=== PATIENT | female | born 1960 | race Caucasian/White ===

== ENCOUNTER 2017-01-21 14:26 | Outpatient (CLI) | payer BC ==
--- NOTE | 2017-01-21 16:01 | XRAY Report ---
THREE VIEW BILATERAL KNEES: 01/21/2017 CLINICAL INDICATION: Bilateral knee pain. FINDINGS: AP, lateral, and sunrise views of the bilateral knees demonstrate mild left osteoarthritis . The right joint spaces are preserved. There is a moderate left effusion present. No right effusion is seen. There is no evidence of fracture or dislocation. No radiopaque foreign body is seen in the s oft tissues. IMPRESSION: MILD LEFT KNEE OSTEOARTHRITIS, WITH A MODERATE JOINT EFFUSION. NORMAL RIGHT KNEE. JOB #: [id number] EXT JOB #:[id number]
== END 2017-01-21 14:27 | disposition home or self-care (01) ==
LOC: DI 14:26
PROVIDERS: ATTEND Nurse Practitioner Family
DX: M17.12 Unilateral primary osteoarthritis, left knee (principal)

== ENCOUNTER 2017-11-05 16:13 | Emergency (ER) | payer BC ==
[2017-11-05] MEDS ORDERED: AMOX/CLAV 875 MG/125 MG TABLET PO STA (16:15)
--- NOTE | 2017-11-05 16:16 | ED Physician Documentation ---
PD HPI ANIMAL BITE - Stated complaint Stated Complaint: CAT BITE - History obtained from History obtained from: Patient - History of Present Illness Location of injury(ies): Other (Her dog was barking at something and she went outside and there was a cat that jumped out of her and bit her on the right ear/ R hand. 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 HEENT: None Psych: Panic attacks Musculoskeletal: None Derm: None - Past Surgical History Past Surgical History: Yes /ELIGIBILITY CONSULTANT: Other - Present Medications Home Medications: Ambulatory Orders Medication Instructions Recorded Confirmed traZODone [Desyrel] 75 mg PO QPM 06/26/14 05/04/17 Vitamin B Complex Vit C No.4 1 tab PO DAILY 07/10/14 05/04/17 [Super B Complex] [place]-3 Fatty Acids/Fish Oil 1 cap ORAL DAILY 08/28/14 05/04/17 [[place] 3 1,000 mg Softgel] Citalopram [CeleXA] 10 mg PO DAILY 05/13/16 05/04/17 Bupropion HCl [Bupropion Xl] 300 mg PO DAILY 05/15/16 05/04/17 SUMAtriptan succinate [Sumatriptan 100 mg PO DAILY PRN 05/15/16 05/04/17 Succinate] Acetaminophen [Tylenol] 650 mg PO Q4HR PRN #0 tablet 05/17/16 05/04/17 Vitamin [Trinatal Rx 1] 1 tab PO DAILYWM tablet 05/17/16 05/04/17 SUMAtriptan [Imitrex] 100 mg PO Q4HR PRN #0 tablet 05/17/16 05/04/17 buPROPion [Wellbutrin Xl] 300 mg PO DAILY tablet 05/17/16 05/04/17 Meloxicam 15 mg PO DAILY 08/04/16 05/04/17 Exemestane 25 mg PO DAILY 03/22/17 05/04/17 Amox/Clav 875/125 [Augmentin] 1 each PO Q12H #14 tablet 11/05/17 - Allergies Allergies/Adverse Reactions: Allergies Allergy/AdvReac Type Severity Reaction Status Date / Time diphenhydramine HCl * AdvReac Mild Hyperactive Verified 05/14/16 23:17 [From Benadryl] - Social History Does the pt smoke?: No Smoking Status: Never smoker Does the pt drink ETOH?: Yes Does the pt have substance abuse?: No - Immunizations Immunizations are current?: Yes - POLST Patient has POLST: No PD ED PE NORMAL - Vitals Vital signs reviewed: Yes - General General: Alert and oriented X 3, No acute distress - HEENT HEENT: PERRL, EOMI, Other (There is a puncture wound of the right ear, posteriorly without active signs of infection.) - Neck Neck: Supple, no meningeal sign, No bony TTP - Extremities Extremities: Other (She has some puncture wounds on the dorsum of the right hand , no limited range of motion or bony tenderness.) - Neuro Neuro: Alert and oriented X 3, Normal speech Results - Vitals Vitals: Vital Signs - 24 hr 11/05/17 16:20 Temperature 36.7 C Heart Rate 96 Respiratory 15 Rate Blood Pressure 135/83 H O2 Saturation 97 Oxygen O2 Source Room air Departure - Departure Disposition: 01 Home, Self Care Clinical Impression: Cat bite Qualifiers: Encounter type: initial encounter Qualified Code(s): W55.01XA - Bitten by cat, initial encounter Condition: Good Record reviewed to determine appropriate education?: Yes Instructions: ED Bite Animal General Prescriptions: Amox/Clav 875/125 [Augmentin] 1 each PO Q12H #14 tablet Comments: Come back for any signs of infection which would include: Redness, swelling, drainage, increased pain, or fevers. Discharge Date/Time: 11/05/17 16:24
[2017-11-05 16:22] VITALS: BP 135/83
== END 2017-11-05 16:24 | disposition home or self-care (01) ==
LOC: ED 16:13
DX: S00.471A Other superficial bite of right ear, initial encounter (principal); S60.571A Other superficial bite of hand of right hand, initial encounter; W55.01XA Bitten by cat, initial encounter; I10 Essential (primary) hypertension; I48.91 Unspecified atrial fibrillation
CPT/HCPCS: 99283; A9270

== ENCOUNTER 2017-12-30 12:46 | Outpatient (CLI) | payer BC ==
--- NOTE | 2017-12-30 17:41 | XRAY Report ---
PELVIS AND BILATERAL HIPS: 12/30/2017 HISTORY: Pain. TECHNIQUE: An AP view of the pelvis and lateral view of each hip is obtained. FINDINGS: The hip joints are well maintained. No fracture or malalignment. Sacroiliac joints unremarkable. Minimal degenerative change lower lumbar spine. Multiple surgical clips lower abdomen and pelvis. IMPRESSION: NEGATIVE PELVIS AND BILATERAL HIPS. AN OBVIOUS EXPLANATION FOR HIP PAIN IS NOT SEEN. TD: 12/30/2017 16:10
== END 2017-12-30 12:47 | disposition home or self-care (01) ==
LOC: DI 12:46
PROVIDERS: ATTEND Nurse Practitioner Family
DX: M25.551 Pain in right hip (principal); M25.552 Pain in left hip; M70.71 Other bursitis of hip, right hip; M70.72 Other bursitis of hip, left hip
CPT/HCPCS: 73521

== ENCOUNTER 2021-01-27 12:58 | Emergency (ER) | payer BC, OTHER ==
[2021-01-27] MEDS ORDERED: HYDROmorphone 1 MG/ML CARPUJECT IM STA (13:16)
[2021-01-27] MEDS ORDERED: KETOROLAC 15 MG/ML VIAL IM STA (13:16)
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
[2021-01-27 14:08] VITALS: BP 143/110
== END 2021-01-27 14:19 | disposition home or self-care (01) ==
LOC: ED 12:58
DX: S29.011A Strain of muscle and tendon of front wall of thorax, initial encounter (principal); X50.0XXA Overexertion from strenuous movement or load, initial encounter; Y93.89 Activity, other specified; I10 Essential (primary) hypertension
CPT/HCPCS: 96372; 99283; 99284; J1170

== ENCOUNTER 2021-04-22 12:56 | Outpatient (CLI) | payer OTHER ==
--- NOTE | 2021-04-22 16:33 | XRAY Report ---
PROCEDURE: Knee 3 View BILAT INDICATIONS: BILAT PRIM OSTEOARTHRITIS OF KNEE TECHNIQUE: 3 views of the right and left knee(s) were acquired. COMPARISON: None. FINDINGS: Bones: No fractures or dislocations. No suspicious bony lesions. Ieoa-jz-cetevtfn osteoarthritic de generative changes noted in all compartments of the right and left knees. Soft tissues: Trace left knee suprapatellar joint effusion. No suspicious soft tissue calcifications. IMPRESSION: 1. Iofr-rl-npxggsry bilateral knee tricompartmental osteoarthritis. 2. Trace nonspecific left knee joint effusion. Reviewed by: Elisa Crain MD, PhD on 04/22/2021 4:32 PM PDT Approved by: Elisa Crain MD, PhD on 04/22/2021 4:32 PM PDT Station ID: [id number]
== END 2021-04-22 12:57 | disposition home or self-care (01) ==
LOC: DI 12:56
PROVIDERS: ATTEND Registered Nurse
DX: M17.0 Bilateral primary osteoarthritis of knee (principal); M25.462 Effusion, left knee

== ENCOUNTER 2021-05-24 10:26 | Outpatient (CLI) | payer OTHER | END 2021-05-24 10:27 | disposition critical access hospital (66) | LOC: EMS 10:26 | DX: R56.9 Unspecified convulsions (principal); Z72.89 Other problems related to lifestyle; Z63.5 Disruption of family by separation and divorce | CPT/HCPCS: A0425; A0429 ==

== ENCOUNTER 2021-05-24 10:39 | Emergency (ER) | payer OTHER ==
--- NOTE | 2021-05-24 10:46 | ED Physician Documentation ---
History of Present Illness - Stated complaint Stated Complaint: ETOH WITHDRAWL - History obtained from History obtained from: Patient, Family - Additonal information Additional information: 60-year-old woman brought in by ambulance for apparent alcohol withdrawal seizure. Per the EMT-P family states she has been drinking heavily for the last few weeks related to a divorce. Patient does not know when her last drink was. Reportedly family had gone over to check on her today and heard her fall in the bathroom and found her to have a tonic-clonic seizure. Patient bit her tongue, and complains of some chest pain. No other complaints. She does not feel shaky or anxious right now. 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 : None HEENT: None Psych: Panic attacks Musculoskeletal: None Derm: None - Past Surgical History Past Surgical History: Yes /TISSUE TECHNICIAN: Other - Present Medications Home Medications: Ambulatory Orders Medication Instructions Recorded Confirmed traZODone [Desyrel] 75 mg PO QPM 06/26/14 07/05/18 Vitamin B Complex Vit C No.4 1 tab PO DAILY 07/10/14 07/05/18 [Super B Complex] [place]-3 Fatty Acids/Fish Oil 1 cap ORAL DAILY 08/28/14 07/05/18 [[place] 3 1,000 mg Softgel] Bupropion HCl [Bupropion Xl] 300 mg PO DAILY 05/15/16 07/05/18 SUMAtriptan succinate [Sumatriptan 100 mg PO DAILY PRN 05/15/16 07/05/18 Succinate] Acetaminophen [Tylenol] 650 mg PO Q4HR PRN #0 tablet 05/17/16 07/05/18 Vitamin [Trinatal Rx 1] 1 tab PO DAILYWM tablet 05/17/16 07/05/18 SUMAtriptan [Imitrex] 100 mg PO Q4HR PRN #0 tablet 05/17/16 07/05/18 buPROPion [Wellbutrin Xl] 300 mg PO DAILY tablet 05/17/16 07/05/18 Meloxicam 15 mg PO DAILY 08/04/16 07/05/18 Exemestane 25 mg PO DAILY 90 Days #90 tablet 04/22/18 Letrozole 2.5 mg PO DAILY #30 tablet 12/06/18 Oxycodone HCl/Acetaminophen 1 - 2 each PO Q6H PRN #14 tablet 01/27/21 [Percocet 5-325 mg Tablet] - Allergies Allergies/Adverse Reactions: Allergies Allergy/AdvReac Type Severity Reaction Status Date / Time diphenhydramine HCl * AdvReac Mild Hyperactive Verified 05/24/21 10:49 [From Benadryl] - Social History Does the pt smoke?: No Smoking Status: Never smoker Does the pt drink ETOH?: Yes Does the pt have substance abuse?: No - Immunizations Immunizations are current?: Yes - POLST Patient has POLST: No PD ED PE NORMAL - Vitals Vital signs reviewed: Yes - General General: No acute distress, Other (She is mildly confused, she is alert and oriented to person and place and year but not date or recent events. She does not appear shaky.) - HEENT HEENT: PERRL, EOMI, Other (Is a tongue bite on the left anterior tongue) - Neck Neck: Supple, no meningeal sign, No bony TTP - Cardiac Cardiac: RRR, No murmur - Respiratory Respiratory: No respiratory distress, Clear bilaterally - Abdomen Abdomen: Normal bowel sounds, Soft, Non tender - Back Back: No CVA TTP, No spinal TTP - Derm Derm: Normal color, Warm and dry - Neuro Neuro: desulphurizer operator 2-12 intact Eye Opening: Spontaneous Motor: Obeys Commands Verbal: Confused GCS Score: 14 Results - Vitals Vitals: Vital Signs - 24 hr 05/24/21 05/24/21 05/24/21 10:45 11:23 12:00 Temperature 36.4 C L Heart Rate 88 88 85 Respiratory 23 17 16 Rate Blood Pressure 128/88 H 119/78 138/95 H O2 Saturation 97 99 100 05/24/21 12:30 Temperature Heart Rate 82 Respiratory 22 Rate Blood Pressure 127/100 H O2 Saturation 99 Oxygen O2 Source Room air - EKG (time done) 1103 Rate: Rate (enter#) (83) Rhythm: NSR [place]: Normal Intervals: Normal [place]. No: 2nd degree AVB type 1, 2nd degree AVB type 2, 3rd degree AVB, Prolonged QT QRS: LVH Ischemia: Normal ST segments. No: ST elevation c/w ischemia, ST depression - Labs Labs: Laboratory Tests 05/24/21 05/24/2105/24/21 11:04 11:04 11:04 WBC 6.2 RBC 4.24 Hgb 13.0 Hct 39.1 MCV 92.2 MCH 30.7 MCHC 33.2 RDW 14.7 Plt Count 149 MPV 9.1 Neut # (Auto) 5.0 Lymph # (Auto) 0.6 L [place] # (Auto) 0.5 Eos # (Auto) 0.0 Baso # (Auto) 0.0 Absolute Nucleated RBC 0.00 Nucleated RBC % 0.0 Sodium 133 L Potassium 2.7 L Chloride 92 L Carbon Dioxide 27 Anion Gap 14.0 H BUN 12 Creatinine 0.9 Estimated GFR (MDRD) 64 L Glucose 124 H Calcium 8.6 Total Bilirubin 1.2 H AST 49 H ALT 22 Alkaline Phosphatase 100 Total Protein 7.6 Albumin 4.1 Globulin 3.5 Albumin/Globulin Ratio 1.2 Lipase 63 H TSH 2.68 Urine Color Urine Clarity Urine pH Ur Specific Winnie Urine Protein Urine Glucose (UA) Urine Ketones Urine Occult Blood Urine Nitrite Urine Bilirubin Urine Urobilinogen Ur Leukocyte Esterase Urine RBC Urine WBC Ur Squamous Epith Cells Urine Bacteria Ur Microscopic Review Urine Culture Comments Salicylates < 6.0 Urine Opiates Screen Ur Oxycodone Screen Urine Methadone Screen Ur Propoxyphene Screen Acetaminophen < 10 L Ur Barbiturates Screen Ur Tricyclics Screen Ur Phencyclidine Scrn Ur Amphetamine Screen U Methamphetamines Scrn U Benzodiazepines Scrn Urine Cocaine Screen U Cannabinoids Screen Ethyl Alcohol < 5.0 05/24/21 12:11 WBC RBC Hgb Hct MCV MCH MCHC RDW Plt Count MPV Neut # (Auto) Lymph # (Auto) Rab[place] # (Auto) Eos # (Auto) Baso # (Auto) Absolute Nucleated RBC Nucleated RBC % Sodium Potassium Chloride Carbon Dioxide Anion Gap BUN Creatinine Estimated GFR (MDRD) Glucose Calcium Total Bilirubin AST ALT Alkaline Phosphatase Total Protein Albumin Globulin Albumin/Globulin Ratio Lipase TSH Urine Color YELLOW Urine Clarity CLEAR Urine pH 6.5 Ur Specific Winnie <=1.005 Urine Protein NEGATIVE Urine Glucose (UA) NEGATIVE Urine Ketones NEGATIVE Urine Occult Blood SMALL H Urine Nitrite NEGATIVE Urine Bilirubin NEGATIVE Urine Urobilinogen 0.2 (NORMAL) Ur Leukocyte Esterase TRACE H Urine RBC 0-5 Urine WBC 0-3 Ur Squamous Epith Cells RARE Squamous Urine Bacteria None Seen Ur Microscopic Review INDICATED Urine Culture Comments INDICATED Salicylates Urine Opiates Screen NEGATIVE Ur Oxycodone Screen NEGATIVE Urine Methadone Screen NEGATIVE Ur Propoxyphene Screen NEGATIVE Acetaminophen Ur Barbiturates Screen NEGATIVE Ur Tricyclics Screen NEGATIVE Ur Phencyclidine Scrn NEGATIVE Ur Amphetamine Screen NEGATIVE U Methamphetamines Scrn NEGATIVE U Benzodiazepines Scrn NEGATIVE Urine Cocaine Screen NEGATIVE U Cannabinoids Screen NEGATIVE Ethyl Alcohol PD MEDICAL DECISION MAKING - ED course ED course: Supportive brother and sister at the bedside. She had been drinking all week, they do not know exactly when her last drink was but even yesterday some new bottles had formed, so presume she was drinking until then. 60-year-old woman presents after an alcohol withdrawal seizure, supportive family at the bedside. Potassium was repleted both orally and IV. Seen by social work. Patient declined repeated offers of inpatient detox. He wanted to go home. Her sister was concerned that she would overuse Ativan and as such was given IM phenobarbital here instead. Departure - Departure Disposition: 01 Home, Self Care Clinical Impression: Alcohol withdrawal Qualifiers: Complication of substance-induced condition: uncomplicated Qualified Code(s): F10.230 - Alcohol dependence with withdrawal, uncomplicated Condition: Good Record reviewed to determine appropriate education?: Yes Instructions: ED Withdrawal Alcohol Comments: No driving for 6 months due to seizure, No driving while drunk ever! Return anytime if you decide you want inpatient detox. Call your doctor to arrange a follow-up appointment, make the next available appointment. In the interim, return anytime if worse or if new symptoms develop.
[2021-05-24] MEDS: SODIUM CHLORIDE 0.9% 1,000 ML IV STA ×2 (11:10→13:03)
[2021-05-24 11:12] LABS: BASOPHILS % (AUTO) 0.5 %; HCT - HEMATOCRIT 39.1 % (37.0-47.0); LYMPHOCYTES # (AUTO) 0.6 10^3/uL (1.5-3.5); LYMPHOCYTES % (AUTO) 9.4 %; MEAN CORPUSCULAR HEMOGLOBIN 30.7 pg (27.0-31.0); MEAN CORPUSCULAR HGB CONC 33.2 g/dL (32.0-36.0); MEAN CORPUSCULAR VOLUME 92.2 fL (81.0-99.0); MEAN PLATELET VOLUME 9.1 fL (7.9-10.8); MONOCYTES # (AUTO) 0.5 10^3/uL (0.0-1.0); MONOCYTES % (AUTO) 8.2 %; NEUTROPHILS % (AUTO) 81.1 %; PLT - PLATELET COUNT 149 10^3/uL (130-450); RED BLOOD COUNT 4.24 10^6/uL (4.20-5.40); RED CELL DISTRIBUTION WIDTH 14.7 % (12.0-15.0); WHITE BLOOD COUNT 6.2 x10^3/uL (4.8-10.8)
[2021-05-24] MEDS: THIAMINE INJ 100 MG in SODIUM CHLORIDE 0.9% 50 ML IV STA (11:13)
[2021-05-24] MEDS: LORazepam 2 MG/ML VIAL IVP STA (11:18)
[2021-05-24 11:28] LABS: ACETAMINOPHEN < 10 ug/mL (10-30); ALBUMIN 4.1 g/dL (3.2-5.5); ALBUMIN/GLOBULIN RATIO 1.2 (1.0-2.2); ALKALINE PHOSPHATASE 100 IU/L (42-121); ALT ALANINE AMINOTRANSFERASE 22 IU/L (10-60); AST ASPARTATE AMINOTRANSFERASE 49 IU/L (10-42); BILIRUBIN,TOTAL 1.2 mg/dL (0.2-1.0); BUN - BLOOD UREA NITROGEN 12 mg/dL (6-20); CALCIUM 8.6 mg/dL (8.5-10.3); CARBON DIOXIDE - CO2 27 mmol/L (21-32); CHLORIDE 92 mmol/L (101-111); CREATININE 0.9 mg/dL (0.4-1.0); ETOH - ETHANOL < 5.0 mg/dL; GFR - MDRD 64 (>89); GLUCOSE 124 mg/dL (70-100); LIPASE 63 U/L (22-51); POTASSIUM 2.7 mmol/L (3.5-5.0); SALICYLATE < 6.0 mg/dL; SODIUM 133 mmol/L (135-145); TOTAL PROTEIN 7.6 g/dL (6.7-8.2)
[2021-05-24] MEDS: POTASSIUM CHLORIDE 20 MEQ TABLET PO STA (12:16)
[2021-05-24] MEDS: POTASSIUM CHLOR 10 MEQ/100 ML 10 MEQ/100 ML BAG IV STA (12:16)
[2021-05-24 12:18] LABS: MUDS CUTOFF CONCENTRATIONS CUTOFF CONC BELOW:
[2021-05-24 12:20] LABS: BILIRUBIN,URINE NEGATIVE (NEGATIVE); GLUCOSE, URINE (UA) NEGATIVE (NEGATIVE); KETONES,URINE (UA) NEGATIVE (NEGATIVE); LEUKOCYTE ESTERASE, URINE TRACE (NEGATIVE); NITRITE,URINE NEGATIVE (NEGATIVE); OCCULT BLOOD,URINE SMALL (NEGATIVE); PH,URINE 6.5 PH (5.0-7.5); PROTEIN,URINE NEGATIVE (NEGATIVE); UROBILINOGEN,URINE 0.2 (NORMAL) E.U./dL (NORMAL)
[2021-05-24 12:22] LABS: CLARITY,URINE CLEAR (CLEAR)
[2021-05-24 12:30] LABS: AMPHETAMINE SCREEN,URINE NEGATIVE (NEGATIVE); BARBITURATE SCREEN,UR NEGATIVE (NEGATIVE); BENZODIAZEPINES SCREEN, URINE NEGATIVE (NEGATIVE); COCAINE SCREEN URINE NEGATIVE (NEGATIVE); METHADONE SCREEN, URINE NEGATIVE (NEGATIVE); METHAMPHETAMINES SCREEN, URINE NEGATIVE (NEGATIVE); OPIATE SCREEN, URINE NEGATIVE (NEGATIVE); OXYCODONE SCREEN, URINE NEGATIVE (NEGATIVE); PROPOXYPHENE SCREEN, URINE NEGATIVE (NEGATIVE); THC CANNABINOID SCREEN, URINE NEGATIVE (NEGATIVE); TRICYCLIC ANTIDEPRESSANT,URINE NEGATIVE (NEGATIVE)
[2021-05-24 12:34] LABS: BACTERIA,URINE None Seen /HPF (None Seen); RBC,URINE 0-5 /HPF (0-5); SQUAMOUS EPITHELIAL CELL,UR RARE Squamous (<= Few); WBC,URINE 0-3 /HPF (0-5)
[2021-05-24] MEDS: PHENobarbital 65 MG/ML VIAL IM STA (13:24)
[2021-05-24 14:03] VITALS: BP 130/80
== END 2021-05-24 14:03 | disposition home or self-care (01) ==
LOC: EDUNIT# → ED 10:39
DX: F10.230 Alcohol dependence with withdrawal, uncomplicated (principal)
CPT/HCPCS: 36415; 80053; 80306; 80307; 80320; 80329; 81001; 83690; 84443; 85025; 93005; 96365; 96367; 96372; 96375; 99283; 99284; A9270; J2060; J3411; J7040; 81003; 87086

== ENCOUNTER 2021-06-23 13:11 | Emergency (ER) | payer OTHER ==
[2021-06-23 13:26] VITALS: BP 138/98
--- NOTE | 2021-06-23 13:52 | XRAY Report ---
PROCEDURE: Wrist 4 View RT INDICATIONS: Trauma TECHNIQUE: 4 views of the wrist were acquired. COMPARISON: None. FINDINGS: BONES: Moderate arthrosis about the first carpometacarpal articulation. Minimal displaced fracture of the distal radius, which does not appear to extend to the radiocarpal a rticulation. Fracture deformity of the ulnar styloid, age indeterminate. SOFT TISSUES: Edema about the fracture site. IMPRESSION: 1.Minimal displaced fracture of the distal radius as detailed above. 2.Age-indeterminate fracture of the ulnar styloid. Reviewed by: Paco Raphael MD on 06/23/2021 1:50 PM [facility] Approved by: Paco Raphael MD on 06/23/2021 1:50 PM [facility] Station ID: [id number]
--- NOTE | 2021-06-23 15:33 | ED Physician Documentation ---
PD HPI UPPER EXT INJURY - Stated complaint Stated Complaint: RT WRIST INJ - Chief complaint Chief Complaint: Trauma Ext - History obtained from History obtained from: Patient - Additonal information Additional information: 60-year-old woman had a trip and fall walking up 2 stairs 4 days ago and had a fall on outstretched wrist. Still severe pain of the right wrist which is her dominant side that is keeping her from sleeping. Also swelling. Icing does help. No other injuries. 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 [employer]INE EQUIPMENT: Other - Present Medications Home Medications: Ambulatory Orders Medication Instructions Recorded Confirmed traZODone [Desyrel] 75 mg PO QPM 06/26/14 07/05/18 Vitamin B Complex Vit C No.4 1 tab PO DAILY 07/10/14 07/05/18 [Super B Complex] [place]-3 Fatty Acids/Fish Oil 1 cap ORAL DAILY 08/28/14 07/05/18 [[place] 3 1,000 mg Softgel] Bupropion HCl [Bupropion Xl] 300 mg PO DAILY 05/15/16 07/05/18 SUMAtriptan succinate [Sumatriptan 100 mg PO DAILY PRN 05/15/16 07/05/18 Succinate] Acetaminophen [Tylenol] 650 mg PO Q4HR PRN #0 tablet 05/17/16 07/05/18 Vitamin [Trinatal Rx 1] 1 tab PO DAILYWM tablet 05/17/16 07/05/18 SUMAtriptan [Imitrex] 100 mg PO Q4HR PRN #0 tablet 05/17/16 07/05/18 buPROPion [Wellbutrin Xl] 300 mg PO DAILY tablet 05/17/16 07/05/18 Meloxicam 15 mg PO DAILY 08/04/16 07/05/18 Exemestane 25 mg PO DAILY 90 Days #90 tablet 04/22/18 Letrozole 2.5 mg PO DAILY #30 tablet 12/06/18 Oxycodone HCl/Acetaminophen 1 - 2 each PO Q6H PRN #14 tablet 01/27/21 [Percocet 5-325 mg Tablet] HYDROcod/ACETAM 5/325 [[place] 5/325] 1 - 2 tab PO Q6H PRN #15 tablet 06/23/21 - Allergies Allergies/Adverse Reactions: Allergies Allergy/AdvReac Type Severity Reaction Status Date / Time diphenhydramine HCl * AdvReac Mild Hyperactive Verified 06/23/21 13:19 [From Benadryl] - Social History Does the pt smoke?: No Smoking Status: Never smoker Does the pt drink ETOH?: Yes Does the pt have substance abuse?: No - Immunizations Immunizations are current?: Yes - POLST Patient has POLST: No PD ED PE NORMAL - Vitals Vital signs reviewed: Yes - General General: Alert and oriented X 3, No acute distress - Derm Derm: Normal color, Warm and dry - Extremities Extremities: Other (The right wrist is tender swollen and ecchymotic, but without obvious deformity and she has actually decent range of motion.) - Neuro Neuro: Alert and oriented X 3, Normal speech Results - Vitals Vitals: Vital Signs - 24 hr 06/23/21 13:19 Temperature 36.5 C Heart Rate 100 Respiratory 16 Rate Blood Pressure 138/98 H O2 Saturation 96 Oxygen O2 Source Room air - Rads (name of study) 4 view x-ray of the right wrist demonstrates minimally displaced Colles' fracture Radiology: EMP read contemporaneously Procedures - Splint (location) R wrist Splint applied by: Physician Type of splint: Fiberglass, Short arm, Volar cock up Other: Patient tolerated well, No complications, Neurovascular intact Departure - Departure Disposition: 01 Home, Self Care Clinical Impression: Wrist fracture, right Condition: Good Record reviewed to determine appropriate education?: Yes Instructions: ED Fx Colles Wrist No Redu Requ Follow-Up: Roosevelt Carlson MD [Provider Admit Priv/Credential] - Prescriptions: HYDROcod/ACETAM 5/325 [[place] 5/325] 1 - 2 tab PO Q6H PRN #15 tablet PRN Reason: Pain Comments: Prescription was sent electronically to [facility] in [place]. Call the orthopedist office, make an appointment for within the week or week and a half. Keep the splint on and dry until then, do not remove it. Return for new or worsening symptoms. I am prescribing a short course of narcotic pain medication for you. These are potentially dangerous and addictive medications that should be used carefully. These medications may constipate you. Take an vqac-vhf-zpxuzae stool softener (docusate) twice daily with plenty of water while taking these medications. If you go 24 hours without a bowel movement, take oriy-ttn-osizzjc miralax, per package instructions. Do not drink or drive while taking these medications. If you received narcotic or sedating medications while in the emergency department, do not drive for 24 hours. Store this medication in a safe, secure place and out of reach of children. It is a violation of federal law to give or sell this medication to another person or to use in a manner other than prescribed. The ED will not refill narcotic prescriptions, including prescriptions lost or stolen. To dispose of unwanted medications: 1. [facility] [address] in [place] has a medication drop box. They accept prescription medications (in pill form) Wednesday through Wednesday 9:00 a.m. to 5:00 p.m. 2. The [facility] [employer] accepts prescription medications (in pill form only) for disposal year round. Call for more information. 3. Contact the [facility] for the next [facility] sponsored prescription drug collection event. , [phone], or [phone]; Note that many narcotic pain relievers also contain Tylenol/acetaminophen. Please ensure that your total dose of acetaminophen from all sources does not exceed 3 g (3000 mg) per day.
== END 2021-06-23 15:33 | disposition home or self-care (01) ==
LOC: ED 13:11
DX: S52.531A Colles' fracture of right radius, initial encounter for closed fracture (principal); W10.9XXA Fall (on) (from) unspecified stairs and steps, initial encounter; Y93.01 Activity, walking, marching and hiking; I10 Essential (primary) hypertension
CPT/HCPCS: 29125; 99283

== ENCOUNTER 2021-07-02 15:25 | Outpatient (CLI) | payer OTHER ==
--- NOTE | 2021-07-02 15:59 | XRAY Report ---
PROCEDURE: Wrist 3 View RT INDICATIONS: PAIN IN DEMPSEY WRIST TECHNIQUE: 3 views of the wrist were acquired. COMPARISON: 06/23/2021 FINDINGS: Bones: Again noted is impacted and minimally displaced distal radial fracture and ulnar styloid fract ure unchanged from prior study. No new fracture or dislocation. 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 No suspicious bony lesions. Scaphoid view: Scaphoid is grossly intact. Soft tissues: No suspicious soft tissue calcifications. IMPRESSION: Impacted distal radial fracture and ulnar styloid fracture with stable wrist alignment. No new fractu re or dislocation. Reviewed by: Jose Jaimes MD on 07/02/2021 3:57 PM PST Approved by: Jose Jaimes MD on 07/02/2021 3:57 PM PST Station ID: [id number]
== END 2021-07-02 15:26 | disposition home or self-care (01) ==
LOC: DI 15:25
PROVIDERS: ATTEND Orthopaedic Surgery
DX: S52.611A Displaced fracture of right ulna styloid process, initial encounter for closed fracture (principal)

== ENCOUNTER 2021-09-08 11:19 | Outpatient (CLI) | payer OTHER ==
--- NOTE | 2021-09-08 16:34 | XRAY Report ---
PROCEDURE: Wrist 3 View RT INDICATIONS: WRIST PAIN TECHNIQUE: 3 views of the wrist were acquired. COMPARISON: 07/02/2021, 06/23/2021 FINDINGS: Bones: There is interval further healing at distal radial shaft impacted fracture site with increased sclerosis. Slightly displaced ulnar styloid fracture is again seen and unchanged. Osteoarthritic nikki nges are noted throughout wrist joints. No new fracture or dislocation. Wrist alignment is near-anato hola. No suspicious bony lesions. Scaphoid view: Scaphoid is grossly intact. Soft tissues: No suspicious soft tissue calcifications. IMPRESSION: Interval further healing at distal radial shaft fracture site. Displaced ulnar styloid fracture uncha nged from prior study. Right wrist joint osteoarthritis. No new fracture or dislocation. Stable and n ear-anatomic wrist alignment. Reviewed by: Jose Jaimes MD on 09/08/2021 4:33 PM PST Approved by: Jose Jaimes MD on 09/08/2021 4:33 PM PST Station ID: [id number]
== END 2021-09-08 11:20 | disposition home or self-care (01) ==
LOC: DI.WOS 11:19
PROVIDERS: ATTEND Physician Assistant
DX: S52.501D Unspecified fracture of the lower end of right radius, subsequent encounter for closed fracture with routine healing (principal); S52.611D Displaced fracture of right ulna styloid process, subsequent encounter for closed fracture with routine healing; M19.031 Primary osteoarthritis, right wrist

== ENCOUNTER 2021-09-12 10:59 | Outpatient (CLI) | payer OTHER ==
--- NOTE | 2021-09-12 12:04 | DEXA Report ---
PROCEDURE: Dexa Spine and/or Hip INDICATIONS: CLOSED COLLES' FRACTURE, RIGHT TECHNIQUE: Dual energy x-ray absorptiometry (DXA) was performed on a [employer] System. Regions measur ed are the AP Spine, femoral neck, and if needed forearm. COMPARISON: DEXA 01/02/2015. FINDINGS: Lumbar Spine: Bone Mineral Density 1.044 g/cm/cm,T score -1.1, osteopenia Left Hip: Bone Mineral Density 0.774 g/cm/cm,T score -1.9, osteopenia Left Femoral Neck: Bone Mineral Density 0.714 g/cm/cm, T score -2.3, osteopenia (T score greater or equal to -1.0: NORMAL) (T score from -1.1 to -2.4: OSTEOPENIA) (T score less than or equal to -2.5 to: OSTEOPOROSIS) Impression: Decreased bone mineral density within the osteopenic range. Findings have mildly progress ed at the left hip when compared to the prior exam. Patients with diagnosis of osteoporosis or osteopenia should have regular bone mineral density assess ment. For those eligible for Medicare, routine testing is allowed once every 2 years. Testing frequ ency can be increased for patients who have rapidly progressing disease or for those who are receivin g medical therapy to restore bone mass. Reviewed by: Parker Hastings MD on 09/12/2021 12:03 PM PST Approved by: Parker Hastings MD on 09/12/2021 12:03 PM PST Station ID: [id number]
== END 2021-09-12 11:00 | disposition home or self-care (01) ==
LOC: DI 10:59
PROVIDERS: ATTEND Nurse Practitioner Family
DX: M85.89 Other specified disorders of bone density and structure, multiple sites (principal)

== ENCOUNTER 2021-11-29 11:12 | Emergency (ER) | payer OTHER ==
[2021-11-29 11:48] LABS: BASOPHILS # (AUTO) 0.1 10^3/uL (0.0-0.1); HCT - HEMATOCRIT 39.4 % (37.0-47.0); HGB - HEMOGLOBIN 13.1 g/dL (12.0-16.0); LYMPHOCYTES % (AUTO) 11.9 %; MEAN CORPUSCULAR HEMOGLOBIN 32.5 pg (27.0-31.0); MEAN CORPUSCULAR HGB CONC 33.2 g/dL (32.0-36.0); MEAN CORPUSCULAR VOLUME 97.8 fL (81.0-99.0); MONOCYTES % (AUTO) 12.1 %; NEUTROPHILS # (AUTO) 6.2 10^3/uL (1.5-6.6); NEUTROPHILS % (AUTO) 74.4 %; PLT - PLATELET COUNT 420 10^3/uL (130-450); RED BLOOD COUNT 4.03 10^6/uL (4.20-5.40); RED CELL DISTRIBUTION WIDTH 14.2 % (12.0-15.0); WHITE BLOOD COUNT 8.4 x10^3/uL (4.8-10.8)
[2021-11-29] MEDS ORDERED: HYDROmorphone 1 MG/ML CARPUJECT IVP STA (12:03)
--- NOTE | 2021-11-29 12:04 | ED Physician Documentation ---
PD HPI CHEST PAIN - Stated complaint Stated Complaint: SOA/CHEST PAIN - Chief complaint Chief Complaint: Cardiac - History obtained from History obtained from: Patient - Additional information Additional information: 60-year-old woman with history of breast cancer in remission and also alcohol abuse in remission was up on a chair in her kitchen 2 days ago and fell. She hit the ground. She did not hit her head. She was not really in much pain that day but starting yesterday has severe abdominal and chest pain making it difficult to breathe. Its worse with position changes and deep breathing. 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: Breast cancer : None HEENT: None Psych: Panic attacks Musculoskeletal: None Derm: None - Past Surgical History Past Surgical History: Yes /COORDINATOR CARDIOPULMONARY SERVICES: Other - Present Medications Home Medications: Ambulatory Orders Medication Instructions Recorded Confirmed traZODone [Desyrel] 75 mg PO QPM 06/26/14 07/05/18 Vitamin B Complex Vit C No.4 1 tab PO DAILY 07/10/14 07/05/18 [Super B Complex] [place]-3 Fatty Acids/Fish Oil 1 cap ORAL DAILY 08/28/14 07/05/18 [[place] 3 1,000 mg Softgel] Bupropion HCl [Bupropion Xl] 300 mg PO DAILY 05/15/16 07/05/18 SUMAtriptan succinate [Sumatriptan 100 mg PO DAILY PRN 05/15/16 07/05/18 Succinate] Acetaminophen [Tylenol] 650 mg PO Q4HR PRN #0 tablet 05/17/16 07/05/18 Vitamin [Trinatal Rx 1] 1 tab PO DAILYWM tablet 05/17/16 07/05/18 SUMAtriptan [Imitrex] 100 mg PO Q4HR PRN #0 tablet 05/17/16 07/05/18 buPROPion [Wellbutrin Xl] 300 mg PO DAILY tablet 05/17/16 07/05/18 Meloxicam 15 mg PO DAILY 08/04/16 07/05/18 Exemestane 25 mg PO DAILY 90 Days #90 tablet 04/22/18 Letrozole 2.5 mg PO DAILY #30 tablet 12/06/18 Oxycodone HCl/Acetaminophen 1 - 2 each PO Q6H PRN #14 tablet 01/27/21 [Percocet 5-325 mg Tablet] HYDROcod/ACETAM 5/325 [[place] 5/325] 1 - 2 tab PO Q6H PRN #15 tablet 06/23/21 HYDROcod/ACETAM 5/325 [[place] 5/325] 1 - 2 tab PO Q6H PRN #10 tablet 11/29/21 LORazepam [Ativan] 1 mg PO TID PRN #6 tablet 11/29/21 Omeprazole 40 mg PO DAILY #30 cap 11/29/21 - Allergies Allergies/Adverse Reactions: Allergies Allergy/AdvReac Type Severity Reaction Status Date / Time diphenhydramine HCl * AdvReac Mild Hyperactive Verified 11/29/21 11:20 [From Benadryl] - Social History Does the pt smoke?: No Smoking Status: Never smoker Does the pt drink ETOH?: Yes Does the pt have substance abuse?: No - Immunizations Immunizations are current?: Yes - POLST Patient has POLST: No PD ED PE NORMAL - Vitals Vital signs reviewed: Yes - General General: Alert and oriented X 3, No acute distress - HEENT HEENT: PERRL, EOMI - Neck Neck: Supple, no meningeal sign, No bony TTP - Cardiac Cardiac: RRR, No murmur - Respiratory Respiratory: No respiratory distress, Clear bilaterally, Other (I am unable to elicit any rib tenderness. No bruising or deformity about the chest or abdominal wall) - Abdomen Abdomen: Other (Mild left-sided abdominal tenderness) - Back Back: No CVA TTP, No spinal TTP - Derm Derm: Normal color, Warm and dry - Extremities Extremities: No edema, No calf tenderness / cord - Neuro Neuro: Alert and oriented X 3, lock setter 2-12 intact (No nystagmus), No motor deficit, No sensory deficit, Normal speech Results - Vitals Vitals: Vital Signs - 24 hr 11/29/21 11/29/21 11/29/21 11:22 11:43 13:46 Temperature 36.8 C Heart Rate 107 H 98 101 H Respiratory 20 17 19 Rate Blood Pressure 121/82 H 104/72 O2 Saturation 96 94 92 Oxygen O2 Source Room air - EKG (time done) 1137 Rate: Rate (enter#) (96) Rhythm: NSR [place]: Normal Intervals: Normal GA, Prolonged QT (borderline) Ischemia: Non specific changes. No: ST elevation c/w ischemia Computer interpretation: Agree with computer - Labs Labs: Laboratory Tests 11/29/21 11/29/21 11/29/21 11:40 11:40 11:40 WBC 8.4 RBC 4.03 L Hgb 13.1 Hct 39.4 MCV 97.8 MCH 32.5 H MCHC 33.2 RDW 14.2 Plt Count 420 MPV 10.0 Neut # (Auto) 6.2 Lymph # (Auto) 1.0 L [place] # (Auto) 1.0 Eos # (Auto) 0.0 Baso # (Auto) 0.1 Absolute Nucleated RBC 0.00 Nucleated RBC % 0.0 Sodium 138 Potassium 3.7 Chloride 102 Carbon Dioxide 26 Anion Gap 10.0 BUN 10 Creatinine 0.6 Estimated GFR (MDRD) 103 Glucose 110 H Calcium 8.4 L Total Bilirubin 0.7 AST 22 ALT 14 Alkaline Phosphatase 52 Troponin I High Sens 3.4 Total Protein 7.2 Albumin 2.7 L Globulin 4.5 H Albumin/Globulin Ratio 0.6 L Lipase 21 L - Rads (name of study) Single view chest x-ray demonstrates small bilateral pleural effusions with bibasilar consolidations or atelectasis. Radiology: EMP read contemporaneously Ct Chest Radiology: EMP read contemporaneously (1. Small pleural effusions bilaterally. Bibasilar consolidation or atelectasis. 2. Multiple subpleural densities seen bilaterally, likely scars and atelectasis. 3. Small-moderate hiatal hernia. 4. Postsurgical changes in the left breast and axilla. Mildly prominent left axillary lymph nodes, nonspec) PD MEDICAL DECISION MAKING - ED course ED course: 60-year-old woman presents with chest and abdominal pain and difficulty with deep breathing after a fall 2 days ago. While there was thankfully no sign of significant trauma on CT of the abdomen and pelvis and her labs were reassuring, there were several incidental findings that were discussed with the patient and the need for follow-up was impressed upon her. She was given a copy of the CT reads. Specifically notable were needing follow-up imaging on the liver and pancreas as well as follow-up on a left axillary lymph node. She is feeling better after some pain medication here but feeling very anxious. I sent the Following protected email to Gage Lr who is associated with her primary nurse practitioner: Gage, I am seeing one of Flor Varma patients, Renée Hendricks (64). She is a 60-year-old woman who presented today for chest and abdominal pain especially with deep breathing after a fall from a chair 2 days ago. She has a history of it breast cancer in remission and alcoholism in remission. We did CT of the chest abdomen and pelvis and there was no sign of traumatic finding well, that said there were several incidental findings needing follow-up including abnormal pancreas with concern for pancreatic malignancy, abnormal liver, with concern for hepatocellular carcinoma, and an abnormal left axillary lymph node. Recommend consideration for MRI of the liver and MRCP and potentially surgical follow-up for the left axillary lymph node. Thanks! Departure - Departure Disposition: 01 Home, Self Care Clinical Impression: Fall from chair, Chest wall pain, Abdominal contusion Condition: Good Record reviewed to determine appropriate education?: Yes Instructions: ED Contusion Chest Wall Prescriptions: LORazepam [Ativan] 1 mg PO TID PRN #6 tablet PRN Reason: Anxiety HYDROcod/ACETAM 5/325 [[place] 5/325] 1 - 2 tab PO Q6H PRN #10 tablet PRN Reason: Pain Omeprazole 40 mg PO DAILY #30 cap Comments: I sent your prescriptions for pain medicine, something for anxiety, and stomach acid [facility] in [place]. As discussed, no clear sign of trauma on the pictures, but there were several incidental findings that need follow-up. Specifically, talk with Kasie Varma about an MRI of your pancreas and liver to evaluate for potential malignancy. Also mildly prominent left armpit lymph node needs follow-up and evaluation as well. Call your doctor to arrange a follow-up appointment, make the next available appointment. In the interim, return anytime if worse or if new symptoms develop. I am prescribing a short course of narcotic pain medication for you. These are potentially dangerous and addictive medications that should be used carefully. These medications may constipate you. Take an ryfq-mmp-quzdqjx stool softener (docusate) twice daily with plenty of water while taking these medications. If you go 24 hours without a bowel movement, take mlmw-bet-adxldfg miralax, per package instructions. Do not drink or drive while taking these medications. If you received narcotic or sedating medications while in the emergency department, do not drive for 24 hours. Store this medication in a safe, secure place and out of reach of children. It is a violation of federal law to give or sell this medication to another person or to use in a manner other than prescribed. The ED will not refill narcotic prescriptions, including prescriptions lost or stolen. To dispose of unwanted medications: 1. [facility] [address] in [place] has a medication drop box. They accept prescription medications (in pill form) Wednesday through Wednesday 9:00 a.m. to 5:00 p.m. 2. The [facility] Department accepts prescription medications (in pill form only) for disposal year round. Call for more information. 3. Contact the [facility] for the next [facility] sponsored prescription drug collection event. , [phone], or [phone]; Note that many narcotic pain relievers also contain Tylenol/acetaminophen. Please ensure that your total dose of acetaminophen from all sources does not exceed 3 g (3000 mg) per day. Ct Abdomen: 1. Diffusely abnormal pancreas c/w chronic pancreatitis. 2. Irregular pancreatic duct dilation is most likely secondary to pancreatitis. A differential diagnosis is a intraductal papillary mucinous neoplasm. 3. There is inhomogeneous hepatic fatty infiltration. Foci of hypodensities in the left hepatic lobe adjacent to the falciform ligament are most likely caused by focal fat. If there is chronic liver disease and clinical suspicion for hepatocellular carcinoma, nonemergent adrenal protocol CT is suggested for follow-up. 4. Diverticulosis without diverticulitis. 5. Possible tiny gallstones or gallbladder sludge. 6. No acute visceral injuries in abdomen or pelvis. CT Chest: IMPRESSION: 1. Small pleural effusions are present bilaterally. There are bibasilar cons olidation or atelectasis. 2. Multiple subpleural densities are seen bilaterally, most likely scars and atelectasis. 3. Yxbvx-eb-lqddjtav size hiatal hernia. 4. There are postsurgical changes in the left breast and axilla. Mildly prominent left axillary lymph nodes are noted, nonspecific. Recommend clinical follow-up.
[2021-11-29 12:06] LABS: ALBUMIN 2.7 g/dL (3.2-5.5); ALBUMIN/GLOBULIN RATIO 0.6 (1.0-2.2); BILIRUBIN,TOTAL 0.7 mg/dL (0.2-1.0); CALCIUM 8.4 mg/dL (8.5-10.3); CREATININE 0.6 mg/dL (0.4-1.0); POTASSIUM 3.7 mmol/L (3.5-5.0); TOTAL PROTEIN 7.2 g/dL (6.7-8.2)
[2021-11-29] MEDS ORDERED: IOPAMIDOL-300 100 ML VIAL ONE (12:17)
--- NOTE | 2021-11-29 12:29 | XRAY Report ---
PROCEDURE: Chest 1 View X-Ray INDICATIONS: Chest pain TECHNIQUE: One view of the chest was acquired. COMPARISON: Chest x-ray 2 view, 05/21/2014 FINDINGS: Surgical changes and devices: Atypical clips in the left breast and axilla.. Lungs and pleura: There are small pleural effusions bilaterally. Bibasilar opacities may be atelecta sis or dislocations. No pneumothorax. Mediastinum: Mediastinal contours appear normal. Heart size is normal. Bones and chest wall: Probable bone island or an artifact in the right humeral head.. Overlying soft tissues appear unremarkable. IMPRESSION: 1. Bilateral small pleural effusions. There are bibasilar consolidations or atelectasis. Reviewed by: Marleni Matthew MD on 11/29/2021 11:28 AM SYL Approved by: Marleni Matthew MD on 11/29/2021 11:28 AM SYL Station ID: [id number]
[2021-11-29] MEDS ORDERED: IOPAMIDOL-300 100 ML VIAL IVP ONE (12:42)
--- NOTE | 2021-11-29 13:18 | CT Report ---
PROCEDURE: CHEST W INDICATIONS: IV only, abdominal and chest trauma CONTRAST: IV CONTRAST: Isovue 300 ml: 100 PO CONTRAST: *NO PO CONTRAST TECHNIQUE: After the administration of intravenous contrast, 1 mm axial images were acquired from the pulmonary apices through the posterior costophrenic angles. Axial 5 mm soft tissue kernel reconstructions were performed as well as 8 mm axial MIP and coronal and sagittal 5 mm reformations. For radiation dose reduction, the following was used: automated exposure control, adjustment of mA and/or kV according to patient size. COMPARISON: Test x-ray, 11/29/2021. FINDINGS: Image quality: Excellent. Lungs and pleura: Bilateral small pleural effusions. Bibasilar consolidations or atelectasis. Multip le subpleural densities bilaterally are seen, most likely scars and atelectasis. No pneumothorax. Ce ntral and peripheral airways are patent and normal in caliber. Mediastinum: Heart size is normal. No pericardial effusion. No mediastinal or hilar adenopathy by size criteria. Thoracic aorta and central pulmonary arteries are normal in size. Esophagus is ray l in caliber. Small-moderate sized hiatal hernia. Bones and chest wall: No surgical changes in left breast and left axilla. Mildly prominent left axil dave lymph nodes are noted measuring less than 1 cm. No suspicious bony lesions. No vertebral body c ompression fractures. No axillary or supraclavicular adenopathy by size criteria. The thyroid is no rmal in size and there are no incidental findings.. Abdomen: Please see separate CT abdomen pelvis. IMPRESSION: 1. Small pleural effusions are present bilaterally. There are bibasilar consolidation or atelectasis. 2. Multiple subpleural densities are seen bilaterally, most likely scars and atelectasis. 3. Jgfvu-jk-akmhmqlv size hiatal hernia. 4. There are postsurgical changes in the left breast and axilla. Mildly prominent left axillary lymph nodes are noted, nonspecific. Recommend clinical follow-up. CLINICAL RECOMMENDATION STATEMENTS: In patients <35 years with an ITN detected on CT, MRI, or extrathyroidal ultrasound, the Committee re commends further evaluation with dedicated thyroid ultrasound if the nodule is "e1 cm and has no susp icious imaging features, and if the patient has normal life expectancy. In patients "e35 years with an ITN detected on CT, MRI, or extrathyroidal ultrasound, the Committee r ecommends further evaluation with dedicated thyroid ultrasound if the nodule is "e1.5 cm and has no s uspicious imaging features, and if the patient has normal life expectancy. (ACR, 2014) Reviewed by: Marleni Matthew MD on 11/29/2021 12:17 PM AKDT Approved by: Marleni Matthew MD on 11/29/2021 12:17 PM AKDT Station ID: [id number]
--- NOTE | 2021-11-29 13:43 | CT Report ---
PROCEDURE: Abdomen/Pelvis W INDICATIONS: IV only, abdominal and chest trauma CONTRAST: IV CONTRAST: Isovue 300 ml: 100 PO CONTRAST: *NO PO CONTRAST TECHNIQUE: After the administration of intravenous contrast, 5 mm thick sections acquired from the diaphragms to the symphysis. 5 mm thick coronal and sagittal reformats were acquired. For radiation dose reducti on, the following was used: automated exposure control, adjustment of mA and/or kV according to suhail ent size. COMPARISON: CT chest with contrast, 11/29/2021. FINDINGS: Image quality: Excellent. ABDOMEN: Lung bases: Small pleural effusions are present bilaterally. There are bibasilar consolidations or at electasis. [id number] size hiatal hernia. Please see separate chest CT for detail. Solid organs: Liver is mildly enlarged. There is severe heterogeneous hypodensities in liver, most p ronounced in the right hepatic lobe, compatible with inhomogeneous hepatic fatty infiltration. Foci o f geographic hypodensities in the anterior left hepatic lobe adjacent to the falciform ligament are n oted, most likely secondary to focal fat. Subtle hypodensity in the left portal vein is seen, most li varsha caused by flow associated artifact. Spleen is normal in size and enhancement. Gallbladder a contain small gallstones or sludge. Biliary system is non dilated. Pancreas is diffusely abnormal with multiple foci of calcifications consistent with chronic pancreati tis. Pancreatic duct is irregularly dilated there is No adrenal nodules. Kidneys demonstrate normal size and enhancement, without hydronephrosis. Peritoneum and bowel: Bowel loops demonstrate normal wall thickness and caliber. There are colonic diverticula. No diverticulitis. A large amount of stool in colon. No free fluid or air. Nodes and vessels: No retroperitoneal or mesenteric adenopathy by size criteria. Aorta and inferior vena cava are normal in size. Miscellaneous: No ventral hernias. PELVIS: Genitourinary: Bladder wall thickness is normal. Miscellaneous: No inguinal hernias or adenopathy. Bones: No suspicious bony lesions. No vertebral body compression fractures. Degenerative changes no mignon in lumbar spine. IMPRESSION: 1. Diffusely abnormal pancreas with multiple foci of pancreatic calcification, compatible with chroni c pancreatitis. 2. Irregular pancreatic duct dilation is most likely secondary to pancreatitis. A differential diagno sis is a intraductal papillary mucinous neoplasm. 3. There is inhomogeneous hepatic fatty infiltration. Foci of hypodensities in the left hepatic lobe adjacent to the falciform ligament are most likely caused by focal fat. If there is chronic liver dis ease and clinical suspicion for hepatocellular carcinoma, nonemergent adrenal protocol CT is suggeste d for follow-up. 4. Diverticulosis without diverticulitis. 5. Possible tiny gallstones or gallbladder sludge. 6. No acute visceral injuries in abdomen or pelvis. Reviewed by: Marleni Matthew MD on 11/29/2021 12:41 PM [facility] Approved by: Marleni Matthew MD on 11/29/2021 12:41 PM [facility] Station ID: [id number]
[2021-11-29 15:29] VITALS: BP 106/74
== END 2021-11-29 15:31 | disposition home or self-care (01) ==
LOC: ED 11:12
DX: S30.1XXA Contusion of abdominal wall, initial encounter (principal); W07.XXXA Fall from chair, initial encounter; Y92.000 Kitchen of unspecified non-institutional (private) residence as the place of occurrence of the external cause; R07.1 Chest pain on breathing; I10 Essential (primary) hypertension; I48.91 Unspecified atrial fibrillation
CPT/HCPCS: 36415; 71045; 71260; 74177; 80053; 83690; 84484; 85025; 93005; 99284; 99285; J1170; Q9967

== ENCOUNTER 2021-11-29 23:25 | Outpatient (CLI) | payer OTHER | END 2021-11-29 23:26 | disposition critical access hospital (66) | LOC: EMS 23:25 | DX: J18.9 Pneumonia, unspecified organism (principal); R53.1 Weakness; R18.8 Other ascites; R10.819 Abdominal tenderness, unspecified site | CPT/HCPCS: A0425; A0427 ==

== ENCOUNTER 2021-11-29 23:38 | Inpatient (IN) | payer OTHER ==
[2021-11-30 00:59] LABS: BASOPHILS # (AUTO) 0.1 10^3/uL (0.0-0.1); BASOPHILS % (AUTO) 0.9 %; HCT - HEMATOCRIT 35.5 % (37.0-47.0); HGB - HEMOGLOBIN 11.9 g/dL (12.0-16.0); LYMPHOCYTES # (AUTO) 0.9 10^3/uL (1.5-3.5); LYMPHOCYTES % (AUTO) 8.9 %; MEAN CORPUSCULAR HGB CONC 33.5 g/dL (32.0-36.0); MEAN CORPUSCULAR VOLUME 98.3 fL (81.0-99.0); MEAN PLATELET VOLUME 9.9 fL (7.9-10.8); MONOCYTES # (AUTO) 1.1 10^3/uL (0.0-1.0); MONOCYTES % (AUTO) 10.7 %; NEUTROPHILS # (AUTO) 8.2 10^3/uL (1.5-6.6); NEUTROPHILS % (AUTO) 78.7 %; PLT - PLATELET COUNT 406 10^3/uL (130-450); RED BLOOD COUNT 3.61 10^6/uL (4.20-5.40); RED CELL DISTRIBUTION WIDTH 14.4 % (12.0-15.0); WHITE BLOOD COUNT 10.5 x10^3/uL (4.8-10.8)
[2021-11-30 01:12] LABS: ALBUMIN 2.6 g/dL (3.2-5.5); ALBUMIN/GLOBULIN RATIO 0.6 (1.0-2.2); BILIRUBIN,TOTAL 0.6 mg/dL (0.2-1.0); CALCIUM 8.3 mg/dL (8.5-10.3); CREATININE 0.7 mg/dL (0.4-1.0); POTASSIUM 4.1 mmol/L (3.5-5.0); TOTAL PROTEIN 6.7 g/dL (6.7-8.2)
--- NOTE | 2021-11-30 01:45 | ED Physician Documentation ---
PD HPI DYSPNEA - Stated complaint Stated Complaint: SOA - Chief complaint Chief Complaint: Resp - History obtained from History obtained from: Patient, EMS - History of Present Illness Timing - onset: Yesterday Timing - onset during: Rest Timing - details: Gradual onset, Waxing and waning Pain level max: 8 (with deep inspiration) Pain level now: 5 Improved by: Rest Worsened by: Exertion, Other (deep inspiration) Associated symptoms: Chest pain / discomfort, Anxiety. No: Fever, Cough, Hemoptysis, Wheezing, Palpitations, Bilateral edema, Unilateral edema Recently seen: Emergency Dept - Additional information Additional information: BIBA for upper abdominal/low chest pain . She was T+R from this ED earlier today, discharged approximately 8 hours prior to this visit. On the ED visit earlier today she had extensive workup that included blood tests, EKG, cxr, CT chest, and CT A/P. The abnormalities on the imaging tests were felt to be incidental to symptoms. She had relief of symptoms with single dose of IV dilaudid 1mg. Prescriptions were transmitted to her pharmacy for lorazepam, vicodin, and PPI; she has not picked up these prescriptions yet. She returns at this time by ambulance for recurrence of the abdominal/low chest pain. The pain is distinctly pleuritic with some component of worsening with movement. At the time of this HPI, she says she has very little pain if she lies still and doesn't take deep breaths. She has no h/o pulmonary pathology such as asthma or COPD. She does not use oxygen at home. Review of Systems Constitutional: reports: Reviewed and negative Nose: reports: Reviewed and negative Throat: reports: Reviewed and negative Cardiac: reports: Chest pain / pressure. denies: Palpitations, Pedal edema Respiratory: denies: Dyspnea (pain is worse with deep inspiration, but she de nies feeling short of breath), Cough, Hemoptysis, Wheezing GI: reports: Abdominal Pain. 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 : None HEENT: None Psych: Panic attacks Musculoskeletal: None Derm: None - Past Surgical History Past Surgical History: Yes /LIBRARY HELPER: Other - Present Medications Home Medications: Ambulatory Orders Medication Instructions Recorded Confirmed traZODone [Desyrel] 75 mg PO QPM 06/26/14 11/30/21 Vitamin B Complex Vit C No.4 1 tab PO DAILY 07/10/14 11/30/21 [Super B Complex] [place]-3 Fatty Acids/Fish Oil 1 cap ORAL DAILY 08/28/14 11/30/21 [[place] 3 1,000 mg Softgel] Bupropion HCl [Bupropion Xl] 300 mg PO DAILY 05/15/16 11/30/21 SUMAtriptan succinate [Sumatriptan 100 mg PO DAILY PRN 05/15/16 11/30/21 Succinate] Acetaminophen [Tylenol] 650 mg PO Q4HR PRN #0 tablet 05/17/16 11/30/21 Vitamin [Trinatal Rx 1] 1 tab PO DAILYWM tablet 05/17/16 11/30/21 SUMAtriptan [Imitrex] 100 mg PO Q4HR PRN #0 tablet 05/17/16 11/30/21 buPROPion [Wellbutrin Xl] 300 mg PO DAILY tablet 05/17/16 11/30/21 Meloxicam 15 mg PO DAILY 08/04/16 11/30/21 Exemestane 25 mg PO DAILY 90 Days #90 tablet 04/22/18 11/30/21 Letrozole 2.5 mg PO DAILY #30 tablet 12/06/18 11/30/21 Oxycodone HCl/Acetaminophen 1 - 2 each PO Q6H PRN #14 tablet 01/27/21 11/30/21 [Percocet 5-325 mg Tablet] HYDROcod/ACETAM 5/325 [[place] 5/325] 1 - 2 tab PO Q6H PRN #15 tablet 06/23/21 11/30/21 HYDROcod/ACETAM 5/325 [[place] 5/325] 1 - 2 tab PO Q6H PRN #10 tablet 11/29/21 11/30/21 LORazepam [Ativan] 1 mg PO TID PRN #6 tablet 11/29/21 11/30/21 Omeprazole 40 mg PO DAILY #30 cap 11/29/21 11/30/21 - Allergies Allergies/Adverse Reactions: Allergies Allergy/AdvReac Type Severity Reaction Status Date / Time diphenhydramine HCl * AdvReac Mild Hyperactive Verified 11/29/21 23:48 [From Benadryl] - Living Situation Living Arrangement: reports: At home - Social History Does the pt smoke?: No Smoking Status: Never smoker Does the pt drink ETOH?: Yes Does the pt have substance abuse?: No - Immunizations Immunizations are current?: Yes - POLST Patient has POLST: No PD ED PE NORMAL - Vitals Vital signs reviewed: Yes - General General: Alert and oriented X 3, No acute distress (NAD at rest), Well developed/nourished - HEENT HEENT: Moist mucous membranes - Cardiac Cardiac: RRR, No murmur, No gallop, No rub - Respiratory Respiratory: No respiratory distress, Other (bibasilar rales but no wheezing and good air movement bilaterally; she does seem to have painful discomfort when trying to take deep breath in) - Abdomen Abdomen: Normal bowel sounds, Soft, Non tender, Non distended - Derm Derm: Normal color, Warm and dry - Extremities Extremities: No edema - Neuro Neuro: Alert and oriented X 3 Results - Vitals Vitals: Vital Signs - 24 hr 11/29/21 11/30/21 11/30/21 23:39 00:39 01:27 Temperature 37.2 C 36.8 C Heart Rate 104 H 92 90 Respiratory 18 15 17 Rate Blood Pressure 112/85 H 96/67 108/83 H O2 Saturation 97 97 97 11/30/21 11/30/21 11/30/21 02:00 02:23 02:30 Temperature Heart Rate 93 86 83 Respiratory 16 20 18 Rate Blood Pressure 123/85 H 123/85 H O2 Saturation 95 91 L 11/30/21 11/30/21 11/30/21 03:00 04:44 05:32 Temperature 36.6 C Heart Rate 91 Respiratory 12 Rate Blood Pressure 104/70 O2 Saturation 94 90 L 87 L 11/30/21 11/30/21 05:35 06:28 Temperature 36.6 C Heart Rate 95 97 Respiratory 12 12 Rate Blood Pressure 96/59 L 91/71 O2 Saturation 96 96 Oxygen O2 Source Nasal cannula Oxygen Flow Rate 4 - EKG (time done) No standard instances Rate: Rate (enter#) (88) Rhythm: NSR [place]: Normal Intervals: Normal HI QRS: Normal Ischemia: Normal ST segments - Labs Labs: Laboratory Tests 11/30/21 11/30/21 11/30/21 00:53 00:53 00:53 WBC 10.5 RBC 3.61 L Hgb 11.9 L Hct 35.5 L MCV 98.3 MCH 33.0 H MCHC 33.5 RDW 14.4 Plt Count 406 MPV 9.9 Neut # (Auto) 8.2 H Lymph # (Auto) 0.9 L [place] # (Auto) 1.1 H Eos # (Auto) 0.0 Baso # (Auto) 0.1 Absolute Nucleated RBC 0.00 Nucleated RBC % 0.0 Sodium 133 L Potassium 4.1 Chloride 95 L Carbon Dioxide 29 Anion Gap 9.0 BUN 14 Creatinine 0.7 Estimated GFR (MDRD) 86 L Glucose 140 H Calcium 8.3 L Total Bilirubin 0.6 AST 25 ALT 14 Alkaline Phosphatase 52 B-Natriuretic Peptide 87 Total Protein 6.7 Albumin 2.6 L Globulin 4.1 Albumin/Globulin Ratio 0.6 L Lipase 21 L Nasal Adenovirus (PCR) Nasal B. parapertussis DNA (PCR) Nasal Coronavir 229E PCR Nasal Coronavir HKU1 PCR Nasal Coronavir NL63 PCR Nasal Coronavir OC43 PCR Nasal Enterovir/Rhinovir PCR Nasal Influenza B PCR Nasal Influenza A PCR Nasal Parainfluen 1 PCR Nasal Parainfluen 2 PCR Nasal Parainfluen 3 PCR Nasal Parainfluen 4 PCR Nasal RSV (PCR) Nasal B.pertussis DNA PCR Nasal C.pneumoniae (PCR) [place] Human Metapneumo PCR Nasal M.pneumoniae (PCR) Nasal SARS-CoV-2 (PCR) Ethyl Alcohol 11/30/21 11/30/21 00:53 04:30 WBC RBC Hgb Hct MCV MCH MCHC RDW Plt Count MPV Neut # (Auto) Lymph # (Auto) [place] # (Auto) Eos # (Auto) Baso # (Auto) Absolute Nucleated RBC Nucleated RBC % Sodium Potassium Chloride Carbon Dioxide Anion Gap BUN Creatinine Estimated GFR (MDRD) Glucose Calcium Total Bilirubin AST ALT Alkaline Phosphatase B-Natriuretic Peptide Total Protein Albumin Globulin Albumin/Globulin Ratio Lipase Nasal Adenovirus (PCR) NOT DETECTED Nasal B. parapertussis DNA (PCR) NOT DETECTED Nasal Coronavir 229E PCR NOT DETECTED Nasal Coronavir HKU1 PCR NOT DETECTED Nasal Coronavir NL63 PCR NOT DETECTED Nasal Coronavir OC43 PCR NOT DETECTED Nasal Enterovir/Rhinovir PCR NOT DETECTED Nasal Influenza B PCR NOT DETECTED Nasal Influenza A PCR NOT DETECTED Nasal Parainfluen 1 PCR NOT DETECTED Nasal Parainfluen 2 PCR NOT DETECTED Nasal Parainfluen 3 PCR NOT DETECTED Nasal Parainfluen 4 PCR NOT DETECTED Nasal RSV (PCR) NOT DETECTED Nasal B.pertussis DNA PCR NOT DETECTED Nasal C.pneumoniae (PCR) NOT DETECTED [place] Human Metapneumo PCR NOT DETECTED Nasal M.pneumoniae (PCR) NOT DETECTED Nasal SARS-CoV-2 (PCR) NOT DETECTED Ethyl Alcohol < 5.0 PD MEDICAL DECISION MAKING - ED course Complexity details: reviewed old records, reviewed results, re-evaluated patient, considered differential, d/w patient ED course: BIBA for c/o pain, she points to LUQ when asked where the pain is. She says it has been radiating to lower chest. She describes a distinct worsening with deep inspiration as well as some degree of exacerbation when trying to ambulate. Testing performed earlier this afternoon did not yield diagnostic findings regarding these symptoms. On this ED visit she has unremarkable EKG and blood tests. Repeat imaging not performed at this time. She was interested in being discharged home towards the beginning of this ED stay but throughout ED stay she had consistently borderline/low pulse ox on room air. EMS had reported pulse ox on their arrival to be 88% room air. In ED, she had pulse ox readings 88-92% while on supplemental oxygen (2-4 L/min). On my initial evaluation of patient, I turned off the supplemental oxygen the start of my H+P, and within 2-3 minutes her pulse ox dropped to 87-88% on room air with good pleth that correlated with the rhythm on the monitor. The pulse ox would improve to 90-92% with supplemental oxygen. I reevaluated patient several times during her long ED stay and pulse ox would consistently drop to 87-88 % when supplemental oxygen was stopped, improving marginally to 90-93% with 2 liters/minute oxygen. Although she did not have decreased breath sounds nor wheezing, she is given an albuterol neb to see if this would help improve her oxygen saturations; there was no improvement noted. She is also given a single dose of 1mg IV dilaudid to see if alleviating her painful respirations would lead to improvement in her pulse ox, but this also did not change the decreasing pulse ox to upper 80s when I would turn off the supplemental oxygen. Briefly she dropped as low as upper 70s (with supplemental oxygen) but this was shortly after receiving the dilaudid and reverted to 90-92% with 2liters/min when I woke her and had her take some deep breaths as tolerated. She was ambulated in hallway to see the effect on pulse ox. The pulse ox during ambulation did not have a reliable pleth. She became visibly dyspneic and reported worsening dyspnea with ambulation. [facility], a good pleth was obtained (both on the monitor in her room as well as using the ambulatory pulse oximeter on a different finger); both of these readings yielded a good pleth and demonstrated pulse ox of 85-86%. She is again placed on 2 liters [place] oxygen with improvement in pulse ox to 93% and alleviation of her dyspnea. She had no abdominal nor chest wall tenderness on exam. Will admit for hypoxia of unclear etiology. Differential includes atelectasis from her ongoing pleuritic chest pain which might be related to recent fall at home. Departure - Departure Disposition: ED Place in Observation Clinical Impression: Chest wall pain, Hypoxia Condition: Good
[2021-11-30] MEDS ORDERED: ALBUTEROL NEB 2.5 MG/3 ML INH STA (02:12)
[2021-11-30] MEDS ORDERED: HYDROmorphone 1 MG/ML CARPUJECT IM STA (02:26)
[2021-11-30] MEDS ORDERED: HYDROmorphone 1 MG/ML CARPUJECT IVP STA (02:44)
[2021-11-30 05:28] LABS: B. PARAPERTUSSIS- RESP PCR PAN NOT DETECTED; B. PERTUSSIS- RESP PCR PANEL NOT DETECTED; C. PNEUMONIAE- RESP PCR PANEL NOT DETECTED; CORONAVIRUS 229E-RESP PCR NOT DETECTED; CORONAVIRUS HKU1-RESP PCR NOT DETECTED; CORONAVIRUS NL63-RESP PCR NOT DETECTED; CORONAVIRUS OC43-RESP PCR NOT DETECTED; HUMAN METAPNEUMOVIRUS NOT DETECTED; INFLUENZA A- RESP PCR PANEL NOT DETECTED; INFLUENZA B - RESP PCR PANEL NOT DETECTED; M. PNEUMONIAE- RESP PCR PANEL NOT DETECTED; PARAINFLUENZA VIRUS 1 NOT DETECTED; PARAINFLUENZA VIRUS 2 NOT DETECTED; PARAINFLUENZA VIRUS 3 NOT DETECTED; PARAINFLUENZA VIRUS 4 NOT DETECTED; RHINOVIRUS/ENTEROVIRUS NOT DETECTED; RSV- RESP PCR PANEL NOT DETECTED; SARS-CoV-2 -RESP PCR PANEL NOT DETECTED
--- NOTE | 2021-11-30 07:27 | HISTORY & PHYSICAL EXAMINATION ---
Chief Complaint - Chief Complaint Chief Complaint: fall, abd pain, hypoxia History of Present Illness - Admitted From Admitted From:: [facility] ED - History Obtained From Records Reviewed: yes History obtained from: patient - History of Present Illness HPI Comment/Other: Patient is a 60-year-old female who presented to the ED today after a fall 3 days ago. She stood on a chair in her kitchen to get something from a higher cabinet when she slipped and fell. She reports landing on her abdomen. As a result she has significant abdominal pain which limits her ability to sit up from a recumbent position with help of her abdominal muscles. Also as a result of the pain she is apprehensive/unable to take deep breaths. She was initially evaluated in the ED earlier in the day 11/29/21. Work-up was negative for any acute injuries on images. She had some significant findings on her abdominal CT which raise concern for possible liver malignancy and for which further work-up was recommended. These findings were relayed to her primary care physician Dr. Gage Lr/ BUSINESS SUPPORT PROFESSIONAL Kasie Varma with request for further referral/ work up by them. She was prescribed oral narcotics and discharged. She returned later in the day by ambulance for persistent/worsening pain. She had not yet picked up her prescription of lorazepam Vicodin on a PPI that had been sent to pharmacy.. While being evaluated in the emergency room is reported that her oxygenation was 87% on room air. As a result it was felt that she should be observed over period of time and hypoxia managed. On 2 L of oxygen the patient's oxygen saturation was 96%. At bedside she denies chest pain. She denies dyspnea but states she is unable to take deep breaths because it exacerbates her abdominal pain. She reports anxiety. She denied nausea, vomiting, fever or chills. The rest of her history was unremarkable. 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 Her sister has ovarian cancer. Her father from old age Social History Notes: She lives at home with her 17-year-old son. She does not smoke tobacco products and denies use of recreational substances. Is reported that she has a history of alcohol abuse. She reports not drinking alcohol in 2 months. - POLST Patient has POLST: No POLST Status: Full Code Meds/Allgy - Home Medications Home Medications: Ambulatory Orders Medication Instructions Recorded Confirmed traZODone [Desyrel] 75 mg PO QPM 06/26/14 11/30/21 Vitamin B Complex Vit C No.4 1 tab PO DAILY 07/10/14 11/30/21 [Super B Complex] [place]-3 Fatty Acids/Fish Oil 1 cap ORAL DAILY 08/28/14 11/30/21 [[place] 3 1,000 mg Softgel] Bupropion HCl [Bupropion Xl] 300 mg PO DAILY 05/15/16 11/30/21 SUMAtriptan succinate [Sumatriptan 100 mg PO DAILY PRN 05/15/16 11/30/21 Succinate] Acetaminophen [Tylenol] 650 mg PO Q4HR PRN #0 tablet 05/17/16 11/30/21 Vitamin [Trinatal Rx 1] 1 tab PO DAILYWM tablet 05/17/16 11/30/21 SUMAtriptan [Imitrex] 100 mg PO Q4HR PRN #0 tablet 05/17/16 11/30/21 buPROPion [Wellbutrin Xl] 300 mg PO DAILY tablet 05/17/16 11/30/21 Meloxicam 15 mg PO DAILY 08/04/16 11/30/21 Exemestane 25 mg PO DAILY 90 Days #90 tablet 04/22/18 11/30/21 Letrozole 2.5 mg PO DAILY #30 tablet 12/06/18 11/30/21 Oxycodone HCl/Acetaminophen 1 - 2 each PO Q6H PRN #14 tablet 01/27/21 11/30/21 [Percocet 5-325 mg Tablet] HYDROcod/ACETAM 5/325 [[place] 5/325] 1 - 2 tab PO Q6H PRN #15 tablet 06/23/21 11/30/21 HYDROcod/ACETAM 5/325 [[place] 5/325] 1 - 2 tab PO Q6H PRN #10 tablet 11/29/21 11/30/21 LORazepam [Ativan] 1 mg PO TID PRN #6 tablet 11/29/21 11/30/21 Omeprazole 40 mg PO DAILY #30 cap 11/29/21 11/30/21 - Allergies Allergies/Adverse Reactions: Allergies Allergy/AdvReac Type Severity Reaction Status Date / Time diphenhydramine HCl * AdvReac Mild Hyperactive Verified 11/29/21 23:48 [From [place]] Review of Systems - Constitutional Constitutional: denies: Fatigue, Fever, Chills - Eyes Eyes: denies: Pain, Vision loss - Ears, Nose & Throat Ears, Nose & Throat: denies: Sore throat - Cardiovascular Cariovascular: denies: Irregular heart rate, Chest pain, Edema - Respiratory Respiratory: denies: Cough, Sputum production, Wheezing, SOB at rest, SOB with exertion - Gastrointestinal Gastrointestinal: reports: Abdominal pain, Nausea. denies: Abdominal distention, Constipation, Diarrhea, Vomiting - Genitourinary Genitourinary: denies: Dysuria, Frequency, Urgency, Hematuria - Musculoskeletal Musculoskeletal: reports: Muscle pain (abdominal wall muscles) - Integumentary Integumentary: denies: Rash, Pruritis, Lesions - Neurological Neurological: denies: General weakness, Headache, Dizziness - Psychiatric Psychiatric: reports: Anxiety - Endocrine Endocrine: denies: Polyuria, Polydypsia - Hematologic/Lymphatic Hematologic/Lymphatic: denies: Anemia, Bruising, Petechiae Prior Level of Functionality: She is independent of activities of daily living Exam - Vital Signs Vital Signs: Vital Signs x48h Temp Pulse Resp BP Pulse Ox 11/30/21 06:28 36.6 C 97 12 91/71 96 11/30/21 05:35 95 12 96/59 L 96 11/30/21 05:32 87 L 11/30/21 04:44 90 L 11/30/21 03:00 36.6 C 91 12 104/70 94 11/30/21 02:30 83 18 11/30/21 02:23 86 20 123/85 H 91 L 11/30/21 02:00 93 16 123/85 H 95 11/30/21 01:27 36.8 C 90 17 108/83 H 97 11/30/21 00:39 92 15 96/67 97 11/29/21 23:39 37.2 C 104 H 18 112/85 H 97 - Physical Exam General Appearance: positive: Alert, Moderate distress, Anxious Eyes Bilateral: positive: PERRL, EOMI ENT: positive: Pharynx nml, No signs of dehydration Neck: positive: No JVD, Trachea midline Cardiovascular: positive: Regular rate & rhythm, No murmur Abdomen: positive: Tenderness (abdominal wall muscles) Back: positive: Nml inspection Skin: positive: Color nml, No rash, Warm, Dry Extremities: positive: Non-tender, Full ROM, Nml appearance, No pedal edema Neurologic/Psychiatric: positive: Oriented x3, Motor nml, Mood/affect nml Conclusion/Plan - Problem List (1) Hypoxia Conclusion/Plan: Small pleural effusions noted bilaterally on CT scanning of abdomen. Atelectasis also noticed. However due to worsening abdominal pain with deep inspirations patient does not take deep breaths. Her abdominal pain is due to abdominal contusion from falling off of a chair 3 days ago. Supplemental oxygen as needed. Incentive spirometer provided. Patient encouraged to take deep breaths as often as possible. Pain management with oxycodone, Tylenol and Toradol as needed. (2) Abdominal contusion Conclusion/Plan: Her abdominal pain is due to abdominal contusion from falling off of a chair 3 days ago. Supplemental oxygen as needed. Incentive spirometer provided. Patient encouraged to take deep breaths as often as possible. Pain management with oxycodone, Tylenol and Toradol as needed. (3) Anxiety Conclusion/Plan: Librium 5 mg p.o. 3 times daily ordered schedule. - Lab Results Fish Bones: 11/30/21 00:53 11/30/21 00:53 Core Measures - Anticipated LOS I expect patient to be DC'd or transferred within 96 hours.: Yes - DVT/VTE - Prophylaxis VTE/DVT Device ordered at admit?: Yes
[2021-11-30] MEDS: ENOXAPARIN 40 MG/0.4 ML SYRINGE SUBQ SCH (08:09)
[2021-11-30] MEDS: SODIUM CHLORIDE FLUSH 0.9% 10 ML SYRINGE IVP SCH ×2 (08:10→15:40)
[2021-11-30] MEDS: chlordiazePOXIDE 5 MG CAPSULE PO SCH ×3 (09:41→22:16)
[2021-11-30] MEDS: ACETAMINOPHEN 325 MG TABLET PO PRN (09:42)
[2021-11-30] MEDS: IPRATROPIUM/ALBUTEROL 3 ML NEB INH PRN ×2 (10:14→20:36)
[2021-11-30] MEDS: oxyCODONE 5 MG TABLET PO PRN ×3 (10:31→22:33)
[2021-11-30] MEDS: ONDANSETRON 4 MG/2 ML VIAL IVP PRN ×2 (11:45→17:46)
[2021-11-30] MEDS: SODIUM CHLORIDE FLUSH 0.9% 10 ML SYRINGE IVP PRN ×2 (11:45→14:46)
[2021-11-30] MEDS ORDERED: KETOROLAC 15 MG/ML VIAL IVP STA (13:35)
[2021-11-30] MEDS: KETOROLAC 15 MG/ML VIAL IVP PRN (17:53)
[2021-11-30 20:26] LABS: MUDS CUTOFF CONCENTRATIONS CUTOFF CONC BELOW:
[2021-11-30 20:38] LABS: THC CANNABINOID SCREEN, URINE NEGATIVE (NEGATIVE)
[2021-11-30 20:39] LABS: AMPHETAMINE SCREEN,URINE NEGATIVE (NEGATIVE); BARBITURATE SCREEN,UR NEGATIVE (NEGATIVE); BENZODIAZEPINES SCREEN, URINE POSITIVE (NEGATIVE); COCAINE SCREEN URINE NEGATIVE (NEGATIVE); METHADONE SCREEN, URINE NEGATIVE (NEGATIVE); METHAMPHETAMINES SCREEN, URINE NEGATIVE (NEGATIVE); OPIATE SCREEN, URINE POSITIVE (NEGATIVE); OXYCODONE SCREEN, URINE POSITIVE (NEGATIVE); PROPOXYPHENE SCREEN, URINE NEGATIVE (NEGATIVE); TRICYCLIC ANTIDEPRESSANT,URINE NEGATIVE (NEGATIVE)
[2021-12-01] MEDS: SODIUM CHLORIDE FLUSH 0.9% 10 ML SYRINGE IVP SCH ×3 (00:01→16:41)
[2021-12-01] MEDS: KETOROLAC 15 MG/ML VIAL IVP PRN ×2 (00:18→07:41)
[2021-12-01 05:18] LABS: BASOPHILS # (AUTO) 0.1 10^3/uL (0.0-0.1); BASOPHILS % (AUTO) 0.8 %; HCT - HEMATOCRIT 34.4 % (37.0-47.0); HGB - HEMOGLOBIN 11.4 g/dL (12.0-16.0); LYMPHOCYTES % (AUTO) 11.9 %; MEAN CORPUSCULAR HEMOGLOBIN 32.2 pg (27.0-31.0); MEAN CORPUSCULAR HGB CONC 33.1 g/dL (32.0-36.0); MEAN CORPUSCULAR VOLUME 97.2 fL (81.0-99.0); MEAN PLATELET VOLUME 10.1 fL (7.9-10.8); MONOCYTES # (AUTO) 1.1 10^3/uL (0.0-1.0); MONOCYTES % (AUTO) 12.6 %; NEUTROPHILS # (AUTO) 6.4 10^3/uL (1.5-6.6); PLT - PLATELET COUNT 442 10^3/uL (130-450); RED BLOOD COUNT 3.54 10^6/uL (4.20-5.40); RED CELL DISTRIBUTION WIDTH 14.1 % (12.0-15.0); WHITE BLOOD COUNT 8.6 x10^3/uL (4.8-10.8)
[2021-12-01 05:34] LABS: CALCIUM 8.1 mg/dL (8.5-10.3); CREATININE 0.7 mg/dL (0.4-1.0); POTASSIUM 4.2 mmol/L (3.5-5.0)
[2021-12-01] MEDS: chlordiazePOXIDE 5 MG CAPSULE PO SCH ×3 (05:50→20:54)
[2021-12-01] MEDS: oxyCODONE 5 MG TABLET PO PRN ×2 (07:39→15:55)
[2021-12-01] MEDS: IPRATROPIUM/ALBUTEROL 3 ML NEB INH PRN (08:07)
--- NOTE | 2021-12-01 08:27 | XRAY Report ---
PROCEDURE: Chest 1 View X-Ray INDICATIONS: dyspnea, hypoxia TECHNIQUE: One view of the chest was acquired. COMPARISON: November 29, 2021 FINDINGS: SUPPORT DEVICES: None. LUNGS/PLEURA: Blunting of the costophrenic sulci with the basilar streaky densities. MEDIASTINUM: The cardiac silhouette is within normal limits. Retrocardiac lucency, compatible small h iatal hernia. BONES/SOFT TISSUES: No acute abnormality. IMPRESSION: 1.Small bilateral pleural effusions with bibasilar atelectasis, concerning for pulmonary edema. Reviewed by: Paco Raphael MD on 12/01/2021 8:26 AM PDT Approved by: Paco Raphael MD on 12/01/2021 8:26 AM PDT Station ID: [id number]
[2021-12-01] MEDS ORDERED: FUROSEMIDE 20 MG/2 ML VIAL IVP STA (08:51)
[2021-12-01] MEDS: ENOXAPARIN 40 MG/0.4 ML SYRINGE SUBQ SCH (09:04)
[2021-12-01] MEDS: SODIUM CHLORIDE FLUSH 0.9% 10 ML SYRINGE IVP PRN (09:05)
--- NOTE | 2021-12-01 11:28 | DISCHARGE SUMMARY ---
Discharge Summary Admit Date: 11/30/21 Discharge Date: 12/01/21 Discharging Provider: Francisco Cruz Primary Care Provider: Dr Gage Lr/ TERRY Varma Code Status: Attempt Resuscitation Condition at Discharge: Stable Discharge Disposition: 01 Home, Self Care - DIAGNOSES Admission Diagnoses: Hypoxia Abdominal contusion Anxiety Discharge Diagnoses with Status of Each Condition: Hypoxia: Acute. Secondary to abdominal contusion. Resolved. Abdominal contusion: Acute. Improving. Continue pain management at home Anxiety: Acute. Improved/resolved. Ativan prescribed. - HPI History of Present Illness: Patient is a 60-year-old female who presented to the ED today after a fall 3 days ago. She stood on a chair in her kitchen to get something from a higher cabinet when she slipped and fell. She reports landing on her abdomen. As a result she has significant abdominal pain which limits her ability to sit up from a recumbent position with help of her abdominal muscles. Also as a result of the pain she is apprehensive/unable to take deep breaths. She was initially evaluated in the ED earlier in the day 11/29/21. Work-up was negative for any acute injuries on images. She had some significant findings on her abdominal CT which raise concern for possible liver malignancy and for which further work-up was recommended. These findings were relayed to her primary care physician Dr. Gage Lr/ TERRY Varma with request for further referral/ work up by them. She was prescribed oral narcotics and discharged. She returned later in the day by ambulance for persistent/worsening pain. She had not yet picked up her prescription of lorazepam Vicodin on a PPI that had been sent to pharmacy.. While being evaluated in the emergency room is reported that her oxygenation was 87% on room air. As a result it was felt that she should be observed over period of time and hypoxia managed. On 2 L of oxygen the patient's oxygen saturation was 96%. At bedside she denies chest pain. She denies dyspnea but states she is unable to take deep breaths because it exacerbates her abdominal pain. She reports anxiety. She denied nausea, vomiting, fever or chills. The rest of her history was unremarkable. - HOSPITAL COURSE Hospital Course: Hospital stay was fairly unremarkable. Patient was admitted to [facility] and observed overnight. By the time of discharge her oxygen saturation maintained at 94% on room air. She was comfortable. She was given 1 dose of Lasix IV with resulting diuresis. Pain was managed with oxycodone, Tylenol and Toradol. She received Librium for muscle relaxation and to minimize anxiety. She was discharged home in stable condition. She was encouraged to continue using the incentive spirometer she was prescribed in the hospital. - ALLERGIES Allergies/Adverse Reactions: Allergies Allergy/AdvReac Type Severity Reaction Status Date / Time diphenhydramine HCl * AdvReac Mild Hyperactive Verified 11/29/21 23:48 [From Benadryl] - MEDICATIONS Home Medications: Ambulatory Orders Medication Instructions Recorded Confirmed traZODone [Desyrel] 75 mg PO QPM 06/26/14 11/30/21 Vitamin B Complex Vit C No.4 1 tab PO DAILY 07/10/14 11/30/21 [Super B Complex] Lagrange-3 Fatty Acids/Fish Oil 1 cap ORAL DAILY 08/28/14 11/30/21 [[place]range 3 1,000 mg Softgel] SUMAtriptan succinate [Sumatriptan 100 mg PO DAILY PRN 05/15/16 11/30/21 Succinate] Acetaminophen [Tylenol] 650 mg PO Q4HR PRN #0 tablet 05/17/16 11/30/21 Vitamin [Trinatal Rx 1] 1 tab PO DAILYWM tablet 05/17/16 11/30/21 buPROPion [Wellbutrin Xl] 300 mg PO DAILY tablet 05/17/16 11/30/21 Meloxicam 15 mg PO DAILY 08/04/16 11/30/21 Exemestane 25 mg PO DAILY 90 Days #90 tablet 04/22/18 11/30/21 Letrozole 2.5 mg PO DAILY #30 tablet 12/06/18 11/30/21 LORazepam [Ativan] 1 mg PO TID PRN #6 tablet 11/29/21 11/30/21 Omeprazole 40 mg PO DAILY #30 cap 11/29/21 11/30/21 - PHYSICAL EXAM AT DISCHARGE General Appearance: positive: Alert, Mild distress, Moderate distress Eyes Bilateral: positive: PERRL, EOMI ENT: positive: No signs of dehydration Neck: positive: No JVD, Trachea midline Respiratory: positive: Chest non-tender, No respiratory distress, Breath sounds nml. negative: Wheezes, Rales, Rhonchi Cardiovascular: positive: Regular rate & rhythm, No murmur Abdomen: positive: Nml bowel sounds, No distention, Tenderness Back: positive: Nml inspection Skin: positive: Color nml, No rash, Warm, Dry Extremities: positive: Non-tender, Full ROM, Nml appearance Neurologic/Psychiatric: positive: Oriented x3, Mood/affect nml - LABS Result Diagrams: 12/01/21 05:04 12/01/21 05:04 - TIME SPENT Time Spent in Discharge (Minutes): 15
--- NOTE | 2021-12-01 11:34 | Discharge Plan ---
Discharge Plan Problem Reviewed?: Yes Disposition: Home, Self Care Condition: Stable Diet: Regular Activity Restrictions: Activity as Tolerated Weight Bearing: Full Weight Health Concerns: You presented to the hospital on 11/30/2021 with complaint of abdominal pain. You had presented earlier with the same complaint. You had fallen at home 3 days ago and hit your abdomen. He sustained an abdominal contusion as a result. Work-up in the ED included a CT of the abdomen, pelvis and chest x-ray which was negative for any fractures or bleed. You were discharged home with a prescription of pain medication [place] and something for anxiety/muscle relaxant Ativan. When you presented to the ED the second time it was noted that your image oxygen level was in the high 80s on room air as a result you presented for admission for closer observation. You will decrease oxygen level was due to your apprehension/inability to take deep breaths because of worsening abdominal pain from the abdominal contusion. You have been encouraged to try to take deep breaths. You have been advised to use the pain medication as needed to help minimize your pain. You were also provided an incentive spirometer during your hospital stay. You are encouraged to use it as often as possible. You were given 1 dose of Lasix IV for small pleural effusion/atelectasis noted. By the time of discharge her breathing comfortably on room air. You are being discharged in stable condition. You are strongly encouraged to grain picker the pain medication and muscle relaxants/antianxiety medication prescribed by the ED physician. You are also expected to follow-up with your primary care physician for referral for further work-up on the findings of the CT abdomen/pelvis. The above plan was discussed with you, you expressed understanding and are in agreement. No Smoking: If you smoke, Please STOP! Call for help.
[2021-12-01] MEDS: ACETAMINOPHEN 325 MG TABLET PO PRN (12:51)
--- NOTE | 2021-12-01 14:23 | PHARMACY PROGRESS NOTE ---
- Best Possible Medication History Admit Date and Time: 11/30/21 0720 Processed by: Nursing Medication History completed: Yes As the person ultimately responsible for medication therapy, providers are able to order a medication from an existing home medication list in [facility] via the "Reconcile Routine" prior to Confirmation of that medication by it technical support specialist. Such practice is discouraged except when the physician, in their clinical judgment, deems that a medical need exists for a medication without regard to previous use.
--- NOTE | 2021-12-01 17:25 | PROVIDER PROGRESS NOTE ---
Assessment/Plan - Problem List (1) Hypoxia Assessment/Plan: Inspirations are very shallow due to apprehension. Patient is apprehensive because deep inspirations because worsening of abdominal pain which she sustained after the abdominal contusion from her fall. Patient otherwise oxygenates adequately on room air. Patient is ready for discharge. She has been advised to go home and lemon picker the medications she was prescribed by the ED provider. This consists of [place] and Ativan. However she has refused to go home. Her initial reason was that she did not have a ride home. She had been given contacts for a [employer] service but she declined calling them. A call was placed to her sister who stated that she cannot lemon picker the patient until Wednesday. The patient has been informed it would cost her about $3000 [id number] to continue staying in the hospital. She was agreeable to pay this amount daily. (2) Abdominal contusion Assessment/Plan: Her abdominal pain is due to abdominal contusion from falling off of a chair 3 days ago. Supplemental oxygen as needed. Incentive spirometer provided. Patient encouraged to take deep breaths as often as possible. Pain management with oxycodone, Tylenol and ibuprofen as needed. (3) Anxiety Assessment/Plan: Librium 5 mg p.o. 3 times daily ordered schedule. - Current Meds Current Meds: Current Medications Generic Name Dose Route Start Last Admin Trade Name Freq PRN Reason Stop Dose Admin Acetaminophen 650 mg 11/30/21 07:20 12/01/21 12:51 Acetaminophen 325 Mg Tablet PO 650 mg Q4HR PRN Administration Pain 1 to 4, or Fever Albuterol/Ipratropium 3 ml 11/30/21 07:28 12/01/21 08:07 Ipratropium/Albuterol 3 Ml Neb INH 3 ml Q4HR PRN Administration Wheezing Chlordiazepoxide HCl 5 mg 11/30/21 09:14 12/01/21 13:34 Chlordiazepoxide 5 Mg Capsule PO 5 mg Q8HR JULISSA Administration Enoxaparin Sodium 40 mg 11/30/21 09:00 12/01/21 09:04 Enoxaparin 40 Mg/0.4 Ml Syringe SUBQ 40 mg DAILY JULISSA Administration Ketorolac Tromethamine 15 mg 11/30/21 17:38 12/01/21 07:41 Ketorolac 15 Mg/Ml Vial IVP 12/05/21 17:37 15 mg Q6HR PRN Administration PAIN Ondansetron HCl 4 mg 11/30/21 07:20 11/30/21 17:46 Ondansetron 4 Mg/2 Ml Vial IVP 4 mg Q6HR PRN Administration Nausea / Vomiting Oxycodone HCl 10 mg 11/30/21 19:08 12/01/21 15:55 Oxycodone 5 Mg Tablet PO 10 mg Q6HR PRN Administration PAIN Sodium Chloride 10 ml 11/30/21 07:20 12/01/21 09:05 Sodium Chloride Flush 0.9% 10 Ml Syringe IVP 10 ml PRN PRN Administration NEEDED PER PROVIDER ORDERS Sodium Chloride 10 ml 11/30/21 09:00 12/01/21 16:41 Sodium Chloride Flush 0.9% 10 Ml Syringe IVP Not Given 0100,0900,1700 JULISSA - Lab Result [place] Diagrams: 12/01/21 05:04 12/01/21 05:04 - Additional Planning My Orders: My Active Orders 11/30/21 17:38 Ketorolac Inj (15Mg) [Toradol Inj (15Mg)] 15 mg IVP Q6HR PRN 11/30/21 19:08 oxyCODONE [Roxicodone] 10 mg PO Q6HR PRN 12/01/21 11:34 Discharge [RC] .ONCE Initiate Discharge Checklist [RC] .ONCE 12/02/21 05:00 BMP - BASIC METABOLIC PANEL [CHEM] DAILYLAB CBC - COMP BLD CT W/AUTO DIFF [HEME] DAILYLAB 12/02/21 09:00 polyethylene glycoL 3350 [Miralax] 17 gm PO DAILY 12/03/21 05:00 BMP - BASIC METABOLIC PANEL [CHEM] DAILYLAB CBC - COMP BLD CT W/AUTO DIFF [HEME] DAILYLAB Subjective - Subjective Patient Reports: Other (Patient was resting comfortably in bed at time of exam. Abdominal pain from abdominal constipation persist. She continues to be hesitant in taking deep breaths. No wheezing or rhonchi heard on auscultation of lungs.) Objective Vital Signs: Vital Signs - 24 hr 11/30/21 11/30/21 12/01/21 20:29 20:35 00:25 Temperature 37.4 C 36.9 C Heart Rate 100 Heart Rate [ 98 Brachial] Heart Rate [ 103 H Monitoring electrodes] Respiratory 20 20 22 Rate Blood Pressure 99/69 114/73 [Right Brachial artery] Blood Pressure [Right Radial artery] O2 Saturation 92 93 12/01/21 12/01/21 12/01/21 03:35 07:27 08:08 Temperature 37.3 C 37.5 C Heart Rate 92 Heart Rate [ 86 98 Brachial] Heart Rate [ Monitoring electrodes] Respiratory 15 24 20 Rate Blood Pressure [Right Brachial artery] Blood Pressure 95/70 127/85 H [Right Radial artery] O2 Saturation 93 94 12/01/21 12/01/21 12/01/21 09:00 12:53 15:40 Temperature 37.2 C 37.4 C Heart Rate Heart Rate [ 93 Brachial] Heart Rate [ 98 Monitoring electrodes] Respiratory 21 18 20 Rate Blood Pressure [Right Brachial artery] Blood Pressure 120/85 H 105/69 [Right Radial artery] O2 Saturation 94 93 88 L 12/01/21 15:51 Temperature Heart Rate Heart Rate [ Brachial] Heart Rate [ Monitoring electrodes] Respiratory 20 Rate Blood Pressure [Right Brachial artery] Blood Pressure [Right Radial artery] O2 Saturation 93 Oxygen O2 Source Nasal cannula Oxygen Flow Rate 4 I&O (Last 24 Hrs): Intake and Output Totals x24h 11/29/21 11/30/21 12/01/21 23:59 23:59 23:59 Intake Total 800 420 Output Total 175 800 Balance 625 -380 General: Alert, Oriented x3, Mild distress, Moderate distress HEENT: PERRLA, EOMI Neck: Supple, No JVD Neuro: Alert, Oriented Times 3 Cardiovascular: Regular rate, Normal S1, Normal S2 Respiratory: Chest non-tender, No respiratory distress, Breath sounds nml Abdomen: Normal bowel sounds, Soft, Other (Tenderness to palpation) Extremities: No clubbing, No cyanosis, No edema, No tenderness/swelling Skin: No rashes, No breakdown, No significant lesion - Results Results: Laboratory Results WBC 8.6 x10^3/uL (4.8-10.8) 12/01/21 05:04 RBC 3.54 10^6/uL (4.20-5.40) L 12/01/21 05:04 Hgb 11.4 g/dL (12.0-16.0) L 12/01/21 05:04 Hct 34.4 % (37.0-47.0) L 12/01/21 05:04 MCV 97.2 fL (81.0-99.0) 12/01/21 05:04 MCH 32.2 pg (27.0-31.0) H 12/01/21 05:04 MCHC 33.1 g/dL (32.0-36.0) 12/01/21 05:04 RDW 14.1 % (12.0-15.0) 12/01/21 05:04 Plt Count 442 10^3/uL (130-450) 12/01/21 05:04 MPV 10.1 fL (7.9-10.8) 12/01/21 05:04 Neut # (Auto) 6.4 10^3/uL (1.5-6.6) 12/01/21 05:04 Lymph # (Auto) 1.0 10^3/uL (1.5-3.5) L 12/01/21 05:04 [place] # (Auto) 1.1 10^3/uL (0.0-1.0) H 12/01/21 05:04 Eos # (Auto) 0.0 10^3/uL (0.0-0.7) 12/01/21 05:04 Baso # (Auto) 0.1 10^3/uL (0.0-0.1) 12/01/21 05:04 Absolute Nucleated RBC 0.00 x10^3/uL 12/01/21 05:04 Nucleated RBC % 0.0 /100WBC 12/01/21 05:04 Sodium 133 mmol/L (135-145) L 12/01/21 05:04 Potassium 4.2 mmol/L (3.5-5.0) 12/01/21 05:04 Chloride 97 mmol/L (101-111) L 12/01/21 05:04 Carbon Dioxide 27 mmol/L (21-32) 12/01/21 05:04 Anion Gap 9.0 (6-13) 12/01/21 05:04 BUN 16 mg/dL (6-20) 12/01/21 05:04 Creatinine 0.7 mg/dL (0.4-1.0) 12/01/21 05:04 Estimated GFR (MDRD) 86 (>89) L 12/01/21 05:04 Glucose 87 mg/dL (70-100) 12/01/21 05:04 Calcium 8.1 mg/dL (8.5-10.3) L 12/01/21 05:04 Total Bilirubin 0.6 mg/dL (0.2-1.0) 11/30/21 00:53 AST 25 IU/L (10-42) 11/30/21 00:53 ALT 14 IU/L (10-60) 11/30/21 00:53 Alkaline Phosphatase 52 IU/L (42-121) 11/30/21 00:53 Ammonia 17.4 umol/L (7-35) 11/30/21 19:18 B-Natriuretic Peptide 87 pg/mL (5-100) 11/30/21 00:53 Total Protein 6.7 g/dL (6.7-8.2) 11/30/21 00:53 Albumin 2.6 g/dL (3.2-5.5) L 11/30/21 00:53 Globulin 4.1 g/dL (2.1-4.2) 11/30/21 00:53 Albumin/Globulin Ratio 0.6 (1.0-2.2) L 11/30/21 00:53 Lipase 21 U/L (22-51) L 11/30/21 00:53 Nasal Adenovirus (PCR) NOT DETECTED 11/30/21 04:30 Nasal B. parapertussis DNA (PCR) NOT DETECTED 11/30/21 04:30 Nasal Coronavir 229E PCR NOT DETECTED 11/30/21 04:30 Nasal Coronavir HKU1 PCR NOT DETECTED 11/30/21 04:30 Nasal Coronavir NL63 PCR NOT DETECTED 11/30/21 04:30 Nasal Coronavir OC43 PCR NOT DETECTED 11/30/21 04:30 Nasal Enterovir/Rhinovir PCR NOT DETECTED 11/30/21 04:30 Nasal Influenza B PCR NOT DETECTED 11/30/21 04:30 Nasal Influenza A PCR NOT DETECTED 11/30/21 04:30 Nasal Parainfluen 1 PCR NOT DETECTED 11/30/21 04:30 Nasal Parainfluen 2 PCR NOT DETECTED 11/30/21 04:30 Nasal Parainfluen 3 PCR NOT DETECTED 11/30/21 04:30 Nasal Parainfluen 4 PCR NOT DETECTED 11/30/21 04:30 Nasal RSV (PCR) NOT DETECTED 11/30/21 04:30 Nasal B.pertussis DNA PCR NOT DETECTED 11/30/21 04:30 Nasal C.pneumoniae (PCR) NOT DETECTED 11/30/21 04:30 [place] Human Metapneumo PCR NOT DETECTED 11/30/21 04:30 Nasal M.pneumoniae (PCR) NOT DETECTED 11/30/21 04:30 Nasal SARS-CoV-2 (PCR) NOT DETECTED 11/30/21 04:30 Urine Opiates Screen POSITIVE (NEGATIVE) H 11/30/21 18:48 Ur Oxycodone Screen POSITIVE (NEGATIVE) H 11/30/21 18:48 Urine Methadone Screen NEGATIVE (NEGATIVE) 11/30/21 18:48 Ur Propoxyphene Screen NEGATIVE (NEGATIVE) 11/30/21 18:48 Ur Barbiturates Screen NEGATIVE (NEGATIVE) 11/30/21 18:48 Ur Tricyclics Screen NEGATIVE (NEGATIVE) 11/30/21 18:48 Ur Phencyclidine Scrn NEGATIVE (NEGATIVE) 11/30/21 18:48 Ur Amphetamine Screen NEGATIVE (NEGATIVE) 11/30/21 18:48 U Methamphetamines Scrn NEGATIVE (NEGATIVE) 11/30/21 18:48 U Benzodiazepines Scrn POSITIVE (NEGATIVE) H 11/30/21 18:48 Urine Cocaine Screen NEGATIVE (NEGATIVE) 11/30/21 18:48 U Cannabinoids Screen NEGATIVE (NEGATIVE) 11/30/21 18:48 Ethyl Alcohol < 5.0 mg/dL 11/30/21 00:53 - Procedures Procedures: Procedures EXCISE AXILLARY NODE (05/22/14) INSERTION OF TOTALLY IMPLANTABLE VASC ACCESS DEVIC (05/22/14) SUBTOTAL MASTECTOMY (05/22/14) ABX Reporting Has patient been on IV antibiotics over the past 48 hours?: No
[2021-12-02] MEDS: oxyCODONE 5 MG TABLET PO PRN (00:16)
[2021-12-02] MEDS: IPRATROPIUM/ALBUTEROL 3 ML NEB INH PRN ×3 (00:20→19:47)
[2021-12-02] MEDS: SODIUM CHLORIDE FLUSH 0.9% 10 ML SYRINGE IVP SCH ×3 (04:54→20:46)
[2021-12-02 05:20] LABS: BASOPHILS # (AUTO) 0.1 10^3/uL (0.0-0.1); HCT - HEMATOCRIT 32.2 % (37.0-47.0); HGB - HEMOGLOBIN 10.8 g/dL (12.0-16.0); LYMPHOCYTES # (AUTO) 0.8 10^3/uL (1.5-3.5); LYMPHOCYTES % (AUTO) 11.2 %; MEAN CORPUSCULAR HEMOGLOBIN 32.3 pg (27.0-31.0); MEAN CORPUSCULAR HGB CONC 33.5 g/dL (32.0-36.0); MEAN CORPUSCULAR VOLUME 96.4 fL (81.0-99.0); MONOCYTES # (AUTO) 1.1 10^3/uL (0.0-1.0); MONOCYTES % (AUTO) 14.9 %; NEUTROPHILS # (AUTO) 5.2 10^3/uL (1.5-6.6); NEUTROPHILS % (AUTO) 72.3 %; PLT - PLATELET COUNT 420 10^3/uL (130-450); RED BLOOD COUNT 3.34 10^6/uL (4.20-5.40); RED CELL DISTRIBUTION WIDTH 14.3 % (12.0-15.0); WHITE BLOOD COUNT 7.1 x10^3/uL (4.8-10.8)
[2021-12-02 05:25] LABS: CALCIUM 7.8 mg/dL (8.5-10.3); CREATININE 0.6 mg/dL (0.4-1.0); POTASSIUM 3.8 mmol/L (3.5-5.0)
[2021-12-02] MEDS: chlordiazePOXIDE 5 MG CAPSULE PO SCH (05:52)
[2021-12-02] MEDS: polyethylene glycoL 3350 17 GM PACKET PO SCH (08:14)
[2021-12-02] MEDS: ENOXAPARIN 40 MG/0.4 ML SYRINGE SUBQ SCH (08:14)
--- NOTE | 2021-12-02 12:05 | CT Report ---
PROCEDURE: HEAD WO INDICATIONS: Unsteady gait, slurred speech TECHNIQUE: Noncontrast 4.5 mm thick angled axial sections acquired from the foramen magnum to the vertex. For r adiation dose reduction, the following was used: automated exposure control, adjustment of mA and/or kV according to patient size. COMPARISON: None. FINDINGS: Image quality: Excellent. CSF spaces: Basal cisterns are patent. No extra-axial fluid collections. Ventricles are normal in size and shape. Brain: Moderate global cerebral volume loss and chronic vascular ischemic changes. No midline shift. No intracranial masses or hemorrhage. Acevedo-white matter interface is normal. Skull and face: Calvarium and visualized facial bones are intact, without suspicious lesions. Sinuses: Visualized sinuses and mastoids are clear. IMPRESSION: No acute intracranial abnormality. Moderate global cerebral volume loss and chronic micr ovascular ischemic change. Reviewed by: Carlos Linares MD on 12/02/2021 12:03 PM PDT Approved by: Carlos Linares MD on 12/02/2021 12:03 PM PDT Station ID: [id number]
--- NOTE | 2021-12-02 12:14 | PROVIDER PROGRESS NOTE ---
Assessment/Plan - Problem List (1) Unsteady gait Assessment/Plan: 12/02 nurse report Patient has unsteady gait, bazard behaviour. Order PT/OT evaluation and treatment for pt. PT report pt show unsteady and slurred speech as well. Order CT of head which show no acute process hold pt's Librium and Oxycodon, order neuo check for pt, continue PT/OT (2) Hypoxia resolved. pt has 100% sat on room air, continue Incentive spirometer provided. (3) Abdominal contusion Assessment/Plan: Her abdominal pain is due to abdominal contusion from falling off of a chair 3 days ago. her abdominal pain is at under of control, continue Tylenol and ibuprofen as needed. - Current Meds Current Meds: Current Medications Generic Name Dose Route Start Last Admin Trade Name Freq PRN Reason Stop Dose Admin Acetaminophen 650 mg 11/30/21 07:20 12/01/21 12:51 Acetaminophen 325 Mg Tablet PO 650 mg Q4HR PRN Administration Pain 1 to 4, or Fever Albuterol/Ipratropium 3 ml 11/30/21 07:28 12/02/21 11:17 Ipratropium/Albuterol 3 Ml Neb INH 3 ml Q4HR PRN Administration Wheezing Enoxaparin Sodium 40 mg 11/30/21 09:00 12/02/21 08:14 Enoxaparin 40 Mg/0.4 Ml Syringe SUBQ 40 mg DAILY JULISSA Administration Ondansetron HCl 4 mg 11/30/21 07:20 11/30/21 17:46 Ondansetron 4 Mg/2 Ml Vial IVP 4 mg Q6HR PRN Administration Nausea / Vomiting Polyethylene Glycol 17 gm 12/02/21 09:00 12/02/21 08:14 Polyethylene Glycol 3350 17 Gm Packet PO 17 gm DAILY JULISSA Administration Sodium Chloride 10 ml 11/30/21 07:20 12/01/21 09:05 Sodium Chloride Flush 0.9% 10 Ml Syringe IVP 10 ml PRN PRN Administration NEEDED PER PROVIDER ORDERS Sodium Chloride 10 ml 11/30/21 09:00 12/02/21 08:14 Sodium Chloride Flush 0.9% 10 Ml Syringe IVP Not Given 0100,0900,1700 JULISSA - Lab Result Fish Bone Diagrams: 12/02/21 05:04 12/02/21 05:04 - Additional Planning My Orders: My Active Orders 12/02/21 Evaluate and Treat OT [OT] Routine Evaluate and Treat PT [PT] Routine Subjective - Subjective Patient Reports: Resting Comfortably Objective Vital Signs: Vital Signs - 24 hr 12/01/21 12/01/21 12/01/21 12:53 15:40 15:51 Temperature 37.2 C 37.4 C Heart Rate Heart Rate [ 93 Brachial] Heart Rate [ 98 Monitoring electrodes] Heart Rate [ Sitting] Heart Rate [ Supine] Respiratory 18 20 20 Rate Blood Pressure [Right Brachial artery] Blood Pressure 120/85 H 105/69 [Right Radial artery] Blood Pressure [Sitting] Blood Pressure [Supine] O2 Saturation 93 88 L 93 O2 Saturation [ Without Activity] 12/01/21 12/02/21 12/02/21 20:47 00:13 00:21 Temperature 37.5 C 37.6 C Heart Rate 101 H Heart Rate [ 92 96 Brachial] Heart Rate [ Monitoring electrodes] Heart Rate [ Sitting] Heart Rate [ Supine] Respiratory 20 18 30 H Rate Blood Pressure 106/68 [Right Brachial artery] Blood Pressure 98/67 [Right Radial artery] Blood Pressure [Sitting] Blood Pressure [Supine] O2 Saturation 93 89 L O2 Saturation [ Without Activity] 12/02/21 12/02/21 12/02/21 01:15 06:13 06:36 Temperature 37.3 C Heart Rate Heart Rate [ Brachial] Heart Rate [ 80 Monitoring electrodes] Heart Rate [ Sitting] Heart Rate [ Supine] Respiratory 15 20 20 Rate Blood Pressure 120/79 [Right Brachial artery] Blood Pressure [Right Radial artery] Blood Pressure [Sitting] Blood Pressure [Supine] O2 Saturation 95 90 L 100 O2 Saturation [ Without Activity] 12/02/21 12/02/21 12/02/21 08:11 10:00 11:16 Temperature 37.5 C 37.6 C Heart Rate Heart Rate [ 101 H Brachial] Heart Rate [ 111 H Monitoring electrodes] Heart Rate [ 116 H Sitting] Heart Rate [ 113 H Supine] Respiratory 19 22 Rate Blood Pressure 104/64 124/81 H [Right Brachial artery] Blood Pressure [Right Radial artery] Blood Pressure 117/80 [Sitting] Blood Pressure 115/69 [Supine] O2 Saturation 92 100 O2 Saturation [ 90 L Without Activity] 12/02/21 11:22 Temperature Heart Rate 112 H Heart Rate [ Brachial] Heart Rate [ Monitoring electrodes] Heart Rate [ Sitting] Heart Rate [ Supine] Respiratory 24 Rate Blood Pressure [Right Brachial artery] Blood Pressure [Right Radial artery] Blood Pressure [Sitting] Blood Pressure [Supine] O2 Saturation O2 Saturation [ Without Activity] Oxygen O2 Source [Without Activity] Room air O2 Source Room air Oxygen Flow Rate 4 I&O (Last 24 Hrs): Intake and Output Totals x24h 11/30/21 12/01/21 12/02/21 23:59 23:59 23:59 Intake Total 800 770 340 Output Total 175 1050 Balance 625 -280 340 General: Alert, No acute distress HEENT: Atraumatic Neck: Supple Lymphatic: no adenopathy Neuro: Alert, Non Focal Cardiovascular: Regular rate, Normal S1, Normal S2 Respiratory: Chest non-tender, No respiratory distress Abdomen: Normal bowel sounds, Soft Extremities: Normal pulses - Results Results: Laboratory Results WBC 7.1 x10^3/uL (4.8-10.8) 12/02/21 05:04 RBC 3.34 10^6/uL (4.20-5.40) L 12/02/21 05:04 Hgb 10.8 g/dL (12.0-16.0) L 12/02/21 05:04 Hct 32.2 % (37.0-47.0) L 12/02/21 05:04 MCV 96.4 fL (81.0-99.0) 12/02/21 05:04 MCH 32.3 pg (27.0-31.0) H 12/02/21 05:04 MCHC 33.5 g/dL (32.0-36.0) 12/02/21 05:04 RDW 14.3 % (12.0-15.0) 12/02/21 05:04 Plt Count 420 10^3/uL (130-450) 12/02/21 05:04 MPV 10.0 fL (7.9-10.8) 12/02/21 05:04 Neut # (Auto) 5.2 10^3/uL (1.5-6.6) 12/02/21 05:04 Lymph # (Auto) 0.8 10^3/uL (1.5-3.5) L 12/02/21 05:04 Benson # (Auto) 1.1 10^3/uL (0.0-1.0) H 12/02/21 05:04 Eos # (Auto) 0.0 10^3/uL (0.0-0.7) 12/02/21 05:04 Baso # (Auto) 0.1 10^3/uL (0.0-0.1) 12/02/21 05:04 Absolute Nucleated RBC 0.00 x10^3/uL 12/02/21 05:04 Nucleated RBC % 0.0 /100WBC 12/02/21 05:04 Sodium 132 mmol/L (135-145) L 12/02/21 05:04 Potassium 3.8 mmol/L (3.5-5.0) 12/02/21 05:04 Chloride 96 mmol/L (101-111) L 12/02/21 05:04 Carbon Dioxide 27 mmol/L (21-32) 12/02/21 05:04 Anion Gap 9.0 (6-13) 12/02/21 05:04 BUN 14 mg/dL (6-20) 12/02/21 05:04 Creatinine 0.6 mg/dL (0.4-1.0) 12/02/21 05:04 Estimated GFR (MDRD) 103 (>89) 12/02/21 05:04 Glucose 91 mg/dL (70-100) 12/02/21 05:04 Calcium 7.8 mg/dL (8.5-10.3) L 12/02/21 05:04 Total Bilirubin 0.6 mg/dL (0.2-1.0) 11/30/21 00:53 AST 25 IU/L (10-42) 11/30/21 00:53 ALT 14 IU/L (10-60) 11/30/21 00:53 Alkaline Phosphatase 52 IU/L (42-121) 11/30/21 00:53 Ammonia 17.4 umol/L (7-35) 11/30/21 19:18 B-Natriuretic Peptide 87 pg/mL (5-100) 11/30/21 00:53 Total Protein 6.7 g/dL (6.7-8.2) 11/30/21 00:53 Albumin 2.6 g/dL (3.2-5.5) L 11/30/21 00:53 Globulin 4.1 g/dL (2.1-4.2) 11/30/21 00:53 Albumin/Globulin Ratio 0.6 (1.0-2.2) L 11/30/21 00:53 Lipase 21 U/L (22-51) L 11/30/21 00:53 Nasal Adenovirus (PCR) NOT DETECTED 11/30/21 04:30 Nasal B. parapertussis DNA (PCR) NOT DETECTED 11/30/21 04:30 Nasal Coronavir 229E PCR NOT DETECTED 11/30/21 04:30 Nasal Coronavir HKU1 PCR NOT DETECTED 11/30/21 04:30 Nasal Coronavir NL63 PCR NOT DETECTED 11/30/21 04:30 Nasal Coronavir OC43 PCR NOT DETECTED 11/30/21 04:30 Nasal Enterovir/Rhinovir PCR NOT DETECTED 11/30/21 04:30 Nasal Influenza B PCR NOT DETECTED 11/30/21 04:30 Nasal Influenza A PCR NOT DETECTED 11/30/21 04:30 Nasal Parainfluen 1 PCR NOT DETECTED 11/30/21 04:30 Nasal Parainfluen 2 PCR NOT DETECTED 11/30/21 04:30 Nasal Parainfluen 3 PCR NOT DETECTED 11/30/21 04:30 Nasal Parainfluen 4 PCR NOT DETECTED 11/30/21 04:30 Nasal RSV (PCR) NOT DETECTED 11/30/21 04:30 Nasal B.pertussis DNA PCR NOT DETECTED 11/30/21 04:30 Nasal C.pneumoniae (PCR) NOT DETECTED 11/30/21 04:30 Jacinto Human Metapneumo PCR NOT DETECTED 11/30/21 04:30 Nasal M.pneumoniae (PCR) NOT DETECTED 11/30/21 04:30 Nasal SARS-CoV-2 (PCR) NOT DETECTED 11/30/21 04:30 Urine Opiates Screen POSITIVE (NEGATIVE) H 11/30/21 18:48 Ur Oxycodone Screen POSITIVE (NEGATIVE) H 11/30/21 18:48 Urine Methadone Screen NEGATIVE (NEGATIVE) 11/30/21 18:48 Ur Propoxyphene Screen NEGATIVE (NEGATIVE) 11/30/21 18:48 Ur Barbiturates Screen NEGATIVE (NEGATIVE) 11/30/21 18:48 Ur Tricyclics Screen NEGATIVE (NEGATIVE) 11/30/21 18:48 Ur Phencyclidine Scrn NEGATIVE (NEGATIVE) 11/30/21 18:48 Ur Amphetamine Screen NEGATIVE (NEGATIVE) 11/30/21 18:48 U Methamphetamines Scrn NEGATIVE (NEGATIVE) 11/30/21 18:48 U Benzodiazepines Scrn POSITIVE (NEGATIVE) H 11/30/21 18:48 Urine Cocaine Screen NEGATIVE (NEGATIVE) 11/30/21 18:48 U Cannabinoids Screen NEGATIVE (NEGATIVE) 11/30/21 18:48 Ethyl Alcohol < 5.0 mg/dL 11/30/21 00:53 - Procedures Procedures: Procedures EXCISE AXILLARY NODE (05/22/14) INSERTION OF TOTALLY IMPLANTABLE VASC ACCESS DEVIC (05/22/14) SUBTOTAL MASTECTOMY (05/22/14) ABX Reporting Has patient been on IV antibiotics over the past 48 hours?: No Current Medications - Current Medications Current Medications: Active Medications Acetaminophen (Acetaminophen 325 Mg Tablet) 650 mg PO Q4HR PRN PRN Reason: Pain 1 to 4, or Fever Last Admin: 12/01/21 12:51 Dose: 650 mg Albuterol/Ipratropium (Ipratropium/Albuterol 3 Ml Neb) 3 ml INH Q4HR PRN PRN Reason: Wheezing Last Admin: 12/02/21 11:17 Dose: 3 ml Enoxaparin Sodium (Enoxaparin 40 Mg/0.4 Ml Syringe) 40 mg SUBQ DAILY [facility] Last Admin: 12/02/21 08:14 Dose: 40 mg Ibuprofen (Ibuprofen 400 Mg Tablet) 400 mg PO Q6HR PRN PRN Reason: PAIN Ondansetron HCl (Ondansetron 4 Mg/2 Ml Vial) 4 mg IVP Q6HR PRN PRN Reason: Nausea / Vomiting Last Admin: 11/30/21 17:46 Dose: 4 mg Polyethylene Glycol (Polyethylene Glycol 3350 17 Gm Packet) 17 gm PO DAILY [facility] Last Admin: 12/02/21 08:14 Dose: 17 gm Sodium Chloride (Sodium Chloride Flush 0.9% 10 Ml Syringe) 10 ml IVP PRN PRN PRN Reason: NEEDED PER PROVIDER ORDERS Last Admin: 12/01/21 09:05 Dose: 10 ml Sodium Chloride (Sodium Chloride Flush 0.9% 10 Ml Syringe) 10 ml IVP 0100,0900,1700 [facility] Last Admin: 12/02/21 08:14 Dose: Not Given traZODone [Desyrel] 75 mg PO QPM 06/26/14 Vitamin B Complex Vit C No.4 [Super B Complex] 1 tab PO DAILY 07/10/14 Edna-3 Fatty Acids/Fish Oil [Edna 3 1,000 mg Softgel] 1 cap ORAL DAILY 08/28/14 SUMAtriptan succinate [Sumatriptan Succinate] 100 mg PO DAILY PRN 05/15/16 Meloxicam 15 mg PO DAILY 08/04/16
[2021-12-02] MEDS: ACETAMINOPHEN 325 MG TABLET PO PRN (15:20)
[2021-12-02] MEDS ORDERED: chlordiazePOXIDE 5 MG CAPSULE PO SCH (16:00)
[2021-12-02] MEDS ORDERED: AZITHROMYCIN INJ 500 MG in SODIUM CHLORIDE 0.9% 250 ML IV SCH (17:27)
[2021-12-02] MEDS ORDERED: cefTRIAXone 2 GM in SODIUM CHLORIDE 0.9% MINIBAG 100 ML IV SCH (17:27)
--- NOTE | 2021-12-02 17:44 | XRAY Report ---
PROCEDURE: Chest 1 View X-Ray INDICATIONS: SOB TECHNIQUE: One view of the chest was acquired. COMPARISON: December 01, 2021 FINDINGS: SUPPORT DEVICES: None. LUNGS/PLEURA: Blunting of the costophrenic sulcus with bibasilar airspace opacities. MEDIASTINUM: The cardiac silhouette is upper limits of normal. BONES/SOFT TISSUES: No acute abnormality. IMPRESSION: 1.Pulmonary edema pattern, unchanged. Reviewed by: Paco Raphael MD on 12/02/2021 5:43 PM PDT Approved by: Paco Raphael MD on 12/02/2021 5:43 PM PDT Station ID: [id number]
[2021-12-02 18:00] LABS: HGB - HEMOGLOBIN 12.2 g/dL (12.0-16.0); LYMPHOCYTES % (AUTO) 18.3 %; MEAN CORPUSCULAR HEMOGLOBIN 32.1 pg (27.0-31.0)
[2021-12-02 18:21] LABS: BASOPHILS # (AUTO) 0.1 10^3/uL (0.0-0.1); BASOPHILS % (AUTO) 0.8 %; HCT - HEMATOCRIT 36.7 % (37.0-47.0); LYMPHOCYTES # (AUTO) 1.2 10^3/uL (1.5-3.5); MEAN CORPUSCULAR HGB CONC 33.2 g/dL (32.0-36.0); MEAN CORPUSCULAR VOLUME 96.6 fL (81.0-99.0); MEAN PLATELET VOLUME 9.8 fL (7.9-10.8); MONOCYTES # (AUTO) 1.1 10^3/uL (0.0-1.0); NEUTROPHILS # (AUTO) 4.1 10^3/uL (1.5-6.6); NEUTROPHILS % (AUTO) 62.4 %; PLT - PLATELET COUNT 463 10^3/uL (130-450); RED CELL DISTRIBUTION WIDTH 14.5 % (12.0-15.0); WHITE BLOOD COUNT 6.6 x10^3/uL (4.8-10.8)
[2021-12-02] MEDS ORDERED: PIPERACILLIN/TAZOBACTAM 3.375 GM in SODIUM CHLORIDE 0.9% MINIBAG 100 ML IV ONE (18:30)
[2021-12-02 18:40] LABS: BILIRUBIN,URINE NEGATIVE (NEGATIVE); CLARITY,URINE CLEAR (CLEAR); GLUCOSE, URINE (UA) NEGATIVE (NEGATIVE); KETONES,URINE (UA) 15 mg/dL (NEGATIVE); LEUKOCYTE ESTERASE, URINE SMALL (NEGATIVE); NITRITE,URINE NEGATIVE (NEGATIVE); OCCULT BLOOD,URINE NEGATIVE (NEGATIVE); PH,URINE 6.5 PH (5.0-7.5); PROTEIN,URINE NEGATIVE (NEGATIVE); UROBILINOGEN,URINE 1 (NORMAL) E.U./dL (NORMAL)
[2021-12-02 18:48] LABS: EPITHELIAL CELLS,UR FEW Transitional /HPF (<= Few); RBC,URINE 0-5 /HPF (0-5); SQUAMOUS EPITHELIAL CELL,UR MANY Squamous (<= Few)
[2021-12-02 18:49] LABS: BACTERIA,URINE Moderate /HPF (None Seen); MUCUS,URINE Moderate Strands
[2021-12-02] MEDS: PANTOPRAZOLE 40 MG TABLET PO SCH (19:16)
[2021-12-02 20:52] LABS: BILIRUBIN,URINE NEGATIVE (NEGATIVE); GLUCOSE, URINE (UA) NEGATIVE (NEGATIVE); KETONES,URINE (UA) TRACE mg/dL (NEGATIVE); LEUKOCYTE ESTERASE, URINE NEGATIVE (NEGATIVE); NITRITE,URINE NEGATIVE (NEGATIVE); OCCULT BLOOD,URINE NEGATIVE (NEGATIVE); PH,URINE 6.5 PH (5.0-7.5); PROTEIN,URINE NEGATIVE (NEGATIVE); UROBILINOGEN,URINE 0.2 (NORMAL) E.U./dL (NORMAL)
[2021-12-02 20:54] LABS: CLARITY,URINE CLEAR (CLEAR)
[2021-12-02 20:59] LABS: BACTERIA,URINE Rare /HPF (None Seen); EPITHELIAL CELLS,UR RARE Transitional /HPF (<= Few); RBC,URINE 0-5 /HPF (0-5); SQUAMOUS EPITHELIAL CELL,UR RARE Squamous (<= Few); WBC,URINE 0-3 /HPF (0-5)
--- NOTE | 2021-12-02 22:26 | Ultrasound Report ---
PROCEDURE: Abdomen Limited INDICATIONS: RIGHT upper quadrant pain TECHNIQUE: Real-time focused scanning was performed of the abdomen, with image documentation. COMPARISON: Abdominal CT 11/29/2021. FINDINGS: Increased hepatic parenchymal echogenicity indicative of diffuse hepatic steatosis. Coarse keegan hepatic echotexture suggestive of diffuse hepatocellular disorder. No focal hepatic mass. No intr ahepatic or extrahepatic biliary ductal dilatation. Partially calcified gallbladder wall. No cholelit hiasis. Small gallbladder polyp measuring 5 mm. No pericholecystic fluid or gallbladder wall thickeni ng. Small gallbladder polyp or stone measuring 5 mm. Right pleural effusion. Pancreas appeared of bow el gas. Right kidney unremarkable. IMPRESSION: Approximately 5 mm adherent gallstone or gallbladder polyp. No findings of cholecystitis. Hepatic steatosis with coarsening of the hepatic echotexture which may indicate steatohepatitis. Reviewed by: Carlos Linares MD on 12/02/2021 10:25 PM PDT Approved by: Carlos Linares MD on 12/02/2021 10:25 PM PDT Station ID: [id number]
[2021-12-02] MEDS: PIPERACILLIN/TAZOBACTAM 3.375 GM in SODIUM CHLORIDE 0.9% MINIBAG 100 ML IV SCH (22:52)
[2021-12-02] MEDS: SODIUM CHLORIDE FLUSH 0.9% 10 ML SYRINGE IVP PRN (22:52)
[2021-12-03] MEDS: SODIUM CHLORIDE FLUSH 0.9% 10 ML SYRINGE IVP SCH ×4 (01:16→23:54)
[2021-12-03] MEDS: ACETAMINOPHEN 325 MG TABLET PO PRN ×4 (02:37→23:54)
[2021-12-03 05:22] LABS: BASOPHILS # (AUTO) 0.1 10^3/uL (0.0-0.1); BASOPHILS % (AUTO) 1.1 %; HCT - HEMATOCRIT 32.4 % (37.0-47.0); HGB - HEMOGLOBIN 10.8 g/dL (12.0-16.0); LYMPHOCYTES # (AUTO) 0.9 10^3/uL (1.5-3.5); LYMPHOCYTES % (AUTO) 11.2 %; MEAN CORPUSCULAR HEMOGLOBIN 31.7 pg (27.0-31.0); MEAN CORPUSCULAR HGB CONC 33.3 g/dL (32.0-36.0); MEAN PLATELET VOLUME 9.8 fL (7.9-10.8); MONOCYTES % (AUTO) 13.6 %; NEUTROPHILS # (AUTO) 5.6 10^3/uL (1.5-6.6); NEUTROPHILS % (AUTO) 73.2 %; PLT - PLATELET COUNT 404 10^3/uL (130-450); RED BLOOD COUNT 3.41 10^6/uL (4.20-5.40); RED CELL DISTRIBUTION WIDTH 14.3 % (12.0-15.0); WHITE BLOOD COUNT 7.6 x10^3/uL (4.8-10.8)
[2021-12-03 05:30] LABS: CALCIUM 7.7 mg/dL (8.5-10.3); CREATININE 0.7 mg/dL (0.4-1.0); POTASSIUM 3.4 mmol/L (3.5-5.0)
[2021-12-03] MEDS: PIPERACILLIN/TAZOBACTAM 3.375 GM in SODIUM CHLORIDE 0.9% MINIBAG 100 ML IV SCH ×3 (06:24→22:05)
[2021-12-03] MEDS: PANTOPRAZOLE 40 MG TABLET PO SCH (06:24)
[2021-12-03] MEDS ORDERED: POTASSIUM CHLORIDE 20 MEQ TABLET PO ONE (07:21)
[2021-12-03] MEDS: DOCUSATE SODIUM 250 MG CAPSULE PO SCH (08:04)
[2021-12-03] MEDS: ENOXAPARIN 40 MG/0.4 ML SYRINGE SUBQ SCH (08:04)
[2021-12-03] MEDS: SENNA 8.6 MG TABLET PO SCH (08:04)
[2021-12-03] MEDS: PRENATAL VITAMIN TABLET PO SCH (08:04)
[2021-12-03] MEDS: buPROPion XL 150 MG TABLET PO SCH (08:04)
[2021-12-03] MEDS: polyethylene glycoL 3350 17 GM PACKET PO SCH (08:05)
[2021-12-03] MEDS: EXEMESTANE 25 MG PO SCH (08:12)
[2021-12-03] MEDS: LETROZOLE 2.5 MG PO SCH (08:12)
[2021-12-03] MEDS: TAMSULOSIN 0.4 MG CAPSULE PO SCH (09:33)
[2021-12-03] MEDS ORDERED: FUROSEMIDE 20 MG TABLET PO ONE (10:00)
--- NOTE | 2021-12-03 10:29 | PROVIDER PROGRESS NOTE ---
Assessment/Plan - Problem List (1) Sepsis Assessment/Plan: 12/03 pt presented fever, tachycardia, Tachypnea, and pt need supplement of O2 to support her O2 sats. CXR reveal Pulmonary Edema we will start with antibiotics Zosyn, blood culture, UA culture, check Lactic acid level. because pt has pulmonary edema, hold IVF now, closely monitor pt's vital signs. order UA of abdominal because pt complained of abdominal pain special when she deeply inspiration but pt also had recent fall and contusion to her abdomen, order protonix as well. (2) Unsteady gait Assessment/Plan: 12/03 significantly improved, pt walked bathroom with walker. pt's slurred speech is resolved as well. CT of head is unremarkable for acute process. continue hold Narcotic and Librium. (3) Hypoxia significantly improved. pt had 93% on room air. (4) Abdominal contusion Assessment/Plan: Her abdominal pain is due to abdominal contusion from falling off of a chair 3 days ago. her abdominal pain is at under of control, continue Tylenol and ibuprofen as needed. (5)urinary retention nurse report pt has annuria, and bladder scan show over 600ml urine. order straight cath, and Flomax, continue bladder scan as needed and to see pt can urinate by herself otherwise we will put Carrero catheter for pt, and followup with urologist as out-pt - Current Meds Current Meds: Current Medications Generic Name Dose Route Start Last Admin Trade Name Freq PRN Reason Stop Dose Admin Acetaminophen 650 mg 11/30/21 07:20 12/03/21 06:24 Acetaminophen 325 Mg Tablet PO 650 mg Q4HR PRN Administration Pain 1 to 4, or Fever Albuterol/Ipratropium 3 ml 11/30/21 07:28 12/02/21 19:47 Ipratropium/Albuterol 3 Ml Neb INH 3 ml Q4HR PRN Administration Wheezing Bupropion HCl 300 mg 12/03/21 09:00 12/03/21 08:04 Bupropion Xl 150 Mg Tablet PO 300 mg DAILY JULISSA Administration Docusate Sodium 250 - 500 mg 12/03/21 09:00 12/03/21 08:04 Docusate Sodium 250 Mg Capsule PO 250 mg DAILY JULISSA Administration Enoxaparin Sodium 40 mg 11/30/21 09:00 12/03/21 08:04 Enoxaparin 40 Mg/0.4 Ml Syringe SUBQ 40 mg DAILY JULISSA Administration Piperacillin Sod/Tazobactam 100 mls @ 25 mls/hr 12/02/21 23:00 12/03/21 06:24 Sod 3.375 gm/ Sodium Chloride IV 25 mls/hr Q8H JULISSA Administration Ondansetron HCl 4 mg 11/30/21 07:20 11/30/21 17:46 Ondansetron 4 Mg/2 Ml Vial IVP 4 mg Q6HR PRN Administration Nausea / Vomiting Pantoprazole Sodium 40 mg 12/02/21 18:00 12/03/21 06:24 Pantoprazole 40 Mg Tablet PO 40 mg QDAC JULISSA Administration Exemestane [ 1 each 12/03/21 09:00 12/03/21 08:12 Exemestane] 25 Mg PO Not Given Tablet DAILY JULISSA Letrozole 2.5 Mg 1 each 12/03/21 09:00 12/03/21 08:12 Tabs PO Not Given DAILY JULISSA Polyethylene Glycol 17 gm 12/02/21 09:00 12/03/21 08:05 Polyethylene Glycol 3350 17 Gm Packet PO 17 gm DAILY JULISSA Administration Multivit/Folic Acid/Iron 1 tab 12/03/21 08:00 12/03/21 08:04 Vitamin Tablet PO 1 tab DAILYWM JULISSA Administration Senna 8.6 - 17.2 mg 12/03/21 09:00 12/03/21 08:04 Senna 8.6 Mg Tablet PO 8.6 mg DAILY JULISSA Administration Sodium Chloride 10 ml 11/30/21 07:20 12/02/21 22:52 Sodium Chloride Flush 0.9% 10 Ml Syringe IVP 10 ml PRN PRN Administration NEEDED PER PROVIDER ORDERS Sodium Chloride 10 ml 11/30/21 09:00 12/03/21 08:05 Sodium Chloride Flush 0.9% 10 Ml Syringe IVP Not Given 0100,0900,1700 JULISSA Tamsulosin HCl 0.4 mg 12/03/21 10:00 12/03/21 09:33 Tamsulosin 0.4 Mg Capsule PO 0.4 mg DAILY JULISSA Administration - Lab Result Fish Bone Diagrams: 12/03/21 04:52 12/03/21 04:52 - Additional Planning My Orders: My Active Orders 12/02/21 12:14 Neuro Check [RC] Q4H 12/02/21 17:43 AFP SERUM TUMOR MARKER [REFLAB] Urgent Blood Culture [CULTURE, BLOOD #1] [RM] Stat CA 19-9 [REFLAB] Urgent 12/02/21 17:50 Blood Culture [CULTURE, BLOOD #2] [RM] Stat 12/02/21 18:00 Pantoprazole [Protonix] 40 mg PO QDAC 12/02/21 23:00 Piperacillin/Tazobactam [Zosyn] 3.375 gm Sodium Chloride 0.9% Minibag [Normal Saline 0.9% Minibag] 100 ml IV Q8H 12/03/21 08:00 Vitamin [Trinatal Rx 1] 1 tab PO DAILYWM 12/03/21 09:00 Patient Own Med [Patient Own Medication] 1 each PO DAILY Patient Own Med [Patient Own Medication] 1 each PO DAILY buPROPion [Wellbutrin Xl] 300 mg PO DAILY 12/03/21 09:07 Bladder Scan [RC] ONCE Straight Catheter Insertion [RC] ONCE 12/03/21 10:00 Tamsulosin [Flomax] 0.4 mg PO DAILY 12/03/21 17:00 Saccharomyces Boulardii [Florastor] 250 mg PO BIDWM 12/03/21 21:00 traZODone [Desyrel] 75 mg PO QPM 12/04/21 05:00 BMP - BASIC METABOLIC PANEL [CHEM] DAILYLAB CBC - COMP BLD CT W/AUTO DIFF [HEME] DAILYLAB 12/05/21 05:00 BMP - BASIC METABOLIC PANEL [CHEM] DAILYLAB CBC - COMP BLD CT W/AUTO DIFF [HEME] DAILYLAB 12/06/21 05:00 BMP - BASIC METABOLIC PANEL [CHEM] DAILYLAB CBC - COMP BLD CT W/AUTO DIFF [HEME] DAILYLAB 12/07/21 05:00 BMP - BASIC METABOLIC PANEL [CHEM] DAILYLAB CBC - COMP BLD CT W/AUTO DIFF [HEME] DAILYLAB 12/08/21 05:00 BMP - BASIC METABOLIC PANEL [CHEM] DAILYLAB CBC - COMP BLD CT W/AUTO DIFF [HEME] DAILYLAB Subjective - Subjective Patient Reports: Feeling Better, Resting Comfortably Objective Vital Signs: Vital Signs - 24 hr 05/10/22 05/10/22 05/10/22 11:16 11:22 13:17 Temperature 37.6 C Heart Rate 112 H Heart Rate [ Brachial] Heart Rate [ 111 H Monitoring electrodes] Heart Rate [ 116 H Sitting] Heart Rate [ 113 H Supine] Respiratory 22 24 Rate Blood Pressure [Left Brachial artery] Blood Pressure 124/81 H [Right Brachial artery] Blood Pressure 117/80 [Sitting] Blood Pressure 115/69 [Supine] O2 Saturation 100 12/02/21 12/02/21 12/02/21 15:18 15:45 19:47 Temperature 38.7 C H 37.7 C Heart Rate 99 Heart Rate [ Brachial] Heart Rate [ 105 H 118 H Monitoring electrodes] Heart Rate [ Sitting] Heart Rate [ Supine] Respiratory 17 20 24 Rate Blood Pressure [Left Brachial artery] Blood Pressure 110/70 132/81 H [Right Brachial artery] Blood Pressure [Sitting] Blood Pressure [Supine] O2 Saturation 96 93 12/02/21 12/03/21 12/03/21 20:12 00:38 05:00 Temperature 37.2 C 36.6 C 36.4 C L Heart Rate Heart Rate [ 101 H 107 H 90 Brachial] Heart Rate [ Monitoring electrodes] Heart Rate [ Sitting] Heart Rate [ Supine] Respiratory 24 25 H 19 Rate Blood Pressure [Left Brachial artery] Blood Pressure 114/83 H 138/96 H 100/63 [Right Brachial artery] Blood Pressure [Sitting] Blood Pressure [Supine] O2 Saturation 93 93 93 12/03/21 12/03/21 12/03/21 07:33 07:50 08:57 Temperature 36.6 C 36.6 C Heart Rate Heart Rate [ 87 Brachial] Heart Rate [ 86 99 Monitoring electrodes] Heart Rate [ Sitting] Heart Rate [ Supine] Respiratory 16 20 Rate Blood Pressure 91/67 125/86 H [Left Brachial artery] Blood Pressure 99/62 [Right Brachial artery] Blood Pressure [Sitting] Blood Pressure [Supine] O2 Saturation 95 93 Oxygen O2 Source [Without Activity] Room air O2 Source Room air Oxygen Flow Rate 4 I&O (Last 24 Hrs): Intake and Output Totals x24h 12/01/21 12/02/21 12/03/21 23:59 23:59 23:59 Intake Total 770 440 930 Output Total 1050 750 700 Balance -280 -310 230 General: Alert, Cooperative, No acute distress HEENT: Atraumatic Neck: Supple Lymphatic: no adenopathy Neuro: Alert, Non Focal Cardiovascular: Regular rate, Normal S1, Normal S2 Respiratory: Chest non-tender, No respiratory distress Abdomen: Normal bowel sounds, Soft Extremities: Normal pulses - Results Results: Laboratory Results WBC 7.6 x10^3/uL (4.8-10.8) 12/03/21 04:52 RBC 3.41 10^6/uL (4.20-5.40) L 12/03/21 04:52 Hgb 10.8 g/dL (12.0-16.0) L 12/03/21 04:52 Hct 32.4 % (37.0-47.0) L 12/03/21 04:52 MCV 95.0 fL (81.0-99.0) 12/03/21 04:52 MCH 31.7 pg (27.0-31.0) H 12/03/21 04:52 MCHC 33.3 g/dL (32.0-36.0) 12/03/21 04:52 RDW 14.3 % (12.0-15.0) 12/03/21 04:52 Plt Count 404 10^3/uL (130-450) 12/03/21 04:52 MPV 9.8 fL (7.9-10.8) 12/03/21 04:52 Neut # (Auto) 5.6 10^3/uL (1.5-6.6) 12/03/21 04:52 Lymph # (Auto) 0.9 10^3/uL (1.5-3.5) L 12/03/21 04:52 [place] # (Auto) 1.0 10^3/uL (0.0-1.0) 12/03/21 04:52 Eos # (Auto) 0.0 10^3/uL (0.0-0.7) 12/03/21 04:52 Baso # (Auto) 0.1 10^3/uL (0.0-0.1) 12/03/21 04:52 Absolute Nucleated RBC 0.00 x10^3/uL 12/03/21 04:52 Nucleated RBC % 0.0 /100WBC 12/03/21 04:52 Sodium 133 mmol/L (135-145) L 12/03/21 04:52 Potassium 3.4 mmol/L (3.5-5.0) L 12/03/21 04:52 Chloride 97 mmol/L (101-111) L 12/03/21 04:52 Carbon Dioxide 24 mmol/L (21-32) 12/03/21 04:52 Anion Gap 12.0 (6-13) 12/03/21 04:52 BUN 10 mg/dL (6-20) 12/03/21 04:52 Creatinine 0.7 mg/dL (0.4-1.0) 12/03/21 04:52 Estimated GFR (MDRD) 86 (>89) L 12/03/21 04:52 Glucose 85 mg/dL (70-100) 12/03/21 04:52 Lactic Acid 1.1 mmol/L (0.5-2.2) 12/02/21 17:50 Calcium 7.7 mg/dL (8.5-10.3) L 12/03/21 04:52 Total Bilirubin 0.6 mg/dL (0.2-1.0) 11/30/21 00:53 AST 25 IU/L (10-42) 11/30/21 00:53 ALT 14 IU/L (10-60) 11/30/21 00:53 Alkaline Phosphatase 52 IU/L (42-121) 11/30/21 00:53 Ammonia 17.4 umol/L (7-35) 11/30/21 19:18 B-Natriuretic Peptide 87 pg/mL (5-100) 11/30/21 00:53 Total Protein 6.7 g/dL (6.7-8.2) 11/30/21 00:53 Albumin 2.6 g/dL (3.2-5.5) L 11/30/21 00:53 Globulin 4.1 g/dL (2.1-4.2) 11/30/21 00:53 Albumin/Globulin Ratio 0.6 (1.0-2.2) L 11/30/21 00:53 Lipase 21 U/L (22-51) L 11/30/21 00:53 Urine Color YELLOW 12/02/21 20:45 Urine Clarity CLEAR (CLEAR) 12/02/21 20:45 Urine pH 6.5 PH (5.0-7.5) 12/02/21 20:45 Ur Specific [place] 1.010 (1.002-1.030) 12/02/21 20:45 Urine Protein NEGATIVE mg/dL (NEGATIVE) 12/02/21 20:45 Urine Glucose (UA) NEGATIVE mg/dL (NEGATIVE) 12/02/21 20:45 Urine Ketones TRACE mg/dL (NEGATIVE) 12/02/21 20:45 Urine Occult Blood NEGATIVE (NEGATIVE) 12/02/21 20:45 Urine Nitrite NEGATIVE (NEGATIVE) 12/02/21 20:45 Urine Bilirubin NEGATIVE (NEGATIVE) 12/02/21 20:45 Urine Urobilinogen 0.2 (NORMAL) E.U./dL (NORMAL) 12/02/21 20:45 Ur Leukocyte Esterase NEGATIVE (NEGATIVE) 12/02/21 20:45 Urine RBC 0-5 /HPF (0-5) 12/02/21 20:45 Urine WBC 0-3 /HPF (0-5) 12/02/21 20:45 Ur Epithelial Cells RARE Transitional /HPF (<= Few) 12/02/21 20:45 Ur Squamous Epith Cells RARE Squamous (<= Few) 12/02/21 20:45 Urine Bacteria Rare /HPF (None Seen) 12/02/21 20:45 Urine Mucus Moderate Strands 12/02/21 18:30 Urine Culture Comments NOT INDICATED 12/02/21 20:45 Nasal Adenovirus (PCR) NOT DETECTED 11/30/21 04:30 Nasal B. parapertussis DNA (PCR) NOT DETECTED 11/30/21 04:30 Nasal Coronavir 229E PCR NOT DETECTED 11/30/21 04:30 Nasal Coronavir HKU1 PCR NOT DETECTED 11/30/21 04:30 Nasal Coronavir NL63 PCR NOT DETECTED 11/30/21 04:30 Nasal Coronavir OC43 PCR NOT DETECTED 11/30/21 04:30 Nasal Enterovir/Rhinovir PCR NOT DETECTED 11/30/21 04:30 Nasal Influenza B PCR NOT DETECTED 11/30/21 04:30 Nasal Influenza A PCR NOT DETECTED 11/30/21 04:30 Nasal Parainfluen 1 PCR NOT DETECTED 11/30/21 04:30 Nasal Parainfluen 2 PCR NOT DETECTED 11/30/21 04:30 Nasal Parainfluen 3 PCR NOT DETECTED 11/30/21 04:30 Nasal Parainfluen 4 PCR NOT DETECTED 11/30/21 04:30 Nasal RSV (PCR) NOT DETECTED 11/30/21 04:30 Nasal B.pertussis DNA PCR NOT DETECTED 11/30/21 04:30 Nasal C.pneumoniae (PCR) NOT DETECTED 11/30/21 04:30 Jacinto Human Metapneumo PCR NOT DETECTED 11/30/21 04:30 Nasal M.pneumoniae (PCR) NOT DETECTED 11/30/21 04:30 Nasal SARS-CoV-2 (PCR) NOT DETECTED 11/30/21 04:30 Urine Opiates Screen POSITIVE (NEGATIVE) H 11/30/21 18:48 Ur Oxycodone Screen POSITIVE (NEGATIVE) H 11/30/21 18:48 Urine Methadone Screen NEGATIVE (NEGATIVE) 11/30/21 18:48 Ur Propoxyphene Screen NEGATIVE (NEGATIVE) 11/30/21 18:48 Ur Barbiturates Screen NEGATIVE (NEGATIVE) 11/30/21 18:48 Ur Tricyclics Screen NEGATIVE (NEGATIVE) 11/30/21 18:48 Ur Phencyclidine Scrn NEGATIVE (NEGATIVE) 11/30/21 18:48 Ur Amphetamine Screen NEGATIVE (NEGATIVE) 11/30/21 18:48 U Methamphetamines Scrn NEGATIVE (NEGATIVE) 11/30/21 18:48 U Benzodiazepines Scrn POSITIVE (NEGATIVE) H 11/30/21 18:48 Urine Cocaine Screen NEGATIVE (NEGATIVE) 11/30/21 18:48 U Cannabinoids Screen NEGATIVE (NEGATIVE) 11/30/21 18:48 Ethyl Alcohol < 5.0 mg/dL 11/30/21 00:53 - Procedures Procedures: Procedures EXCISE AXILLARY NODE (05/22/14) INSERTION OF TOTALLY IMPLANTABLE VASC ACCESS DEVIC (05/22/14) SUBTOTAL MASTECTOMY (05/22/14) Sepsis Event Note (H) - Evaluation Current Stage of Sepsis: Sepsis Possible source of Sepsis: positive: Pulmonary - Sepsis Criteria Sepsis Criteria: Recorded Temperature greater than 38.3C or Less than 36C, Recorded Heart Rate greater than 90 bpm, Recorded Respiratory Rate greater than 20 ABX Reporting Has patient been on IV antibiotics over the past 48 hours?: Yes Current Medications - Current Medications Current Medications: Active Medications Acetaminophen (Acetaminophen 325 Mg Tablet) 650 mg PO Q4HR PRN PRN Reason: Pain 1 to 4, or Fever Last Admin: 12/03/21 06:24 Dose: 650 mg Albuterol/Ipratropium (Ipratropium/Albuterol 3 Ml Neb) 3 ml INH Q4HR PRN PRN Reason: Wheezing Last Admin: 12/02/21 19:47 Dose: 3 ml Bupropion HCl (Bupropion Xl 150 Mg Tablet) 300 mg PO DAILY [facility] Last Admin: 12/03/21 08:04 Dose: 300 mg Docusate Sodium (Docusate Sodium 250 Mg Capsule) 250 - 500 mg PO DAILY [facility] Last Admin: 12/03/21 08:04 Dose: 250 mg Enoxaparin Sodium (Enoxaparin 40 Mg/0.4 Ml Syringe) 40 mg SUBQ DAILY [facility] Last Admin: 12/03/21 08:04 Dose: 40 mg Piperacillin Sod/Tazobactam (Sod 3.375 gm/ Sodium Chloride) 100 mls @ 25 mls/hr IV Q8H [facility] Last Admin: 12/03/21 06:24 Dose: 25 mls/hr Ibuprofen (Ibuprofen 400 Mg Tablet) 400 mg PO Q6HR PRN PRN Reason: PAIN Ondansetron HCl (Ondansetron 4 Mg/2 Ml Vial) 4 mg IVP Q6HR PRN PRN Reason: Nausea / Vomiting Last Admin: 11/30/21 17:46 Dose: 4 mg Pantoprazole Sodium (Pantoprazole 40 Mg Tablet) 40 mg PO QDAC [facility] Last Admin: 12/03/21 06:24 Dose: 40 mg Exemestane [ Exemestane] 25 Mg Tablet 1 each PO DAILY [facility] Last Admin: 12/03/21 08:12 Dose: Not Given Letrozole 2.5 Mg (Tabs) 1 each PO DAILY [facility] Last Admin: 12/03/21 08:12 Dose: Not Given Polyethylene Glycol (Polyethylene Glycol 3350 17 Gm Packet) 17 gm PO DAILY [facility] Last Admin: 12/03/21 08:05 Dose: 17 gm Multivit/Folic Acid/Iron ( Vitamin Tablet) 1 tab PO DAILYWM [facility] Last Admin: 12/03/21 08:04 Dose: 1 tab Saccharomyces Boulardii (Saccharomyces Boulardii 250 Mg Capsule) 250 mg PO BIDWM [facility] Senna (Senna 8.6 Mg Tablet) 8.6 - 17.2 mg PO DAILY [facility] Last Admin: 12/03/21 08:04 Dose: 8.6 mg Sodium Chloride (Sodium Chloride Flush 0.9% 10 Ml Syringe) 10 ml IVP PRN PRN PRN Reason: NEEDED PER PROVIDER ORDERS Last Admin: 12/02/21 22:52 Dose: 10 ml Sodium Chloride (Sodium Chloride Flush 0.9% 10 Ml Syringe) 10 ml IVP 0100,0900,1700 [facility] Last Admin: 12/03/21 08:05 Dose: Not Given Tamsulosin HCl (Tamsulosin 0.4 Mg Capsule) 0.4 mg PO DAILY [facility] Last Admin: 12/03/21 09:33 Dose: 0.4 mg Trazodone HCl (Trazodone 50 Mg Tablet) 75 mg PO QPM [facility] traZODone [Desyrel] 75 mg PO QPM 06/26/14 Vitamin B Complex Vit C No.4 [Super B Complex] 1 tab PO DAILY 07/10/14 [place]-3 Fatty Acids/Fish Oil [[place] 3 1,000 mg Softgel] 1 cap ORAL DAILY 08/28/14 SUMAtriptan succinate [Sumatriptan Succinate] 100 mg PO DAILY PRN 05/15/16 Meloxicam 15 mg PO DAILY 08/04/16
[2021-12-03] MEDS: IPRATROPIUM/ALBUTEROL 3 ML NEB INH PRN (12:46)
[2021-12-03] MEDS: GI COCKTAIL 120 ML BOTTLE PO PRN (15:21)
[2021-12-03] MEDS: SODIUM CHLORIDE FLUSH 0.9% 10 ML SYRINGE IVP PRN (15:31)
[2021-12-03] MEDS: SACCHAROMYCES BOULARDII 250 MG CAPSULE PO SCH (16:03)
[2021-12-03] MEDS ORDERED: LORazepam 1 MG TABLET PO PRN (17:53)
[2021-12-03] MEDS ORDERED: diphenhydrAMINE 25 MG CAPSULE PO PRN (17:55)
[2021-12-03] MEDS ORDERED: LORazepam 0.5 MG TABLET PO PRN (17:58)
[2021-12-03] MEDS ORDERED: traZODone 50 MG TABLET PO SCH ×2 (21:00)
[2021-12-03] MEDS: traZODone 50 MG TABLET PO SCH (22:02)
[2021-12-04 05:53] LABS: BASOPHILS # (AUTO) 0.1 10^3/uL (0.0-0.1); BASOPHILS % (AUTO) 0.9 %; HCT - HEMATOCRIT 34.7 % (37.0-47.0); HGB - HEMOGLOBIN 11.7 g/dL (12.0-16.0); LYMPHOCYTES # (AUTO) 0.9 10^3/uL (1.5-3.5); LYMPHOCYTES % (AUTO) 12.9 %; MEAN CORPUSCULAR HEMOGLOBIN 31.7 pg (27.0-31.0); MEAN CORPUSCULAR HGB CONC 33.7 g/dL (32.0-36.0); MEAN PLATELET VOLUME 10.1 fL (7.9-10.8); MONOCYTES # (AUTO) 0.8 10^3/uL (0.0-1.0); MONOCYTES % (AUTO) 12.4 %; NEUTROPHILS # (AUTO) 4.9 10^3/uL (1.5-6.6); NEUTROPHILS % (AUTO) 72.6 %; PLT - PLATELET COUNT 440 10^3/uL (130-450); RED BLOOD COUNT 3.69 10^6/uL (4.20-5.40); RED CELL DISTRIBUTION WIDTH 14.1 % (12.0-15.0); WHITE BLOOD COUNT 6.8 x10^3/uL (4.8-10.8)
[2021-12-04 05:59] LABS: CALCIUM 7.9 mg/dL (8.5-10.3); CREATININE 0.6 mg/dL (0.4-1.0); POTASSIUM 3.3 mmol/L (3.5-5.0)
[2021-12-04] MEDS: PIPERACILLIN/TAZOBACTAM 3.375 GM in SODIUM CHLORIDE 0.9% MINIBAG 100 ML IV SCH ×3 (06:23→22:10)
[2021-12-04] MEDS: ACETAMINOPHEN 325 MG TABLET PO PRN (06:24)
[2021-12-04] MEDS: PANTOPRAZOLE 40 MG TABLET PO SCH (06:24)
[2021-12-04] MEDS ORDERED: POTASSIUM CHLORIDE 20 MEQ TABLET PO ONE (07:57)
[2021-12-04] MEDS: SACCHAROMYCES BOULARDII 250 MG CAPSULE PO SCH ×2 (08:13→17:09)
[2021-12-04] MEDS: buPROPion XL 150 MG TABLET PO SCH (08:13)
[2021-12-04] MEDS: TAMSULOSIN 0.4 MG CAPSULE PO SCH (08:13)
[2021-12-04] MEDS: PRENATAL VITAMIN TABLET PO SCH (08:14)
[2021-12-04] MEDS: SODIUM CHLORIDE FLUSH 0.9% 10 ML SYRINGE IVP SCH ×3 (08:14→23:28)
[2021-12-04] MEDS: SENNA 8.6 MG TABLET PO SCH (08:14)
[2021-12-04] MEDS: polyethylene glycoL 3350 17 GM PACKET PO SCH (08:14)
[2021-12-04] MEDS: LETROZOLE 2.5 MG PO SCH (08:14)
[2021-12-04] MEDS: ENOXAPARIN 40 MG/0.4 ML SYRINGE SUBQ SCH (08:14)
[2021-12-04] MEDS: DOCUSATE SODIUM 250 MG CAPSULE PO SCH (08:14)
[2021-12-04] MEDS: EXEMESTANE 25 MG PO SCH (08:14)
[2021-12-04] MEDS: IPRATROPIUM/ALBUTEROL 3 ML NEB INH PRN (08:25)
[2021-12-04] MEDS: GI COCKTAIL 120 ML BOTTLE PO PRN ×2 (09:59→15:09)
[2021-12-04] MEDS: THIAMINE 100 MG TABLET PO SCH (12:49)
[2021-12-04] MEDS: VANCOMYCIN 125 MG CAPSULE PO SCH ×3 (12:51→22:11)
--- NOTE | 2021-12-04 13:06 | PROVIDER PROGRESS NOTE ---
Assessment/Plan - Problem List (1) C. difficile diarrhea Assessment/Plan: 12/04 Patient has diarrhea, C. difficile test is positive. Patient was treated for sepsis with antibiotics and patient also had probiotics. we start with PO Vancomycin, also started with gently intravenous IV fluids for diarrhea, Isolation for C. difficile infection, continue laboratory electrolyte monitor, continue vital signs monitor (2) Sepsis Assessment/Plan: 12/04 resolved. Patient has no more fever, WBC is at the normal range, blood cultures is negative for bacteremia, patient had 94-92% Oxygen saturation on room air, continue antibiotics and probiotics. 12/03 pt presented fever, tachycardia, Tachypnea, and pt need supplement of O2 to support her O2 sats. CXR reveal Pulmonary Edema we will start with antibiotics Zosyn, blood culture, UA culture, check Lactic acid level. because pt has pulmonary edema, hold IVF now, closely monitor pt's vital signs. order UA of abdominal because pt complained of abdominal pain special when she deeply inspiration but pt also had recent fall and contusion to her abdomen, order protonix as well. (3) Unsteady gait Assessment/Plan: 12/04 improved, continue PT/OT and to see if pt need for SNF 12/03 significantly improved, pt walked bathroom with walker. pt's slurred speech is resolved as well. CT of head is unremarkable for acute process. continue hold Narcotic and Librium. (4) Hypoxia significantly improved. pt had 93% on room air. (5) Abdominal contusion Assessment/Plan: Her abdominal pain is due to abdominal contusion from falling off of a chair 3 days ago. her abdominal pain is at under of control, continue Tylenol and ibu profen as needed. (6)urinary retention 12/04 resolved. pt urinate by her self nurse report pt has annuria, and bladder scan show over 600ml urine. order straight cath, and Flomax, continue bladder scan as needed and to see pt can urinate by herself otherwise we will put Carrero catheter for pt, and followup with urologist as out-pt (7)alcohol abuse 12/04 pt has hx of alcohol abuse, alcohol withdrawal, hx of alcohol seizure. pt was recently d/c from [facility] for Alcohol withdrawal. pt did not show obvious alcohol withdrawal or alcoholic seizure at this time hospital stay. we will resume home , add Vitamin B1, continue Ativan PRN, closely monitor if pt has alcohol withdrawal. (8)s/p left mastectomy pt has hx of BRCA positive breast cancer, and s/p of left mastectomy, pt is under chemotherapy and followup with her oncologist as out-pt - Current Meds Current Meds: Current Medications Generic Name Dose Route Start Last Admin Trade Name Freq PRN Reason Stop Dose Admin Acetaminophen 650 mg 11/30/21 07:20 12/04/21 06:24 Acetaminophen 325 Mg Tablet PO 650 mg Q4HR PRN Administration Pain 1 to 4, or Fever Albuterol/Ipratropium 3 ml 11/30/21 07:28 12/04/21 08:25 Ipratropium/Albuterol 3 Ml Neb INH 3 ml Q4HR PRN Administration Wheezing Bupropion HCl 300 mg 12/03/21 09:00 12/04/21 08:13 Bupropion Xl 150 Mg Tablet PO 300 mg DAILY JULISSA Administration Docusate Sodium 250 - 500 mg 12/03/21 09:00 12/04/21 08:14 Docusate Sodium 250 Mg Capsule PO Not Given DAILY JULISSA Enoxaparin Sodium 40 mg 11/30/21 09:00 12/04/21 08:14 Enoxaparin 40 Mg/0.4 Ml Syringe SUBQ 40 mg DAILY JULISSA Administration Piperacillin Sod/Tazobactam 100 mls @ 25 mls/hr 12/02/21 23:00 12/04/21 10:55 Sod 3.375 gm/ Sodium Chloride IV Infused Q8H JULISSA Infusion Lorazepam 0.25 mg 12/03/21 17:58 12/03/21 18:52 Lorazepam 0.5 Mg Tablet PO 0.25 mg Q12H PRN Administration Anxiety Multi-Ingredient Mouthwash/Gargle 30 ml 12/03/21 14:04 12/04/21 09:59 Gi Cocktail 120 Ml Bottle PO 30 ml Q4H PRN Administration Abdominal Pain Ondansetron HCl 4 mg 11/30/21 07:20 11/30/21 17:46 Ondansetron 4 Mg/2 Ml Vial IVP 4 mg Q6HR PRN Administration Nausea / Vomiting Pantoprazole Sodium 40 mg 12/02/21 18:00 12/04/21 06:24 Pantoprazole 40 Mg Tablet PO 40 mg QDAC JULISSA Administration Exemestane [ 1 each 12/03/21 09:00 12/04/21 08:14 Exemestane] 25 Mg PO Not Given Tablet DAILY JULISSA Letrozole 2.5 Mg 1 each 12/03/21 09:00 12/04/21 08:14 Tabs PO Not Given DAILY JULISSA Polyethylene Glycol 17 gm 12/02/21 09:00 12/04/21 08:14 Polyethylene Glycol 3350 17 Gm Packet PO Not Given DAILY JULISSA Multivit/Folic Acid/Iron 1 tab 12/03/21 08:00 12/04/21 08:14 Vitamin Tablet PO 1 tab DAILYWM JULISSA Administration Senna 8.6 - 17.2 mg 12/03/21 09:00 12/04/21 08:14 Senna 8.6 Mg Tablet PO Not Given DAILY JULISSA Sodium Chloride 10 ml 11/30/21 07:20 12/03/21 15:31 Sodium Chloride Flush 0.9% 10 Ml Syringe IVP 10 ml PRN PRN Administration NEEDED PER PROVIDER ORDERS Sodium Chloride 10 ml 11/30/21 09:00 12/04/21 08:14 Sodium Chloride Flush 0.9% 10 Ml Syringe IVP Not Given 0100,0900,1700 JULISSA Tamsulosin HCl 0.4 mg 12/03/21 10:00 12/04/21 08:13 Tamsulosin 0.4 Mg Capsule PO 0.4 mg DAILY JULISSA Administration Thiamine HCl 100 mg 12/04/21 12:00 12/04/21 12:49 Thiamine 100 Mg Tablet PO 100 mg DAILY JULISSA Administration Trazodone HCl 75 mg 12/03/21 21:00 12/03/21 22:02 Trazodone 50 Mg Tablet PO 75 mg QPM JULISSA Administration Vancomycin HCl 125 mg 12/04/21 13:00 12/04/21 12:51 Vancomycin 125 Mg Capsule PO 125 mg QID JULISSA Administration - Lab Result Fish Bone Diagrams: 12/04/21 04:40 12/04/21 04:40 - Additional Planning My Orders: My Active Orders 12/03/21 14:04 Gi Cocktail 30 ml PO Q4H PRN 12/03/21 17:58 LORazepam [Ativan] 0.25 mg PO Q12H PRN 12/03/21 21:00 traZODone [Desyrel] 75 mg PO QPM 12/04/21 12:00 Thiamine [Vitamin B-1] 100 mg PO DAILY 12/04/21 13:00 Vancomycin [Vancocin] 125 mg PO QID 12/04/21 17:00 Saccharomyces Boulardii [Florastor] 500 mg PO BIDWM 12/05/21 05:00 BMP - BASIC METABOLIC PANEL [CHEM] DAILYLAB CBC - COMP BLD CT W/AUTO DIFF [HEME] DAILYLAB 12/06/21 05:00 BMP - BASIC METABOLIC PANEL [CHEM] DAILYLAB CBC - COMP BLD CT W/AUTO DIFF [HEME] DAILYLAB 12/07/21 05:00 BMP - BASIC METABOLIC PANEL [CHEM] DAILYLAB CBC - COMP BLD CT W/AUTO DIFF [HEME] DAILYLAB 12/08/21 05:00 BMP - BASIC METABOLIC PANEL [CHEM] DAILYLAB CBC - COMP BLD CT W/AUTO DIFF [HEME] DAILYLAB Subjective - Subjective Patient Reports: Resting Comfortably Objective Vital Signs: Vital Signs - 24 hr 12/03/21 12/03/21 12/03/21 13:54 15:22 20:59 Temperature 36.6 C 36.8 C 36.8 C Heart Rate Heart Rate [ 103 H 97 Brachial] Heart Rate [ 119 H Monitoring electrodes] Heart Rate [ Supine] Respiratory 20 22 21 Rate Blood Pressure 108/83 H [Left Brachial artery] Blood Pressure 120/77 115/99 H [Right Brachial artery] Blood Pressure [Supine] O2 Saturation 92 97 91 L 12/03/21 12/04/21 12/04/21 23:25 00:01 04:10 Temperature 37 C 36.7 C Heart Rate 97 Heart Rate [ 100 99 Brachial] Heart Rate [ Monitoring electrodes] Heart Rate [ Supine] Respiratory 20 21 20 Rate Blood Pressure [Left Brachial artery] Blood Pressure 134/88 H 133/85 H [Right Brachial artery] Blood Pressure [Supine] O2 Saturation 92 93 12/04/21 12/04/21 12/04/21 07:55 08:36 11:02 Temperature 37.2 C 37.1 C Heart Rate 95 Heart Rate [ Brachial] Heart Rate [ 94 97 Monitoring electrodes] Heart Rate [ Supine] Respiratory 18 20 20 Rate Blood Pressure 119/78 [Left Brachial artery] Blood Pressure 124/78 [Right Brachial artery] Blood Pressure [Supine] O2 Saturation 94 92 12/04/21 11:15 Temperature Heart Rate Heart Rate [ Brachial] Heart Rate [ Monitoring electrodes] Heart Rate [ 113 H Supine] Respiratory Rate Blood Pressure [Left Brachial artery] Blood Pressure [Right Brachial artery] Blood Pressure 115/69 [Supine] O2 Saturation Oxygen O2 Source [Without Activity] Room air O2 Source Room air Oxygen Flow Rate 4 I&O (Last 24 Hrs): Intake and Output Totals x24h 12/02/21 12/03/21 12/04/21 23:59 23:59 23:59 Intake Total 440 1650 870 Output Total 750 900 100 Balance -310 750 770 General: Alert, No acute distress HEENT: Atraumatic Neck: Supple Lymphatic: no adenopathy Neuro: Alert, Non Focal Cardiovascular: Regular rate, Normal S1, Normal S2 Respiratory: Chest non-tender, No respiratory distress Abdomen: Normal bowel sounds, Soft Extremities: Normal pulses - Results Results: Laboratory Results WBC 6.8 x10^3/uL (4.8-10.8) 12/04/21 04:40 RBC 3.69 10^6/uL (4.20-5.40) L 12/04/21 04:40 Hgb 11.7 g/dL (12.0-16.0) L 12/04/21 04:40 Hct 34.7 % (37.0-47.0) L 12/04/21 04:40 MCV 94.0 fL (81.0-99.0) 12/04/21 04:40 MCH 31.7 pg (27.0-31.0) H 12/04/21 04:40 MCHC 33.7 g/dL (32.0-36.0) 12/04/21 04:40 RDW 14.1 % (12.0-15.0) 12/04/21 04:40 Plt Count 440 10^3/uL (130-450) 12/04/21 04:40 MPV 10.1 fL (7.9-10.8) 12/04/21 04:40 Neut # (Auto) 4.9 10^3/uL (1.5-6.6) 12/04/21 04:40 Lymph # (Auto) 0.9 10^3/uL (1.5-3.5) L 12/04/21 04:40 Bull[place] # (Auto) 0.8 10^3/uL (0.0-1.0) 12/04/21 04:40 Eos # (Auto) 0.0 10^3/uL (0.0-0.7) 12/04/21 04:40 Baso # (Auto) 0.1 10^3/uL (0.0-0.1) 12/04/21 04:40 Absolute Nucleated RBC 0.00 x10^3/uL 12/04/21 04:40 Nucleated RBC % 0.0 /100WBC 12/04/21 04:40 Sodium 133 mmol/L (135-145) L 12/04/21 04:40 Potassium 3.3 mmol/L (3.5-5.0) L 12/04/21 04:40 Chloride 98 mmol/L (101-111) L 12/04/21 04:40 Carbon Dioxide 27 mmol/L (21-32) 12/04/21 04:40 Anion Gap 8.0 (6-13) 12/04/21 04:40 BUN 10 mg/dL (6-20) 12/04/21 04:40 Creatinine 0.6 mg/dL (0.4-1.0) 12/04/21 04:40 Estimated GFR (MDRD) 103 (>89) 12/04/21 04:40 Glucose 95 mg/dL (70-100) 12/04/21 04:40 Lactic Acid 1.1 mmol/L (0.5-2.2) 12/02/21 17:50 Calcium 7.9 mg/dL (8.5-10.3) L 12/04/21 04:40 Total Bilirubin 0.6 mg/dL (0.2-1.0) 11/30/21 00:53 AST 25 IU/L (10-42) 11/30/21 00:53 ALT 14 IU/L (10-60) 11/30/21 00:53 Alkaline Phosphatase 52 IU/L (42-121) 11/30/21 00:53 Ammonia 17.4 umol/L (7-35) 11/30/21 19:18 Troponin I High Sens 5.1 ng/L (2.3-14.8) 12/03/21 14:10 B-Natriuretic Peptide 87 pg/mL (5-100) 11/30/21 00:53 Total Protein 6.7 g/dL (6.7-8.2) 11/30/21 00:53 Albumin 2.6 g/dL (3.2-5.5) L 11/30/21 00:53 Globulin 4.1 g/dL (2.1-4.2) 11/30/21 00:53 Albumin/Globulin Ratio 0.6 (1.0-2.2) L 05 00:53 Lipase 21 U/L (22-51) L 11/30/21 00:53 Tumor Marker AFP <0.9 ng/mL (0.0-9.2) 12/02/21 17:43 CA 19-9 Antigen 8 U/mL (0-35) 12/02/21 17:43 Urine Color YELLOW 12/02/21 20:45 Urine Clarity CLEAR (CLEAR) 12/02/21 20:45 Urine pH 6.5 PH (5.0-7.5) 12/02/21 20:45 Ur Specific [place] 1.010 (1.002-1.030) 12/02/21 20:45 Urine Protein NEGATIVE mg/dL (NEGATIVE) 12/02/21 20:45 Urine Glucose (UA) NEGATIVE mg/dL (NEGATIVE) 12/02/21 20:45 Urine Ketones TRACE mg/dL (NEGATIVE) 12/02/21 20:45 Urine Occult Blood NEGATIVE (NEGATIVE) 12/02/21 20:45 Urine Nitrite NEGATIVE (NEGATIVE) 12/02/21 20:45 Urine Bilirubin NEGATIVE (NEGATIVE) 12/02/21 20:45 Urine Urobilinogen 0.2 (NORMAL) E.U./dL (NORMAL) 12/02/21 20:45 Ur Leukocyte Esterase NEGATIVE (NEGATIVE) 12/02/21 20:45 Urine RBC 0-5 /HPF (0-5) 12/02/21 20:45 Urine WBC 0-3 /HPF (0-5) 12/02/21 20:45 Ur Epithelial Cells RARE Transitional /HPF (<= Few) 12/02/21 20:45 Ur Squamous Epith Cells RARE Squamous (<= Few) 12/02/21 20:45 Urine Bacteria Rare /HPF (None Seen) 12/02/21 20:45 Urine Mucus Moderate Strands 12/02/21 18:30 Urine Culture Comments NOT INDICATED 12/02/21 20:45 Nasal Adenovirus (PCR) NOT DETECTED 11/30/21 04:30 Nasal B. parapertussis DNA (PCR) NOT DETECTED 11/30/21 04:30 Nasal Coronavir 229E PCR NOT DETECTED 11/30/21 04:30 Nasal Coronavir HKU1 PCR NOT DETECTED 11/30/21 04:30 Nasal Coronavir NL63 PCR NOT DETECTED 11/30/21 04:30 Nasal Coronavir OC43 PCR NOT DETECTED 11/30/21 04:30 Nasal Enterovir/Rhinovir PCR NOT DETECTED 11/30/21 04:30 Nasal Influenza B PCR NOT DETECTED 11/30/21 04:30 Nasal Influenza A PCR NOT DETECTED 11/30/21 04:30 Nasal Parainfluen 1 PCR NOT DETECTED 11/30/21 04:30 Nasal Parainfluen 2 PCR NOT DETECTED 11/30/21 04:30 Nasal Parainfluen 3 PCR NOT DETECTED 11/30/21 04:30 Nasal Parainfluen 4 PCR NOT DETECTED 11/30/21 04:30 Nasal RSV (PCR) NOT DETECTED 11/30/21 04:30 Nasal B.pertussis DNA PCR NOT DETECTED 11/30/21 04:30 Nasal C.pneumoniae (PCR) NOT DETECTED 11/30/21 04:30 Jacinto Human Metapneumo PCR NOT DETECTED 11/30/21 04:30 Nasal M.pneumoniae (PCR) NOT DETECTED 11/30/21 04:30 Nasal SARS-CoV-2 (PCR) NOT DETECTED 11/30/21 04:30 Stl C. diff Tox B Gene POSITIVE (NEGATIVE) A* 12/04/21 09:38 Urine Opiates Screen POSITIVE (NEGATIVE) H 11/30/21 18:48 Ur Oxycodone Screen POSITIVE (NEGATIVE) H 11/30/21 18:48 Urine Methadone Screen NEGATIVE (NEGATIVE) 11/30/21 18:48 Ur Propoxyphene Screen NEGATIVE (NEGATIVE) 11/30/21 18:48 Ur Barbiturates Screen NEGATIVE (NEGATIVE) 11/30/21 18:48 Ur Tricyclics Screen NEGATIVE (NEGATIVE) 11/30/21 18:48 Ur Phencyclidine Scrn NEGATIVE (NEGATIVE) 11/30/21 18:48 Ur Amphetamine Screen NEGATIVE (NEGATIVE) 11/30/21 18:48 U Methamphetamines Scrn NEGATIVE (NEGATIVE) 11/30/21 18:48 U Benzodiazepines Scrn POSITIVE (NEGATIVE) H 11/30/21 18:48 Urine Cocaine Screen NEGATIVE (NEGATIVE) 11/30/21 18:48 U Cannabinoids Screen NEGATIVE (NEGATIVE) 11/30/21 18:48 Ethyl Alcohol < 5.0 mg/dL 11/30/21 00:53 - Procedures Procedures: Procedures EXCISE AXILLARY NODE (05/22/14) INSERTION OF TOTALLY IMPLANTABLE VASC ACCESS DEVIC (05/22/14) SUBTOTAL MASTECTOMY (05/22/14) Sepsis Event Note (H) - Evaluation Current Stage of Sepsis: Sepsis Possible source of Sepsis: positive: Pulmonary - Sepsis Criteria Sepsis Criteria: Recorded Temperature greater than 38.3C or Less than 36C, Recorded Heart Rate greater than 90 bpm, Recorded Respiratory Rate greater than 20 ABX Reporting Has patient been on IV antibiotics over the past 48 hours?: Yes Current Medications - Current Medications Current Medications: Active Medications Acetaminophen (Acetaminophen 325 Mg Tablet) 650 mg PO Q4HR PRN PRN Reason: Pain 1 to 4, or Fever Last Admin: 12/04/21 06:24 Dose: 650 mg Albuterol/Ipratropium (Ipratropium/Albuterol 3 Ml Neb) 3 ml INH Q4HR PRN PRN Reason: Wheezing Last Admin: 12/04/21 08:25 Dose: 3 ml Bupropion HCl (Bupropion Xl 150 Mg Tablet) 300 mg PO DAILY [facility] Last Admin: 12/04/21 08:13 Dose: 300 mg Docusate Sodium (Docusate Sodium 250 Mg Capsule) 250 - 500 mg PO DAILY [facility] Last Admin: 12/04/21 08:14 Dose: Not Given Enoxaparin Sodium (Enoxaparin 40 Mg/0.4 Ml Syringe) 40 mg SUBQ DAILY [facility] Last Admin: 12/04/21 08:14 Dose: 40 mg Piperacillin Sod/Tazobactam (Sod 3.375 gm/ Sodium Chloride) 100 mls @ 25 mls/hr IV Q8H [facility] Last Infusion: 12/04/21 10:55 Dose: Infused Lactated Ringer's (Lr) 1,000 mls @ 83.333 mls/hr IV .Q12H [facility] Stop: 12/05/21 13:59 Ibuprofen (Ibuprofen 400 Mg Tablet) 400 mg PO Q6HR PRN PRN Reason: PAIN Lorazepam (Lorazepam 0.5 Mg Tablet) 0.25 mg PO Q6H PRN PRN Reason: Anxiety Multi-Ingredient Mouthwash/Gargle (Gi Cocktail 120 Ml Bottle) 30 ml PO Q4H PRN PRN Reason: Abdominal Pain Last Admin: 12/04/21 09:59 Dose: 30 ml Ondansetron HCl (Ondansetron 4 Mg/2 Ml Vial) 4 mg IVP Q6HR PRN PRN Reason: Nausea / Vomiting Last Admin: 11/30/21 17:46 Dose: 4 mg Pantoprazole Sodium (Pantoprazole 40 Mg Tablet) 40 mg PO QDAC [facility] Last Admin: 12/04/21 06:24 Dose: 40 mg Exemestane [ Exemestane] 25 Mg Tablet 1 each PO DAILY [facility] Last Admin: 12/04/21 08:14 Dose: Not Given Letrozole 2.5 Mg (Tabs) 1 each PO DAILY [facility] Last Admin: 12/04/21 08:14 Dose: Not Given Polyethylene Glycol (Polyethylene Glycol 3350 17 Gm Packet) 17 gm PO DAILY [facility] Last Admin: 12/04/21 08:14 Dose: Not Given Multivit/Folic Acid/Iron ( Vitamin Tablet) 1 tab PO DAILYWM [facility] Last Admin: 12/04/21 08:14 Dose: 1 tab Saccharomyces Boulardii (Saccharomyces Boulardii 250 Mg Capsule) 500 mg PO BIDWM [facility] Senna (Senna 8.6 Mg Tablet) 8.6 - 17.2 mg PO DAILY [facility] Last Admin: 12/04/21 08:14 Dose: Not Given Sodium Chloride (Sodium Chloride Flush 0.9% 10 Ml Syringe) 10 ml IVP PRN PRN PRN Reason: NEEDED PER PROVIDER ORDERS Last Admin: 12/03/21 15:31 Dose: 10 ml Sodium Chloride (Sodium Chloride Flush 0.9% 10 Ml Syringe) 10 ml IVP 0100,090 0,1700 [facility] Last Admin: 12/04/21 08:14 Dose: Not Given Tamsulosin HCl (Tamsulosin 0.4 Mg Capsule) 0.4 mg PO DAILY [facility] Last Admin: 12/04/21 08:13 Dose: 0.4 mg Thiamine HCl (Thiamine 100 Mg Tablet) 100 mg PO DAILY [facility] Last Admin: 12/04/21 12:49 Dose: 100 mg Trazodone HCl (Trazodone 50 Mg Tablet) 75 mg PO QPM [facility] Last Admin: 12/03/21 22:02 Dose: 75 mg Vancomycin HCl (Vancomycin 125 Mg Capsule) 125 mg PO QID JULISSA Last Admin: 12/04/21 12:51 Dose: 125 mg traZODone [Desyrel] 75 mg PO QPM 06/26/14 Vitamin B Complex Vit C No.4 [Super B Complex] 1 tab PO DAILY 07/10/14 Oak-3 Fatty Acids/Fish Oil [Oak 3 1,000 mg Softgel] 1 cap ORAL DAILY 08/28/14 SUMAtriptan succinate [Sumatriptan Succinate] 100 mg PO DAILY PRN 05/15/16 Meloxicam 15 mg PO DAILY 08/04/16
[2021-12-04] MEDS ORDERED: LORazepam 0.5 MG TABLET PO PRN (13:14)
[2021-12-04] MEDS ORDERED: LACTATED RINGERS 1,000 ML IV SCH (14:00)
[2021-12-04] MEDS: SODIUM CHLORIDE FLUSH 0.9% 10 ML SYRINGE IVP PRN (14:05)
[2021-12-04] MEDS: SODIUM CHLORIDE 0.9% 1,000 ML IV SCH (14:59)
[2021-12-04] MEDS: ONDANSETRON 4 MG/2 ML VIAL IVP PRN (22:11)
[2021-12-04] MEDS: traZODone 50 MG TABLET PO SCH (22:11)
[2021-12-05] MEDS: SODIUM CHLORIDE 0.9% 1,000 ML IV SCH ×2 (03:29→14:46)
[2021-12-05] MEDS: ACETAMINOPHEN 325 MG TABLET PO PRN ×2 (03:30→10:40)
[2021-12-05 05:51] LABS: BASOPHILS # (AUTO) 0.1 10^3/uL (0.0-0.1); BASOPHILS % (AUTO) 0.7 %; HGB - HEMOGLOBIN 11.1 g/dL (12.0-16.0); LYMPHOCYTES % (AUTO) 9.9 %; MEAN CORPUSCULAR HEMOGLOBIN 31.4 pg (27.0-31.0); MEAN CORPUSCULAR HGB CONC 33.6 g/dL (32.0-36.0); MEAN CORPUSCULAR VOLUME 93.2 fL (81.0-99.0); MEAN PLATELET VOLUME 9.7 fL (7.9-10.8); MONOCYTES % (AUTO) 10.3 %; NEUTROPHILS # (AUTO) 7.6 10^3/uL (1.5-6.6); NEUTROPHILS % (AUTO) 76.9 %; PLT - PLATELET COUNT 396 10^3/uL (130-450); RED BLOOD COUNT 3.54 10^6/uL (4.20-5.40); RED CELL DISTRIBUTION WIDTH 14.6 % (12.0-15.0); WHITE BLOOD COUNT 9.8 x10^3/uL (4.8-10.8)
[2021-12-05 05:56] LABS: CALCIUM 7.3 mg/dL (8.5-10.3); CREATININE 0.5 mg/dL (0.4-1.0); POTASSIUM 3.3 mmol/L (3.5-5.0)
[2021-12-05] MEDS: PANTOPRAZOLE 40 MG TABLET PO SCH (06:43)
[2021-12-05] MEDS: PIPERACILLIN/TAZOBACTAM 3.375 GM in SODIUM CHLORIDE 0.9% MINIBAG 100 ML IV SCH (06:45)
[2021-12-05] MEDS ORDERED: POTASSIUM CHLORIDE 20 MEQ TABLET PO ONE (07:16)
[2021-12-05] MEDS: IPRATROPIUM/ALBUTEROL 3 ML NEB INH PRN ×2 (07:51→17:18)
[2021-12-05] MEDS: SACCHAROMYCES BOULARDII 250 MG CAPSULE PO SCH ×2 (08:19→17:08)
[2021-12-05] MEDS: PRENATAL VITAMIN TABLET PO SCH (08:19)
[2021-12-05] MEDS: SODIUM CHLORIDE FLUSH 0.9% 10 ML SYRINGE IVP SCH ×2 (08:21→17:09)
--- NOTE | 2021-12-05 09:01 | PROVIDER PROGRESS NOTE ---
Assessment/Plan - Problem List (1) C. difficile diarrhea Assessment/Plan: 12/05 pt still had four times of diarrhea at today painter hand. continue oral vancomycin, gently IVF. we will hold antibiotics, pt had no fever for three more days, WBC is at normal arrange, blood culture is negative for bacteremia. 12/04 Patient has diarrhea, C. difficile test is positive. Patient was treated for sepsis with antibiotics and patient also had probiotics. we start with PO Vancomycin, also started with gently intravenous IV fluids for diarrhea, Isolation for C. difficile infection, continue laboratory electrolyte monitor, continue vital signs monitor (2) Sepsis Assessment/Plan: 12/05 resolved, we hold antibiotics now. pt has C.diff diarrhea. 12/04 resolved. Patient has no more fever, WBC is at the normal range, blood cultures is negative for bacteremia, patient had 94-92% Oxygen saturation on room air, continue antibiotics and probiotics. 12/03 pt presented fever, tachycardia, Tachypnea, and pt need supplement of O2 to support her O2 sats. CXR reveal Pulmonary Edema we will start with antibiotics Zosyn, blood culture, UA culture, check Lactic acid level. because pt has pulmonary edema, hold IVF now, closely monitor pt's vital signs. order UA of abdominal because pt complained of abdominal pain special when she deeply inspiration but pt also had recent fall and contusion to her abdomen, order protonix as well. (3) Unsteady gait Assessment/Plan: 12/05, PT/OT recommend to SNF, consult with social security benefits interviewer for d/c planning 12/04 improved, continue PT/OT and to see if pt need for SNF 12/03 significantly improved, pt walked bathroom with walker. pt's slurred speech is resolved as well. CT of head is unremarkable for acute process. continue hold Narcotic and Librium. (4) Hypoxia significantly improved. pt had 93% on room air. (5) Abdominal contusion Assessment/Plan: Her abdominal pain is due to abdominal contusion from falling off of a chair 3 days ago. her abdominal pain is at under of control, continue Tylenol and ibuprofen as needed. (6)urinary retention 12/05 nurse report pt has urinary retention again, continue bladder scan and straight catheter as needed, continue Flomax 12/04 resolved. pt urinate by her self nurse report pt has annuria, and bladder scan show over 600ml urine. order straight cath, and Flomax, continue bladder scan as needed and to see pt can urinate by herself otherwise we will put Carrero catheter for pt, and followup with urologist as out-pt (7)alcohol abuse 12/05 pt does not present alcohol withdrawal symptoms as far at this time hospitalization, continue and vitamin B1 12/04 pt has hx of alcohol abuse, alcohol withdrawal, hx of alcohol seizure. pt was recently d/c from [place] for Alcohol withdrawal. pt did not show obvious alcohol withdrawal or alcoholic seizure at this time hospital stay. we will resume home , add Vitamin B1, continue Ativan PRN, closely monitor if pt has alcohol withdrawal. (8)s/p left mastectomy pt has hx of BRCA positive breast cancer, and s/p of left mastectomy, pt is under chemotherapy and followup with her oncologist as out-pt - Current Meds Current Meds: Current Medications Generic Name Dose Route Start Last Admin Trade Name Freq PRN Reason Stop Dose Admin Acetaminophen 650 mg 11/30/21 07:20 12/05/21 03:30 Acetaminophen 325 Mg Tablet PO 650 mg Q4HR PRN Administration Pain 1 to 4, or Fever Albuterol/Ipratropium 3 ml 11/30/21 07:28 12/05/21 07:51 Ipratropium/Albuterol 3 Ml Neb INH 3 ml Q4HR PRN Administration Wheezing Bupropion HCl 300 mg 12/03/21 09:00 12/04/21 08:13 Bupropion Xl 150 Mg Tablet PO 300 mg DAILY JULISSA Administration Enoxaparin Sodium 40 mg 11/30/21 09:00 12/04/21 08:14 Enoxaparin 40 Mg/0.4 Ml Syringe SUBQ 40 mg DAILY JULISSA Administration Sodium Chloride 1,000 mls @ 75 mls/hr 12/04/21 15:00 12/05/21 03:29 Normal Saline 0.9% IV 12/05/21 17:39 75 mls/hr .[id number] JULISSA Administration Multi-Ingredient Mouthwash/Gargle 30 ml 12/03/21 14:04 12/04/21 15:09 Gi Cocktail 120 Ml Bottle PO 30 ml Q4H PRN Administration Abdominal Pain Ondansetron HCl 4 mg 11/30/21 07:20 12/04/21 22:11 Ondansetron 4 Mg/2 Ml Vial IVP 4 mg Q6HR PRN Administration Nausea / Vomiting Pantoprazole Sodium 40 mg 12/02/21 18:00 12/05/21 06:43 Pantoprazole 40 Mg Tablet PO 40 mg QDAC JULISSA Administration Exemestane [ 1 each 12/03/21 09:00 12/04/21 08:14 Exemestane] 25 Mg PO Not Given Tablet DAILY JULISSA Letrozole 2.5 Mg 1 each 12/03/21 09:00 12/04/21 08:14 Tabs PO Not Given DAILY [facility] Multivit/Folic Acid/Iron 1 tab 12/03/21 08:00 12/05/21 08:19 Vitamin Tablet PO 1 tab DAILYWM JULISSA Administration Saccharomyces Boulardii 500 mg 12/04/21 17:00 12/05/21 08:19 Saccharomyces Boulardii 250 Mg Capsule PO 500 mg BIDWM JULISSA Administration Sodium Chloride 10 ml 11/30/21 07:20 12/04/21 14:05 Sodium Chloride Flush 0.9% 10 Ml Syringe IVP 10 ml PRN PRN Administration NEEDED PER PROVIDER ORDERS Sodium Chloride 10 ml 11/30/21 09:00 12/05/21 08:21 Sodium Chloride Flush 0.9% 10 Ml Syringe IVP Not Given 0100,0900,1700 JULISSA Tamsulosin HCl 0.4 mg 12/03/21 10:00 12/04/21 08:13 Tamsulosin 0.4 Mg Capsule PO 0.4 mg DAILY JULISSA Administration Thiamine HCl 100 mg 12/04/21 12:00 12/04/21 12:49 Thiamine 100 Mg Tablet PO 100 mg DAILY JULISSA Administration Trazodone HCl 75 mg 12/03/21 21:00 12/04/21 22:11 Trazodone 50 Mg Tablet PO 75 mg QPM JULISSA Administration Vancomycin HCl 125 mg 12/04/21 13:00 12/04/21 22:11 Vancomycin 125 Mg Capsule PO 125 mg QID JULISSA Administration - Lab Result Fish Bone Diagrams: 12/05/21 05:35 12/05/21 05:35 - Additional Planning My Orders: My Active Orders 12/04/21 12:00 Thiamine [Vitamin B-1] 100 mg PO DAILY 12/04/21 13:00 Vancomycin [Vancocin] 125 mg PO QID 12/04/21 13:14 LORazepam [Ativan] 0.25 mg PO Q6H PRN 12/04/21 15:00 Sodium Chloride 0.9% [Normal Saline 0.9%] 1,000 ml IV 75 mls/hr 12/04/21 17:00 Saccharomyces Boulardii [Florastor] 500 mg PO BIDWM 12/06/21 05:00 BMP - BASIC METABOLIC PANEL [CHEM] DAILYLAB CBC - COMP BLD CT W/AUTO DIFF [HEME] DAILYLAB 12/07/21 05:00 BMP - BASIC METABOLIC PANEL [CHEM] DAILYLAB CBC - COMP BLD CT W/AUTO DIFF [HEME] DAILYLAB 12/08/21 05:00 BMP - BASIC METABOLIC PANEL [CHEM] DAILYLAB CBC - COMP BLD CT W/AUTO DIFF [HEME] DAILYLAB Subjective - Subjective Patient Reports: Resting Comfortably Objective Vital Signs: Vital Signs - 24 hr 12/04/21 12/04/21 12/04/21 11:02 11:15 15:11 Temperature 37.1 C 36.4 C L Heart Rate [ Brachial] Heart Rate [ 97 74 Monitoring electrodes] Heart Rate [ 113 H Supine] Respiratory 20 22 Rate Blood Pressure 128/85 H [Left Brachial artery] Blood Pressure 124/78 [Right Brachial artery] Blood Pressure 115/69 [Supine] O2 Saturation 92 93 12/04/21 12/05/21 12/05/21 20:24 00:29 03:05 Temperature 36.8 C 37.5 C 36.8 C Heart Rate [ 109 H Brachial] Heart Rate [ 99 112 H Monitoring electrodes] Heart Rate [ Supine] Respiratory 24 18 20 Rate Blood Pressure 118/78 114/77 [Left Brachial artery] Blood Pressure 131/89 H [Right Brachial artery] Blood Pressure [Supine] O2 Saturation 94 93 94 12/05/21 12/05/21 07:52 07:55 Temperature 36.8 C 36.8 C Heart Rate [ 91 91 Brachial] Heart Rate [ Monitoring electrodes] Heart Rate [ Supine] Respiratory 20 20 Rate Blood Pressure 116/78 116/78 [Left Brachial artery] Blood Pressure [Right Brachial artery] Blood Pressure [Supine] O2 Saturation 93 93 Oxygen O2 Source [Without Activity] Room air O2 Source Room air Oxygen Flow Rate 4 I&O (Last 24 Hrs): Intake and Output Totals x24h 12/03/21 12/04/21 12/05/21 23:59 23:59 23:59 Intake Total 1650 2228 1204.16 Output Total 900 100 Balance 750 2128 1204.16 General: Alert, No acute distress HEENT: Atraumatic Neck: Supple Lymphatic: no adenopathy Neuro: Alert, Non Focal Cardiovascular: Regular rate, Normal S1, Normal S2 Respiratory: Chest non-tender, No respiratory distress Abdomen: Soft, Other (hyper bowel sound) Extremities: Normal pulses - Results Results: Laboratory Results WBC 9.8 x10^3/uL (4.8-10.8) 12/05/21 05:35 RBC 3.54 10^6/uL (4.20-5.40) L 12/05/21 05:35 Hgb 11.1 g/dL (12.0-16.0) L 12/05/21 05:35 Hct 33.0 % (37.0-47.0) L 12/05/21 05:35 MCV 93.2 fL (81.0-99.0) 12/05/21 05:35 MCH 31.4 pg (27.0-31.0) H 12/05/21 05:35 MCHC 33.6 g/dL (32.0-36.0) 12/05/21 05:35 RDW 14.6 % (12.0-15.0) 12/05/21 05:35 Plt Count 396 10^3/uL (130-450) 12/05/21 05:35 MPV 9.7 fL (7.9-10.8) 12/05/21 05:35 Neut # (Auto) 7.6 10^3/uL (1.5-6.6) H 12/05/21 05:35 Lymph # (Auto) 1.0 10^3/uL (1.5-3.5) L 12/05/21 05:35 [place] # (Auto) 1.0 10^3/uL (0.0-1.0) 12/05/21 05:35 Eos # (Auto) 0.0 10^3/uL (0.0-0.7) 12/05/21 05:35 Baso # (Auto) 0.1 10^3/uL (0.0-0.1) 12/05/21 05:35 Absolute Nucleated RBC 0.00 x10^3/uL 12/05/21 05:35 Nucleated RBC % 0.0 /100WBC 12/05/21 05:35 Sodium 133 mmol/L (135-145) L 12/05/21 05:35 Potassium 3.3 mmol/L (3.5-5.0) L 12/05/21 05:35 Chloride 101 mmol/L (101-111) 12/05/21 05:35 Carbon Dioxide 22 mmol/L (21-32) 12/05/21 05:35 Anion Gap 10.0 (6-13) 12/05/21 05:35 BUN 11 mg/dL (6-20) 12/05/21 05:35 Creatinine 0.5 mg/dL (0.4-1.0) 12/05/21 05:35 Estimated GFR (MDRD) 127 (>89) 12/05/21 05:35 Glucose 91 mg/dL (70-100) 12/05/21 05:35 Lactic Acid 1.1 mmol/L (0.5-2.2) 12/02/21 17:50 Calcium 7.3 mg/dL (8.5-10.3) L 12/05/21 05:35 Total Bilirubin 0.6 mg/dL (0.2-1.0) 11/30/21 00:53 AST 25 IU/L (10-42) 11/30/21 00:53 ALT 14 IU/L (10-60) 11/30/21 00:53 Alkaline Phosphatase 52 IU/L (42-121) 11/30/21 00:53 Ammonia 17.4 umol/L (7-35) 11/30/21 19:18 Troponin I High Sens 5.1 ng/L (2.3-14.8) 12/03/21 14:10 B-Natriuretic Peptide 87 pg/mL (5-100) 11/30/21 00:53 Total Protein 6.7 g/dL (6.7-8.2) 11/30/21 00:53 Albumin 2.6 g/dL (3.2-5.5) L 11/30/21 00:53 Globulin 4.1 g/dL (2.1-4.2) 11/30/21 00:53 Albumin/Globulin Ratio 0.6 (1.0-2.2) L 11/30/21 00:53 Lipase 21 U/L (22-51) L 11/30/21 00:53 Tumor Marker AFP <0.9 ng/mL (0.0-9.2) 12/02/21 17:43 CA 19-9 Antigen 8 U/mL (0-35) 12/02/21 17:43 Urine Color YELLOW 12/02/21 20:45 Urine Clarity CLEAR (CLEAR) 12/02/21 20:45 Urine pH 6.5 PH (5.0-7.5) 12/02/21 20:45 Ur Specific [place] 1.010 (1.002-1.030) 12/02/21 20:45 Urine Protein NEGATIVE mg/dL (NEGATIVE) 12/02/21 20:45 Urine Glucose (UA) NEGATIVE mg/dL (NEGATIVE) 12/02/21 20:45 Urine Ketones TRACE mg/dL (NEGATIVE) 12/02/21 20:45 Urine Occult Blood NEGATIVE (NEGATIVE) 12/02/21 20:45 Urine Nitrite NEGATIVE (NEGATIVE) 12/02/21 20:45 Urine Bilirubin NEGATIVE (NEGATIVE) 12/02/21 20:45 Urine Urobilinogen 0.2 (NORMAL) E.U./dL (NORMAL) 12/02/21 20:45 Ur Leukocyte Esterase NEGATIVE (NEGATIVE) 12/02/21 20:45 Urine RBC 0-5 /HPF (0-5) 12/02/21 20:45 Urine WBC 0-3 /HPF (0-5) 12/02/21 20:45 Ur Epithelial Cells RARE Transitional /HPF (<= Few) 12/02/21 20:45 Ur Squamous Epith Cells RARE Squamous (<= Few) 12/02/21 20:45 Urine Bacteria Rare /HPF (None Seen) 12/02/21 20:45 Urine Mucus Moderate Strands 12/02/21 18:30 Urine Culture Comments NOT INDICATED 12/02/21 20:45 Nasal Adenovirus (PCR) NOT DETECTED 11/30/21 04:30 Nasal B. parapertussis DNA (PCR) NOT DETECTED 11/30/21 04:30 Nasal Coronavir 229E PCR NOT DETECTED 11/30/21 04:30 Nasal Coronavir HKU1 PCR NOT DETECTED 11/30/21 04:30 Nasal Coronavir NL63 PCR NOT DETECTED 11/30/21 04:30 Nasal Coronavir OC43 PCR NOT DETECTED 11/30/21 04:30 Nasal Enterovir/Rhinovir PCR NOT DETECTED 11/30/21 04:30 Nasal Influenza B PCR NOT DETECTED 11/30/21 04:30 Nasal Influenza A PCR NOT DETECTED 11/30/21 04:30 Nasal Parainfluen 1 PCR NOT DETECTED 11/30/21 04:30 Nasal Parainfluen 2 PCR NOT DETECTED 11/30/21 04:30 Nasal Parainfluen 3 PCR NOT DETECTED 11/30/21 04:30 Nasal Parainfluen 4 PCR NOT DETECTED 11/30/21 04:30 Nasal RSV (PCR) NOT DETECTED 11/30/21 04:30 Nasal B.pertussis DNA PCR NOT DETECTED 11/30/21 04:30 Nasal C.pneumoniae (PCR) NOT DETECTED 11/30/21 04:30 [place]into Human Metapneumo PCR NOT DETECTED 11/30/21 04:30 Nasal M.pneumoniae (PCR) NOT DETECTED 11/30/21 04:30 Nasal SARS-CoV-2 (PCR) NOT DETECTED 11/30/21 04:30 Stl C. diff Tox B Gene POSITIVE (NEGATIVE) A* 12/04/21 09:38 Urine Opiates Screen POSITIVE (NEGATIVE) H 11/30/21 18:48 Ur Oxycodone Screen POSITIVE (NEGATIVE) H 11/30/21 18:48 Urine Methadone Screen NEGATIVE (NEGATIVE) 11/30/21 18:48 Ur Propoxyphene Screen NEGATIVE (NEGATIVE) 11/30/21 18:48 Ur Barbiturates Screen NEGATIVE (NEGATIVE) 11/30/21 18:48 Ur Tricyclics Screen NEGATIVE (NEGATIVE) 11/30/21 18:48 Ur Phencyclidine Scrn NEGATIVE (NEGATIVE) 11/30/21 18:48 Ur Amphetamine Screen NEGATIVE (NEGATIVE) 11/30/21 18:48 U Methamphetamines Scrn NEGATIVE (NEGATIVE) 11/30/21 18:48 U Benzodiazepines Scrn POSITIVE (NEGATIVE) H 11/30/21 18:48 Urine Cocaine Screen NEGATIVE (NEGATIVE) 11/30/21 18:48 U Cannabinoids Screen NEGATIVE (NEGATIVE) 11/30/21 18:48 Ethyl Alcohol < 5.0 mg/dL 11/30/21 00:53 - Procedures Procedures: Procedures EXCISE AXILLARY NODE (05/22/14) INSERTION OF TOTALLY IMPLANTABLE VASC ACCESS DEVIC (05/22/14) SUBTOTAL MASTECTOMY (05/22/14) Sepsis Event Note (H) - Evaluation Current Stage of Sepsis: Ruled out ABX Reporting Has patient been on IV antibiotics over the past 48 hours?: No Current Medications - Current Medications Current Medications: Active Medications Acetaminophen (Acetaminophen 325 Mg Tablet) 650 mg PO Q4HR PRN PRN Reason: Pain 1 to 4, or Fever Last Admin: 12/05/21 03:30 Dose: 650 mg Albuterol/Ipratropium (Ipratropium/Albuterol 3 Ml Neb) 3 ml INH Q4HR PRN PRN Reason: Wheezing Last Admin: 12/05/21 07:51 Dose: 3 ml Bupropion HCl (Bupropion Xl 150 Mg Tablet) 300 mg PO DAILY [facility] Last Admin: 12/04/21 08:13 Dose: 300 mg Enoxaparin Sodium (Enoxaparin 40 Mg/0.4 Ml Syringe) 40 mg SUBQ DAILY [facility] Last Admin: 12/04/21 08:14 Dose: 40 mg Sodium Chloride (Normal Saline 0.9%) 1,000 mls @ 75 mls/hr IV .[id number] [facility] Stop: 12/05/21 17:39 Last Admin: 12/05/21 03:29 Dose: 75 mls/hr Ibuprofen (Ibuprofen 400 Mg Tablet) 400 mg PO Q6HR PRN PRN Reason: PAIN Lorazepam (Lorazepam 0.5 Mg Tablet) 0.25 mg PO Q6H PRN PRN Reason: Anxiety Multi-Ingredient Mouthwash/Gargle (Gi Cocktail 120 Ml Bottle) 30 ml PO Q4H PRN PRN Reason: Abdominal Pain Last Admin: 12/04/21 15:09 Dose: 30 ml Ondansetron HCl (Ondansetron 4 Mg/2 Ml Vial) 4 mg IVP Q6HR PRN PRN Reason: Nausea / Vomiting Last Admin: 12/04/21 22:11 Dose: 4 mg Pantoprazole Sodium (Pantoprazole 40 Mg Tablet) 40 mg PO QDAC [facility] Last Admin: 12/05/21 06:43 Dose: 40 mg Exemestane [ Exemestane] 25 Mg Tablet 1 each PO DAILY [facility] Last Admin: 12/04/21 08:14 Dose: Not Given Letrozole 2.5 Mg (Tabs) 1 each PO DAILY [facility] Last Admin: 12/04/21 08:14 Dose: Not Given Multivit/Folic Acid/Iron ( Vitamin Tablet) 1 tab PO DAILYWM [facility] Last Admin: 12/05/21 08:19 Dose: 1 tab Saccharomyces Boulardii (Saccharomyces Boulardii 250 Mg Capsule) 500 mg PO BIDWM [facility] Last Admin: 12/05/21 08:19 Dose: 500 mg Sodium Chloride (Sodium Chloride Flush 0.9% 10 Ml Syringe) 10 ml IVP PRN PRN PRN Reason: NEEDED PER PROVIDER ORDERS Last Admin: 12/04/21 14:05 Dose: 10 ml Sodium Chloride (Sodium Chloride Flush 0.9% 10 Ml Syringe) 10 ml IVP 0100,0900,1700 [facility] Last Admin: 12/05/21 08:21 Dose: Not Given Tamsulosin HCl (Tamsulosin 0.4 Mg Capsule) 0.4 mg PO DAILY [facility] Last Admin: 12/04/21 08:13 Dose: 0.4 mg Thiamine HCl (Thiamine 100 Mg Tablet) 100 mg PO DAILY [facility] Last Admin: 12/04/21 12:49 Dose: 100 mg Trazodone HCl (Trazodone 50 Mg Tablet) 75 mg PO QPM [facility] Last Admin: 12/04/21 22:11 Dose: 75 mg Vancomycin HCl (Vancomycin 125 Mg Capsule) 125 mg PO QID [facility] Last Admin: 12/04/21 22:11 Dose: 125 mg traZODone [Desyrel] 75 mg PO QPM 06/26/14 Vitamin B Complex Vit C No.4 [Super B Complex] 1 tab PO DAILY 07/10/14 Brunson-3 Fatty Acids/Fish Oil [[place] 3 1,000 mg Softgel] 1 cap ORAL DAILY 08/28/14 SUMAtriptan succinate [Sumatriptan Succinate] 100 mg PO DAILY PRN 05/15/16 Meloxicam 15 mg PO DAILY 08/04/16
[2021-12-05] MEDS: VANCOMYCIN 125 MG CAPSULE PO SCH ×4 (09:24→20:47)
[2021-12-05] MEDS: THIAMINE 100 MG TABLET PO SCH (09:24)
[2021-12-05] MEDS: TAMSULOSIN 0.4 MG CAPSULE PO SCH (09:24)
[2021-12-05] MEDS: ENOXAPARIN 40 MG/0.4 ML SYRINGE SUBQ SCH (09:25)
[2021-12-05] MEDS: buPROPion XL 150 MG TABLET PO SCH (09:25)
[2021-12-05] MEDS: LETROZOLE 2.5 MG PO SCH (09:29)
[2021-12-05] MEDS: EXEMESTANE 25 MG PO SCH (09:29)
[2021-12-05] MEDS: POTASSIUM CHLOR 10 MEQ/100 ML 10 MEQ/100 ML BAG IV SCH ×2 (10:53→12:07)
[2021-12-05] MEDS: GI COCKTAIL 120 ML BOTTLE PO PRN ×2 (11:11→11:31)
[2021-12-05] MEDS: traZODone 50 MG TABLET PO SCH (20:48)
[2021-12-06] MEDS: ACETAMINOPHEN 325 MG TABLET PO PRN ×5 (01:00→21:44)
[2021-12-06] MEDS: SODIUM CHLORIDE FLUSH 0.9% 10 ML SYRINGE IVP SCH ×3 (01:01→17:04)
[2021-12-06] MEDS: IPRATROPIUM/ALBUTEROL 3 ML NEB INH PRN (01:09)
[2021-12-06] MEDS: SODIUM CHLORIDE 0.9% 1,000 ML IV SCH ×2 (02:16→14:05)
[2021-12-06 05:28] LABS: BASOPHILS # (AUTO) 0.1 10^3/uL (0.0-0.1); BASOPHILS % (AUTO) 0.8 %; HCT - HEMATOCRIT 31.8 % (37.0-47.0); HGB - HEMOGLOBIN 10.5 g/dL (12.0-16.0); LYMPHOCYTES # (AUTO) 1.3 10^3/uL (1.5-3.5); LYMPHOCYTES % (AUTO) 16.1 %; MEAN CORPUSCULAR HEMOGLOBIN 31.7 pg (27.0-31.0); MEAN CORPUSCULAR VOLUME 96.1 fL (81.0-99.0); MEAN PLATELET VOLUME 10.1 fL (7.9-10.8); MONOCYTES # (AUTO) 0.8 10^3/uL (0.0-1.0); MONOCYTES % (AUTO) 9.2 %; NEUTROPHILS # (AUTO) 5.8 10^3/uL (1.5-6.6); PLT - PLATELET COUNT 366 10^3/uL (130-450); RED BLOOD COUNT 3.31 10^6/uL (4.20-5.40); RED CELL DISTRIBUTION WIDTH 14.9 % (12.0-15.0); WHITE BLOOD COUNT 8.3 x10^3/uL (4.8-10.8)
[2021-12-06 05:36] LABS: CALCIUM 7.4 mg/dL (8.5-10.3); CREATININE 0.5 mg/dL (0.4-1.0); POTASSIUM 3.3 mmol/L (3.5-5.0)
[2021-12-06] MEDS: PANTOPRAZOLE 40 MG TABLET PO SCH (06:10)
[2021-12-06] MEDS: POTASSIUM CHLOR 10 MEQ/100 ML 10 MEQ/100 ML BAG IV SCH ×4 (08:23→12:33)
[2021-12-06] MEDS: PRENATAL VITAMIN TABLET PO SCH (09:29)
[2021-12-06] MEDS: TAMSULOSIN 0.4 MG CAPSULE PO SCH (09:29)
[2021-12-06] MEDS: buPROPion XL 150 MG TABLET PO SCH (09:29)
[2021-12-06] MEDS: THIAMINE 100 MG TABLET PO SCH (09:29)
[2021-12-06] MEDS: VANCOMYCIN 125 MG CAPSULE PO SCH ×4 (09:29→21:45)
[2021-12-06] MEDS: SACCHAROMYCES BOULARDII 250 MG CAPSULE PO SCH ×2 (09:30→17:04)
[2021-12-06] MEDS: ENOXAPARIN 40 MG/0.4 ML SYRINGE SUBQ SCH (09:30)
[2021-12-06] MEDS: EXEMESTANE 25 MG PO SCH (10:52)
[2021-12-06] MEDS: LETROZOLE 2.5 MG PO SCH (10:52)
[2021-12-06] MEDS: IBUPROFEN 400 MG TABLET PO PRN (11:16)
--- NOTE | 2021-12-06 12:44 | PROVIDER PROGRESS NOTE ---
Assessment/Plan - Problem List (1) C. difficile diarrhea Assessment/Plan: The patient is already had 3 bowel movements today from 0600 to noon. Her diarrhea started 2 days ago and her stool tested C diff pos. She is in Isolation The patient is on oral vancomycin for C. difficile diarrhea (which was likely caused by having antibiotics dosed for her recent sepsis). She is getting IV fluids to prevent dehydration. Will continue gentle iv hydration, given continued frequent BMs. Will de-escalate her diet from regular to pureed and no milk products, for bowel rest. She is not yet ready for discharge since she has symptomatic C. difficile diarrhea and needs IV hydration (2) Unsteady gait Assessment/Plan: She was hospitalized a day after a fall at home causing rib pain and abdominal contusion. The fall was when she stood on her chair at home to reach for somet bucky in a cupboard. Unknown if she had alcohol in her system at that time. Patient had somewhat slurred speech and unsteady gait noticed on 12/03/2021. She had a CT of the head that showed no acute process but she has moderate cerebral atrophy. Her narcotics and Librium were put on hold. She started to have PT and OT and they are documenting that she has intermittent confusion, needs help with ADLs, needs assistance to even get up from the toilet. PT and OT have recommend SNF. [facility] SNF has been refused/not covered by her [employer] health insurance, apparently because she does not need assistance, which is incorrect. Will continue with PT and OT while she is here, as she needs continued hos pitalization for her C. difficile diarrhea causing volume loss. (3) Alcohol abuse Assessment/Plan: On 12/04/2021 it was learned (from her sister in phone call with our Soc. Worker) that the patient has a history of alcohol abuse, prior alcohol withdrawal includ ing alcohol withdrawal seizures. She was recently discharged from [facility] for alcohol abuse and withdrawal. She has not shown obvious withdrawal signs while here or any seizures. Records from that recent hospitalization at [facility] were requested, have not yet arrived. The patient initially reported that her sister would come to stay with her after [facility]. The sister has stated that that is not true because the sister herself just left for the [place] for 3 weeks. Will request records/[facility] summary again, to determine if she was given high doses of thiamine and what her Dx and level of functioning was.. She is being continued on her home vitamin and daily thiamine. She is ordered to get Ativan as needed for withdrawal or for anxiety. 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 Will request a cognitive eval by OT (to be done Wed, today is Wednesday and they are not here on the weekend). I am concerned that she could be unsafe to discharge to live at home alone unless she has 24-hour caregivers. (4) Abdominal contusion Assessment/Plan: Her abdominal pain and rib pain causing splinting is due to abdominal contusion from falling off of a chair at [facility] days ago. her abdominal pain is under control, continue Tylenol and ibuprofen as needed. (5) Acute urinary retention Assessment/Plan: On 12/03/2021 the nurse reported she had annuria, and bladder scan show over 600ml urine. She had a straight cath, and Flomax started. We are continuing bladder scan as needed and to see if pt can urinate by herself otherwise we will put Carrero catheter for pt, and followup with urologist as out- pt (6) Hypoxia Assessment/Plan: Resolved. This was felt to be due to splinting because of probable bruised ribs caused by the fall at home. It has significantly improved. pt had 93% on room air. (7)s/p left mastectomy Assessment/Plan: She has a hx of BRCA positive breast cancer, and s/p of left mastectomy, pt is under chemotherapy and followed by her oncologist as out-pt (8) Sepsis Assessment/Plan: Resolved. Pt presented with fever, tachycardia, tachypnea, and pt need supplement of O2 to support her O2 sats. CXR reveal Pulmonary Edema She received empiric Zosyn, had blood culture, UA culture, followed Lactic acid level. She has no more fever, WBC is at the normal range, blood cultures is negative for bacteremia, patient had 94-92% Oxygen saturation on room air, after getting antibiotics and probiotics. - Current Meds Current Meds: Current Medications Generic Name Dose Route Start Last Admin Trade Name Freq PRN Reason Stop Dose Admin Acetaminophen 650 mg 11/30/21 07:20 12/06/21 09:48 Acetaminophen 325 Mg Tablet PO 650 mg Q4HR PRN Administration Pain 1 to 4, or Fever Albuterol/Ipratropium 3 ml 11/30/21 07:28 12/06/21 01:09 Ipratropium/Albuterol 3 Ml Neb INH 3 ml Q4HR PRN Administration Wheezing Bupropion HCl 300 mg 12/03/21 09:00 12/06/21 09:29 Bupropion Xl 150 Mg Tablet PO 300 mg DAILY JULISSA Administration Enoxaparin Sodium 40 mg 11/30/21 09:00 12/06/21 09:30 Enoxaparin 40 Mg/0.4 Ml Syringe SUBQ 40 mg DAILY JULISSA Administration Sodium Chloride 1,000 mls @ 83.3 mls/hr 12/05/21 12:55 12/06/21 02:16 Normal Saline 0.9% IV 12/06/21 12:55 83.3 mls/hr .Q12H1M JULISSA Administration Ibuprofen 400 mg 12/01/21 17:25 12/06/21 11:16 Ibuprofen 400 Mg Tablet PO 400 mg Q6HR PRN Administration PAIN Lorazepam 0.25 mg 12/04/21 13:14 12/06/21 10:50 Lorazepam 0.5 Mg Tablet PO 0.25 mg Q6H PRN Administration Anxiety Multi-Ingredient Mouthwash/Gargle 30 ml 12/03/21 14:04 12/05/21 11:31 Gi Cocktail 120 Ml Bottle PO 30 ml Q4H PRN Administration Abdominal Pain Ondansetron HCl 4 mg 11/30/21 07:20 12/04/21 22:11 Ondansetron 4 Mg/2 Ml Vial IVP 4 mg Q6HR PRN Administration Nausea / Vomiting Pantoprazole Sodium 40 mg 12/02/21 18:00 12/06/21 06:10 Pantoprazole 40 Mg Tablet PO 40 mg QDAC JULISSA Administration Exemestane [ 1 each 12/03/21 09:00 12/06/21 10:52 Exemestane] 25 Mg PO Not Given Tablet DAILY JULISSA Letrozole 2.5 Mg 1 each 12/03/21 09:00 12/06/21 10:52 Tabs PO Not Given DAILY JULISSA Multivit/Folic Acid/Iron 1 tab 12/03/21 08:00 12/06/21 09:29 Vitamin Tablet PO 1 tab DAILYWM JULISSA Administration Saccharomyces Boulardii 500 mg 12/04/21 17:00 12/06/21 09:30 Saccharomyces Boulardii 250 Mg Capsule PO 500 mg BIDWM JULISSA Administration Sodium Chloride 10 ml 11/30/21 07:20 12/04/21 14:05 Sodium Chloride Flush 0.9% 10 Ml Syringe IVP 10 ml PRN PRN Administration NEEDED PER PROVIDER ORDERS Sodium Chloride 10 ml 11/30/21 09:00 12/06/21 09:30 Sodium Chloride Flush 0.9% 10 Ml Syringe IVP Not Given 0100,0900,1700 JULISSA Tamsulosin HCl 0.4 mg 12/03/21 10:00 12/06/21 09:29 Tamsulosin 0.4 Mg Capsule PO 0.4 mg DAILY JULISSA Administration Thiamine HCl 100 mg 12/04/21 12:00 12/06/21 09:29 Thiamine 100 Mg Tablet PO 100 mg DAILY JULISSA Administration Trazodone HCl 75 mg 12/03/21 21:00 12/05/21 20:48 Trazodone 50 Mg Tablet PO 75 mg QPM JULISSA Administration Vancomycin HCl 125 mg 12/04/21 13:00 12/06/21 09:29 Vancomycin 125 Mg Capsule PO 125 mg QID JULISSA Administration - Lab Result Fish Bone Diagrams: 12/06/21 05:02 12/06/21 05:02 Subjective - Subjective Patient Reports: Other (Patient is asleep when I examine her. She was just given Ativan) Nursing Reports: Other (Patient reports to her nurse that she saw her sister in the corner of the room. Nurse passed this on to me. Patient is also anxious and occasionally has abdominal pain.) Objective Vital Signs: Vital Signs - 24 hr 12/05/21 12/05/21 12/05/21 12:38 16:05 17:23 Temperature 37.1 C 37.2 C Heart Rate 92 Heart Rate [ 92 68 Brachial] Heart Rate [ Monitoring electrodes] Respiratory 20 20 20 Rate Blood Pressure 97/62 [Left Brachial artery] Blood Pressure 118/98 H [Right Brachial artery] O2 Saturation 93 93 12/05/21 12/06/21 12/06/21 21:03 00:45 01:10 Temperature 37.5 C 36.9 C Heart Rate 98 Heart Rate [ 105 H Brachial] Heart Rate [ 101 H Monitoring electrodes] Respiratory 23 20 18 Rate Blood Pressure [Left Brachial artery] Blood Pressure 131/81 H 126/93 H [Right Brachial artery] O2 Saturation 93 93 12/06/21 12/06/21 12/06/21 05:00 08:22 11:39 Temperature 36.9 C 36.6 C 36.6 C Heart Rate Heart Rate [ 86 87 83 Brachial] Heart Rate [ Monitoring electrodes] Respiratory 18 22 21 Rate Blood Pressure 126/68 116/83 H [Left Brachial artery] Blood Pressure 103/73 [Right Brachial artery] O2 Saturation 93 93 96 Oxygen O2 Source [Without Activity] Room air O2 Source Room air Oxygen Flow Rate 4 I&O (Last 24 Hrs): Intake and Output Totals x24h 12/04/21 12/05/21 12/06/21 23:59 23:59 23:59 Intake Total 2228 3721.207 988.443 Output Total 100 50 Balance 2128 3671.207 988.443 General: Other (Lethargic (after Ativan)) HEENT: Atraumatic, Mucous membr. moist/pink Neck: Supple, No JVD Neuro: Non Focal, Other (Intermittently confused, according to the nurse and PT and OT documented this) Cardiovascular: Regular rate Respiratory: No respiratory distress Abdomen: Soft Extremities: No edema - Results Results: Laboratory Results WBC 8.3 x10^3/uL (4.8-10.8) 12/06/21 05:02 RBC 3.31 10^6/uL (4.20-5.40) L 12/06/21 05:02 Hgb 10.5 g/dL (12.0-16.0) L 12/06/21 05:02 Hct 31.8 % (37.0-47.0) L 12/06/21 05:02 MCV 96.1 fL (81.0-99.0) 12/06/21 05:02 MCH 31.7 pg (27.0-31.0) H 12/06/21 05:02 MCHC 33.0 g/dL (32.0-36.0) 12/06/21 05:02 RDW 14.9 % (12.0-15.0) 12/06/21 05:02 Plt Count 366 10^3/uL (130-450) 12/06/21 05:02 MPV 10.1 fL (7.9-10.8) 12/06/21 05:02 Neut # (Auto) 5.8 10^3/uL (1.5-6.6) 12/06/21 05:02 Lymph # (Auto) 1.3 10^3/uL (1.5-3.5) L 12/06/21 05:02 Menard # (Auto) 0.8 10^3/uL (0.0-1.0) 12/06/21 05:02 Eos # (Auto) 0.0 10^3/uL (0.0-0.7) 12/06/21 05:02 Baso # (Auto) 0.1 10^3/uL (0.0-0.1) 12/06/21 05:02 Absolute Nucleated RBC 0.00 x10^3/uL 12/06/21 05:02 Nucleated RBC % 0.0 /100WBC 12/06/21 05:02 Sodium 134 mmol/L (135-145) L 12/06/21 05:02 Potassium 3.3 mmol/L (3.5-5.0) L 12/06/21 05:02 Chloride 106 mmol/L (101-111) 12/06/21 05:02 Carbon Dioxide 23 mmol/L (21-32) 12/06/21 05:02 Anion Gap 5.0 (6-13) L 12/06/21 05:02 BUN 8 mg/dL (6-20) 12/06/21 05:02 Creatinine 0.5 mg/dL (0.4-1.0) 12/06/21 05:02 Estimated GFR (MDRD) 127 (>89) 12/06/21 05:02 Glucose 81 mg/dL (70-100) 12/06/21 05:02 Lactic Acid 1.1 mmol/L (0.5-2.2) 12/02/21 17:50 Calcium 7.4 mg/dL (8.5-10.3) L 12/06/21 05:02 Total Bilirubin 0.6 mg/dL (0.2-1.0) 11/30/21 00:53 AST 25 IU/L (10-42) 11/30/21 00:53 ALT 14 IU/L (10-60) 11/30/21 00:53 Alkaline Phosphatase 52 IU/L (42-121) 11/30/21 00:53 Ammonia 17.4 umol/L (7-35) 11/30/21 19:18 Troponin I High Sens 5.1 ng/L (2.3-14.8) 12/03/21 14:10 B-Natriuretic Peptide 87 pg/mL (5-100) 11/30/21 00:53 Total Protein 6.7 g/dL (6.7-8.2) 11/30/21 00:53 Albumin 2.6 g/dL (3.2-5.5) L 11/30/21 00:53 Globulin 4.1 g/dL (2.1-4.2) 11/30/21 00:53 Albumin/Globulin Ratio 0.6 (1.0-2.2) L 11/30/21 00:53 Lipase 21 U/L (22-51) L 11/30/21 00:53 Tumor Marker AFP <0.9 ng/mL (0.0-9.2) 12/02/21 17:43 CA 19-9 Antigen 8 U/mL (0-35) 12/02/21 17:43 Urine Color YELLOW 12/02/21 20:45 Urine Clarity CLEAR (CLEAR) 12/02/21 20:45 Urine pH 6.5 PH (5.0-7.5) 12/02/21 20:45 Ur Specific Valier 1.010 (1.002-1.030) 12/02/21 20:45 Urine Protein NEGATIVE mg/dL (NEGATIVE) 12/02/21 20:45 Urine Glucose (UA) NEGATIVE mg/dL (NEGATIVE) 12/02/21 20:45 Urine Ketones TRACE mg/dL (NEGATIVE) 12/02/21 20:45 Urine Occult Blood NEGATIVE (NEGATIVE) 12/02/21 20:45 Urine Nitrite NEGATIVE (NEGATIVE) 12/02/21 20:45 Urine Bilirubin NEGATIVE (NEGATIVE) 12/02/21 20:45 Urine Urobilinogen 0.2 (NORMAL) E.U./dL (NORMAL) 12/02/21 20:45 Ur Leukocyte Esterase NEGATIVE (NEGATIVE) 12/02/21 20:45 Urine RBC 0-5 /HPF (0-5) 12/02/21 20:45 Urine WBC 0-3 /HPF (0-5) 12/02/21 20:45 Ur Epithelial Cells RARE Transitional /HPF (<= Few) 12/02/21 20:45 Ur Squamous Epith Cells RARE Squamous (<= Few) 12/02/21 20:45 Urine Bacteria Rare /HPF (None Seen) 12/02/21 20:45 Urine Mucus Moderate Strands 12/02/21 18:30 Urine Culture Comments NOT INDICATED 12/02/21 20:45 Nasal Adenovirus (PCR) NOT DETECTED 11/30/21 04:30 Nasal B. parapertussis DNA (PCR) NOT DETECTED 11/30/21 04:30 Nasal Coronavir 229E PCR NOT DETECTED 11/30/21 04:30 Nasal Coronavir HKU1 PCR NOT DETECTED 11/30/21 04:30 Nasal Coronavir NL63 PCR NOT DETECTED 11/30/21 04:30 Nasal Coronavir OC43 PCR NOT DETECTED 11/30/21 04:30 Nasal Enterovir/Rhinovir PCR NOT DETECTED 11/30/21 04:30 Nasal Influenza B PCR NOT DETECTED 11/30/21 04:30 Nasal Influenza A PCR NOT DETECTED 11/30/21 04:30 Nasal Parainfluen 1 PCR NOT DETECTED 11/30/21 04:30 Nasal Parainfluen 2 PCR NOT DETECTED 11/30/21 04:30 Nasal Parainfluen 3 PCR NOT DETECTED 11/30/21 04:30 Nasal Parainfluen 4 PCR NOT DETECTED 11/30/21 04:30 Nasal RSV (PCR) NOT DETECTED 11/30/21 04:30 Nasal B.pertussis DNA PCR NOT DETECTED 11/30/21 04:30 Nasal C.pneumoniae (PCR) NOT DETECTED 11/30/21 04:30 Jacinto Human Metapneumo PCR NOT DETECTED 11/30/21 04:30 Nasal M.pneumoniae (PCR) NOT DETECTED 11/30/21 04:30 Nasal SARS-CoV-2 (PCR) NOT DETECTED 11/30/21 04:30 Stl C. diff Tox B Gene POSITIVE (NEGATIVE) A* 12/04/21 09:38 Urine Opiates Screen POSITIVE (NEGATIVE) H 11/30/21 18:48 Ur Oxycodone Screen POSITIVE (NEGATIVE) H 11/30/21 18:48 Urine Methadone Screen NEGATIVE (NEGATIVE) 11/30/21 18:48 Ur Propoxyphene Screen NEGATIVE (NEGATIVE) 11/30/21 18:48 Ur Barbiturates Screen NEGATIVE (NEGATIVE) 11/30/21 18:48 Ur Tricyclics Screen NEGATIVE (NEGATIVE) 11/30/21 18:48 Ur Phencyclidine Scrn NEGATIVE (NEGATIVE) 11/30/21 18:48 Ur Amphetamine Screen NEGATIVE (NEGATIVE) 11/30/21 18:48 U Methamphetamines Scrn NEGATIVE (NEGATIVE) 11/30/21 18:48 U Benzodiazepines Scrn POSITIVE (NEGATIVE) H 11/30/21 18:48 Urine Cocaine Screen NEGATIVE (NEGATIVE) 11/30/21 18:48 U Cannabinoids Screen NEGATIVE (NEGATIVE) 11/30/21 18:48 Ethyl Alcohol < 5.0 mg/dL 11/30/21 00:53 - Procedures Procedures: Procedures EXCISE AXILLARY NODE (05/22/14) INSERTION OF TOTALLY IMPLANTABLE VASC ACCESS DEVIC (05/22/14) SUBTOTAL MASTECTOMY (05/22/14) Sepsis Event Note (H) - Evaluation Current Stage of Sepsis: Ruled out Possible source of Sepsis: positive: Pulmonary - Sepsis Criteria Sepsis Criteria: Recorded Temperature greater than 38.3C or Less than 36C, Recorded Heart Rate greater than 90 bpm, Recorded Respiratory Rate greater than 20
[2021-12-06] MEDS: traZODone 50 MG TABLET PO SCH (21:44)
[2021-12-07] MEDS: ACETAMINOPHEN 325 MG TABLET PO PRN ×3 (05:15→21:30)
[2021-12-07] MEDS: PANTOPRAZOLE 40 MG TABLET PO SCH (05:16)
[2021-12-07] MEDS: SODIUM CHLORIDE 0.9% 1,000 ML IV SCH ×2 (05:16→21:30)
[2021-12-07 06:59] LABS: BASOPHILS # (AUTO) 0.1 10^3/uL (0.0-0.1); BASOPHILS % (AUTO) 0.8 %; EOSINOPHILS # (AUTO) 0.3 10^3/uL (0.0-0.7); EOSINOPHILS % (AUTO) 4.5 %; HCT - HEMATOCRIT 33.9 % (37.0-47.0); HGB - HEMOGLOBIN 11.1 g/dL (12.0-16.0); LYMPHOCYTES # (AUTO) 0.8 10^3/uL (1.5-3.5); LYMPHOCYTES % (AUTO) 10.9 %; MEAN CORPUSCULAR HEMOGLOBIN 31.3 pg (27.0-31.0); MEAN CORPUSCULAR HGB CONC 32.7 g/dL (32.0-36.0); MEAN CORPUSCULAR VOLUME 95.5 fL (81.0-99.0); MEAN PLATELET VOLUME 10.1 fL (7.9-10.8); MONOCYTES # (AUTO) 0.7 10^3/uL (0.0-1.0); MONOCYTES % (AUTO) 9.3 %; NEUTROPHILS % (AUTO) 70.3 %; PLT - PLATELET COUNT 386 10^3/uL (130-450); RED BLOOD COUNT 3.55 10^6/uL (4.20-5.40); WHITE BLOOD COUNT 7.2 x10^3/uL (4.8-10.8)
[2021-12-07 07:08] LABS: CALCIUM 7.5 mg/dL (8.5-10.3); CREATININE 0.5 mg/dL (0.4-1.0); POTASSIUM 3.4 mmol/L (3.5-5.0)
[2021-12-07] MEDS ORDERED: LORazepam 0.5 MG TABLET PO PRN ×2 (08:31→20:00)
--- NOTE | 2021-12-07 09:00 | PROVIDER PROGRESS NOTE ---
Assessment/Plan - Problem List (1) C. difficile diarrhea Assessment/Plan: The patient had 6 bowel yesterday and already today. Her diarrhea started on 12/04/21 and her stool tested C diff pos. She c/o lower abd cramping pain She is in Contact Isolation The patient is on oral vancomycin for C. difficile diarrhea (which was likely caused by having antibiotics dosed for her recent sepsis). She is not on anti- motility or probiotuic meds, as these are not advised per UpToDate She is getting IV fluids to prevent dehydration. Will continue gentle iv hydration, given her frequent BMs. We de-escalated her diet from regular to pureed and no milk products, for bowel rest. Will also order low fiber food. Will stop NSAIDs to decrease chance of bleeding She is not yet ready for discharge since she has symptomatic C. difficile diarrhea and needs IV hydration (2) Confusion Assessment/Plan: The patient was started on Ativan every 6 hours as needed for anxiety and was somnolent most of yesterday and today is confused, thinks its December 13, but knows herself and where she is The records from her [facility] visit 3 weeks ago have been obtained. She was not hospitalized but only seen in the ED. She had presented with complaint of alcohol withdrawal and was asking to be placed in an inpatient detox center. She was given Ativan and thiamine and had no signs of withdrawal in the ED. She was excepted at a detox bed in [place], but declined that. She was then seen by the crisis counselor who recommended to discharge home in the ED physician discharge her with prescriptions for Librium. It is unclear if she was taking both Librium and pain meds and using alcohol which may have caused the fall at home leading to the bruised ribs and contused abdominal wall or if she remained off of alcohol. Will decrease her as needed Ativan to just nightly as needed for insomnia or anxiety Will limit sedating meds. Will check an ammonia level intermittently. (3) Unsteady gait Assessment/Plan: She was hospitalized here a day after a fall at home causing rib pain and abdominal contusion. The fall was when she stood on her chair at home to reach for something in a higher cupboard. It is unlear if she was taking both Li brium and pain meds and using alcohol which may have caused the fall. Patient had somewhat slurred speech and unsteady gait noticed on 12/03/2021. She had a CT of the head that showed no acute process but she has moderate cerebral atrophy. Her narcotics and Librium were put on hold. She started to have PT and OT and they are documenting that she has intermittent confusion, needs help with ADLs, needs assistance to even get up from the toilet. PT and OT have recommend SNF. SNF has been refused/not covered by her [facility] insurance, apparently because she does not need assistance, which is incorrect. Will continue with PT and OT while she is here, as she needs continued hospitalization for her C. difficile diarrhea causing volume loss. (4) Alcohol abuse Assessment/Plan: On 12/04/2021 it was learned (from her sister in phone call with our Soc. Worker) that the patient has a history of alcohol abuse, prior alcohol withdrawal including alcohol withdrawal seizures. She was recently discharged from [facility] in Oct 2021 for alcohol abuse and withdrawal. She has not shown obvious withdrawal signs while here or any seizures. Records from that recent hospitalization at [facility] were requested, have arrived, and were reviewed today. The records show that she was not hospitalized but only seen in the ED at [facility]. She had presented with complaint of alcohol withdrawal and was asking to be placed in an inpatient detox center. She was given Ativan and thiamine and had no signs of withdrawal in the ED. She was accepted at a detox bed in [place], but declined it. She was then seen by the crisis counselor who recommended to discharge her home from the ED, and the ED physician discharge her with prescriptions for Librium. She is being continued on her home vitamin and was on daily oral thiamine here. She was ordered to get Ativan as needed for anxiety, not a CIWA protocol, and was hypersomnolent from this. Improved alertness today We decreased the Ativan dosing. 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 Will request a cognitive eval by OT (to be done Wed, today is Wednesday and they are not here on the weekend). It appears to be an unsafe discharge for her to live at home alone unless she has 24-hour caregivers. Will treat with high dose iv Thiamine 500 mg tid for 2 days, then resume po Thiamine 100 mg daily. Will ask for a Social Work consult regarding alcohol abuse and how to go forward. The patient initially reported that her sister would come to stay with her after this present [facility]. The sister has stated that that is not true because the sister herself just left for the [place] for 3 weeks. Today the pt was able to state where the sister was. (5) Abdominal contusion Assessment/Plan: Her abdominal pain and rib pain causing splinting is due to abdominal contusion from falling off of a chair at [facility] days ago. her abdominal pain is under control, continue Tylenol and ibuprofen as needed. (6) Acute urinary retention Assessment/Plan: On 12/03/2021 the nurse reported she had annuria, and bladder scan show over 600ml urine. She had a straight cath, and Flomax started. We are continuing bladder scan as needed and to see if pt can urinate by herself otherwise we will put Carrero catheter for pt, and followup with urologist as out- pt (7)s/p left mastectomy Assessment/Plan: She has a hx of BRCA positive breast cancer, and s/p of left mastectomy, pt is under chemotherapy and followed by her oncologist as out-pt (8) Hypoxia Assessment/Plan: Resolved. This was felt to be due to splinting because of probable bruised ribs caused by the fall at home. It has significantly improved. pt had 93% on room air. (9) Sepsis Assessment/Plan: Resolved. Pt presented with fever, tachycardia, tachypnea, and pt need supplement of O2 to support her O2 sats. CXR reveal Pulmonary Edema She received empiric Zosyn, had blood culture, UA culture, followed Lactic acid level. She has no more fever, WBC is at the normal range, blood cultures is negative for bacteremia, patient had 94-92% Oxygen saturation on room air, after getting antibiotics and probiotics. - Current Meds Current Meds: Current Medications Generic Name Dose Route Start Last Admin Trade Name Freq PRN Reason Stop Dose Admin Acetaminophen 650 mg 11/30/21 07:20 12/07/21 05:15 Acetaminophen 325 Mg Tablet PO 650 mg Q4HR PRN Administration Pain 1 to 4, or Fever Albuterol/Ipratropium 3 ml 11/30/21 07:28 12/06/21 01:09 Ipratropium/Albuterol 3 Ml Neb INH 3 ml Q4HR PRN Administration Wheezing Bupropion HCl 300 mg 12/03/21 09:00 12/06/21 09:29 Bupropion Xl 150 Mg Tablet PO 300 mg DAILY JULISSA Administration Enoxaparin Sodium 40 mg 11/30/21 09:00 12/06/21 09:30 Enoxaparin 40 Mg/0.4 Ml Syringe SUBQ 40 mg DAILY JULISSA Administration Sodium Chloride 1,000 mls @ 60 mls/hr 12/06/21 12:50 12/07/21 05:16 Normal Saline 0.9% IV 60 mls/hr .[id number] JULISSA Administration Ibuprofen 400 mg 12/01/21 17:25 12/06/21 11:16 Ibuprofen 400 Mg Tablet PO 400 mg Q6HR PRN Administration PAIN Multi-Ingredient Mouthwash/Gargle 30 ml 12/03/21 14:04 12/05/21 11:31 Gi Cocktail 120 Ml Bottle PO 30 ml Q4H PRN Administration Abdominal Pain Ondansetron HCl 4 mg 11/30/21 07:20 12/04/21 22:11 Ondansetron 4 Mg/2 Ml Vial IVP 4 mg Q6HR PRN Administration Nausea / Vomiting Pantoprazole Sodium 40 mg 12/02/21 18:00 12/07/21 05:16 Pantoprazole 40 Mg Tablet PO 40 mg QDAC JULISSA Administration Exemestane [ 1 each 12/03/21 09:00 12/06/21 10:52 Exemestane] 25 Mg PO Not Given Tablet DAILY JULISSA Letrozole 2.5 Mg 1 each 12/03/21 09:00 12/06/21 10:52 Tabs PO Not Given DAILY [facility] Multivit/Folic Acid/Iron 1 tab 12/03/21 08:00 12/06/21 09:29 Vitamin Tablet PO 1 tab DAILYWM JULISSA Administration Saccharomyces Boulardii 500 mg 12/04/21 17:00 12/06/21 17:04 Saccharomyces Boulardii 250 Mg Capsule PO 500 mg BIDWM JULISSA Administration Sodium Chloride 10 ml 11/30/21 07:20 12/04/21 14:05 Sodium Chloride Flush 0.9% 10 Ml Syringe IVP 10 ml PRN PRN Administration NEEDED PER PROVIDER ORDERS Sodium Chloride 10 ml 11/30/21 09:00 12/07/21 00:00 Sodium Chloride Flush 0.9% 10 Ml Syringe IVP 10 ml 0100,0900,1700 JULISSA Administration Tamsulosin HCl 0.4 mg 12/03/21 10:00 12/06/21 09:29 Tamsulosin 0.4 Mg Capsule PO 0.4 mg DAILY JULISSA Administration Thiamine HCl 100 mg 12/04/21 12:00 12/06/21 09:29 Thiamine 100 Mg Tablet PO 100 mg DAILY JULISSA Administration Trazodone HCl 75 mg 12/03/21 21:00 12/06/21 21:44 Trazodone 50 Mg Tablet PO 75 mg QPM JULISSA Administration Vancomycin HCl 125 mg 12/04/21 13:00 12/06/21 21:45 Vancomycin 125 Mg Capsule PO 125 mg QID JULISSA Administration - Lab Result Fish Bone Diagrams: 12/07/21 06:38 12/07/21 06:38 - Additional Planning My Orders: My Active Orders 12/06/21 12:50 Sodium Chloride 0.9% [Normal Saline 0.9%] 1,000 ml IV 60 mls/hr 12/06/21 Dinner DIET [Dysphagia - Puree] [DIET] 12/07/21 20:00 LORazepam [Ativan] 0.25 mg PO QPM PRN Subjective - Subjective Patient Reports: Diarrhea (Has waves of lower abd cramping pain) Objective Vital Signs: Vital Signs - 24 hr 12/06/21 12/06/21 12/06/21 11:39 16:12 20:04 Temperature 36.6 C 37.0 C 36.7 C Heart Rate [ 83 79 93 Brachial] Respiratory 21 20 24 Rate Blood Pressure 116/83 H [Left Brachial artery] Blood Pressure 102/67 118/77 [Right Brachial artery] O2 Saturation 96 93 94 12/07/21 12/07/21 00:47 05:00 Temperature 36.9 C 37.1 C Heart Rate [ 88 91 Brachial] Respiratory 19 21 Rate Blood Pressure [Left Brachial artery] Blood Pressure 109/78 122/83 H [Right Brachial artery] O2 Saturation 92 94 Oxygen O2 Source [Without Activity] Room air O2 Source Room air Oxygen Flow Rate 4 I&O (Last 24 Hrs): Intake and Output Totals x24h 12/05/21 12/06/21 12/07/21 23:59 23:59 23:59 Intake Total 3721.207 3002.493 1311 Output Total 50 Balance 3671.207 3002.493 1311 General: Alert, No acute distress HEENT: Atraumatic, Mucous membr. moist/pink Neck: Supple, No JVD Neuro: Alert, Disoriented (Disoriented to time and place (thought she was in a hospital then said she was at home and test wrong on date)), Non Focal Cardiovascular: Regular rate Respiratory: No respiratory distress Abdomen: Soft, No tenderness Extremities: No edema, No tenderness/swelling - Results Results: Laboratory Results WBC 7.2 x10^3/uL (4.8-10.8) 12/07/21 06:38 RBC 3.55 10^6/uL (4.20-5.40) L 12/07/21 06:38 Hgb 11.1 g/dL (12.0-16.0) L 12/07/21 06:38 Hct 33.9 % (37.0-47.0) L 12/07/21 06:38 MCV 95.5 fL (81.0-99.0) 12/07/21 06:38 MCH 31.3 pg (27.0-31.0) H 12/07/21 06:38 MCHC 32.7 g/dL (32.0-36.0) 12/07/21 06:38 RDW 15.0 % (12.0-15.0) 12/07/21 06:38 Plt Count 386 10^3/uL (130-450) 12/07/21 06:38 MPV 10.1 fL (7.9-10.8) 12/07/21 06:38 Neut # (Auto) 5.0 10^3/uL (1.5-6.6) 12/07/21 06:38 Lymph # (Auto) 0.8 10^3/uL (1.5-3.5) L 12/07/21 06:38 Green # (Auto) 0.7 10^3/uL (0.0-1.0) 12/07/21 06:38 Eos # (Auto) 0.3 10^3/uL (0.0-0.7) 12/07/21 06:38 Baso # (Auto) 0.1 10^3/uL (0.0-0.1) 12/07/21 06:38 Absolute Nucleated RBC 0.00 x10^3/uL 12/07/21 06:38 Nucleated RBC % 0.0 /100WBC 12/07/21 06:38 Sodium 135 mmol/L (135-145) 12/07/21 06:38 Potassium 3.4 mmol/L (3.5-5.0) L 12/07/21 06:38 Chloride 105 mmol/L (101-111) 12/07/21 06:38 Carbon Dioxide 22 mmol/L (21-32) 12/07/21 06:38 Anion Gap 8.0 (6-13) 12/07/21 06:38 BUN 9 mg/dL (6-20) 12/07/21 06:38 Creatinine 0.5 mg/dL (0.4-1.0) 12/07/21 06:38 Estimated GFR (MDRD) 127 (>89) 12/07/21 06:38 Glucose 86 mg/dL (70-100) 12/07/21 06:38 Lactic Acid 1.1 mmol/L (0.5-2.2) 12/02/21 17:50 Calcium 7.5 mg/dL (8.5-10.3) L 12/07/21 06:38 Total Bilirubin 0.6 mg/dL (0.2-1.0) 11/30/21 00:53 AST 25 IU/L (10-42) 11/30/21 00:53 ALT 14 IU/L (10-60) 11/30/21 00:53 Alkaline Phosphatase 52 IU/L (42-121) 11/30/21 00:53 Ammonia 17.4 umol/L (7-35) 11/30/21 19:18 Troponin I High Sens 5.1 ng/L (2.3-14.8) 12/03/21 14:10 B-Natriuretic Peptide 87 pg/mL (5-100) 11/30/21 00:53 Total Protein 6.7 g/dL (6.7-8.2) 11/30/21 00:53 Albumin 2.6 g/dL (3.2-5.5) L 11/30/21 00:53 Globulin 4.1 g/dL (2.1-4.2) 11/30/21 00:53 Albumin/Globulin Ratio 0.6 (1.0-2.2) L 11/30/21 00:53 Lipase 21 U/L (22-51) L 11/30/21 00:53 Tumor Marker AFP <0.9 ng/mL (0.0-9.2) 12/02/21 17:43 CA 19-9 Antigen 8 U/mL (0-35) 12/02/21 17:43 Urine Color YELLOW 12/02/21 20:45 Urine Clarity CLEAR (CLEAR) 12/02/21 20:45 Urine pH 6.5 PH (5.0-7.5) 12/02/21 20:45 Ur Specific [place] 1.010 (1.002-1.030) 12/02/21 20:45 Urine Protein NEGATIVE mg/dL (NEGATIVE) 12/02/21 20:45 Urine Glucose (UA) NEGATIVE mg/dL (NEGATIVE) 12/02/21 20:45 Urine Ketones TRACE mg/dL (NEGATIVE) 12/02/21 20:45 Urine Occult Blood NEGATIVE (NEGATIVE) 12/02/21 20:45 Urine Nitrite NEGATIVE (NEGATIVE) 12/02/21 20:45 Urine Bilirubin NEGATIVE (NEGATIVE) 12/02/21 20:45 Urine Urobilinogen 0.2 (NORMAL) E.U./dL (NORMAL) 12/02/21 20:45 Ur Leukocyte Esterase NEGATIVE (NEGATIVE) 12/02/21 20:45 Urine RBC 0-5 /HPF (0-5) 12/02/21 20:45 Urine WBC 0-3 /HPF (0-5) 12/02/21 20:45 Ur Epithelial Cells RARE Transitional /HPF (<= Few) 12/02/21 20:45 Ur Squamous Epith Cells RARE Squamous (<= Few) 12/02/21 20:45 Urine Bacteria Rare /HPF (None Seen) 12/02/21 20:45 Urine Mucus Moderate Strands 12/02/21 18:30 Urine Culture Comments NOT INDICATED 12/02/21 20:45 Nasal Adenovirus (PCR) NOT DETECTED 11/30/21 04:30 Nasal B. parapertussis DNA (PCR) NOT DETECTED 11/30/21 04:30 Nasal Coronavir 229E PCR NOT DETECTED 11/30/21 04:30 Nasal Coronavir HKU1 PCR NOT DETECTED 11/30/21 04:30 Nasal Coronavir NL63 PCR NOT DETECTED 11/30/21 04:30 Nasal Coronavir OC43 PCR NOT DETECTED 11/30/21 04:30 Nasal Enterovir/Rhinovir PCR NOT DETECTED 11/30/21 04:30 Nasal Influenza B PCR NOT DETECTED 11/30/21 04:30 Nasal Influenza A PCR NOT DETECTED 11/30/21 04:30 Nasal Parainfluen 1 PCR NOT DETECTED 11/30/21 04:30 Nasal Parainfluen 2 PCR NOT DETECTED 11/30/21 04:30 Nasal Parainfluen 3 PCR NOT DETECTED 11/30/21 04:30 Nasal Parainfluen 4 PCR NOT DETECTED 11/30/21 04:30 Nasal RSV (PCR) NOT DETECTED 11/30/21 04:30 Nasal B.pertussis DNA PCR NOT DETECTED 11/30/21 04:30 Nasal C.pneumoniae (PCR) NOT DETECTED 11/30/21 04:30 Jacinto Human Metapneumo PCR NOT DETECTED 11/30/21 04:30 Nasal M.pneumoniae (PCR) NOT DETECTED 11/30/21 04:30 Nasal SARS-CoV-2 (PCR) NOT DETECTED 11/30/21 04:30 Stl C. diff Tox B Gene POSITIVE (NEGATIVE) A* 12/04/21 09:38 Urine Opiates Screen POSITIVE (NEGATIVE) H 11/30/21 18:48 Ur Oxycodone Screen POSITIVE (NEGATIVE) H 11/30/21 18:48 Urine Methadone Screen NEGATIVE (NEGATIVE) 11/30/21 18:48 Ur Propoxyphene Screen NEGATIVE (NEGATIVE) 11/30/21 18:48 Ur Barbiturates Screen NEGATIVE (NEGATIVE) 11/30/21 18:48 Ur Tricyclics Screen NEGATIVE (NEGATIVE) 11/30/21 18:48 Ur Phencyclidine Scrn NEGATIVE (NEGATIVE) 11/30/21 18:48 Ur Amphetamine Screen NEGATIVE (NEGATIVE) 11/30/21 18:48 U Methamphetamines Scrn NEGATIVE (NEGATIVE) 11/30/21 18:48 U Benzodiazepines Scrn POSITIVE (NEGATIVE) H 11/30/21 18:48 Urine Cocaine Screen NEGATIVE (NEGATIVE) 11/30/21 18:48 U Cannabinoids Screen NEGATIVE (NEGATIVE) 11/30/21 18:48 Ethyl Alcohol < 5.0 mg/dL 11/30/21 00:53 - Procedures Procedures: Procedures EXCISE AXILLARY NODE (05/22/14) INSERTION OF TOTALLY IMPLANTABLE VASC ACCESS DEVIC (05/22/14) SUBTOTAL MASTECTOMY (05/22/14) Sepsis Event Note (H) - Evaluation Current Stage of Sepsis: Ruled out Possible source of Sepsis: positive: Pulmonary - Sepsis Criteria Sepsis Criteria: Recorded Temperature greater than 38.3C or Less than 36C, Recorded Heart Rate greater than 90 bpm, Recorded Respiratory Rate greater than 20
[2021-12-07] MEDS: LETROZOLE 2.5 MG PO SCH (09:25)
[2021-12-07] MEDS: EXEMESTANE 25 MG PO SCH (09:25)
[2021-12-07] MEDS: SODIUM CHLORIDE FLUSH 0.9% 10 ML SYRINGE IVP SCH ×3 (09:25→16:28)
[2021-12-07] MEDS: TAMSULOSIN 0.4 MG CAPSULE PO SCH (10:13)
[2021-12-07] MEDS: ENOXAPARIN 40 MG/0.4 ML SYRINGE SUBQ SCH (10:14)
[2021-12-07] MEDS: VANCOMYCIN 125 MG CAPSULE PO SCH ×4 (10:14→21:30)
[2021-12-07] MEDS: buPROPion XL 150 MG TABLET PO SCH (10:14)
[2021-12-07] MEDS: SACCHAROMYCES BOULARDII 250 MG CAPSULE PO SCH (10:40)
[2021-12-07] MEDS: PRENATAL VITAMIN TABLET PO SCH (10:40)
[2021-12-07] MEDS: GI COCKTAIL 120 ML BOTTLE PO PRN (11:25)
[2021-12-07] MEDS ORDERED: THIAMINE INJ 500 MG in SODIUM CHLORIDE 0.9% 50 ML IV SCH (12:00)
[2021-12-07] MEDS: IBUPROFEN 400 MG TABLET PO PRN (12:57)
[2021-12-07] MEDS: THIAMINE INJ 500 MG in SODIUM CHLORIDE 0.9% 50 ML IV SCH ×2 (12:59→21:31)
[2021-12-07] MEDS: traZODone 50 MG TABLET PO SCH (21:30)
[2021-12-08] MEDS: SODIUM CHLORIDE FLUSH 0.9% 10 ML SYRINGE IVP SCH ×3 (00:45→17:23)
[2021-12-08] MEDS: ACETAMINOPHEN 325 MG TABLET PO PRN ×3 (03:38→17:23)
[2021-12-08 05:06] LABS: BASOPHILS # (AUTO) 0.1 10^3/uL (0.0-0.1); BASOPHILS % (AUTO) 0.8 %; HCT - HEMATOCRIT 33.2 % (37.0-47.0); LYMPHOCYTES % (AUTO) 13.3 %; MEAN CORPUSCULAR HEMOGLOBIN 31.6 pg (27.0-31.0); MEAN CORPUSCULAR HGB CONC 33.1 g/dL (32.0-36.0); MEAN CORPUSCULAR VOLUME 95.4 fL (81.0-99.0); MEAN PLATELET VOLUME 9.9 fL (7.9-10.8); MONOCYTES # (AUTO) 0.8 10^3/uL (0.0-1.0); MONOCYTES % (AUTO) 10.7 %; NEUTROPHILS # (AUTO) 5.2 10^3/uL (1.5-6.6); NEUTROPHILS % (AUTO) 71.5 %; PLT - PLATELET COUNT 420 10^3/uL (130-450); RED BLOOD COUNT 3.48 10^6/uL (4.20-5.40); WHITE BLOOD COUNT 7.3 x10^3/uL (4.8-10.8)
[2021-12-08 05:20] LABS: ALBUMIN 1.9 g/dL (3.2-5.5); ALBUMIN/GLOBULIN RATIO 0.5 (1.0-2.2); BILIRUBIN,TOTAL 0.4 mg/dL (0.2-1.0); CALCIUM 7.3 mg/dL (8.5-10.3); CREATININE 0.5 mg/dL (0.4-1.0); POTASSIUM 3.2 mmol/L (3.5-5.0); TOTAL PROTEIN 5.5 g/dL (6.7-8.2)
[2021-12-08] MEDS: PANTOPRAZOLE 40 MG TABLET PO SCH (06:19)
[2021-12-08] MEDS: THIAMINE INJ 500 MG in SODIUM CHLORIDE 0.9% 50 ML IV SCH ×2 (06:20→14:44)
[2021-12-08] MEDS: IPRATROPIUM/ALBUTEROL 3 ML NEB INH PRN (08:05)
[2021-12-08] MEDS: VANCOMYCIN 125 MG CAPSULE PO SCH ×4 (08:25→21:48)
[2021-12-08] MEDS: buPROPion XL 150 MG TABLET PO SCH (08:25)
[2021-12-08] MEDS: EXEMESTANE 25 MG PO SCH (08:26)
[2021-12-08] MEDS: TAMSULOSIN 0.4 MG CAPSULE PO SCH (08:26)
[2021-12-08] MEDS: ENOXAPARIN 40 MG/0.4 ML SYRINGE SUBQ SCH (08:26)
[2021-12-08] MEDS: PRENATAL VITAMIN TABLET PO SCH (08:26)
[2021-12-08] MEDS: LETROZOLE 2.5 MG PO SCH (08:27)
[2021-12-08] MEDS: POTASSIUM CHLOR 10 MEQ/100 ML 10 MEQ/100 ML BAG IV SCH ×2 (10:58→12:40)
[2021-12-08] MEDS: SODIUM CHLORIDE 0.9% 1,000 ML IV SCH (14:43)
--- NOTE | 2021-12-08 18:00 | PROVIDER PROGRESS NOTE ---
Assessment/Plan - Problem List (1) C. difficile diarrhea Assessment/Plan: Her diarrhea started on 12/04/21 and her stool tested C diff pos. She has improving lower abd cramping pain but still alot of watery diarrhea. She is in Contact Isolation The patient is on oral vancomycin for C. difficile diarrhea (which was likely caused by having antibiotics dosed for her recent sepsis). She is not on anti-motility or probiotuic meds, as these are not advised per UpToDate She is getting IV fluids to prevent dehydration. Will continue gentle iv hydration, given her frequent BMs. We have de-escalated her diet from regular to pureed and no milk products, for bowel rest. Will also order low fiber food. Will stop NSAIDs to decrease chance of bleeding Even though the patient has been here past the 96-hour anne, this is because of symptomatic C. difficile diarrhea, needing IV hydration and also getting a work-up for Wernicke's encephalopathy. 2) Hypokalemia Likely from loss in diarrhea Will replace with K riders Contunue iv fluids (3) Confusion Assessment/Plan: The patients's prn Ativan for anxiety has been stopped, however she is still int ermittently confused (yesterday she thought she was at home and could not find her dog, today she is asking about where her washing machine is in this room) The records from her [facility] visit 3 weeks ago have been obtained. She was not hospitalized but only seen in the ED. She had presented with complaint of alcohol withdrawal and was asking to be placed in an inpatient detox center. She was given Ativan and thiamine and had no signs of withdrawal in the ED. She was excepted at a detox bed in [place], but declined that. She was then seen by the crisis counselor who recommended to discharge home in the ED physician discharge her with prescriptions for Librium. It is unclear if she was taking both Librium and pain meds and using alcohol which may have caused the fall at home leading to the bruised ribs and contused abdominal wall or if she remained off of alcohol. We decrease her as needed Ativan to just nightly as needed for insomnia Will limit sedating meds. Will check an ammonia level intermittently. Today it was normal as well as LFTs. Today I spoke with the patient's brother at his request, updated him about her condition. He mostly wanted to know about her confusion and her LFTs. (4) Unsteady gait Assessment/Plan: She started to be hospitalized here a day after a fall at home causing rib pain and abdominal contusion. The fall was when she stood on her chair at home to reach for something in a higher cupboard. It is unlear if she was taking both Librium and pain meds and using alcohol which may have caused the fall. Patient had somewhat slurred speech and unsteady gait noticed on 12/03/2021. She had a CT of the head that showed no acute process but she has moderate cerebral atrophy. Her narcotics and Librium were put on hold. She started to have PT and OT and they are documenting that she has intermittent confusion, needs help with ADLs, needs assistance to even get up from the toilet. PT and OT have recommend SNF. SNF has been refused/not covered by her [employer] insurance, apparently because she does not need assistance, which is incorrect. Will continue with PT and OT while she is here, as she needs continued hospitalization for her C. difficile diarrhea causing volume loss. Even though the patient has been here past the 96-hour anne, this is because of symptomatic C. difficile diarrhea, needing IV hydration and also is getting a work-up for Wernicke's encephalopathy. (5) Alcohol abuse Assessment/Plan: On 12/04/2021 it was learned (from her sister in phone call with our Soc. Worker) that the patient has a history of alcohol abuse, prior alcohol withdrawal including alcohol withdrawal seizures. She was recently discharged from [facility] in Oct 2021 for alcohol abuse and withdrawal. She has not shown obvious withdrawal signs while here or any seizures. Records from that recent hospitalization at [facility] were requested, have arrived, and were reviewed today. The records show that she was not hospitalized but only seen in the ED at [facility]. She had presented with complaint of alcohol withdrawal and was asking to be placed in an inpatient detox center. She was given Ativan and thiamine and had no signs of withdrawal in the ED. She was accepted at a detox bed in [place], but declined it. She was then seen by the crisis counselor who recommended to discharge her home from the ED, and the ED physician discharge her with prescriptions for Librium. She is being continued on her home vitamin and was on daily oral thiamine here. She was ordered to get Ativan as needed for anxiety, not a CIWA protocol, and was hypersomnolent from this. Improved alertness the past 2 days. We decreased the Ativan dosing. 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 Will request a cognitive eval by OT (to be done Wed, today is Wednesday and they are not here on the weekend). It appears to be an unsafe discharge for her to live at home alone unless she has 24-hour caregivers. Will treat with high dose iv Thiamine 500 mg tid for 2 days, then resume po Thiamine 100 mg daily. Will ask for a Social Work consult regarding alcohol abuse and how to go fo [facility]. The patient initially reported that her sister would come to stay with her after this present [facility]. The sister has stated that that is not true because the sister herself just left for the [place] for 3 weeks. Now the pt was able to state where the sister was. (6) Abdominal contusion Assessment/Plan: Her abdominal pain and rib pain causing splinting is due to abdominal contusion from falling off of a chair at [facility] days ago. her abdominal pain is under control, continue Tylenol and ibuprofen as needed. (7) Acute urinary retention Assessment/Plan: On 12/03/2021 the nurse reported she had annuria, and bladder scan show over 600ml urine. She had a straight cath, and Flomax started. We are continuing bladder scan as needed and to see if pt can urinate by herself otherwise we will put Carrero catheter for pt, and followup with urologist as out- pt (8)s/p left mastectomy Assessment/Plan: She has a hx of BRCA positive breast cancer, and s/p of left mastectomy, pt is under chemotherapy and followed by her oncologist as out-pt (9) Hypoxia Assessment/Plan: Resolved. This was felt to be due to splinting because of probable bruised ribs caused by the fall at home. It has significantly improved. pt had 93% on room air. (10) Sepsis Assessment/Plan: Resolved. Pt presented with fever, tachycardia, tachypnea, and pt need supplement of O2 to support her O2 sats. CXR reveal Pulmonary Edema She received empiric Zosyn, had blood culture, UA culture, followed Lactic acid level. She has no more fever, WBC is at the normal range, blood cultures is negative for bacteremia, patient had 94-92% Oxygen saturation on room air, after getting antibiotics and probiotics. - Current Meds Current Meds: Current Medications Generic Name Dose Route Start Last Admin Trade Name Freq PRN Reason Stop Dose Admin Acetaminophen 650 mg 11/30/21 07:20 12/08/21 17:23 Acetaminophen 325 Mg Tablet PO 650 mg Q4HR PRN Administration Pain 1 to 4, or Fever Albuterol/Ipratropium 3 ml 11/30/21 07:28 12/08/21 08:05 Ipratropium/Albuterol 3 Ml Neb INH 3 ml Q4HR PRN Administration Wheezing Bupropion HCl 300 mg 12/03/21 09:00 12/08/21 08:25 Bupropion Xl 150 Mg Tablet PO 300 mg DAILY JULISSA Administration Enoxaparin Sodium 40 mg 11/30/21 09:00 12/08/21 08:26 Enoxaparin 40 Mg/0.4 Ml Syringe SUBQ 40 mg DAILY JULISSA Administration Sodium Chloride 1,000 mls @ 60 mls/hr 12/06/21 12:50 12/08/21 14:43 Normal Saline 0.9% IV 60 mls/hr .[id number] JULISSA Administration Multi-Ingredient Mouthwash/Gargle 30 ml 12/03/21 14:04 12/07/21 11:25 Gi Cocktail 120 Ml Bottle PO 30 ml Q4H PRN Administration Abdominal Pain Ondansetron HCl 4 mg 11/30/21 07:20 12/04/21 22:11 Ondansetron 4 Mg/2 Ml Vial IVP 4 mg Q6HR PRN Administration Nausea / Vomiting Pantoprazole Sodium 40 mg 12/02/21 18:00 12/08/21 06:19 Pantoprazole 40 Mg Tablet PO 40 mg QDAC JULISSA Administration Exemestane [ 1 each 12/03/21 09:00 12/08/21 08:26 Exemestane] 25 Mg PO Not Given Tablet DAILY JULISSA Letrozole 2.5 Mg 1 each 12/03/21 09:00 12/08/21 08:27 Tabs PO Not Given DAILY JULISSA Multivit/Folic Acid/Iron 1 tab 12/03/21 08:00 12/08/21 08:26 Vitamin Tablet PO 1 tab DAILYWM JULISSA Administration Sodium Chloride 10 ml 11/30/21 07:20 12/04/21 14:05 Sodium Chloride Flush 0.9% 10 Ml Syringe IVP 10 ml PRN PRN Administration NEEDED PER PROVIDER ORDERS Sodium Chloride 10 ml 11/30/21 09:00 12/08/21 17:23 Sodium Chloride Flush 0.9% 10 Ml Syringe IVP 10 ml 0100,0900,1700 JULISSA Administration Tamsulosin HCl 0.4 mg 12/03/21 10:00 12/08/21 08:26 Tamsulosin 0.4 Mg Capsule PO 0.4 mg DAILY JULISSA Administration Trazodone HCl 75 mg 12/03/21 21:00 12/07/21 21:30 Trazodone 50 Mg Tablet PO 75 mg QPM JULISSA Administration Vancomycin HCl 125 mg 12/04/21 13:00 12/08/21 17:23 Vancomycin 125 Mg Capsule PO 125 mg QID JULISSA Administration - Lab Result Fish Bone Diagrams: 12/08/21 04:56 12/08/21 04:56 - Additional Planning My Orders: My Active Orders 12/07/21 20:00 LORazepam [Ativan] 0.25 mg PO QPM PRN Subjective - Subjective Patient Reports: Feeling Better (Today she says whenever there is oral intake, she immediately has the urge to defecate. It is still liquid diarrhea. There is less crampy abdominal pain.) Nursing Reports: Other (The patient told her RN that she is "looking for her washing machine in her room".) Objective Vital Signs: Vital Signs - 24 hr 12/07/21 12/08/21 12/08/21 21:00 00:19 03:56 Temperature 36.9 C 36.5 C 36.7 C Heart Rate Heart Rate [ 93 103 H 93 Brachial] Respiratory 24 22 19 Rate Blood Pressure 122/68 134/94 H 134/88 H [Right Brachial artery] O2 Saturation 94 97 97 12/08/21 12/08/21 12/08/21 08:14 08:23 16:00 Temperature 37.4 C 36.6 C Heart Rate 98 Heart Rate [ 99 93 Brachial] Respiratory 16 16 16 Rate Blood Pressure 125/84 H 133/86 H [Right Brachial artery] O2 Saturation 92 98 Oxygen O2 Source [Without Activity] Room air O2 Source Room air Oxygen Flow Rate 4 I&O (Last 24 Hrs): Intake and Output Totals x24h 12/06/21 12/07/21 12/08/21 23:59 23:59 23:59 Intake Total 3002.493 3658 1898.500 Output Total 800 Balance 3002.493 3658 1098.500 General: Alert, No acute distress HEENT: Mucous membr. moist/pink Neck: Supple, No JVD Neuro: Alert, Non Focal, Other (Intermittently disoriented) Cardiovascular: Regular rate Respiratory: No respiratory distress Abdomen: Soft, No tenderness (Hyperactive bowel sounds in all 4 quadrants) Extremities: No edema, No tenderness/swelling - Results Results: Laboratory Results WBC 7.3 x10^3/uL (4.8-10.8) 12/08/21 04:56 RBC 3.48 10^6/uL (4.20-5.40) L 12/08/21 04:56 Hgb 11.0 g/dL (12.0-16.0) L 12/08/21 04:56 Hct 33.2 % (37.0-47.0) L 12/08/21 04:56 MCV 95.4 fL (81.0-99.0) 12/08/21 04:56 MCH 31.6 pg (27.0-31.0) H 12/08/21 04:56 MCHC 33.1 g/dL (32.0-36.0) 12/08/21 04:56 RDW 15.0 % (12.0-15.0) 12/08/21 04:56 Plt Count 420 10^3/uL (130-450) 12/08/21 04:56 MPV 9.9 fL (7.9-10.8) 12/08/21 04:56 Neut # (Auto) 5.2 10^3/uL (1.5-6.6) 12/08/21 04:56 Lymph # (Auto) 1.0 10^3/uL (1.5-3.5) L 12/08/21 04:56 Grant # (Auto) 0.8 10^3/uL (0.0-1.0) 12/08/21 04:56 Eos # (Auto) 0.0 10^3/uL (0.0-0.7) 12/08/21 04:56 Baso # (Auto) 0.1 10^3/uL (0.0-0.1) 12/08/21 04:56 Absolute Nucleated RBC 0.00 x10^3/uL 12/08/21 04:56 Nucleated RBC % 0.0 /100WBC 12/08/21 04:56 Sodium 133 mmol/L (135-145) L 12/08/21 04:56 Potassium 3.2 mmol/L (3.5-5.0) L 12/08/21 04:56 Chloride 103 mmol/L (101-111) 12/08/21 04:56 Carbon Dioxide 23 mmol/L (21-32) 12/08/21 04:56 Anion Gap 7.0 (6-13) 12/08/21 04:56 BUN 6 mg/dL (6-20) 12/08/21 04:56 Creatinine 0.5 mg/dL (0.4-1.0) 12/08/21 04:56 Estimated GFR (MDRD) 127 (>89) 12/08/21 04:56 Glucose 106 mg/dL (70-100) H 12/08/21 04:56 Lactic Acid 1.1 mmol/L (0.5-2.2) 12/02/21 17:50 Calcium 7.3 mg/dL (8.5-10.3) L 12/08/21 04:56 Total Bilirubin 0.4 mg/dL (0.2-1.0) 12/08/21 04:56 AST 40 IU/L (10-42) 12/08/21 04:56 ALT 38 IU/L (10-60) 12/08/21 04:56 Alkaline Phosphatase 65 IU/L (42-121) 12/08/21 04:56 Ammonia 29.5 umol/L (7-35) 12/08/21 04:56 Troponin I High Sens 5.1 ng/L (2.3-14.8) 12/03/21 14:10 B-Natriuretic Peptide 87 pg/mL (5-100) 11/30/21 00:53 Total Protein 5.5 g/dL (6.7-8.2) L 12/08/21 04:56 Albumin 1.9 g/dL (3.2-5.5) L 12/08/21 04:56 Globulin 3.6 g/dL (2.1-4.2) 12/08/21 04:56 Albumin/Globulin Ratio 0.5 (1.0-2.2) L 12/08/21 04:56 Lipase 21 U/L (22-51) L 11/30/21 00:53 Tumor Marker AFP <0.9 ng/mL (0.0-9.2) 12/02/21 17:43 CA 19-9 Antigen 8 U/mL (0-35) 12/02/21 17:43 Urine Color YELLOW 12/02/21 20:45 Urine Clarity CLEAR (CLEAR) 12/02/21 20:45 Urine pH 6.5 PH (5.0-7.5) 12/02/21 20:45 Ur Specific [place] 1.010 (1.002-1.030) 12/02/21 20:45 Urine Protein NEGATIVE mg/dL (NEGATIVE) 12/02/21 20:45 Urine Glucose (UA) NEGATIVE mg/dL (NEGATIVE) 12/02/21 20:45 Urine Ketones TRACE mg/dL (NEGATIVE) 12/02/21 20:45 Urine Occult Blood NEGATIVE (NEGATIVE) 12/02/21 20:45 Urine Nitrite NEGATIVE (NEGATIVE) 12/02/21 20:45 Urine Bilirubin NEGATIVE (NEGATIVE) 12/02/21 20:45 Urine Urobilinogen 0.2 (NORMAL) E.U./dL (NORMAL) 12/02/21 20:45 Ur Leukocyte Esterase NEGATIVE (NEGATIVE) 12/02/21 20:45 Urine RBC 0-5 /HPF (0-5) 12/02/21 20:45 Urine WBC 0-3 /HPF (0-5) 12/02/21 20:45 Ur Epithelial Cells RARE Transitional /HPF (<= Few) 12/02/21 20:45 Ur Squamous Epith Cells RARE Squamous (<= Few) 12/02/21 20:45 Urine Bacteria Rare /HPF (None Seen) 12/02/21 20:45 Urine Mucus Moderate Strands 12/02/21 18:30 Urine Culture Comments NOT INDICATED 12/02/21 20:45 Nasal Adenovirus (PCR) NOT DETECTED 11/30/21 04:30 Nasal B. parapertussis DNA (PCR) NOT DETECTED 11/30/21 04:30 Nasal Coronavir 229E PCR NOT DETECTED 11/30/21 04:30 Nasal Coronavir HKU1 PCR NOT DETECTED 11/30/21 04:30 Nasal Coronavir NL63 PCR NOT DETECTED 11/30/21 04:30 Nasal Coronavir OC43 PCR NOT DETECTED 11/30/21 04:30 Nasal Enterovir/Rhinovir PCR NOT DETECTED 11/30/21 04:30 Nasal Influenza B PCR NOT DETECTED 11/30/21 04:30 Nasal Influenza A PCR NOT DETECTED 11/30/21 04:30 Nasal Parainfluen 1 PCR NOT DETECTED 11/30/21 04:30 Nasal Parainfluen 2 PCR NOT DETECTED 11/30/21 04:30 Nasal Parainfluen 3 PCR NOT DETECTED 11/30/21 04:30 Nasal Parainfluen 4 PCR NOT DETECTED 11/30/21 04:30 Nasal RSV (PCR) NOT DETECTED 11/30/21 04:30 Nasal B.pertussis DNA PCR NOT DETECTED 11/30/21 04:30 Nasal C.pneumoniae (PCR) NOT DETECTED 11/30/21 04:30 Jacinto Human Metapneumo PCR NOT DETECTED 11/30/21 04:30 Nasal M.pneumoniae (PCR) NOT DETECTED 11/30/21 04:30 Nasal SARS-CoV-2 (PCR) NOT DETECTED 11/30/21 04:30 Stl C. diff Tox B Gene POSITIVE (NEGATIVE) A* 12/04/21 09:38 Urine Opiates Screen POSITIVE (NEGATIVE) H 11/30/21 18:48 Ur Oxycodone Screen POSITIVE (NEGATIVE) H 11/30/21 18:48 Urine Methadone Screen NEGATIVE (NEGATIVE) 11/30/21 18:48 Ur Propoxyphene Screen NEGATIVE (NEGATIVE) 11/30/21 18:48 Ur Barbiturates Screen NEGATIVE (NEGATIVE) 11/30/21 18:48 Ur Tricyclics Screen NEGATIVE (NEGATIVE) 11/30/21 18:48 Ur Phencyclidine Scrn NEGATIVE (NEGATIVE) 11/30/21 18:48 Ur Amphetamine Screen NEGATIVE (NEGATIVE) 11/30/21 18:48 U Methamphetamines Scrn NEGATIVE (NEGATIVE) 11/30/21 18:48 U Benzodiazepines Scrn POSITIVE (NEGATIVE) H 11/30/21 18:48 Urine Cocaine Screen NEGATIVE (NEGATIVE) 11/30/21 18:48 U Cannabinoids Screen NEGATIVE (NEGATIVE) 11/30/21 18:48 Ethyl Alcohol < 5.0 mg/dL 11/30/21 00:53 - Procedures Procedures: Procedures EXCISE AXILLARY NODE (05/22/14) INSERTION OF TOTALLY IMPLANTABLE VASC ACCESS DEVIC (05/22/14) SUBTOTAL MASTECTOMY (05/22/14) Sepsis Event Note (H) - Evaluation Current Stage of Sepsis: Ruled out Possible source of Sepsis: positive: Pulmonary - Sepsis Criteria Sepsis Criteria: Recorded Temperature greater than 38.3C or Less than 36C, Recorded Heart Rate greater than 90 bpm, Recorded Respiratory Rate greater than 20
[2021-12-08] MEDS: traZODone 50 MG TABLET PO SCH (21:47)
[2021-12-09] MEDS: SODIUM CHLORIDE FLUSH 0.9% 10 ML SYRINGE IVP SCH ×3 (02:05→17:38)
[2021-12-09] MEDS: ACETAMINOPHEN 325 MG TABLET PO PRN ×4 (02:11→21:12)
[2021-12-09] MEDS: IPRATROPIUM/ALBUTEROL 3 ML NEB INH PRN ×3 (02:18→22:02)
[2021-12-09] MEDS: PANTOPRAZOLE 40 MG TABLET PO SCH (07:09)
[2021-12-09] MEDS: PRENATAL VITAMIN TABLET PO SCH (08:19)
[2021-12-09] MEDS: ENOXAPARIN 40 MG/0.4 ML SYRINGE SUBQ SCH (08:19)
[2021-12-09] MEDS: buPROPion XL 150 MG TABLET PO SCH (08:19)
[2021-12-09] MEDS: THIAMINE 100 MG TABLET PO SCH (08:19)
[2021-12-09] MEDS: TAMSULOSIN 0.4 MG CAPSULE PO SCH (08:19)
[2021-12-09] MEDS: VANCOMYCIN 125 MG CAPSULE PO SCH ×4 (08:19→21:12)
[2021-12-09] MEDS: EXEMESTANE 25 MG PO SCH (08:20)
[2021-12-09] MEDS: LETROZOLE 2.5 MG PO SCH (08:20)
[2021-12-09] MEDS: SODIUM CHLORIDE 0.9% 1,000 ML IV SCH (08:53)
[2021-12-09 10:16] LABS: BUN - BLOOD UREA NITROGEN < 5 mg/dL (6-20); CALCIUM 7.8 mg/dL (8.5-10.3); CARBON DIOXIDE - CO2 24 mmol/L (21-32); CHLORIDE 103 mmol/L (101-111); CREATININE 0.5 mg/dL (0.4-1.0); GFR - MDRD 127 (>89); GLUCOSE 103 mg/dL (70-100); POTASSIUM 3.1 mmol/L (3.5-5.0); SODIUM 136 mmol/L (135-145)
--- NOTE | 2021-12-09 14:02 | PROVIDER PROGRESS NOTE ---
Assessment/Plan - Problem List (1) C. difficile diarrhea Assessment/Plan: Her diarrhea started on 12/04/21 and her stool tested C diff pos. She has much improved lower abd cramping pain but still alot of diarrhea. She is in Contact Isolation The patient is on oral vancomycin. She is not on anti-motility or probiotuic meds, as these are not advised per UpToDate She is getting IV fluids to prevent dehydration. Will continue gentle iv hydration, due to her frequent BMs. We have de-escalated her diet from regular to pureed, low fiber and no milk products, for bowel rest. We stopped NSAIDs to decrease chance of bleeding Even though the patient has been here past the 96-hour anne, this is because of symptomatic C. difficile with pwrsistent diarrhea, needing IV hydration and also getting a work-up for Wernicke's encephalopathy. 2) Hypokalemia Likely from loss in diarrhea Will replace with K riders Continue iv fluids of NS with KCl (3) Confusion Assessment/Plan: The patients's prn Ativan for anxiety has been stopped, however she is still intermittently confused (she thought she was at home and could not find her dog, she was asking about where her washing machine is in this room, today she says she lost 3 pairs of jeans that she brought with her [which she did not as she was brought in by ambulance]) The records from her [facility] visit 3 weeks ago showed that she presented with complaint of alcohol withdrawal and was asking to be placed in an inpatient detox center. We have decreased her Ativan to just nightly as needed for insomnia Will check an ammonia level intermittently. It was normal as well as LFTs. Her confusion is diminishing Today she underwent a cognitive evaluation by OT and she scored 24/30, ind icating mild cognitive impairment. Today I spoke with the patient's brother as he requested, updated him about her condition. (4) Unsteady gait Assessment/Plan: She started to be hospitalized here a day after a fall at home causing rib pain and abdominal contusion. The fall was when she stood on her chair at home to reach for something in a higher cupboard. It is unlear if she was taking both Librium and pain meds and using alcohol which may have caused the fall. Patient had somewhat slurred speech and unsteady gait noticed on 12/03/2021. She had a CT of the head that showed no acute process but she has moderate cerebral atrophy. Her narcotics and Librium were put on hold. She started to have PT and OT and they are documenting that she has intermittent confusion, needs help with ADLs, needed assistance to get up from the toilet. Today she could stand on her own, but has por balance when turning. PT and OT continue while she is here, as she needs continued hospitalization for her C. difficile diarrhea causing volume loss. Even though the patient has been here past the 96-hour anne, this is because of symptomatic C. difficile diarrhea, needing IV hydration and also is getting a work-up for Wernicke's encephalopathy. (5) Alcohol abuse Assessment/Plan: On 12/04/2021 it was learned (from her sister in phone call with our Soc. Worker) that the patient has a history of alcohol abuse, prior alcohol withdrawal including alcohol withdrawal seizures. She was recently discharged from [facility] in Oct 2021 for alcohol abuse and withdrawal. She has not shown obvious withdrawal signs while here or any seizures. Records from that recent hospitalization at [facility] were requested, have arrived, and were reviewed today. The records show that she was not hospitalized but only seen in the ED at [facility]. She had presented with complaint of alcohol withdrawal and was asking to be placed in an inpatient detox center. She was given Ativan and thiamine and had no signs of withdrawal in the ED. She was accepted at a detox bed in [place], but declined it. She was then seen by the crisis counselor who recommended to discharge her home from the ED, and the ED physician discharge her with prescriptions for Librium. She is being continued on her home vitamin and thiamine here. There was consideration of Wernicke Korsakoff syndrome given her shuffling gait and confusion (including hallucinations) and with her CT head showing significant brain atrophy. Thus she was treated with high dose iv Thiamine 500 mg tid for 2 days, which finished yesterday then today resuming po Thiamine 100 mg daily. She is requesting resources from Social Work regarding alcohol abuse and how to go forward. And today she had a cognitive eval and scored 24/30. She had good insight into her problem as we spoke today and voiced her plan to stop alcohol use (join an online AA group, start taking the Antabuse orderd by Flor Varma NP). Her brother Kirk was updated by phone call today. (6)s/p left mastectomy Assessment/Plan: She has a hx of BRCA positive breast cancer, and s/p of left mastectomy, pt is under chemotherapy and followed by her oncologist as out-pt (7) Hypoxia Assessment/Plan: Resolved. This was felt to be due to splinting because of probable bruised ribs caused by the fall at home. It has significantly improved. pt had 93% on room air. (8) Sepsis Assessment/Plan: Resolved. Pt presented with fever, tachycardia, tachypnea, and pt need supplement of O2 to support her O2 sats. CXR reveal Pulmonary Edema She received empiric Zosyn, had blood culture, UA culture, followed Lactic acid level. She has no more fever, WBC is at the normal range, blood cultures is negative for bacteremia, patient had 94-92% Oxygen saturation on room air, after getting antibiotics and probiotics. (9) Abdominal contusion Assessment/Plan: Resolved. Her abdominal pain and rib pain causing splinting was due to abdominal contusion from falling off of a chair at home. her abdominal pain is under control. Continue Tylenol prn and ibuprofen as needed. (10) Acute urinary retention Assessment/Plan: Resolved. On 12/03/2021 the nurse reported she had annuria, and bladder scan show over 600ml urine. She had a straight cath, and Flomax started. We are continuing bladder scan as needed and to see if pt can urinate by herself otherwise we will put Carrero catheter for pt, and followup with urologist as out- pt - Current Meds Current Meds: Current Medications Generic Name Dose Route Start Last Admin Trade Name Freq PRN Reason Stop Dose Admin Acetaminophen 650 mg 11/30/21 07:20 12/09/21 13:07 Acetaminophen 325 Mg Tablet PO 650 mg Q4HR PRN Administration Pain 1 to 4, or Fever Albuterol/Ipratropium 3 ml 11/30/21 07:28 12/09/21 08:07 Ipratropium/Albuterol 3 Ml Neb INH 3 ml Q4HR PRN Administration Wheezing Bupropion HCl 300 mg 12/03/21 09:00 12/09/21 08:19 Bupropion Xl 150 Mg Tablet PO 300 mg DAILY JULISSA Administration Enoxaparin Sodium 40 mg 11/30/21 09:00 12/09/21 08:19 Enoxaparin 40 Mg/0.4 Ml Syringe SUBQ 40 mg DAILY JULISSA Administration Sodium Chloride 1,000 mls @ 60 mls/hr 12/06/21 12:50 12/09/21 08:53 Normal Saline 0.9% IV 60 mls/hr .[id number] JULISSA Administration Multi-Ingredient Mouthwash/Gargle 30 ml 12/03/21 14:04 12/07/21 11:25 Gi Cocktail 120 Ml Bottle PO 30 ml Q4H PRN Administration Abdominal Pain Ondansetron HCl 4 mg 11/30/21 07:20 12/04/21 22:11 Ondansetron 4 Mg/2 Ml Vial IVP 4 mg Q6HR PRN Administration Nausea / Vomiting Pantoprazole Sodium 40 mg 12/02/21 18:00 12/09/21 07:09 Pantoprazole 40 Mg Tablet PO 40 mg QDAC JULISSA Administration Exemestane [ 1 each 12/03/21 09:00 12/09/21 08:20 Exemestane] 25 Mg PO Not Given Tablet DAILY JULISSA Letrozole 2.5 Mg 1 each 12/03/21 09:00 12/09/21 08:20 Tabs PO Not Given DAILY JULISSA Multivit/Folic Acid/Iron 1 tab 12/03/21 08:00 12/09/21 08:19 Vitamin Tablet PO 1 tab DAILYWM JULISSA Administration Sodium Chloride 10 ml 11/30/21 07:20 12/04/21 14:05 Sodium Chloride Flush 0.9% 10 Ml Syringe IVP 10 ml PRN PRN Administration NEEDED PER PROVIDER ORDERS Sodium Chloride 10 ml 11/30/21 09:00 12/09/21 08:19 Sodium Chloride Flush 0.9% 10 Ml Syringe IVP Not Given 0100,0900,1700 JULISSA Tamsulosin HCl 0.4 mg 12/03/21 10:00 12/09/21 08:19 Tamsulosin 0.4 Mg Capsule PO 0.4 mg DAILY JULISSA Administration Thiamine HCl 100 mg 12/09/21 09:00 12/09/21 08:19 Thiamine 100 Mg Tablet PO 100 mg DAILY JULISSA Administration Trazodone HCl 75 mg 12/03/21 21:00 12/08/21 21:47 Trazodone 50 Mg Tablet PO 75 mg QPM JULISSA Administration Vancomycin HCl 125 mg 12/04/21 13:00 12/09/21 13:00 Vancomycin 125 Mg Capsule PO 125 mg QID JULISSA Administration - Lab Result Fish Bone Diagrams: 12/08/21 04:56 12/09/21 09:57 - Additional Planning My Orders: My Active Orders 12/09/21 09:15 Incentive [Incentive Spirometry - RT] [RC] TID Subjective - Subjective Patient Reports: Feeling Better (No more abd cramping pain, still has diarrhea, it has turned "slimy" not wet) Objective Vital Signs: Vital Signs - 24 hr 12/08/21 12/09/21 12/09/21 16:00 00:20 02:20 Temperature 36.6 C 36.9 C Heart Rate 100 Heart Rate [ 93 109 H Brachial] Heart Rate [ Monitoring electrodes] Respiratory 16 20 18 Rate Blood Pressure [Left Brachial artery] Blood Pressure 133/86 H 145/93 H [Right Brachial artery] O2 Saturation 98 94 12/09/21 12/09/21 12/09/21 07:05 08:10 08:19 Temperature 36.8 C Heart Rate 96 Heart Rate [ 94 Brachial] Heart Rate [ 96 Monitoring electrodes] Respiratory 16 19 Rate Blood Pressure 123/84 H 124/85 H [Left Brachial artery] Blood Pressure [Right Brachial artery] O2 Saturation 94 Oxygen O2 Source [Without Activity] Room air O2 Source Room air Oxygen Flow Rate 4 I&O (Last 24 Hrs): Intake and Output Totals x24h 12/07/21 12/08/21 12/09/21 23:59 23:59 23:59 Intake Total 3658 2418.500 1650 Output Total 800 Balance 3658 0149.666 9359 General: Alert, Oriented x3 HEENT: Mucous membr. moist/pink Neck: Supple, No JVD Neuro: Alert, Non Focal, Other (Has fine hand tremor bilat and poor gait when turning (I watched her walk with PT)) Cardiovascular: Regular rate Respiratory: No respiratory distress Abdomen: Soft, No tenderness Extremities: No clubbing, No edema, No tenderness/swelling - Results Results: Laboratory Results WBC 7.3 x10^3/uL (4.8-10.8) 12/08/21 04:56 RBC 3.48 10^6/uL (4.20-5.40) L 12/08/21 04:56 Hgb 11.0 g/dL (12.0-16.0) L 12/08/21 04:56 Hct 33.2 % (37.0-47.0) L 12/08/21 04:56 MCV 95.4 fL (81.0-99.0) 12/08/21 04:56 MCH 31.6 pg (27.0-31.0) H 12/08/21 04:56 MCHC 33.1 g/dL (32.0-36.0) 12/08/21 04:56 RDW 15.0 % (12.0-15.0) 12/08/21 04:56 Plt Count 420 10^3/uL (130-450) 12/08/21 04:56 MPV 9.9 fL (7.9-10.8) 12/08/21 04:56 Neut # (Auto) 5.2 10^3/uL (1.5-6.6) 12/08/21 04:56 Lymph # (Auto) 1.0 10^3/uL (1.5-3.5) L 12/08/21 04:56 Rich # (Auto) 0.8 10^3/uL (0.0-1.0) 12/08/21 04:56 Eos # (Auto) 0.0 10^3/uL (0.0-0.7) 12/08/21 04:56 Baso # (Auto) 0.1 10^3/uL (0.0-0.1) 12/08/21 04:56 Absolute Nucleated RBC 0.00 x10^3/uL 12/08/21 04:56 Nucleated RBC % 0.0 /100WBC 12/08/21 04:56 Sodium 136 mmol/L (135-145) 12/09/21 09:57 Potassium 3.1 mmol/L (3.5-5.0) L 12/09/21 09:57 Chloride 103 mmol/L (101-111) 12/09/21 09:57 Carbon Dioxide 24 mmol/L (21-32) 12/09/21 09:57 Anion Gap 9.0 (6-13) 12/09/21 09:57 BUN < 5 mg/dL (6-20) L 12/09/21 09:57 Creatinine 0.5 mg/dL (0.4-1.0) 12/09/21 09:57 Estimated GFR (MDRD) 127 (>89) 12/09/21 09:57 Glucose 103 mg/dL (70-100) H 12/09/21 09:57 Lactic Acid 1.1 mmol/L (0.5-2.2) 12/02/21 17:50 Calcium 7.8 mg/dL (8.5-10.3) L 12/09/21 09:57 Total Bilirubin 0.4 mg/dL (0.2-1.0) 12/08/21 04:56 AST 40 IU/L (10-42) 12/08/21 04:56 ALT 38 IU/L (10-60) 12/08/21 04:56 Alkaline Phosphatase 65 IU/L (42-121) 12/08/21 04:56 Ammonia 29.5 umol/L (7-35) 12/08/21 04:56 Troponin I High Sens 5.1 ng/L (2.3-14.8) 12/03/21 14:10 B-Natriuretic Peptide 87 pg/mL (5-100) 11/30/21 00:53 Total Protein 5.5 g/dL (6.7-8.2) L 12/08/21 04:56 Albumin 1.9 g/dL (3.2-5.5) L 12/08/21 04:56 Globulin 3.6 g/dL (2.1-4.2) 12/08/21 04:56 Albumin/Globulin Ratio 0.5 (1.0-2.2) L 12/08/21 04:56 Lipase 21 U/L (22-51) L 11/30/21 00:53 Tumor Marker AFP <0.9 ng/mL (0.0-9.2) 12/02/21 17:43 CA 19-9 Antigen 8 U/mL (0-35) 12/02/21 17:43 Urine Color YELLOW 12/02/21 20:45 Urine Clarity CLEAR (CLEAR) 12/02/21 20:45 Urine pH 6.5 PH (5.0-7.5) 12/02/21 20:45 Ur Specific Waterfall 1.010 (1.002-1.030) 12/02/21 20:45 Urine Protein NEGATIVE mg/dL (NEGATIVE) 12/02/21 20:45 Urine Glucose (UA) NEGATIVE mg/dL (NEGATIVE) 12/02/21 20:45 Urine Ketones TRACE mg/dL (NEGATIVE) 12/02/21 20:45 Urine Occult Blood NEGATIVE (NEGATIVE) 12/02/21 20:45 Urine Nitrite NEGATIVE (NEGATIVE) 12/02/21 20:45 Urine Bilirubin NEGATIVE (NEGATIVE) 12/02/21 20:45 Urine Urobilinogen 0.2 (NORMAL) E.U./dL (NORMAL) 12/02/21 20:45 Ur Leukocyte Esterase NEGATIVE (NEGATIVE) 12/02/21 20:45 Urine RBC 0-5 /HPF (0-5) 12/02/21 20:45 Urine WBC 0-3 /HPF (0-5) 12/02/21 20:45 Ur Epithelial Cells RARE Transitional /HPF (<= Few) 12/02/21 20:45 Ur Squamous Epith Cells RARE Squamous (<= Few) 12/02/21 20:45 Urine Bacteria Rare /HPF (None Seen) 12/02/21 20:45 Urine Mucus Moderate Strands 12/02/21 18:30 Urine Culture Comments NOT INDICATED 12/02/21 20:45 Nasal Adenovirus (PCR) NOT DETECTED 11/30/21 04:30 Nasal B. parapertussis DNA (PCR) NOT DETECTED 11/30/21 04:30 Nasal Coronavir 229E PCR NOT DETECTED 11/30/21 04:30 Nasal Coronavir HKU1 PCR NOT DETECTED 11/30/21 04:30 Nasal Coronavir NL63 PCR NOT DETECTED 11/30/21 04:30 Nasal Coronavir OC43 PCR NOT DETECTED 11/30/21 04:30 Nasal Enterovir/Rhinovir PCR NOT DETECTED 11/30/21 04:30 Nasal Influenza B PCR NOT DETECTED 11/30/21 04:30 Nasal Influenza A PCR NOT DETECTED 11/30/21 04:30 Nasal Parainfluen 1 PCR NOT DETECTED 11/30/21 04:30 Nasal Parainfluen 2 PCR NOT DETECTED 11/30/21 04:30 Nasal Parainfluen 3 PCR NOT DETECTED 11/30/21 04:30 Nasal Parainfluen 4 PCR NOT DETECTED 11/30/21 04:30 Nasal RSV (PCR) NOT DETECTED 11/30/21 04:30 Nasal B.pertussis DNA PCR NOT DETECTED 11/30/21 04:30 Nasal C.pneumoniae (PCR) NOT DETECTED 11/30/21 04:30 Jacinto Human Metapneumo PCR NOT DETECTED 11/30/21 04:30 Nasal M.pneumoniae (PCR) NOT DETECTED 11/30/21 04:30 Nasal SARS-CoV-2 (PCR) NOT DETECTED 11/30/21 04:30 Stl C. diff Tox B Gene POSITIVE (NEGATIVE) A* 12/04/21 09:38 Urine Opiates Screen POSITIVE (NEGATIVE) H 11/30/21 18:48 Ur Oxycodone Screen POSITIVE (NEGATIVE) H 11/30/21 18:48 Urine Methadone Screen NEGATIVE (NEGATIVE) 11/30/21 18:48 Ur Propoxyphene Screen NEGATIVE (NEGATIVE) 11/30/21 18:48 Ur Barbiturates Screen NEGATIVE (NEGATIVE) 11/30/21 18:48 Ur Tricyclics Screen NEGATIVE (NEGATIVE) 11/30/21 18:48 Ur Phencyclidine Scrn NEGATIVE (NEGATIVE) 11/30/21 18:48 Ur Amphetamine Screen NEGATIVE (NEGATIVE) 11/30/21 18:48 U Methamphetamines Scrn NEGATIVE (NEGATIVE) 11/30/21 18:48 U Benzodiazepines Scrn POSITIVE (NEGATIVE) H 11/30/21 18:48 Urine Cocaine Screen NEGATIVE (NEGATIVE) 11/30/21 18:48 U Cannabinoids Screen NEGATIVE (NEGATIVE) 11/30/21 18:48 Ethyl Alcohol < 5.0 mg/dL 11/30/21 00:53 - Procedures Procedures: Procedures EXCISE AXILLARY NODE (05/22/14) INSERTION OF TOTALLY IMPLANTABLE VASC ACCESS DEVIC (05/22/14) SUBTOTAL MASTECTOMY (05/22/14) Sepsis Event Note (H) - Evaluation Current Stage of Sepsis: Ruled out Possible source of Sepsis: positive: Pulmonary - Sepsis Criteria Sepsis Criteria: Recorded Temperature greater than 38.3C or Less than 36C, Recorded Heart Rate greater than 90 bpm, Recorded Respiratory Rate greater than 20
[2021-12-09] MEDS ORDERED: POTASSIUM CHLORIDE 20 MEQ TABLET PO ONE (16:39)
[2021-12-09] MEDS ORDERED: POTASSIUM CHLOR 10 MEQ/100 ML 10 MEQ/100 ML BAG IV ONE (16:39)
[2021-12-09] MEDS ORDERED: NS W/20 MEQ KCL 1,000 ML IV SCH (17:00)
[2021-12-09] MEDS: traZODone 50 MG TABLET PO SCH (21:12)
[2021-12-09] MEDS: GI COCKTAIL 120 ML BOTTLE PO PRN (21:12)
[2021-12-10] MEDS: SODIUM CHLORIDE FLUSH 0.9% 10 ML SYRINGE IVP SCH ×3 (01:14→17:07)
[2021-12-10] MEDS: PANTOPRAZOLE 40 MG TABLET PO SCH (06:47)
[2021-12-10] MEDS: IPRATROPIUM/ALBUTEROL 3 ML NEB INH PRN (07:30)
[2021-12-10] MEDS: buPROPion XL 150 MG TABLET PO SCH (08:05)
[2021-12-10] MEDS: ACETAMINOPHEN 325 MG TABLET PO PRN ×2 (08:05→20:57)
[2021-12-10] MEDS: VANCOMYCIN 125 MG CAPSULE PO SCH ×4 (08:05→20:33)
[2021-12-10] MEDS: THIAMINE 100 MG TABLET PO SCH (08:06)
[2021-12-10] MEDS: PRENATAL VITAMIN TABLET PO SCH (08:06)
[2021-12-10] MEDS: TAMSULOSIN 0.4 MG CAPSULE PO SCH (08:06)
[2021-12-10] MEDS: LETROZOLE 2.5 MG PO SCH (08:06)
[2021-12-10] MEDS: EXEMESTANE 25 MG PO SCH (08:06)
[2021-12-10] MEDS: ENOXAPARIN 40 MG/0.4 ML SYRINGE SUBQ SCH (08:06)
[2021-12-10] MEDS: BENZOCAINE/MENTHOL LOZENGE MM PRN ×3 (08:06→20:57)
[2021-12-10] MEDS ORDERED: NS W/20 MEQ KCL 1,000 ML IV SCH (09:21)
[2021-12-10] MEDS ORDERED: SODIUM CHLORIDE 0.9% 500 ML IV ONE (09:22)
[2021-12-10] MEDS ORDERED: POTASSIUM CHLORIDE 20 MEQ TABLET PO SCH (10:00)
--- NOTE | 2021-12-10 12:00 | PROVIDER PROGRESS NOTE ---
Assessment/Plan - Problem List (1) C. difficile diarrhea Assessment/Plan: Her diarrhea started on 12/04/21 and her stool tested C diff pos. She has no more lower abd cramping pain but still had 4 BMs lose stool yesterday. Today her stool is formed, "like small animal poop". Her HR is 110 in sinus tachycardia though She is in Contact Isolation The patient is on oral vancomycin. She was not on anti-motility or probiotuic meds, as these are not advised per UpToDate. Because the stool is now formed and because she needs to start iv Cefepime (see #3), will start Florastor bid She has been getting IV fluids to prevent dehydration. We needed to increase the iv hydration rate, due to her frequent BMs and gave a fluid bolus due to new tachycardia. Her diet is pureed, low fiber and no milk products, for bowel rest. We stopped NSAIDs to decrease chance of bleeding Even though the patient has been here past the 96-hour anne, this is because of symptomatic C. difficile diarrhea and was needing ongoing IV hydration 2) Hypokalemia Likely from loss in diarrhea Will replace with oral KCL and K riders and in her maintenance iv fluids (3) Cough She has been getting IV fluids for nearly a week. I am concerned this cough is from volume overload vs infiltrate or bronchitis, given the new tachycardia today. Will obtain chest x-ray>> CXR was read as CHF and has bilateral pulmonary infiltrates. Will check BNP and follow BNP and will check WBC. She was getting inhaled nebulizer treatments of Duonebs that were ordered at admission because of her splinting from her bruised ribs. (She has requested that these be changed to handheld puffers at discharge, because they help, but this change will be done after evaluating this new cough) We will now stop her IV fluids because of the chest x-ray results and formed stool. Will not give Lasix since she needs IV intravascular volume to be replete. Will obtain a sputum sample and retest for COVID. Will start empiric IV cefepime for probable HCAP and start Florastor. Continue with scheduled b.i.d. nebulizers but will change to Xopenex because she is tachycardic today (4) Tachycardia This was presumed to be due to volume depletion. Another etiology could be the albuterol in her DuoNeb. Alternatively she may have pain or increased stress from insomnia last night caused by chronic coughing overnight. We will stop her IV fluids because of the chest x-ray results. Will not give Lasix since she needs intravascular volume to be replete while having diarrhea. Will re-check her BMP Will obtain a sputum sample and retest for COVID. Will start empiric IV cefepime for possible HCAP. (5) Confusion Assessment/Plan: Improved The patients's prn Ativan was decreased to only hs, however she was intermittently confused (she thought she was at home and could not find her dog, she saw her mother in her room, she was asking about where her washing machine is in this room, she says she lost 3 pairs of jeans that she "brought with her" [which she did not since she was brought in by ambulance]) We learned that she has alcohol abuse Hx. The records from her [facility] visit 3 weeks ago showed that she presented with complaint of alcohol withdrawal and was asking to be placed in an inpatient detox center, which she then declined. Will check an ammonia level intermittently. Ammonia and LFTs have been normal Yesterday she underwent a cognitive evaluation by OT and she scored 24/30, indicating only mild cognitive impairment. She will be prevented from driving a vehicle. A DMV form was completed by me today. Today I again spoke with the patient's brother as he requested, updated him about her condition and all her diagnoses. [facility] plan will be to go home, not to a SNF. (6) Alcohol abuse Assessment/Plan: On 12/04/2021, several days after admission, it was learned (from her sister in phone call with our Soc. Worker) that the patient has a history of alcohol abuse, and prior alcohol withdrawal including alcohol withdrawal seizures. She was recently seen at [facility] ER for alcohol abuse and withdrawal. She has not shown obvious tremor withdrawal signs while here or any seizures. Records from that recent ER visit to [facility] show that she was not hospitalized but only seen in the ED with complaint of alcohol withdrawal and w as asking to be placed in an inpatient detox center. She was given Ativan and thiamine and had no signs of withdrawal in the ED. She was accepted at a detox bed in [place], but declined it. She was then seen by the crisis counselor who recommended to discharge her home from their ED, and the ED physician discharge her with prescriptions for Librium. She is being continued on her home vitamin and thiamine here. There was consideration of Wernicke Korsakoff syndrome given her shuffling gait and confusion (including hallucinations) and with her CT head showing significant brain atrophy. Thus she was treated with high dose iv Thiamine 500 mg tid for 2 days, which finished 2 days ago, then we resumed her po Thiamine 100 mg daily. However, she has improved with mentatuion and with gait considerably and probably does not have Wernicke-Korsakoff syndrome. She has opened up about her alcohol abuse and is requesting resources from Social Work regarding alcohol abuse. Yesterday she had a cognitive eval and scored 24/30. She had good insight into her problem as we spoke and voiced her plan to stop alcohol (join an online AA group, start taking the Antabuse ordered by her PCP, Flor Varma NP). A DMV form was sent in for medical reason not to be driving Her brother Kirk was updated by phone call today and we discussed the driving restriction. [facility] plan will be to go home, not to a SNF. 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 The fall was when she stood on her chair at home to r each for something in a higher cupboard. It is unclear if she was taking Librium and pain meds and using alcohol which may have caused the fall. Patient had slurred speech and unsteady gait noticed on 12/03/2021. She had a CT of the head that showed no acute process but she has moderate cerebral atrophy. Her narcotics and Librium were put on hold. She started to have PT and OT and they are documenting that she has intermittent confusion, needs help with ADLs, needed assistance to get up from the toilet. Since yesterday she can stand on her own, but has poor balance when turning. PT and OT continue while she is here, since she has needed continued hospitalization for her C. difficile diarrhea and now for HCAP. (8)s/p left mastectomy Assessment/Plan: She has a hx of BRCA positive breast cancer, and s/p of left mastectomy, pt is under chemotherapy and followed by her oncologist as out-pt (9) Hypoxia Assessment/Plan: Resolved. This was felt to be due to splinting because of probable bruised ribs caused by the fall at home. It has significantly improved. pt had 93% on room air. (10) Sepsis Assessment/Plan: Resolved. Pt presented with fever, tachycardia, tachypnea, and pt need supplement of O2 to support her O2 sats. CXR reveal Pulmonary Edema She received empiric Zosyn, had blood culture, UA culture, followed Lactic acid level. She has no more fever, WBC is at the normal range, blood cultures is negative for bacteremia, patient had 94-92% Oxygen saturation on room air, after getting antibiotics and probiotics. (11) Abdominal contusion Assessment/Plan: Resolved. Her abdominal pain and rib pain causing splinting was due to abdominal contusion from falling off of a chair at home. her abdominal pain is under control. Continue Tylenol prn and ibuprofen as needed. (12) Acute urinary retention Assessment/Plan: Resolved. On 12/03/2021 the nurse reported she had annuria, and bladder scan show over 600ml urine. She had a straight cath, and Flomax started. We will now stop Flomax. - Current Meds Current Meds: Current Medications Generic Name Dose Route Start Last Admin Trade Name Freq PRN Reason Stop Dose Admin Acetaminophen 650 mg 11/30/21 07:20 12/10/21 08:05 Acetaminophen 325 Mg Tablet PO 650 mg Q4HR PRN Administration Pain 1 to 4, or Fever Albuterol/Ipratropium 3 ml 11/30/21 07:28 12/10/21 07:30 Ipratropium/Albuterol 3 Ml Neb INH 3 ml Q4HR PRN Administration Wheezing Bupropion HCl 300 mg 12/03/21 09:00 12/10/21 08:05 Bupropion Xl 150 Mg Tablet PO 300 mg DAILY JULISSA Administration Enoxaparin Sodium 40 mg 11/30/21 09:00 12/10/21 08:06 Enoxaparin 40 Mg/0.4 Ml Syringe SUBQ 40 mg DAILY JULISSA Administration Potassium Chloride/Sodium Chloride 1,000 mls @ 125 mls/hr 12/10/21 09:21 12/10/21 10:51 Normal Saline 0.9% W/20 Meq Kcl IV 125 mls/hr .Q8H JULISSA Administration Multi-Ingredient Mouthwash/Gargle 30 ml 12/03/21 14:04 12/09/21 21:12 Gi Cocktail 120 Ml Bottle PO 30 ml Q4H PRN Administration Abdominal Pain Ondansetron HCl 4 mg 11/30/21 07:20 12/04/21 22:11 Ondansetron 4 Mg/2 Ml Vial IVP 4 mg Q6HR PRN Administration Nausea / Vomiting Pantoprazole Sodium 40 mg 12/02/21 18:00 12/10/21 06:47 Pantoprazole 40 Mg Tablet PO 40 mg QDAC JULISSA Administration Exemestane [ 1 each 12/03/21 09:00 12/10/21 08:06 Exemestane] 25 Mg PO Not Given Tablet DAILY JULISSA Letrozole 2.5 Mg 1 each 12/03/21 09:00 12/10/21 08:06 Tabs PO Not Given DAILY JULISSA Potassium Chloride 20 meq 12/10/21 10:00 12/10/21 10:15 Potassium Chloride 20 Meq Tablet PO 20 meq DAILYWM JULISSA Administration Multivit/Folic Acid/Iron 1 tab 12/03/21 08:00 12/10/21 08:06 Vitamin Tablet PO 1 tab DAILYWM JULISSA Administration Sodium Chloride 10 ml 11/30/21 07:20 12/04/21 14:05 Sodium Chloride Flush 0.9% 10 Ml Syringe IVP 10 ml PRN PRN Administration NEEDED PER PROVIDER ORDERS Sodium Chloride 10 ml 11/30/21 09:00 12/10/21 08:06 Sodium Chloride Flush 0.9% 10 Ml Syringe IVP Not Given 0100,0900,1700 JULISSA Tamsulosin HCl 0.4 mg 12/03/21 10:00 12/10/21 08:06 Tamsulosin 0.4 Mg Capsule PO Not Given DAILY JULISSA Thiamine HCl 100 mg 12/09/21 09:00 12/10/21 08:06 Thiamine 100 Mg Tablet PO 100 mg DAILY JULISSA Administration Throat Lozenges 1 lozenge 12/10/21 06:56 12/10/21 08:06 Benzocaine/Menthol Lozenge MM 1 lozenge Q2HR PRN Administration Throat pain Trazodone HCl 75 mg 12/03/21 21:00 12/09/21 21:12 Trazodone 50 Mg Tablet PO 75 mg QPM JULISSA Administration Vancomycin HCl 125 mg 12/04/21 13:00 12/10/21 08:05 Vancomycin 125 Mg Capsule PO 125 mg QID JULISSA Administration - Lab Result Fish Bone Diagrams: 12/10/21 12:46 12/10/21 12:46 - Additional Planning My Orders: My Active Orders 12/10/21 09:21 Ns W/20 Meq KCl [Normal Saline 0.9% W/20 Meq KCl] 1,000 ml IV 125 mls/hr 12/10/21 10:00 Potassium Chloride [K-Dur] 20 meq PO DAILYWM Subjective - Subjective Patient Reports: Cough (She reports getting poor sleep because she was up all night with a cough. She does have a wet sounding cough that she cannot ex pectorate.), Other (She did not sleep all night due to a cough. She reports that today her stool is formed, and is "like small cristina".) Objective Vital Signs: Vital Signs - 24 hr 12/09/21 12/09/21 12/09/21 15:33 21:38 23:58 Temperature 37.1 C 36.9 C Heart Rate 95 Heart Rate [ 90 92 Brachial] Heart Rate [ Monitoring electrodes] Respiratory 17 20 18 Rate Blood Pressure [Left Brachial artery] Blood Pressure 119/85 H 120/81 H [Right Brachial artery] O2 Saturation 97 93 12/10/21 12/10/21 12/10/21 06:57 07:33 07:58 Temperature 37.1 C 37.2 C Heart Rate 109 H Heart Rate [ 115 H Brachial] Heart Rate [ 110 H Monitoring electrodes] Respiratory 20 19 19 Rate Blood Pressure 102/77 [Left Brachial artery] Blood Pressure 131/86 H [Right Brachial artery] O2 Saturation 95 93 Oxygen O2 Source [Without Activity] Room air O2 Source Room air Oxygen Flow Rate 4 I&O (Last 24 Hrs): Intake and Output Totals x24h 12/08/21 12/09/21 12/10/21 23:59 23:59 23:59 Intake Total 2418.500 2925.000 2116 Output Total 800 Balance 8551.500 5687.000 2116 General: Alert, Oriented x3 HEENT: Mucous membr. moist/pink Neck: Supple, No JVD Neuro: Alert, Other (Poor balance when turning, needs a walker) Cardiovascular: Regular rate Respiratory: No respiratory distress, Rhonchi (bilateral but R>L base) Abdomen: Soft Extremities: No clubbing, No edema - Results Results: Laboratory Results WBC 7.3 x10^3/uL (4.8-10.8) 12/08/21 04:56 RBC 3.48 10^6/uL (4.20-5.40) L 12/08/21 04:56 Hgb 11.0 g/dL (12.0-16.0) L 12/08/21 04:56 Hct 33.2 % (37.0-47.0) L 12/08/21 04:56 MCV 95.4 fL (81.0-99.0) 12/08/21 04:56 MCH 31.6 pg (27.0-31.0) H 12/08/21 04:56 MCHC 33.1 g/dL (32.0-36.0) 12/08/21 04:56 RDW 15.0 % (12.0-15.0) 12/08/21 04:56 Plt Count 420 10^3/uL (130-450) 12/08/21 04:56 MPV 9.9 fL (7.9-10.8) 12/08/21 04:56 Neut # (Auto) 5.2 10^3/uL (1.5-6.6) 12/08/21 04:56 Lymph # (Auto) 1.0 10^3/uL (1.5-3.5) L 12/08/21 04:56 [place] # (Auto) 0.8 10^3/uL (0.0-1.0) 12/08/21 04:56 Eos # (Auto) 0.0 10^3/uL (0.0-0.7) 12/08/21 04:56 Baso # (Auto) 0.1 10^3/uL (0.0-0.1) 12/08/21 04:56 Absolute Nucleated RBC 0.00 x10^3/uL 12/08/21 04:56 Nucleated RBC % 0.0 /100WBC 12/08/21 04:56 Sodium 136 mmol/L (135-145) 12/09/21 09:57 Potassium 3.1 mmol/L (3.5-5.0) L 12/09/21 09:57 Chloride 103 mmol/L (101-111) 12/09/21 09:57 Carbon Dioxide 24 mmol/L (21-32) 12/09/21 09:57 Anion Gap 9.0 (6-13) 12/09/21 09:57 BUN < 5 mg/dL (6-20) L 12/09/21 09:57 Creatinine 0.5 mg/dL (0.4-1.0) 12/09/21 09:57 Estimated GFR (MDRD) 127 (>89) 12/09/21 09:57 Glucose 103 mg/dL (70-100) H 12/09/21 09:57 Lactic Acid 1.1 mmol/L (0.5-2.2) 12/02/21 17:50 Calcium 7.8 mg/dL (8.5-10.3) L 12/09/21 09:57 Total Bilirubin 0.4 mg/dL (0.2-1.0) 12/08/21 04:56 AST 40 IU/L (10-42) 12/08/21 04:56 ALT 38 IU/L (10-60) 12/08/21 04:56 Alkaline Phosphatase 65 IU/L (42-121) 12/08/21 04:56 Ammonia 29.5 umol/L (7-35) 12/08/21 04:56 Troponin I High Sens 5.1 ng/L (2.3-14.8) 12/03/21 14:10 B-Natriuretic Peptide 87 pg/mL (5-100) 11/30/21 00:53 Total Protein 5.5 g/dL (6.7-8.2) L 12/08/21 04:56 Albumin 1.9 g/dL (3.2-5.5) L 12/08/21 04:56 Globulin 3.6 g/dL (2.1-4.2) 12/08/21 04:56 Albumin/Globulin Ratio 0.5 (1.0-2.2) L 12/08/21 04:56 Lipase 21 U/L (22-51) L 11/30/21 00:53 Tumor Marker AFP <0.9 ng/mL (0.0-9.2) 12/02/21 17:43 CA 19-9 Antigen 8 U/mL (0-35) 12/02/21 17:43 Urine Color YELLOW 12/02/21 20:45 Urine Clarity CLEAR (CLEAR) 12/02/21 20:45 Urine pH 6.5 PH (5.0-7.5) 12/02/21 20:45 Ur Specific [place] 1.010 (1.002-1.030) 12/02/21 20:45 Urine Protein NEGATIVE mg/dL (NEGATIVE) 12/02/21 20:45 Urine Glucose (UA) NEGATIVE mg/dL (NEGATIVE) 12/02/21 20:45 Urine Ketones TRACE mg/dL (NEGATIVE) 12/02/21 20:45 Urine Occult Blood NEGATIVE (NEGATIVE) 12/02/21 20:45 Urine Nitrite NEGATIVE (NEGATIVE) 12/02/21 20:45 Urine Bilirubin NEGATIVE (NEGATIVE) 12/02/21 20:45 Urine Urobilinogen 0.2 (NORMAL) E.U./dL (NORMAL) 12/02/21 20:45 Ur Leukocyte Esterase NEGATIVE (NEGATIVE) 12/02/21 20:45 Urine RBC 0-5 /HPF (0-5) 12/02/21 20:45 Urine WBC 0-3 /HPF (0-5) 12/02/21 20:45 Ur Epithelial Cells RARE Transitional /HPF (<= Few) 12/02/21 20:45 Ur Squamous Epith Cells RARE Squamous (<= Few) 12/02/21 20:45 Urine Bacteria Rare /HPF (None Seen) 12/02/21 20:45 Urine Mucus Moderate Strands 12/02/21 18:30 Urine Culture Comments NOT INDICATED 12/02/21 20:45 Nasal Adenovirus (PCR) NOT DETECTED 11/30/21 04:30 Nasal B. parapertussis DNA (PCR) NOT DETECTED 11/30/21 04:30 Nasal Coronavir 229E PCR NOT DETECTED 11/30/21 04:30 Nasal Coronavir HKU1 PCR NOT DETECTED 11/30/21 04:30 Nasal Coronavir NL63 PCR NOT DETECTED 11/30/21 04:30 Nasal Coronavir OC43 PCR NOT DETECTED 11/30/21 04:30 Nasal Enterovir/Rhinovir PCR NOT DETECTED 11/30/21 04:30 Nasal Influenza B PCR NOT DETECTED 11/30/21 04:30 Nasal Influenza A PCR NOT DETECTED 11/30/21 04:30 Nasal Parainfluen 1 PCR NOT DETECTED 11/30/21 04:30 Nasal Parainfluen 2 PCR NOT DETECTED 11/30/21 04:30 Nasal Parainfluen 3 PCR NOT DETECTED 11/30/21 04:30 Nasal Parainfluen 4 PCR NOT DETECTED 11/30/21 04:30 Nasal RSV (PCR) NOT DETECTED 11/30/21 04:30 Nasal B.pertussis DNA PCR NOT DETECTED 11/30/21 04:30 Nasal C.pneumoniae (PCR) NOT DETECTED 11/30/21 04:30 [place] Human Metapneumo PCR NOT DETECTED 11/30/21 04:30 Nasal M.pneumoniae (PCR) NOT DETECTED 11/30/21 04:30 Nasal SARS-CoV-2 (PCR) NOT DETECTED 11/30/21 04:30 Stl C. diff Tox B Gene POSITIVE (NEGATIVE) A* 12/04/21 09:38 Urine Opiates Screen POSITIVE (NEGATIVE) H 11/30/21 18:48 Ur Oxycodone Screen POSITIVE (NEGATIVE) H 11/30/21 18:48 Urine Methadone Screen NEGATIVE (NEGATIVE) 11/30/21 18:48 Ur Propoxyphene Screen NEGATIVE (NEGATIVE) 11/30/21 18:48 Ur Barbiturates Screen NEGATIVE (NEGATIVE) 11/30/21 18:48 Ur Tricyclics Screen NEGATIVE (NEGATIVE) 11/30/21 18:48 Ur Phencyclidine Scrn NEGATIVE (NEGATIVE) 11/30/21 18:48 Ur Amphetamine Screen NEGATIVE (NEGATIVE) 11/30/21 18:48 U Methamphetamines Scrn NEGATIVE (NEGATIVE) 11/30/21 18:48 U Benzodiazepines Scrn POSITIVE (NEGATIVE) H 11/30/21 18:48 Urine Cocaine Screen NEGATIVE (NEGATIVE) 11/30/21 18:48 U Cannabinoids Screen NEGATIVE (NEGATIVE) 11/30/21 18:48 Ethyl Alcohol < 5.0 mg/dL 11/30/21 00:53 - Procedures Procedures: Procedures EXCISE AXILLARY NODE (05/22/14) INSERTION OF TOTALLY IMPLANTABLE VASC ACCESS DEVIC (05/22/14) SUBTOTAL MASTECTOMY (05/22/14) Sepsis Event Note (H) - Evaluation Current Stage of Sepsis: Ruled out Possible source of Sepsis: positive: Pulmonary - Sepsis Criteria Sepsis Criteria: Recorded Temperature greater than 38.3C or Less than 36C, Recorded Heart Rate greater than 90 bpm, Recorded Respiratory Rate greater than 20
--- NOTE | 2021-12-10 12:28 | XRAY Report ---
PROCEDURE: Chest 1 View X-Ray INDICATIONS: New cough TECHNIQUE: One view of the chest was acquired. COMPARISON: 12/02/2021 FINDINGS: Surgical changes and devices: Surgical clips are seen in left axilla. Lungs and pleura: Pulmonary vascular congestion is seen. Left greater than right bilateral pleural ef fusion and bibasilar patchy infiltrate/atelectasis is noted. Underlying infiltrate cannot be excluded . Mediastinum: Tortuous thoracic aorta is seen. Heart size enlarged. Bones and chest wall: No suspicious bony lesions. Overlying soft tissues appear unremarkable. IMPRESSION: CHF changes. Underlying bibasilar infiltrates cannot be excluded. No gross pneumothorax. Reviewed by: Jose Jaimes MD on 12/10/2021 12:27 PM PDT Approved by: Jose Jaimes MD on 12/10/2021 12:27 PM PDT Station ID: [id number]
[2021-12-10 12:56] LABS: BASOPHILS # (AUTO) 0.1 10^3/uL (0.0-0.1); BASOPHILS % (AUTO) 0.7 %; HCT - HEMATOCRIT 31.9 % (37.0-47.0); HGB - HEMOGLOBIN 10.8 g/dL (12.0-16.0); LYMPHOCYTES # (AUTO) 1.1 10^3/uL (1.5-3.5); LYMPHOCYTES % (AUTO) 16.3 %; MEAN CORPUSCULAR HEMOGLOBIN 31.8 pg (27.0-31.0); MEAN CORPUSCULAR HGB CONC 33.9 g/dL (32.0-36.0); MEAN CORPUSCULAR VOLUME 93.8 fL (81.0-99.0); MEAN PLATELET VOLUME 9.5 fL (7.9-10.8); NEUTROPHILS # (AUTO) 4.4 10^3/uL (1.5-6.6); NEUTROPHILS % (AUTO) 66.1 %; PLT - PLATELET COUNT 514 10^3/uL (130-450); RED CELL DISTRIBUTION WIDTH 15.1 % (12.0-15.0); WHITE BLOOD COUNT 6.7 x10^3/uL (4.8-10.8)
[2021-12-10 13:06] LABS: BUN - BLOOD UREA NITROGEN < 5 mg/dL (6-20); CALCIUM 7.4 mg/dL (8.5-10.3); CARBON DIOXIDE - CO2 23 mmol/L (21-32); CHLORIDE 100 mmol/L (101-111); CREATININE 0.5 mg/dL (0.4-1.0); GFR - MDRD 127 (>89); GLUCOSE 122 mg/dL (70-100); POTASSIUM 3.1 mmol/L (3.5-5.0); SODIUM 132 mmol/L (135-145)
[2021-12-10] MEDS ORDERED: LEVALBUTEROL 1.25 MG/3 ML NEB INH PRN (13:42)
[2021-12-10] MEDS: LEVALBUTEROL 1.25 MG/3 ML NEB INH SCH ×2 (14:20→23:55)
[2021-12-10] MEDS: SACCHAROMYCES BOULARDII 250 MG CAPSULE PO SCH (17:07)
[2021-12-10] MEDS: GI COCKTAIL 120 ML BOTTLE PO PRN ×2 (17:25→20:57)
[2021-12-10] MEDS: traZODone 50 MG TABLET PO SCH (20:33)
[2021-12-10] MEDS: CEFEPIME 2 GM in SODIUM CHLORIDE 0.9% MINIBAG 100 ML IV SCH (20:34)
[2021-12-11] MEDS: SODIUM CHLORIDE FLUSH 0.9% 10 ML SYRINGE IVP SCH ×3 (01:06→17:30)
[2021-12-11] MEDS: PANTOPRAZOLE 40 MG TABLET PO SCH (04:57)
[2021-12-11] MEDS: LEVALBUTEROL 1.25 MG/3 ML NEB INH SCH ×3 (05:40→20:22)
[2021-12-11 06:16] LABS: BASOPHILS # (AUTO) 0.1 10^3/uL (0.0-0.1); BASOPHILS % (AUTO) 0.7 %; LYMPHOCYTES # (AUTO) 1.1 10^3/uL (1.5-3.5); LYMPHOCYTES % (AUTO) 12.3 %; MEAN CORPUSCULAR HEMOGLOBIN 31.3 pg (27.0-31.0); MEAN CORPUSCULAR HGB CONC 33.3 g/dL (32.0-36.0); MEAN PLATELET VOLUME 9.9 fL (7.9-10.8); MONOCYTES # (AUTO) 1.3 10^3/uL (0.0-1.0); MONOCYTES % (AUTO) 13.8 %; NEUTROPHILS # (AUTO) 6.6 10^3/uL (1.5-6.6); NEUTROPHILS % (AUTO) 72.1 %; PLT - PLATELET COUNT 542 10^3/uL (130-450); RED BLOOD COUNT 3.51 10^6/uL (4.20-5.40); RED CELL DISTRIBUTION WIDTH 15.3 % (12.0-15.0); WHITE BLOOD COUNT 9.1 x10^3/uL (4.8-10.8)
[2021-12-11 06:53] LABS: BUN - BLOOD UREA NITROGEN < 5 mg/dL (6-20); CARBON DIOXIDE - CO2 27 mmol/L (21-32); CHLORIDE 98 mmol/L (101-111); CREATININE 0.4 mg/dL (0.4-1.0); GFR - MDRD 164 (>89); GLUCOSE 85 mg/dL (70-100); SODIUM 134 mmol/L (135-145)
[2021-12-11] MEDS: THIAMINE 100 MG TABLET PO SCH (08:27)
[2021-12-11] MEDS: PRENATAL VITAMIN TABLET PO SCH (08:27)
[2021-12-11] MEDS: VANCOMYCIN 125 MG CAPSULE PO SCH ×4 (08:27→20:43)
[2021-12-11] MEDS: POTASSIUM CHLORIDE 20 MEQ TABLET PO SCH ×2 (08:27→17:40)
[2021-12-11] MEDS: SACCHAROMYCES BOULARDII 250 MG CAPSULE PO SCH ×2 (08:27→17:30)
[2021-12-11] MEDS: CEFEPIME 2 GM in SODIUM CHLORIDE 0.9% MINIBAG 100 ML IV SCH ×2 (08:27→20:42)
[2021-12-11] MEDS: buPROPion XL 150 MG TABLET PO SCH (08:27)
[2021-12-11] MEDS: ENOXAPARIN 40 MG/0.4 ML SYRINGE SUBQ SCH (08:28)
[2021-12-11] MEDS: LETROZOLE 2.5 MG PO SCH (08:28)
[2021-12-11] MEDS: EXEMESTANE 25 MG PO SCH (08:28)
[2021-12-11] MEDS: CALCIUM CARBONATE CHEW 500 MG TABLET PO SCH ×2 (08:33→20:41)
[2021-12-11] MEDS: POTASSIUM CHLOR 10 MEQ/100 ML 10 MEQ/100 ML BAG IV SCH ×4 (09:12→15:13)
[2021-12-11] MEDS: ACETAMINOPHEN 325 MG TABLET PO PRN ×2 (10:40→20:41)
[2021-12-11] MEDS: BENZOCAINE/MENTHOL LOZENGE MM PRN ×2 (10:43→20:49)
--- NOTE | 2021-12-11 17:19 | PROVIDER PROGRESS NOTE ---
Assessment/Plan - Problem List (1) C. difficile diarrhea Assessment/Plan: Her diarrhea started on 12/04/21 and her stool tested C diff pos. She has no more lower abd cramping pain but still had 4 BMs lose stool yesterday. Since yesterday her stool is formed, small pellets yesterday and "logs of brown poop" today. She remains in Contact Isolation. We stopped NSAIDs to decrease chance of bleeding. The patient is on oral vancomycin. A 10-day course is planned, ends on 12/14/21 Her diet is pureed, low fiber and no milk products, for bowel rest. Will advance the diet, given formed stool now. Even though the patient has been here past the 96-hour anne, this is because of symptomatic C. difficile diarrhea and now a new HCAP 2) Hypokalemia Likely from loss in diarrhea Will replace with oral KCL and K riders (3) HCAP She has a cough since yesterday and today has new pleuritic pain when she coiughs. Yesterday after the new c/o cough, a CXR was read as mild CHF and having bilateral pulmonary infiltrates. She is unable to expectorate to give a sputum sample. She was retested for COVID and is neg. Empiric iv antibiotics were started for HCAP yesterday with Florastor. She was getting inhaled nebulizer treatments of Duonebs that were ordered at admission because of her splinting from her bruised ribs. (She has requested that these be changed to handheld puffers at discharge, because they help, but this change will be done until discharge) Continue with scheduled b.i.d. nebulizers but we changed to Xopenex because she has been tachycardic yesterday and today. IS and Mucinex was ordered. (4) Tachycardia This was presumed to be due to volume depletion. Another etiology could be the albuterol in her DuoNeb. Alternatively it could be from stress of coughing and now pleuritic chest pain We stopped her IV fluids but did not give Lasix since she needs intravascular volume to be replete while having diarrhea. Will follow her BMP (5) Alcohol abuse Assessment/Plan: On 12/04/2021, several days after admission, it was learned (from her sister in phone call with our Soc. Worker) that the patient has a history of alcohol abuse, and prior alcohol withdrawal including alcohol withdrawal seizures. She was recently seen at [facility] ER for alcohol abuse and withdrawal. She has not shown obvious tremor withdrawal signs while here or any seizures. Records from that recent ER visit to [facility] show that she was not hospitalized but only seen in the ED with complaint of alcohol withdrawal and was asking to be placed in an inpatient detox center. She was given Ativan and thiamine and had no signs of withdrawal in the ED. She was accepted at a detox bed in [place], but declined it. She was then seen by the crisis counselor who recommended to discharge her home from their ED, and the ED physician discharge her with prescriptions for Librium. She is being continued on her home vitamin and thiamine here. There was consideration of Wernicke Korsakoff syndrome given her shuffling gait and confusion (including hallucinations) and with her CT head showing significant brain atrophy. Thus she was treated with high dose iv Thiamine 500 mg tid for 2 days, which finished 2 days ago, then we resumed her po Thiamine 100 mg daily. However, she has improved with mentation and with gait considerably and does not have Wernicke-Korsakoff syndrome. She has opened up about her alcohol abuse and is requesting resources from [facility] regarding alcohol abuse. Yesterday she had a cognitive eval and scored 24/30. She had good insight into her problem as we spoke and voiced her plan to stop alcohol (join an online AA group, start taking the Antabuse ordered by her PCP, Flor Varma NP). A DMV form was sent in for medical reason not to be driving Her brother Kirk was updated by phone call yesterday and we discussed the driving restriction. [facility] plan will be to go home, not to a SNF. 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 The fall was when she stood on her chair at home to reach for something in a higher cupboard. It is unclear if she was taking Librium and pain meds and using alcohol which may have caused the fall. Patient had slurred speech and unsteady gait noticed on 12/03/2021. She had a CT of the head that showed no acute process but she has moderate cerebral atrophy. Her narcotics and Librium were put on hold. She started to have PT and OT and they are documenting that she has intermittent confusion, needs help with ADLs, needed assistance to get up from the toilet. For 2-3 days she can stand on her own, but has poor balance when turning. Sghe has a mild resting hand tremor bilaterally. PT and OT continue while she is here, since she has needed continued hospitalization for her C. difficile diarrhea and now for HCAP. (7) Confusion Assessment/Plan: Significantly Improved The patients's prn Ativan was decreased to only hs, however she was intermittently confused earlier this admission (she thought she was at home and could not find her dog, she saw her mother in her room, she was asking about where her washing machine is in this room, she says she lost 3 pairs of jeans that she "brought with her" [which she did not since she was brought in by ambulance]) We learned that she has alcohol abuse Hx. The records from her [facility] visit 3 weeks ago showed that she presented with complaint of alcohol withdrawal and was asking to be placed in an inpatient detox center, which she then declined. Will check an ammonia level intermittently. Ammonia and LFTs have been normal Yesterday she underwent a cognitive evaluation by OT and she scored 24/30, indicating only mild cognitive impairment. She will be prevented from driving a vehicle. A DMV form was completed by me today. Yesterday I again spoke with the patient's brother as he requested, updated him about her condition and all her diagnoses. [facility] plan will be to go home, not to a SNF, and she is hiring caregivers. SW has spoken with her (and the brother) today and gave resources. (8)s/p left mastectomy Assessment/Plan: She has a hx of BRCA positive breast cancer, and s/p of left mastectomy, pt is under chemotherapy and followed by her oncologist as out-pt (9) Hypoxia Assessment/Plan: Resolved. This was felt to be due to splinting because of probable bruised ribs caused by the fall at home. It has significantly improved. pt had 93% on room air. (10) Sepsis Assessment/Plan: Resolved. Pt presented with fever, tachycardia, tachypnea, and pt need supplement of O2 to support her O2 sats. CXR reveal Pulmonary Edema She received empiric Zosyn, had blood culture, UA culture, followed Lactic acid level. She has no more fever, WBC is at the normal range, blood cultures is negative for bacteremia, patient had 94-92% Oxygen saturation on room air, after getting antibiotics and probiotics. (11) Abdominal contusion Assessment/Plan: Resolved. Her abdominal pain and rib pain causing splinting was due to abdominal contusion from falling off of a chair at home. her abdominal pain is under control. Continue Tylenol prn and ibuprofen as needed. (12) Acute urinary retention Assessment/Plan: Resolved. On 12/03/2021 the nurse reported she had annuria, and bladder scan show over 600ml urine. She had a straight cath, and Flomax started. We will now stop Flomax. - Current Meds Current Meds: Current Medications Generic Name Dose Route Start Last Admin Trade Name Freq PRN Reason Stop Dose Admin Acetaminophen 650 mg 11/30/21 07:20 12/11/21 10:40 Acetaminophen 325 Mg Tablet PO 650 mg Q4HR PRN Administration Pain 1 to 4, or Fever Bupropion HCl 300 mg 12/03/21 09:00 12/11/21 08:27 Bupropion Xl 150 Mg Tablet PO 300 mg DAILY JULISSA Administration Calcium Carbonate/Glycine 500 mg 12/11/21 09:00 12/11/21 08:33 Calcium Carbonate Chew 500 Mg Tablet PO 500 mg BID JULISSA Administration Enoxaparin Sodium 40 mg 11/30/21 09:00 12/11/21 08:28 Enoxaparin 40 Mg/0.4 Ml Syringe SUBQ 40 mg DAILY JULISSA Administration Cefepime HCl 2 gm/ Sodium 100 mls @ 200 mls/hr 12/10/21 21:00 12/11/21 09:00 Chloride IV Infused BID JULISSA Infusion Levalbuterol HCl 1.25 mg 12/10/21 14:00 12/11/21 10:15 Levalbuterol 1.25 Mg/3 Ml Neb INH 1.25 mg BID JULISSA Administration Multi-Ingredient Mouthwash/Gargle 30 ml 12/03/21 14:04 12/10/21 20:57 Gi Cocktail 120 Ml Bottle PO 30 ml Q4H PRN Administration Abdominal Pain Ondansetron HCl 4 mg 11/30/21 07:20 12/04/21 22:11 Ondansetron 4 Mg/2 Ml Vial IVP 4 mg Q6HR PRN Administration Nausea / Vomiting Pantoprazole Sodium 40 mg 12/02/21 18:00 12/11/21 04:57 Pantoprazole 40 Mg Tablet PO 40 mg QDAC JULISSA Administration Exemestane [ 1 each 12/03/21 09:00 12/11/21 08:28 Exemestane] 25 Mg PO Not Given Tablet DAILY JULISSA Letrozole 2.5 Mg 1 each 12/03/21 09:00 12/11/21 08:28 Tabs PO Not Given DAILY [facility] Potassium Chloride 20 meq 12/11/21 09:00 12/11/21 08:27 Potassium Chloride 20 Meq Tablet PO 20 meq BIDWM JULISSA Administration Multivit/Folic Acid/Iron 1 tab 12/03/21 08:00 12/11/21 08:27 Vitamin Tablet PO 1 tab DAILYWM JULISSA Administration Saccharomyces Boulardii 250 mg 12/10/21 17:00 12/11/21 08:27 Saccharomyces Boulardii 250 Mg Capsule PO 250 mg BIDWM JULISSA Administration Sodium Chloride 10 ml 11/30/21 07:20 12/04/21 14:05 Sodium Chloride Flush 0.9% 10 Ml Syringe IVP 10 ml PRN PRN Administration NEEDED PER PROVIDER ORDERS Sodium Chloride 10 ml 11/30/21 09:00 12/11/21 08:27 Sodium Chloride Flush 0.9% 10 Ml Syringe IVP 10 ml 0100,0900,1700 JULISSA Administration Thiamine HCl 100 mg 12/09/21 09:00 12/11/21 08:27 Thiamine 100 Mg Tablet PO 100 mg DAILY JULISSA Administration Throat Lozenges 1 lozenge 12/10/21 06:56 12/11/21 10:43 Benzocaine/Menthol Lozenge MM 1 lozenge Q2HR PRN Administration Throat pain Trazodone HCl 75 mg 12/03/21 21:00 12/10/21 20:33 Trazodone 50 Mg Tablet PO 75 mg QPM JULISSA Administration Vancomycin HCl 125 mg 12/04/21 13:00 12/11/21 12:53 Vancomycin 125 Mg Capsule PO 12/15/21 00:01 125 mg QID JULISSA Administration - Lab Result Fish Bone Diagrams: 12/11/21 04:56 12/11/21 04:56 - Additional Planning My Orders: My Active Orders 12/10/21 17:00 Saccharomyces Boulardii [Florastor] 250 mg PO BIDWM 12/10/21 19:26 PN-6 Meaningful Use Quality and Core Measures [OTHERS] Routine 12/10/21 21:00 Cefepime 2 gm Sodium Chloride 0.9% Minibag [Normal Saline 0.9% Minibag] 100 ml IV BID 12/11/21 09:00 Calcium Carbonate [Tums] 500 mg PO BID Potassium Chloride [K-Dur] 20 meq PO BIDWM Subjective - Subjective Patient Reports: Pain (Has new pleuritic chest pain anteriorly when coughs. Cannot expectorate her sputum) Objective Vital Signs: Vital Signs - 24 hr 12/10/21 12/11/21 12/11/21 23:45 00:00 05:40 Temperature 37.1 C Heart Rate 84 68 Heart Rate [ 109 H Brachial] Respiratory 20 16 16 Rate Blood Pressure [Left Brachial artery] Blood Pressure 115/92 H [Right Brachial artery] O2 Saturation 93 12/11/21 12/11/21 12/11/21 07:53 09:47 10:19 Temperature 37.6 C Heart Rate 105 H Heart Rate [ 104 H 109 H Brachial] Respiratory 18 20 26 H Rate Blood Pressure 131/92 H [Left Brachial artery] Blood Pressure 136/87 H [Right Brachial artery] O2 Saturation 96 94 12/11/21 16:00 Temperature 37.1 C Heart Rate Heart Rate [ 69 Brachial] Respiratory 20 Rate Blood Pressure 140/81 H [Left Brachial artery] Blood Pressure [Right Brachial artery] O2 Saturation 99 Oxygen O2 Source [Without Activity] Room air O2 Source Room air Oxygen Flow Rate 4 I&O (Last 24 Hrs): Intake and Output Totals x24h 12/09/21 12/10/21 12/11/21 23:59 23:59 23:59 Intake Total 2925.000 3508 624.167 Balance 2925.000 3508 624.167 General: Alert, Oriented x3 HEENT: Mucous membr. moist/pink Neck: Supple, No JVD Neuro: Alert, Other (Fine resting tremor of both hands) Cardiovascular: Regular rate Respiratory: No respiratory distress, Rhonchi (bilateral bases posteriorly) Abdomen: Normal bowel sounds, Soft, No tenderness Extremities: No clubbing, No edema, No tenderness/swelling - Results Results: Laboratory Results WBC 9.1 x10^3/uL (4.8-10.8) 12/11/21 04:56 RBC 3.51 10^6/uL (4.20-5.40) L 12/11/21 04:56 Hgb 11.0 g/dL (12.0-16.0) L 12/11/21 04:56 Hct 33.0 % (37.0-47.0) L 12/11/21 04:56 MCV 94.0 fL (81.0-99.0) 12/11/21 04:56 MCH 31.3 pg (27.0-31.0) H 12/11/21 04:56 MCHC 33.3 g/dL (32.0-36.0) 12/11/21 04:56 RDW 15.3 % (12.0-15.0) H 12/11/21 04:56 Plt Count 542 10^3/uL (130-450) H 12/11/21 04:56 MPV 9.9 fL (7.9-10.8) 12/11/21 04:56 Neut # (Auto) 6.6 10^3/uL (1.5-6.6) 12/11/21 04:56 Lymph # (Auto) 1.1 10^3/uL (1.5-3.5) L 12/11/21 04:56 [place] # (Auto) 1.3 10^3/uL (0.0-1.0) H 12/11/21 04:56 Eos # (Auto) 0.0 10^3/uL (0.0-0.7) 12/11/21 04:56 Baso # (Auto) 0.1 10^3/uL (0.0-0.1) 12/11/21 04:56 Absolute Nucleated RBC 0.00 x10^3/uL 12/11/21 04:56 Nucleated RBC % 0.0 /100WBC 12/11/21 04:56 Sodium 134 mmol/L (135-145) L 12/11/21 04:56 Potassium 3.0 mmol/L (3.5-5.0) L 12/11/21 04:56 Chloride 98 mmol/L (101-111) L 12/11/21 04:56 Carbon Dioxide 27 mmol/L (21-32) 12/11/21 04:56 Anion Gap 9.0 (6-13) 12/11/21 04:56 BUN < 5 mg/dL (6-20) L 12/11/21 04:56 Creatinine 0.4 mg/dL (0.4-1.0) 12/11/21 04:56 Estimated GFR (MDRD) 164 (>89) 12/11/21 04:56 Glucose 85 mg/dL (70-100) 12/11/21 04:56 Lactic Acid 1.1 mmol/L (0.5-2.2) 12/02/21 17:50 Calcium 8.0 mg/dL (8.5-10.3) L 12/11/21 04:56 Total Bilirubin 0.4 mg/dL (0.2-1.0) 12/08/21 04:56 AST 40 IU/L (10-42) 12/08/21 04:56 ALT 38 IU/L (10-60) 12/08/21 04:56 Alkaline Phosphatase 65 IU/L (42-121) 12/08/21 04:56 Ammonia 29.5 umol/L (7-35) 12/08/21 04:56 Troponin I High Sens 5.1 ng/L (2.3-14.8) 12/03/21 14:10 B-Natriuretic Peptide 129 pg/mL (5-100) H 12/11/21 04:56 Total Protein 5.5 g/dL (6.7-8.2) L 12/08/21 04:56 Albumin 1.9 g/dL (3.2-5.5) L 12/08/21 04:56 Globulin 3.6 g/dL (2.1-4.2) 12/08/21 04:56 Albumin/Globulin Ratio 0.5 (1.0-2.2) L 12/08/21 04:56 Lipase 21 U/L (22-51) L 11/30/21 00:53 Tumor Marker AFP <0.9 ng/mL (0.0-9.2) 12/02/21 17:43 CA 19-9 Antigen 8 U/mL (0-35) 12/02/21 17:43 Urine Color YELLOW 12/02/21 20:45 Urine Clarity CLEAR (CLEAR) 12/02/21 20:45 Urine pH 6.5 PH (5.0-7.5) 12/02/21 20:45 Ur Specific [place] 1.010 (1.002-1.030) 12/02/21 20:45 Urine Protein NEGATIVE mg/dL (NEGATIVE) 12/02/21 20:45 Urine Glucose (UA) NEGATIVE mg/dL (NEGATIVE) 12/02/21 20:45 Urine Ketones TRACE mg/dL (NEGATIVE) 12/02/21 20:45 Urine Occult Blood NEGATIVE (NEGATIVE) 12/02/21 20:45 Urine Nitrite NEGATIVE (NEGATIVE) 12/02/21 20:45 Urine Bilirubin NEGATIVE (NEGATIVE) 12/02/21 20:45 Urine Urobilinogen 0.2 (NORMAL) E.U./dL (NORMAL) 12/02/21 20:45 Ur Leukocyte Esterase NEGATIVE (NEGATIVE) 12/02/21 20:45 Urine RBC 0-5 /HPF (0-5) 12/02/21 20:45 Urine WBC 0-3 /HPF (0-5) 12/02/21 20:45 Ur Epithelial Cells RARE Transitional /HPF (<= Few) 12/02/21 20:45 Ur Squamous Epith Cells RARE Squamous (<= Few) 12/02/21 20:45 Urine Bacteria Rare /HPF (None Seen) 12/02/21 20:45 Urine Mucus Moderate Strands 12/02/21 18:30 Urine Culture Comments NOT INDICATED 12/02/21 20:45 Nasal Adenovirus (PCR) NOT DETECTED 11/30/21 04:30 Nasal B. parapertussis DNA (PCR) NOT DETECTED 11/30/21 04:30 Nasal Coronavir 229E PCR NOT DETECTED 11/30/21 04:30 Nasal Coronavir HKU1 PCR NOT DETECTED 11/30/21 04:30 Nasal Coronavir NL63 PCR NOT DETECTED 11/30/21 04:30 Nasal Coronavir OC43 PCR NOT DETECTED 11/30/21 04:30 Nasal Enterovir/Rhinovir PCR NOT DETECTED 11/30/21 04:30 Nasal Influenza B PCR NOT DETECTED 11/30/21 04:30 Nasal Influenza A PCR NOT DETECTED 11/30/21 04:30 Nasal Parainfluen 1 PCR NOT DETECTED 11/30/21 04:30 Nasal Parainfluen 2 PCR NOT DETECTED 11/30/21 04:30 Nasal Parainfluen 3 PCR NOT DETECTED 11/30/21 04:30 Nasal Parainfluen 4 PCR NOT DETECTED 11/30/21 04:30 Nasal RSV (PCR) NOT DETECTED 11/30/21 04:30 Nasal B.pertussis DNA PCR NOT DETECTED 11/30/21 04:30 Nasal C.pneumoniae (PCR) NOT DETECTED 11/30/21 04:30 Jacinto Human Metapneumo PCR NOT DETECTED 11/30/21 04:30 Nasal M.pneumoniae (PCR) NOT DETECTED 11/30/21 04:30 Nasal SARS-CoV-2 (PCR) NOT DETECTED 11/30/21 04:30 Stl C. diff Tox B Gene POSITIVE (NEGATIVE) A* 12/04/21 09:38 Urine Opiates Screen POSITIVE (NEGATIVE) H 11/30/21 18:48 Ur Oxycodone Screen POSITIVE (NEGATIVE) H 11/30/21 18:48 Urine Methadone Screen NEGATIVE (NEGATIVE) 11/30/21 18:48 Ur Propoxyphene Screen NEGATIVE (NEGATIVE) 11/30/21 18:48 Ur Barbiturates Screen NEGATIVE (NEGATIVE) 11/30/21 18:48 Ur Tricyclics Screen NEGATIVE (NEGATIVE) 11/30/21 18:48 Ur Phencyclidine Scrn NEGATIVE (NEGATIVE) 11/30/21 18:48 Ur Amphetamine Screen NEGATIVE (NEGATIVE) 11/30/21 18:48 U Methamphetamines Scrn NEGATIVE (NEGATIVE) 11/30/21 18:48 U Benzodiazepines Scrn POSITIVE (NEGATIVE) H 11/30/21 18:48 Urine Cocaine Screen NEGATIVE (NEGATIVE) 11/30/21 18:48 U Cannabinoids Screen NEGATIVE (NEGATIVE) 11/30/21 18:48 Ethyl Alcohol < 5.0 mg/dL 11/30/21 00:53 - Procedures Procedures: Procedures EXCISE AXILLARY NODE (05/22/14) INSERTION OF TOTALLY IMPLANTABLE VASC ACCESS DEVIC (05/22/14) SUBTOTAL MASTECTOMY (05/22/14) Sepsis Event Note (H) - Evaluation Current Stage of Sepsis: Ruled out Possible source of Sepsis: positive: Pulmonary - Sepsis Criteria Sepsis Criteria: Recorded Temperature greater than 38.3C or Less than 36C, Recorded Heart Rate greater than 90 bpm, Recorded Respiratory Rate greater than 20
[2021-12-11] MEDS: GI COCKTAIL 120 ML BOTTLE PO PRN (19:22)
[2021-12-11] MEDS: traZODone 50 MG TABLET PO SCH (20:41)
[2021-12-12] MEDS: SODIUM CHLORIDE FLUSH 0.9% 10 ML SYRINGE IVP SCH ×3 (00:23→16:55)
[2021-12-12] MEDS: BENZOCAINE/MENTHOL LOZENGE MM PRN ×3 (02:49→16:48)
[2021-12-12] MEDS: PANTOPRAZOLE 40 MG TABLET PO SCH (05:53)
[2021-12-12] MEDS: ACETAMINOPHEN 325 MG TABLET PO PRN ×2 (06:49→16:50)
[2021-12-12] MEDS: LEVALBUTEROL 1.25 MG/3 ML NEB INH SCH ×4 (07:21→23:53)
[2021-12-12] MEDS: POTASSIUM CHLORIDE 20 MEQ TABLET PO SCH ×2 (08:20→16:51)
[2021-12-12] MEDS: SACCHAROMYCES BOULARDII 250 MG CAPSULE PO SCH ×2 (08:21→16:51)
[2021-12-12] MEDS: VANCOMYCIN 125 MG CAPSULE PO SCH ×4 (08:21→21:09)
[2021-12-12] MEDS: THIAMINE 100 MG TABLET PO SCH (08:21)
[2021-12-12] MEDS: buPROPion XL 150 MG TABLET PO SCH (08:21)
[2021-12-12] MEDS: CALCIUM CARBONATE CHEW 500 MG TABLET PO SCH ×2 (08:21→21:06)
[2021-12-12] MEDS: EXEMESTANE 25 MG PO SCH (08:22)
[2021-12-12] MEDS: CEFEPIME 2 GM in SODIUM CHLORIDE 0.9% MINIBAG 100 ML IV SCH ×2 (08:22→21:06)
[2021-12-12] MEDS: PRENATAL VITAMIN TABLET PO SCH (08:22)
[2021-12-12] MEDS: LETROZOLE 2.5 MG PO SCH (08:22)
[2021-12-12] MEDS: ENOXAPARIN 40 MG/0.4 ML SYRINGE SUBQ SCH (08:22)
[2021-12-12] MEDS: ONDANSETRON 4 MG/2 ML VIAL IVP PRN (08:23)
--- NOTE | 2021-12-12 08:32 | XRAY Report ---
PROCEDURE: Chest 1 View X-Ray INDICATIONS: pleuritic CP COMMENTS: PLEURITIC CHEST PAIN; F/U CHF VS PNEUMONIA/ PT UNDER COVID P RECAUTIONS PRIORS: 12/10/21; 12/01/21; 11/29/21; TECHNIQUE: One view of the chest was acquired. COMPARISON: 12/10/2021 FINDINGS: Surgical changes and devices: Surgical clips consistent with left axillary node dissection are seen. Lungs and pleura: Prominent interstitial markings are seen, unchanged compared to the prior x-ray an d likely chronic. No focal consolidation. No pneumothorax or pleural effusion. Left lower lobe infi ltrate is seen. Blunting of the costophrenic angles bilaterally is unchanged. Mediastinum: Mediastinal contours appear normal. Heart size is normal. Bones and chest wall: No suspicious bony lesions. Overlying soft tissues appear unremarkable. IMPRESSION: 1. Bibasilar atelectasis. 2. Left lower lobe infiltrate consistent with atelectasis or pneumonia. 3. Prominent interstitial markings appear chronic. Reviewed by: Rigo Vu on 12/12/2021 8:30 AM PDT Approved by: Rigo Vu on 12/12/2021 8:30 AM PDT Station ID: [id number]
[2021-12-12 08:47] LABS: BASOPHILS % (AUTO) 0.4 %; HCT - HEMATOCRIT 32.3 % (37.0-47.0); HGB - HEMOGLOBIN 10.9 g/dL (12.0-16.0); LYMPHOCYTES % (AUTO) 11.1 %; MEAN CORPUSCULAR HEMOGLOBIN 31.5 pg (27.0-31.0); MEAN CORPUSCULAR HGB CONC 33.7 g/dL (32.0-36.0); MEAN CORPUSCULAR VOLUME 93.4 fL (81.0-99.0); MEAN PLATELET VOLUME 9.2 fL (7.9-10.8); MONOCYTES # (AUTO) 1.2 10^3/uL (0.0-1.0); MONOCYTES % (AUTO) 13.8 %; NEUTROPHILS # (AUTO) 6.6 10^3/uL (1.5-6.6); NEUTROPHILS % (AUTO) 73.8 %; PLT - PLATELET COUNT 555 10^3/uL (130-450); RED BLOOD COUNT 3.46 10^6/uL (4.20-5.40); WHITE BLOOD COUNT 8.9 x10^3/uL (4.8-10.8)
--- NOTE | 2021-12-12 08:48 | PROVIDER PROGRESS NOTE ---
Assessment/Plan - Problem List (1) C. difficile diarrhea Assessment/Plan: Her diarrhea started on 12/04/21 and her stool tested C diff pos. There is no more cramping or urge after swallowing food/liquids. She had 3 mostly formed BMs yesterday. She remains in Contact Isolation. We stopped NSAIDs to decrease chance of bleeding. The patient is on oral vancomycin. A 10-day course is planned, it ends after dos es of 12/14/21. Will advance the diet, given formed stool now. (2) Hypokalemia Still persists and is likely from loss with many days of diarrhea Will replace with oral KCL and K riders (3) HCAP She has had a cough for 3 days and since yesterday has new pleuritic pain, only when she coughs, she says. She is unable to expectorate. She was retested for COVID and is neg. Empiric iv antibiotics were started for HCAP using iv Cefepime, plus new Florastor. Another CXR was obtained today and was read as mild CHF and having basilar atelectasis vs infiltrates. She was getting inhaled nebulizer treatments of Duonebs since admission because of her splinting from her bruised ribs. We changed that to Xopenex because she has been tachycardic. (She has requested that these be changed to handheld puffers at discharge, because they help, but this change will be done until discharge. She had no asthma Hx and was never a smoker, however) Will increase her scheduled nebulizers to qid IS and Mucinex were also ordered. She is not yet stable for discharge (4) Tachycardia This was presumed to be due to volume depletion, new HCAP, coughing and pleuritic chest pain We stopped her IV fluids when the cough began but did not give Lasix since she needs intravascular volume to be replete because of the recent diarrhea. We are following her BMP An EKG was done today because of the persistent tachycardia and her chest pain. There are new anterior T wave flattening changes, new since EKG from 12/03/21. Will obtain a set of troponins therefore. She is not yet stable for discharge (5) Alcohol abuse Assessment/Plan: On 12/04/2021, several days after admission, it was learned (from her sister in phone call with our Soc. Worker) that the patient has a history of alcohol abuse, and prior alcohol withdrawal including alcohol withdrawal seizures. She was recently seen at [facility] ER for alcohol abuse and withdrawal. She has not shown obvious tremor withdrawal signs while here or any seizures. Records from that recent ER visit to [facility] show that she was not hospitalized but only seen in the ED with complaint of alcohol withdrawal and was asking to be placed in an inpatient detox center. She was given Ativan and thiamine and had no signs of withdrawal in the ED. She was accepted at a detox bed in [place], but declined it. She was then seen by the crisis counselor who recommended to discharge her home from their ED, and the ED physician discharge her with prescriptions for Librium. She is being continued on her home vitamin and thiamine here. There was consideration of Wernicke Korsakoff syndrome given her shuffling gait and confusion (including hallucinations) and with her CT head showing significant brain atrophy. Thus she was treated with high dose iv Thiamine 500 mg tid for 2 days, which finished 2 days ago, then we resumed her po Thiamine 100 mg daily. However, she has improved with mentation and with gait considerably and does not have Wernicke-Korsakoff syndrome. She has opened up about her alcohol abuse and is requesting resources from Social Work regarding alcohol abuse. Yesterday she had a cognitive eval and scored 24/30. She had good insight into her problem as we spoke and voiced her plan to stop alcohol (join an online AA group, start taking the Antabuse ordered by her PCP, Flor Varma NP). A DMV form was sent in for medical reason not to be driving DCh plan will be to go home, not to a SNF. 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 The fall was when she stood on her chair at home to reach for something in a higher cupboard. It is unclear if she was taking Librium and pain meds and using alcohol which may have caused the fall. Patient had slurred speech and unsteady gait noticed on 12/03/2021. She had a CT of the head that showed no acute process but she has moderate cerebral atrophy. Her narcotics and Librium were put on hold. She started to have PT and OT and they are documenting that she has intermittent confusion, needs help with ADLs, needed assistance to get up from the toilet. For 2-3 days she can stand on her own, but has poor balance when turning. Sghe has a mild resting hand tremor bilaterally. PT and OT continue while she is here, since she has needed continued hospitalization for her new C. difficile diarrhea and now for new HCAP. (7)s/p left mastectomy Assessment/Plan: She has a hx of BRCA positive breast cancer, and s/p of left mastectomy, pt is under chemotherapy and followed by her oncologist as out-pt (8) Confusion Assessment/Plan: Resolved She was intermittently confused earlier this admission (she thought she was at home and could not find her dog, she saw her mother in her room, she was asking about where her washing machine is in this room, she says she lost 3 pairs of jeans that she "brought with her" [which she did not since she was brought in by ambulance]) Several days after this admission, we learned that she has alcohol abuse Hx. The records from her [facility] visit 3 weeks ago showed that she presented with complaint of alcohol withdrawal and was asking to be placed in an inpatient detox center, which she then declined. She told me she has been to and once in Inpt detox for a month. Ammonia and LFTs have been normal She underwent a cognitive evaluation by OT and she scored 24/30, indicating only mild cognitive impairment. She will be prevented from driving a vehicle. A DMV form was completed by me and submitted. [facility] plan will be to go home, not to a SNF, and she is hiring caregivers. SW has spoken with her (and the brother) yesterday and gave resources. (9) Hypoxia Assessment/Plan: Resolved. This was felt to be due to splinting because of probable bruised ribs caused by the fall at home. It improved and she is not hypoxic with the new HCAP. (10) Sepsis Assessment/Plan: Resolved. Pt presented with fever, tachycardia, tachypnea, and pt need supplement of O2 to support her O2 sats. CXR reveal Pulmonary Edema She received empiric Zosyn, had blood culture, UA culture, followed Lactic acid level. She has no more fever, WBC is at the normal range, blood cultures is negative for bacteremia, patient had normal oxygen saturations on room air, after getting antibiotics (11) Abdominal contusion Assessment/Plan: Resolved. Her abdominal pain and rib pain causing splinting was due to abdominal contusion from falling off of a chair at home. Continue Tylenol prn and ibuprofen as needed. (12) Acute urinary retention Assessment/Plan: Resolved. On 12/03/2021 the nurse reported she had annuria, and bladder scan show over 600ml urine. She had a straight cath, and Flomax started. We have now stopped Flomax. - Current Meds Current Meds: Current Medications Generic Name Dose Route Start Last Admin Trade Name Freq PRN Reason Stop Dose Admin Acetaminophen 650 mg 11/30/21 07:20 12/12/21 06:49 Acetaminophen 325 Mg Tablet PO 650 mg Q4HR PRN Administration Pain 1 to 4, or Fever Bupropion HCl 300 mg 12/03/21 09:00 12/12/21 08:21 Bupropion Xl 150 Mg Tablet PO 300 mg DAILY JULISSA Administration Calcium Carbonate/Glycine 500 mg 12/11/21 09:00 12/12/21 08:21 Calcium Carbonate Chew 500 Mg Tablet PO 500 mg BID JULISSA Administration Enoxaparin Sodium 40 mg 11/30/21 09:00 12/12/21 08:22 Enoxaparin 40 Mg/0.4 Ml Syringe SUBQ 40 mg DAILY JULISSA Administration Cefepime HCl 2 gm/ Sodium 100 mls @ 200 mls/hr 12/10/21 21:00 12/12/21 08:22 Chloride IV 200 mls/hr BID JULISSA Administration Multi-Ingredient Mouthwash/Gargle 30 ml 12/03/21 14:04 12/11/21 19:22 Gi Cocktail 120 Ml Bottle PO 30 ml Q4H PRN Administration Abdominal Pain Ondansetron HCl 4 mg 11/30/21 07:20 12/12/21 08:23 Ondansetron 4 Mg/2 Ml Vial IVP 4 mg Q6HR PRN Administration Nausea / Vomiting Pantoprazole Sodium 40 mg 12/02/21 18:00 12/12/21 05:53 Pantoprazole 40 Mg Tablet PO 40 mg QDAC JULISSA Administration Exemestane [ 1 each 12/03/21 09:00 12/12/21 08:22 Exemestane] 25 Mg PO Not Given Tablet DAILY JULISSA Letrozole 2.5 Mg 1 each 12/03/21 09:00 12/12/21 08:22 Tabs PO Not Given DAILY JULISSA Potassium Chloride 20 meq 12/11/21 09:00 12/12/21 08:20 Potassium Chloride 20 Meq Tablet PO 20 meq BIDWM JULISSA Administration Multivit/Folic Acid/Iron 1 tab 12/03/21 08:00 12/12/21 08:22 Vitamin Tablet PO 1 tab DAILYWM JULISSA Administration Saccharomyces Boulardii 250 mg 12/10/21 17:00 12/12/21 08:21 Saccharomyces Boulardii 250 Mg Capsule PO 250 mg BIDWM JULISSA Administration Sodium Chloride 10 ml 11/30/21 07:20 12/04/21 14:05 Sodium Chloride Flush 0.9% 10 Ml Syringe IVP 10 ml PRN PRN Administration NEEDED PER PROVIDER ORDERS Sodium Chloride 10 ml 11/30/21 09:00 12/12/21 08:22 Sodium Chloride Flush 0.9% 10 Ml Syringe IVP 10 ml 0100,0900,1700 JULISSA Administration Thiamine HCl 100 mg 12/09/21 09:00 12/12/21 08:21 Thiamine 100 Mg Tablet PO 100 mg DAILY JULISSA Administration Throat Lozenges 1 lozenge 12/10/21 06:56 12/12/21 05:53 Benzocaine/Menthol Lozenge MM 1 lozenge Q2HR PRN Administration Throat pain Trazodone HCl 75 mg 12/03/21 21:00 12/11/21 20:41 Trazodone 50 Mg Tablet PO 75 mg QPM JULISSA Administration Vancomycin HCl 125 mg 12/04/21 13:00 12/12/21 08:21 Vancomycin 125 Mg Capsule PO 12/15/21 00:01 125 mg QID JULISSA Administration - Lab Result Fish Bone Diagrams: 12/12/21 08:40 12/12/21 08:40 - EKG Results EKG Interpreted Independently: Yes EKG Comparison: Changed from prior EKG EKG Findings: Sinus tachycardia, rate 103, anterior T wave flattening, new since EKG fo 12/03/21. - Diagnostic Imaging Results Diagnostic Imaging Results: Final report reviewed - Additional Planning My Orders: My Active Orders 12/11/21 09:00 Calcium Carbonate [Tums] 500 mg PO BID Potassium Chloride [K-Dur] 20 meq PO BIDWM 12/12/21 07:47 EKG - Electrocardiogram [RC] .ONCE 12/12/21 08:40 BNP - B-NATRIURETIC PEPTIDE [IAI] Urgent CBC - COMP BLD CT W/AUTO DIFF [HEME] Urgent CMP [COMPREHENSIVE METABOLIC PANEL] [CHEM] Urgent TROPONIN I HIGH SENSITIVITY [IAI] Stat 12/12/21 09:00 Levalbuterol [Xopenex] 1.25 mg INH QID guaiFENesin [Mucinex] 600 mg PO BID 12/12/21 Lunch DIET [Regular Diet] [DIET] 12/13/21 05:00 BMP - BASIC METABOLIC PANEL [CHEM] DAILYLAB CBC - COMP BLD CT W/AUTO DIFF [HEME] DAILYLAB Subjective - Subjective Patient Reports: Feeling Better (3 BMs yesterday and all were mostly formed "logs". Still has pain in anterior chest only when coughs. Cannot bring up her phlegm. She urinated alot last 24 hours (no diuretic had been given).) Objective Vital Signs: Vital Signs - 24 hr 12/11/21 12/11/21 12/11/21 09:47 10:19 16:00 Temperature 37.1 C Heart Rate 105 H Heart Rate [ 109 H 69 Brachial] Respiratory 20 26 H 20 Rate Blood Pressure 131/92 H 140/81 H [Left Brachial artery] Blood Pressure [Right Brachial artery] O2 Saturation 94 99 12/11/21 12/12/21 12/12/21:22 00:20 07:44 Temperature 37 C Heart Rate 78 80 Heart Rate [ 113 H Brachial] Respiratory 18 18 18 Rate Blood Pressure [Left Brachial artery] Blood Pressure 131/76 H [Right Brachial artery] O2 Saturation 93 12/12/21 08:00 Temperature 37.2 C Heart Rate Heart Rate [ 71 Brachial] Respiratory 18 Rate Blood Pressure [Left Brachial artery] Blood Pressure 129/83 H [Right Brachial artery] O2 Saturation 100 Oxygen O2 Source [Without Activity] Room air O2 Source Room air Oxygen Flow Rate 4 I&O (Last 24 Hrs): Intake and Output Totals x24h 12/10/21 12/11/21 12/12/21 23:59 23:59 23:59 Intake Total 3508 1574.167 Output Total 500 1125 Balance 3508 1074.167 -1125 General: Alert, Oriented x3 HEENT: Atraumatic, Mucous membr. moist/pink Neck: Supple, No JVD Neuro: Alert, Non Focal Cardiovascular: Regular rate Respiratory: Rhonchi Abdomen: Normal bowel sounds, Soft, No tenderness Extremities: No clubbing, No edema, No tenderness/swelling Skin: No rashes - Results Results: Laboratory Results WBC 9.1 x10^3/uL (4.8-10.8) 12/11/21 04:56 RBC 3.51 10^6/uL (4.20-5.40) L 12/11/21 04:56 Hgb 11.0 g/dL (12.0-16.0) L 12/11/21 04:56 Hct 33.0 % (37.0-47.0) L 12/11/21 04:56 MCV 94.0 fL (81.0-99.0) 12/11/21 04:56 MCH 31.3 pg (27.0-31.0) H 12/11/21 04:56 MCHC 33.3 g/dL (32.0-36.0) 12/11/21 04:56 RDW 15.3 % (12.0-15.0) H 12/11/21 04:56 Plt Count 542 10^3/uL (130-450) H 12/11/21 04:56 MPV 9.9 fL (7.9-10.8) 12/11/21 04:56 Neut # (Auto) 6.6 10^3/uL (1.5-6.6) 12/11/21 04:56 Lymph # (Auto) 1.1 10^3/uL (1.5-3.5) L 12/11/21 04:56 [place] # (Auto) 1.3 10^3/uL (0.0-1.0) H 12/11/21 04:56 Eos # (Auto) 0.0 10^3/uL (0.0-0.7) 12/11/21 04:56 Baso # (Auto) 0.1 10^3/uL (0.0-0.1) 12/11/21 04:56 Absolute Nucleated RBC 0.00 x10^3/uL 12/11/21 04:56 Nucleated RBC % 0.0 /100WBC 12/11/21 04:56 Sodium 134 mmol/L (135-145) L 12/11/21 04:56 Potassium 3.0 mmol/L (3.5-5.0) L 12/11/21 04:56 Chloride 98 mmol/L (101-111) L 12/11/21 04:56 Carbon Dioxide 27 mmol/L (21-32) 12/11/21 04:56 Anion Gap 9.0 (6-13) 12/11/21 04:56 BUN < 5 mg/dL (6-20) L 12/11/21 04:56 Creatinine 0.4 mg/dL (0.4-1.0) 12/11/21 04:56 Estimated GFR (MDRD) 164 (>89) 12/11/21 04:56 Glucose 85 mg/dL (70-100) 12/11/21 04:56 Lactic Acid 1.1 mmol/L (0.5-2.2) 12/02/21 17:50 Calcium 8.0 mg/dL (8.5-10.3) L 12/11/21 04:56 Total Bilirubin 0.4 mg/dL (0.2-1.0) 12/08/21 04:56 AST 40 IU/L (10-42) 12/08/21 04:56 ALT 38 IU/L (10-60) 12/08/21 04:56 Alkaline Phosphatase 65 IU/L (42-121) 12/08/21 04:56 Ammonia 29.5 umol/L (7-35) 12/08/21 04:56 Troponin I High Sens 5.1 ng/L (2.3-14.8) 12/03/21 14:10 B-Natriuretic Peptide 129 pg/mL (5-100) H 12/11/21 04:56 Total Protein 5.5 g/dL (6.7-8.2) L 12/08/21 04:56 Albumin 1.9 g/dL (3.2-5.5) L 12/08/21 04:56 Globulin 3.6 g/dL (2.1-4.2) 12/08/21 04:56 Albumin/Globulin Ratio 0.5 (1.0-2.2) L 12/08/21 04:56 Lipase 21 U/L (22-51) L 11/30/21 00:53 Tumor Marker AFP <0.9 ng/mL (0.0-9.2) 12/02/21 17:43 CA 19-9 Antigen 8 U/mL (0-35) 12/02/21 17:43 Urine Color YELLOW 12/02/21 20:45 Urine Clarity CLEAR (CLEAR) 12/02/21 20:45 Urine pH 6.5 PH (5.0-7.5) 12/02/21 20:45 Ur Specific [place] 1.010 (1.002-1.030) 12/02/21 20:45 Urine Protein NEGATIVE mg/dL (NEGATIVE) 12/02/21 20:45 Urine Glucose (UA) NEGATIVE mg/dL (NEGATIVE) 12/02/21 20:45 Urine Ketones TRACE mg/dL (NEGATIVE) 12/02/21 20:45 Urine Occult Blood NEGATIVE (NEGATIVE) 12/02/21 20:45 Urine Nitrite NEGATIVE (NEGATIVE) 12/02/21 20:45 Urine Bilirubin NEGATIVE (NEGATIVE) 12/02/21 20:45 Urine Urobilinogen 0.2 (NORMAL) E.U./dL (NORMAL) 12/02/21 20:45 Ur Leukocyte Esterase NEGATIVE (NEGATIVE) 12/02/21 20:45 Urine RBC 0-5 /HPF (0-5) 12/02/21 20:45 Urine WBC 0-3 /HPF (0-5) 12/02/21 20:45 Ur Epithelial Cells RARE Transitional /HPF (<= Few) 12/02/21 20:45 Ur Squamous Epith Cells RARE Squamous (<= Few) 12/02/21 20:45 Urine Bacteria Rare /HPF (None Seen) 12/02/21 20:45 Urine Mucus Moderate Strands 12/02/21 18:30 Urine Culture Comments NOT INDICATED 12/02/21 20:45 Nasal Adenovirus (PCR) NOT DETECTED 11/30/21 04:30 Nasal B. parapertussis DNA (PCR) NOT DETECTED 11/30/21 04:30 Nasal Coronavir 229E PCR NOT DETECTED 11/30/21 04:30 Nasal Coronavir HKU1 PCR NOT DETECTED 11/30/21 04:30 Nasal Coronavir NL63 PCR NOT DETECTED 11/30/21 04:30 Nasal Coronavir OC43 PCR NOT DETECTED 11/30/21 04:30 Nasal Enterovir/Rhinovir PCR NOT DETECTED 11/30/21 04:30 Nasal Influenza B PCR NOT DETECTED 11/30/21 04:30 Nasal Influenza A PCR NOT DETECTED 11/30/21 04:30 Nasal Parainfluen 1 PCR NOT DETECTED 11/30/21 04:30 Nasal Parainfluen 2 PCR NOT DETECTED 11/30/21 04:30 Nasal Parainfluen 3 PCR NOT DETECTED 11/30/21 04:30 Nasal Parainfluen 4 PCR NOT DETECTED 11/30/21 04:30 Nasal RSV (PCR) NOT DETECTED 11/30/21 04:30 Nasal B.pertussis DNA PCR NOT DETECTED 11/30/21 04:30 Nasal C.pneumoniae (PCR) NOT DETECTED 11/30/21 04:30 Jacinto Human Metapneumo PCR NOT DETECTED 11/30/21 04:30 Nasal M.pneumoniae (PCR) NOT DETECTED 11/30/21 04:30 Nasal SARS-CoV-2 (PCR) NOT DETECTED 11/30/21 04:30 Stl C. diff Tox B Gene POSITIVE (NEGATIVE) A* 12/04/21 09:38 Urine Opiates Screen POSITIVE (NEGATIVE) H 11/30/21 18:48 Ur Oxycodone Screen POSITIVE (NEGATIVE) H 11/30/21 18:48 Urine Methadone Screen NEGATIVE (NEGATIVE) 11/30/21 18:48 Ur Propoxyphene Screen NEGATIVE (NEGATIVE) 11/30/21 18:48 Ur Barbiturates Screen NEGATIVE (NEGATIVE) 11/30/21 18:48 Ur Tricyclics Screen NEGATIVE (NEGATIVE) 11/30/21 18:48 Ur Phencyclidine Scrn NEGATIVE (NEGATIVE) 11/30/21 18:48 Ur Amphetamine Screen NEGATIVE (NEGATIVE) 11/30/21 18:48 U Methamphetamines Scrn NEGATIVE (NEGATIVE) 11/30/21 18:48 U Benzodiazepines Scrn POSITIVE (NEGATIVE) H 11/30/21 18:48 Urine Cocaine Screen NEGATIVE (NEGATIVE) 11/30/21 18:48 U Cannabinoids Screen NEGATIVE (NEGATIVE) 11/30/21 18:48 Ethyl Alcohol < 5.0 mg/dL 11/30/21 00:53 - Procedures Procedures: Procedures EXCISE AXILLARY NODE (05/22/14) INSERTION OF TOTALLY IMPLANTABLE VASC ACCESS DEVIC (05/22/14) SUBTOTAL MASTECTOMY (05/22/14) Sepsis Event Note (H) - Evaluation Current Stage of Sepsis: Ruled out Possible source of Sepsis: positive: Pulmonary - Sepsis Criteria Sepsis Criteria: Recorded Temperature greater than 38.3C or Less than 36C, Recorded Heart Rate greater than 90 bpm, Recorded Respiratory Rate greater than 20
[2021-12-12 09:03] LABS: ALBUMIN 2.1 g/dL (3.2-5.5); ALBUMIN/GLOBULIN RATIO 0.5 (1.0-2.2); ALKALINE PHOSPHATASE 71 IU/L (42-121); ALT ALANINE AMINOTRANSFERASE 31 IU/L (10-60); AST ASPARTATE AMINOTRANSFERASE 30 IU/L (10-42); BILIRUBIN,TOTAL 0.6 mg/dL (0.2-1.0); BUN - BLOOD UREA NITROGEN < 5 mg/dL (6-20); CALCIUM 7.8 mg/dL (8.5-10.3); CARBON DIOXIDE - CO2 24 mmol/L (21-32); CHLORIDE 95 mmol/L (101-111); CREATININE 0.4 mg/dL (0.4-1.0); GFR - MDRD 164 (>89); GLUCOSE 117 mg/dL (70-100); POTASSIUM 3.4 mmol/L (3.5-5.0); SODIUM 128 mmol/L (135-145); TOTAL PROTEIN 6.2 g/dL (6.7-8.2)
[2021-12-12] MEDS: guaiFENesin 600 MG TABLET PO SCH ×2 (10:02→21:07)
[2021-12-12] MEDS: GI COCKTAIL 120 ML BOTTLE PO PRN (16:48)
[2021-12-12] MEDS: traZODone 50 MG TABLET PO SCH (21:07)
[2021-12-13] MEDS: SODIUM CHLORIDE FLUSH 0.9% 10 ML SYRINGE IVP SCH ×3 (02:31→17:28)
[2021-12-13] MEDS: ACETAMINOPHEN 325 MG TABLET PO PRN ×3 (02:46→20:01)
[2021-12-13] MEDS: BENZOCAINE/MENTHOL LOZENGE MM PRN ×3 (02:47→20:01)
[2021-12-13 06:04] LABS: BASOPHILS # (AUTO) 0.1 10^3/uL (0.0-0.1); BASOPHILS % (AUTO) 0.6 %; HCT - HEMATOCRIT 31.7 % (37.0-47.0); HGB - HEMOGLOBIN 10.4 g/dL (12.0-16.0); LYMPHOCYTES # (AUTO) 0.8 10^3/uL (1.5-3.5); MEAN CORPUSCULAR HEMOGLOBIN 30.7 pg (27.0-31.0); MEAN CORPUSCULAR HGB CONC 32.8 g/dL (32.0-36.0); MEAN CORPUSCULAR VOLUME 93.5 fL (81.0-99.0); MEAN PLATELET VOLUME 9.6 fL (7.9-10.8); MONOCYTES # (AUTO) 1.2 10^3/uL (0.0-1.0); MONOCYTES % (AUTO) 14.5 %; PLT - PLATELET COUNT 550 10^3/uL (130-450); RED BLOOD COUNT 3.39 10^6/uL (4.20-5.40); RED CELL DISTRIBUTION WIDTH 15.1 % (12.0-15.0); WHITE BLOOD COUNT 8.1 x10^3/uL (4.8-10.8)
[2021-12-13 06:13] LABS: CALCIUM 8.1 mg/dL (8.5-10.3); CREATININE 0.5 mg/dL (0.4-1.0); POTASSIUM 3.8 mmol/L (3.5-5.0)
[2021-12-13] MEDS: PANTOPRAZOLE 40 MG TABLET PO SCH (06:14)
[2021-12-13] MEDS: POTASSIUM CHLORIDE 20 MEQ TABLET PO SCH ×2 (08:46→17:26)
[2021-12-13] MEDS: THIAMINE 100 MG TABLET PO SCH (08:46)
[2021-12-13] MEDS: buPROPion XL 150 MG TABLET PO SCH (08:47)
[2021-12-13] MEDS: ENOXAPARIN 40 MG/0.4 ML SYRINGE SUBQ SCH (08:47)
[2021-12-13] MEDS: PRENATAL VITAMIN TABLET PO SCH (08:47)
[2021-12-13] MEDS: CALCIUM CARBONATE CHEW 500 MG TABLET PO SCH ×2 (08:47→21:09)
[2021-12-13] MEDS: guaiFENesin 600 MG TABLET PO SCH ×2 (08:47→21:10)
[2021-12-13] MEDS: VANCOMYCIN 125 MG CAPSULE PO SCH ×4 (08:47→21:10)
[2021-12-13] MEDS: EXEMESTANE 25 MG PO SCH (08:47)
[2021-12-13] MEDS: LETROZOLE 2.5 MG PO SCH (08:47)
[2021-12-13] MEDS: SACCHAROMYCES BOULARDII 250 MG CAPSULE PO SCH ×2 (08:47→17:27)
[2021-12-13] MEDS: CEFEPIME 2 GM in SODIUM CHLORIDE 0.9% MINIBAG 100 ML IV SCH ×2 (09:00→21:09)
[2021-12-13] MEDS: LEVALBUTEROL 1.25 MG/3 ML NEB INH SCH ×3 (10:42→19:14)
[2021-12-13] MEDS: GI COCKTAIL 120 ML BOTTLE PO PRN ×2 (13:55→18:44)
--- NOTE | 2021-12-13 17:45 | PROVIDER PROGRESS NOTE ---
Assessment/Plan - Problem List (1) C. difficile diarrhea Assessment/Plan: Her diarrhea started on 12/04/21 and her stool tested C diff pos. There is no more cramping or urge after swallowing food/liquids. She has formed BMs. She remains in Contact Isolation. We stopped NSAIDs to decrease chance of bleeding. The patient is on oral vancomycin. A 10-day course is planned, it ends after doses of 12/14/21. We advanced the diet to Regular, given formed stool now. (2) HCAP She has had a cough for several days which is better after Mucinex and scheduled nebs were started. SDhe also had pleuritic pain which is much better today she says. She was retested for COVID and is neg. Empiric iv antibiotics were started for HCAP using iv Cefepime, plus Florastor. She is on scheduled nebulizers qid, IS and Mucinex She has requested that these be changed to handheld puffers at discharge, because they help, but this change will be done until discharge. She had no asthma Hx and was never a smoker, however (3) Alcohol abuse Assessment/Plan: On 12/04/2021, several days after admission, it was learned (from her sister in phone call with our Soc. Worker) that the patient has a history of alcohol abuse, and prior alcohol withdrawal including alcohol withdrawal seizures. She was recently seen at [facility] ER for alcohol abuse and withdrawal. She is being continued on her home vitamin and thiamine here. There was consideration of Wernicke Korsakoff syndrome given her shuffling gait and confusion (including hallucinations) and with her CT head showing significant brain atrophy. Thus she was treated with high dose iv Thiamine 500 mg tid for 2 days, which finished several days ago, then we resumed her po Thiamine 100 mg daily. She has had improvement with mentation and with gait considerably and does not have Wernicke-Korsakoff syndrome. She has opened up about her alcohol abuse. She underwent a cognitive eval and scored 24/30. She had good insight into her problem as we spoke and voiced her plan to stop alcohol (join an online AA group, start taking the Antabuse ordered by her PCP, Flor Varma NP). A DMV form was sent in for medical reason not to be driving and she has been told [facility] plan will be to go home, not to a SNF, as long as this plan is safe. Today, the brother called her RN saying that no real help is in place. 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 The fall was when she stood on her chair at home to reach for something in a higher cupboard. It is unclear if she was taking Librium and pain meds and using alcohol which may have caused the fall. Patient had slurred speech and unsteady gait noticed on 12/03/2021. She had a CT of the head that showed no acute process but she has moderate cerebral atrophy. Her narcotics and Librium were put on hold. She started to have PT and OT and they are documenting that she had intermittent confusion, needed help with ADLs. She has a mild resting hand tremor bilaterally. PT and OT continue while she is here, since she has needed continued hospitalization for her new C. difficile diarrhea and then for her new HCAP. (5)s/p left mastectomy Assessment/Plan: She has a hx of BRCA positive breast cancer, and s/p of left mastectomy, pt is under chemotherapy and followed by her oncologist as out-pt (6) Confusion Assessment/Plan: Resolved She was intermittently confused earlier this admission (she thought she was at home and could not find her dog, she saw her mother in her room, she was asking about where her washing machine is in this room, she says she lost 3 pairs of jeans that she "brought with her" [which she did not since she was brought in by ambulance]) Several days after this admission, we learned that she has alcohol abuse Hx. The records from her [facility] visit 3 weeks ago showed that she presented with complaint of alcohol withdrawal and was asking to be placed in an inpatient detox center, which she then declined. She told me she has been to and once in Inpt detox for a month. Ammonia and LFTs have been normal She underwent a cognitive evaluation by OT and she scored 24/30, indicating only mild cognitive impairment. She will be prevented from driving a vehicle. A DMV form was completed by me and submitted. [facility] plan will be to go home, not to a SNF, and she is hiring caregivers. SW has spoken with her (and the brother) yesterday and gave resources. (7) Hypoxia Assessment/Plan: Resolved. This was felt to be due to splinting because of probable bruised ribs caused by the fall at home. It improved and she is not hypoxic with the new HCAP. (8) Sepsis Assessment/Plan: Resolved. Pt presented with fever, tachycardia, tachypnea, and pt need supplement of O2 to support her O2 sats. CXR reveal Pulmonary Edema She received empiric Zosyn, had blood culture, UA culture, followed Lactic acid level. She has no more fever, WBC is at the normal range, blood cultures is negative for bacteremia, patient had normal oxygen saturations on room air, after getting antibiotics (9) Abdominal contusion Assessment/Plan: Resolved. Her abdominal pain and rib pain causing splinting was due to abdominal contusion from falling off of a chair at home. Continue Tylenol prn and ibuprofen as needed. (10) Acute urinary retention Assessment/Plan: Resolved. On 12/03/2021 the nurse reported she had annuria, and bladder scan show over 600ml urine. She had a straight cath, and Flomax started. We have now stopped Flomax. (11) Hypokalemia Resolved It was likely from loss with many days of diarrhea Will replace with oral KCL and K riders (12) Tachycardia Resolved. This was presumed to be due to volume depletion, new HCAP, coughing and pleuritic chest pain - Current Meds Current Meds: Current Medications Generic Name Dose Route Start Last Admin Trade Name Freq PRN Reason Stop Dose Admin Acetaminophen 650 mg 11/30/21 07:20 12/13/21 10:21 Acetaminophen 325 Mg Tablet PO 650 mg Q4HR PRN Administration Pain 1 to 4, or Fever Bupropion HCl 300 mg 12/03/21 09:00 12/13/21 08:47 Bupropion Xl 150 Mg Tablet PO 300 mg DAILY JULISSA Administration Calcium Carbonate/Glycine 500 mg 12/11/21 09:00 12/13/21 08:47 Calcium Carbonate Chew 500 Mg Tablet PO 500 mg BID JULISSA Administration Enoxaparin Sodium 40 mg 11/30/21 09:00 12/13/21 08:47 Enoxaparin 40 Mg/0.4 Ml Syringe SUBQ 40 mg DAILY JULISSA Administration Guaifenesin 600 mg 12/12/21 09:00 12/13/21 08:47 Guaifenesin 600 Mg Tablet PO 600 mg BID JULISSA Administration Cefepime HCl 2 gm/ Sodium 100 mls @ 200 mls/hr 12/10/21 21:00 12/13/21 09:50 Chloride IV Infused BID JULISSA Infusion Levalbuterol HCl 1.25 mg 12/13/21 07:14 12/13/21 15:24 Levalbuterol 1.25 Mg/3 Ml Neb INH 1.25 mg RTQID JULISSA Administration Lorazepam 0.25 mg 12/07/21 20:00 12/12/21 16:49 Lorazepam 0.5 Mg Tablet PO 0.25 mg QPM PRN Administration Anxiety Multi-Ingredient Mouthwash/Gargle 30 ml 12/03/21 14:04 12/13/21 13:55 Gi Cocktail 120 Ml Bottle PO 30 ml Q4H PRN Administration Abdominal Pain Ondansetron HCl 4 mg 11/30/21 07:20 12/12/21 08:23 Ondansetron 4 Mg/2 Ml Vial IVP 4 mg Q6HR PRN Administration Nausea / Vomiting Pantoprazole Sodium 40 mg 12/02/21 18:00 12/13/21 06:14 Pantoprazole 40 Mg Tablet PO 40 mg QDAC JULISSA Administration Exemestane [ 1 each 12/03/21 09:00 12/13/21 08:47 Exemestane] 25 Mg PO Not Given Tablet DAILY JULISSA Letrozole 2.5 Mg 1 each 12/03/21 09:00 12/13/21 08:47 Tabs PO Not Given DAILY JULISSA Potassium Chloride 20 meq 12/11/21 09:00 12/13/21 17:26 Potassium Chloride 20 Meq Tablet PO 20 meq BIDWM JULISSA Administration Multivit/Folic Acid/Iron 1 tab 12/03/21 08:00 12/13/21 08:47 Vitamin Tablet PO 1 tab DAILYWM JULISSA Administration Saccharomyces Boulardii 250 mg 12/10/21 17:00 12/13/21 17:27 Saccharomyces Boulardii 250 Mg Capsule PO 250 mg BIDWM JULISSA Administration Sodium Chloride 10 ml 11/30/21 07:20 12/04/21 14:05 Sodium Chloride Flush 0.9% 10 Ml Syringe IVP 10 ml PRN PRN Administration NEEDED PER PROVIDER ORDERS Sodium Chloride 10 ml 11/30/21 09:00 12/13/21 17:28 Sodium Chloride Flush 0.9% 10 Ml Syringe IVP 10 ml 0100,0900,1700 JULISSA Administration Thiamine HCl 100 mg 12/09/21 09:00 12/13/21 08:46 Thiamine 100 Mg Tablet PO 100 mg DAILY JULISSA Administration Throat Lozenges 1 lozenge 12/10/21 06:56 12/13/21 10:55 Benzocaine/Menthol Lozenge MM 1 lozenge Q2HR PRN Administration Throat pain Trazodone HCl 75 mg 12/03/21 21:00 12/12/21 21:07 Trazodone 50 Mg Tablet PO 75 mg QPM JULISSA Administration Vancomycin HCl 125 mg 12/04/21 13:00 12/13/21 17:28 Vancomycin 125 Mg Capsule PO 12/15/21 00:01 125 mg QID JULISSA Administration - Lab Result Fish Bone Diagrams: 12/13/21 05:19 12/13/21 05:19 - Additional Planning My Orders: My Active Orders 12/13/21 07:14 Levalbuterol [Xopenex] 1.25 mg INH RTQID 12/13/21 08:22 Miscellaenous Nursing Order [RC] QSHIFT 12/13/21 08:40 VITAMIN D 25-HYDROXY [REFLAB] Routine Subjective - Subjective Patient Reports: Feeling Better (Was able to ambulate in hallway.) Nursing Reports: Other (PT described her gait was abnormal ambulating in hallway and with stairs, she needs a walker) Objective Vital Signs: Vital Signs - 24 hr 12/12/21 12/13/21 12/13/21 23:54 08:00 10:42 Temperature 37.2 C 36.9 C Heart Rate 100 Heart Rate [ 101 H 100 Brachial] Respiratory 18 18 18 Rate Blood Pressure 126/80 121/84 H [Right Brachial artery] O2 Saturation 96 96 12/13/21 12/13/21 15:25 16:00 Temperature 36.9 C Heart Rate 72 Heart Rate [ 103 H Brachial] Respiratory 18 18 Rate Blood Pressure 134/90 H [Right Brachial artery] O2 Saturation 94 Oxygen O2 Source [Without Activity] Room air O2 Source Room air Oxygen Flow Rate 4 I&O (Last 24 Hrs): Intake and Output Totals x24h 12/11/21 12/12/21 12/13/21 23:59 23:59 23:59 Intake Total 1574.211 488 5041 Output Total 500 1125 Balance 1074.167 -405 1040 General: Alert, Oriented x3 HEENT: Mucous membr. moist/pink Neck: Supple, No JVD Neuro: Alert, Non Focal Cardiovascular: Regular rate Respiratory: No respiratory distress, Rhonchi (L base) Abdomen: Normal bowel sounds, Soft, No tenderness Extremities: No clubbing, No edema, No tenderness/swelling - Results Results: Laboratory Results WBC 8.1 x10^3/uL (4.8-10.8) 12/13/21 05:19 RBC 3.39 10^6/uL (4.20-5.40) L 12/13/21 05:19 Hgb 10.4 g/dL (12.0-16.0) L 12/13/21 05:19 Hct 31.7 % (37.0-47.0) L 12/13/21 05:19 MCV 93.5 fL (81.0-99.0) 12/13/21 05:19 MCH 30.7 pg (27.0-31.0) 12/13/21 05:19 MCHC 32.8 g/dL (32.0-36.0) 12/13/21 05:19 RDW 15.1 % (12.0-15.0) H 12/13/21 05:19 Plt Count 550 10^3/uL (130-450) H 12/13/21 05:19 MPV 9.6 fL (7.9-10.8) 12/13/21 05:19 Neut # (Auto) 6.0 10^3/uL (1.5-6.6) 12/13/21 05:19 Lymph # (Auto) 0.8 10^3/uL (1.5-3.5) L 12/13/21 05:19 [place] # (Auto) 1.2 10^3/uL (0.0-1.0) H 12/13/21 05:19 Eos # (Auto) 0.0 10^3/uL (0.0-0.7) 12/13/21 05:19 Baso # (Auto) 0.1 10^3/uL (0.0-0.1) 12/13/21 05:19 Absolute Nucleated RBC 0.00 x10^3/uL 12/13/21 05:19 Nucleated RBC % 0.0 /100WBC 12/13/21 05:19 Sodium 133 mmol/L (135-145) L 12/13/21 05:19 Potassium 3.8 mmol/L (3.5-5.0) 12/13/21 05:19 Chloride 97 mmol/L (101-111) L 12/13/21 05:19 Carbon Dioxide 26 mmol/L (21-32) 12/13/21 05:19 Anion Gap 10.0 (6-13) 12/13/21 05:19 BUN 5 mg/dL (6-20) L 12/13/21 05:19 Creatinine 0.5 mg/dL (0.4-1.0) 12/13/21 05:19 Estimated GFR (MDRD) 127 (>89) 12/13/21 05:19 Glucose 105 mg/dL (70-100) H 12/13/21 05:19 Lactic Acid 1.1 mmol/L (0.5-2.2) 12/02/21 17:50 Calcium 8.1 mg/dL (8.5-10.3) L 12/13/21 05:19 Total Bilirubin 0.6 mg/dL (0.2-1.0) 12/12/21 08:40 AST 30 IU/L (10-42) 12/12/21 08:40 ALT 31 IU/L (10-60) 12/12/21 08:40 Alkaline Phosphatase 71 IU/L (42-121) 12/12/21 08:40 Ammonia 29.5 umol/L (7-35) 12/08/21 04:56 Troponin I High Sens 4.9 ng/L (2.3-14.8) 12/12/21 08:40 B-Natriuretic Peptide 234 pg/mL (5-100) H 12/12/21 08:40 Total Protein 6.2 g/dL (6.7-8.2) L 12/12/21 08:40 Albumin 2.1 g/dL (3.2-5.5) L 12/12/21 08:40 Globulin 4.1 g/dL (2.1-4.2) 12/12/21 08:40 Albumin/Globulin Ratio 0.5 (1.0-2.2) L 12/12/21 08:40 Lipase 21 U/L (22-51) L 11/30/21 00:53 Tumor Marker AFP <0.9 ng/mL (0.0-9.2) 12/02/21 17:43 CA 19-9 Antigen 8 U/mL (0-35) 12/02/21 17:43 Urine Color YELLOW 12/02/21 20:45 Urine Clarity CLEAR (CLEAR) 12/02/21 20:45 Urine pH 6.5 PH (5.0-7.5) 12/02/21 20:45 Ur Specific [place] 1.010 (1.002-1.030) 12/02/21 20:45 Urine Protein NEGATIVE mg/dL (NEGATIVE) 12/02/21 20:45 Urine Glucose (UA) NEGATIVE mg/dL (NEGATIVE) 12/02/21 20:45 Urine Ketones TRACE mg/dL (NEGATIVE) 12/02/21 20:45 Urine Occult Blood NEGATIVE (NEGATIVE) 12/02/21 20:45 Urine Nitrite NEGATIVE (NEGATIVE) 12/02/21 20:45 Urine Bilirubin NEGATIVE (NEGATIVE) 12/02/21 20:45 Urine Urobilinogen 0.2 (NORMAL) E.U./dL (NORMAL) 12/02/21 20:45 Ur Leukocyte Esterase NEGATIVE (NEGATIVE) 12/02/21 20:45 Urine RBC 0-5 /HPF (0-5) 12/02/21 20:45 Urine WBC 0-3 /HPF (0-5) 12/02/21 20:45 Ur Epithelial Cells RARE Transitional /HPF (<= Few) 12/02/21 20:45 Ur Squamous Epith Cells RARE Squamous (<= Few) 12/02/21 20:45 Urine Bacteria Rare /HPF (None Seen) 12/02/21 20:45 Urine Mucus Moderate Strands 12/02/21 18:30 Urine Culture Comments NOT INDICATED 12/02/21 20:45 Nasal Adenovirus (PCR) NOT DETECTED 11/30/21 04:30 Nasal B. parapertussis DNA (PCR) NOT DETECTED 11/30/21 04:30 Nasal Coronavir 229E PCR NOT DETECTED 11/30/21 04:30 Nasal Coronavir HKU1 PCR NOT DETECTED 11/30/21 04:30 Nasal Coronavir NL63 PCR NOT DETECTED 11/30/21 04:30 Nasal Coronavir OC43 PCR NOT DETECTED 11/30/21 04:30 Nasal Enterovir/Rhinovir PCR NOT DETECTED 11/30/21 04:30 Nasal Influenza B PCR NOT DETECTED 11/30/21 04:30 Nasal Influenza A PCR NOT DETECTED 11/30/21 04:30 Nasal Parainfluen 1 PCR NOT DETECTED 11/30/21 04:30 Nasal Parainfluen 2 PCR NOT DETECTED 11/30/21 04:30 Nasal Parainfluen 3 PCR NOT DETECTED 11/30/21 04:30 Nasal Parainfluen 4 PCR NOT DETECTED 11/30/21 04:30 Nasal RSV (PCR) NOT DETECTED 11/30/21 04:30 Nasal B.pertussis DNA PCR NOT DETECTED 11/30/21 04:30 Nasal C.pneumoniae (PCR) NOT DETECTED 11/30/21 04:30 [place] Human Metapneumo PCR NOT DETECTED 11/30/21 04:30 Nasal M.pneumoniae (PCR) NOT DETECTED 11/30/21 04:30 Nasal SARS-CoV-2 (PCR) NOT DETECTED 11/30/21 04:30 Stl C. diff Tox B Gene POSITIVE (NEGATIVE) A* 12/04/21 09:38 Urine Opiates Screen POSITIVE (NEGATIVE) H 11/30/21 18:48 Ur Oxycodone Screen POSITIVE (NEGATIVE) H 11/30/21 18:48 Urine Methadone Screen NEGATIVE (NEGATIVE) 11/30/21 18:48 Ur Propoxyphene Screen NEGATIVE (NEGATIVE) 11/30/21 18:48 Ur Barbiturates Screen NEGATIVE (NEGATIVE) 11/30/21 18:48 Ur Tricyclics Screen NEGATIVE (NEGATIVE) 11/30/21 18:48 Ur Phencyclidine Scrn NEGATIVE (NEGATIVE) 11/30/21 18:48 Ur Amphetamine Screen NEGATIVE (NEGATIVE) 11/30/21 18:48 U Methamphetamines Scrn NEGATIVE (NEGATIVE) 11/30/21 18:48 U Benzodiazepines Scrn POSITIVE (NEGATIVE) H 11/30/21 18:48 Urine Cocaine Screen NEGATIVE (NEGATIVE) 11/30/21 18:48 U Cannabinoids Screen NEGATIVE (NEGATIVE) 11/30/21 18:48 Ethyl Alcohol < 5.0 mg/dL 11/30/21 00:53 - Procedures Procedures: Procedures EXCISE AXILLARY NODE (05/22/14) INSERTION OF TOTALLY IMPLANTABLE VASC ACCESS DEVIC (05/22/14) SUBTOTAL MASTECTOMY (05/22/14) Sepsis Event Note (H) - Evaluation Current Stage of Sepsis: Ruled out Possible source of Sepsis: positive: Pulmonary - Sepsis Criteria Sepsis Criteria: Recorded Temperature greater than 38.3C or Less than 36C, Recorded Heart Rate greater than 90 bpm, Recorded Respiratory Rate greater than 20
[2021-12-13] MEDS: traZODone 50 MG TABLET PO SCH (21:10)
[2021-12-14] MEDS: SODIUM CHLORIDE FLUSH 0.9% 10 ML SYRINGE IVP SCH ×3 (01:50→17:10)
[2021-12-14] MEDS: PANTOPRAZOLE 40 MG TABLET PO SCH (05:19)
[2021-12-14] MEDS: LEVALBUTEROL 1.25 MG/3 ML NEB INH SCH ×4 (07:19→20:00)
[2021-12-14] MEDS: CEFEPIME 2 GM in SODIUM CHLORIDE 0.9% MINIBAG 100 ML IV SCH ×2 (09:29→21:44)
[2021-12-14] MEDS: buPROPion XL 150 MG TABLET PO SCH (09:34)
[2021-12-14] MEDS: THIAMINE 100 MG TABLET PO SCH (09:34)
[2021-12-14] MEDS: SACCHAROMYCES BOULARDII 250 MG CAPSULE PO SCH ×2 (09:34→17:10)
[2021-12-14] MEDS: guaiFENesin 600 MG TABLET PO SCH ×2 (09:35→21:44)
[2021-12-14] MEDS: VANCOMYCIN 125 MG CAPSULE PO SCH ×4 (09:36→21:44)
[2021-12-14] MEDS: CALCIUM CARBONATE CHEW 500 MG TABLET PO SCH ×2 (09:42→21:44)
[2021-12-14] MEDS: ENOXAPARIN 40 MG/0.4 ML SYRINGE SUBQ SCH (09:42)
[2021-12-14] MEDS: LOPERAMIDE 2 MG CAPSULE PO PRN ×3 (09:42→21:44)
[2021-12-14] MEDS: PRENATAL VITAMIN TABLET PO SCH (09:42)
[2021-12-14] MEDS: POTASSIUM CHLORIDE 20 MEQ TABLET PO SCH ×2 (09:42→17:10)
[2021-12-14] MEDS: EXEMESTANE 25 MG PO SCH (09:43)
[2021-12-14] MEDS: LETROZOLE 2.5 MG PO SCH (09:43)
[2021-12-14] MEDS: ACETAMINOPHEN 325 MG TABLET PO PRN ×2 (12:31→21:44)
--- NOTE | 2021-12-14 13:26 | PROVIDER PROGRESS NOTE ---
Assessment/Plan - Problem List (1) C. difficile diarrhea Assessment/Plan: Her initial diarrhea started on 12/04/21 and her stool tested C diff pos. The patient is on oral vancomycin. A 10-day course was planned, which would end after doses of today, 12/14/21. She had had formed BMs for 2 days. Last night, her diarrhea recurred, loose BMs increased frequency, without cramping or foul odor. It is likely from being on iv antibx for pneumonia Because of new diarrhea in a patient still being treated for C. difficile diarrhea, we will not recheck her for C. difficile (as it will likely be pos anyway), but we will extend the duration of treatment for another week of oral p.o. vancomycin. Will give Imodium to help firm up the stools and will continue the probiotic. Follow BMP and Mg daily She is not yet ready for discharge because she cannot take care of her self with recurrence of frequent loose BMs. I spoke to the brother today and updated him. Hopefully she will have impro vement in just a few days to be ready for discharge (2) HCAP She has had a cough for several days which is better after Mucinex and scheduled nebs were started. She also had pleuritic pain which is much better. She was retested for COVID and is neg. Empiric iv antibiotics were started for HCAP using iv Cefepime, plus Florastor. She is on scheduled nebulizers qid, IS and Mucinex. She has requested that the inhaler be changed to handheld puffers at discharge, because they help, but this change will be done until discharge. She had no asthma Hx and was never a smoker, however (3) Alcohol abuse Assessment/Plan: On 12/04/2021, several days after admission, it was learned (from her sister in phone call with our Soc. Worker) that the patient has a history of alcohol abuse, and prior alcohol withdrawal including alcohol withdrawal seizures. She was recently seen at [facility] for alcohol abuse and withdrawal. She is being continued on her home vitamin and thiamine here. There was consideration of Wernicke Korsakoff syndrome given her shuffling gait and confusion (including hallucinations) and with her CT head showing significant brain atrophy. Thus she was treated with high dose iv Thiamine 500 mg tid for 2 days, which finished several days ago, then we resumed her po Thiamine 100 mg daily. She has had improvement with mentation and with gait considerably and does not have Wernicke-Korsakoff syndrome. She has opened up about her alcohol abuse. She underwent a cognitive eval and scored 24/30. She had good insight into her problem as we spoke and voiced her plan to stop alcohol (join an online AA group, start taking the Antabuse ordered by her PCP, Flor Varma NP). A DMV form was sent in for medical reason not to be driving and she has been told DCh plan will be to go home, not to a SNF, as long as this plan is safe. Yesterday, the brother told the pt's RN that no real help is in place. SW was told that info and asked to see the pt. Today SW is not here (on a Sun). When I updated the brother about the new diarrhea, and that she will not be DCh today, he was told that he should work with the patient directly to help set up home caregivers. 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 The fall was when she stood on her chair at home to reach for something in a higher cupboard. It is unclear if she was taking Librium and pain meds and using alcohol which may have caused the fall. Patient had slurred speech and unsteady gait noticed on 12/03/2021. She had a CT of the head that showed no acute process but she has moderate cerebral atrophy. Her narcotics and Librium were put on hold. She started to have PT and OT and they are documenting that she had intermittent confusion, needed help with ADLs. She has a mild resting hand tremor bilaterally. PT and OT continue while she is here, since she has needed continued hospitalization for her C. difficile diarrhea and then for her new HCAP. (5) s/p left mastectomy Assessment/Plan: She has a hx of BRCA positive breast cancer, and s/p of left mastectomy, pt is under chemotherapy and followed by her oncologist as out-pt (6) Confusion Assessment/Plan: Resolved She was intermittently confused earlier this admission (she thought she was at home and could not find her dog, she saw her mother in her room, she was asking about where her washing machine is in this room, she says she lost 3 pairs of jeans that she "brought with her" [which she did not since she was brought in by ambulance]) Several days after this admission, we learned that she has alcohol abuse Hx. The records from her [facility] visit 3 weeks ago showed that she presented with complaint of alcohol withdrawal and was asking to be placed in an inpatient detox center, which she then declined. She told me she has been to and once in Inpt detox for a month. Ammonia and LFTs have been normal She underwent a cognitive evaluation by OT and she scored 24/30, indicating only mild cognitive impairment. She will be prevented from driving a vehicle. A DMV form was completed by me and submitted. [facility] plan will be to go home, not to a SNF, and she is hiring caregivers. SW has spoken with her (and the brother) yesterday and gave resources. (7) Hypoxia Assessment/Plan: Resolved. This was felt to be due to splinting because of probable bruised ribs caused by the fall at home. It improved and she is not hypoxic with the new HCAP. (8) Sepsis Assessment/Plan: Resolved. Pt presented with fever, tachycardia, tachypnea, and pt need supplement of O2 to support her O2 sats. CXR reveal Pulmonary Edema She received empiric Zosyn, had blood culture, UA culture, followed Lactic acid level. She has no more fever, WBC is at the normal range, blood cultures is negative for bacteremia, patient had normal oxygen saturations on room air, after getting antibiotics (9) Abdominal contusion Assessment/Plan: Resolved. Her abdominal pain and rib pain causing splinting was due to abdominal contusion from falling off of a chair at home. Continue Tylenol prn and ibuprofen as needed. (10) Acute urinary retention Assessment/Plan: Resolved. On 12/03/2021 the nurse reported she had annuria, and bladder scan show over 600m l urine. She had a straight cath, and Flomax started. We have now stopped Flomax. (11) Hypokalemia Resolved It was likely from loss with many days of diarrhea Will replace with oral KCL and K riders (12) Tachycardia Resolved. This was presumed to be due to volume depletion, new HCAP, coughing and pleuritic chest pain - Current Meds Current Meds: Current Medications Generic Name Dose Route Start Last Admin Trade Name Freq PRN Reason Stop Dose Admin Acetaminophen 650 mg 11/30/21 07:20 12/14/21 12:31 Acetaminophen 325 Mg Tablet PO 650 mg Q4HR PRN Administration Pain 1 to 4, or Fever Bupropion HCl 300 mg 12/03/21 09:00 12/14/21 09:34 Bupropion Xl 150 Mg Tablet PO 300 mg DAILY JULISSA Administration Calcium Carbonate/Glycine 500 mg 12/11/21 09:00 12/14/21 09:42 Calcium Carbonate Chew 500 Mg Tablet PO 500 mg BID JULISSA Administration Enoxaparin Sodium 40 mg 11/30/21 09:00 12/14/21 09:42 Enoxaparin 40 Mg/0.4 Ml Syringe SUBQ 40 mg DAILY JULISSA Administration Guaifenesin 600 mg 12/12/21 09:00 12/14/21 09:35 Guaifenesin 600 Mg Tablet PO 600 mg BID JULISSA Administration Cefepime HCl 2 gm/ Sodium 100 mls @ 200 mls/hr 12/10/21 21:00 12/14/21 10:24 Chloride IV Infused BID JULISSA Infusion Levalbuterol HCl 1.25 mg 12/13/21 07:14 12/14/21 11:20 Levalbuterol 1.25 Mg/3 Ml Neb INH 1.25 mg RTQID JULISSA Administration Loperamide HCl 2 mg 12/14/21 07:47 12/14/21 12:31 Loperamide 2 Mg Capsule PO 2 mg QID PRN Administration Diarrhea Lorazepam 0.25 mg 12/07/21 20:00 12/12/21 16:49 Lorazepam 0.5 Mg Tablet PO 0.25 mg QPM PRN Administration Anxiety Multi-Ingredient Mouthwash/Gargle 30 ml 12/03/21 14:04 12/13/21 18:44 Gi Cocktail 120 Ml Bottle PO 30 ml Q4H PRN Administration Abdominal Pain Ondansetron HCl 4 mg 11/30/21 07:20 12/12/21 08:23 Ondansetron 4 Mg/2 Ml Vial IVP 4 mg Q6HR PRN Administration Nausea / Vomiting Pantoprazole Sodium 40 mg 12/02/21 18:00 12/14/21 05:19 Pantoprazole 40 Mg Tablet PO 40 mg QDAC JULISSA Administration Exemestane [ 1 each 12/03/21 09:00 12/14/21 09:43 Exemestane] 25 Mg PO Not Given Tablet DAILY JULISSA Letrozole 2.5 Mg 1 each 12/03/21 09:00 12/14/21 09:43 Tabs PO Not Given DAILY JULISSA Potassium Chloride 20 meq 12/11/21 09:00 12/14/21 09:42 Potassium Chloride 20 Meq Tablet PO 20 meq BIDWM JULISSA Administration Multivit/Folic Acid/Iron 1 tab 12/03/21 08:00 12/14/21 09:42 Vitamin Tablet PO 1 tab DAILYWM JULISSA Administration Saccharomyces Boulardii 250 mg 12/10/21 17:00 12/14/21 09:34 Saccharomyces Boulardii 250 Mg Capsule PO 250 mg BIDWM JULISSA Administration Sodium Chloride 10 ml 11/30/21 07:20 12/04/21 14:05 Sodium Chloride Flush 0.9% 10 Ml Syringe IVP 10 ml PRN PRN Administration NEEDED PER PROVIDER ORDERS Sodium Chloride 10 ml 11/30/21 09:00 12/14/21 09:42 Sodium Chloride Flush 0.9% 10 Ml Syringe IVP 10 ml 0100,0900,1700 JULISSA Administration Thiamine HCl 100 mg 12/09/21 09:00 12/14/21 09:34 Thiamine 100 Mg Tablet PO 100 mg DAILY JULISSA Administration Throat Lozenges 1 lozenge 12/10/21 06:56 12/13/21 20:01 Benzocaine/Menthol Lozenge MM 1 lozenge Q2HR PRN Administration Throat pain Trazodone HCl 75 mg 12/03/21 21:00 12/13/21 21:10 Trazodone 50 Mg Tablet PO 75 mg QPM JULISSA Administration Vancomycin HCl 125 mg 12/04/21 13:00 12/14/21 12:31 Vancomycin 125 Mg Capsule PO 125 mg QID JULISSA Administration - Lab Result Fish Bone Diagrams: 12/13/21 05:19 12/13/21 05:19 - Additional Planning My Orders: My Active Orders 12/14/21 07:47 Loperamide [Imodium] 2 mg PO QID PRN Subjective - Subjective Patient Reports: Diarrhea Nursing Reports: Other (Loose watery stool x4 overnight) Objective Vital Signs: Vital Signs - 24 hr 12/13/21 12/13/21 12/13/21 15:25 16:00 19:15 Temperature 36.9 C Heart Rate 72 100 Heart Rate [ 103 H Brachial] Respiratory 18 18 18 Rate Blood Pressure 134/90 H [Right Brachial artery] O2 Saturation 94 12/14/21 12/14/21 12/14/21 00:47 07:16 08:04 Temperature 37.1 C 36.9 C Heart Rate 89 Heart Rate [ 96 96 Brachial] Respiratory 16 18 18 Rate Blood Pressure 117/83 H 121/88 H [Right Brachial artery] O2 Saturation 95 93 12/14/21 11:22 Temperature Heart Rate 97 Heart Rate [ Brachial] Respiratory 20 Rate Blood Pressure [Right Brachial artery] O2 Saturation Oxygen O2 Source [Without Activity] Room air O2 Source Room air Oxygen Flow Rate 4 I&O (Last 24 Hrs): Intake and Output Totals x24h 12/12/21 12/13/21 12/14/21 23:59 23:59 23:59 Intake Total 720 1780 940 Output Total 1125 Balance -405 1780 940 General: Alert HEENT: Mucous membr. moist/pink Neck: Supple Neuro: Other (B hand tremor) Cardiovascular: Regular rate Respiratory: No respiratory distress Abdomen: Soft Extremities: No edema - Results Results: Laboratory Results WBC 8.1 x10^3/uL (4.8-10.8) 12/13/21 05:19 RBC 3.39 10^6/uL (4.20-5.40) L 12/13/21 05:19 Hgb 10.4 g/dL (12.0-16.0) L 12/13/21 05:19 Hct 31.7 % (37.0-47.0) L 12/13/21 05:19 MCV 93.5 fL (81.0-99.0) 12/13/21 05:19 MCH 30.7 pg (27.0-31.0) 12/13/21 05:19 MCHC 32.8 g/dL (32.0-36.0) 12/13/21 05:19 RDW 15.1 % (12.0-15.0) H 12/13/21 05:19 Plt Count 550 10^3/uL (130-450) H 12/13/21 05:19 MPV 9.6 fL (7.9-10.8) 12/13/21 05:19 Neut # (Auto) 6.0 10^3/uL (1.5-6.6) 12/13/21 05:19 Lymph # (Auto) 0.8 10^3/uL (1.5-3.5) L 12/13/21 05:19 [place] # (Auto) 1.2 10^3/uL (0.0-1.0) H 12/13/21 05:19 Eos # (Auto) 0.0 10^3/uL (0.0-0.7) 12/13/21 05:19 Baso # (Auto) 0.1 10^3/uL (0.0-0.1) 12/13/21 05:19 Absolute Nucleated RBC 0.00 x10^3/uL 12/13/21 05:19 Nucleated RBC % 0.0 /100WBC 12/13/21 05:19 Sodium 133 mmol/L (135-145) L 12/13/21 05:19 Potassium 3.8 mmol/L (3.5-5.0) 12/13/21 05:19 Chloride 97 mmol/L (101-111) L 12/13/21 05:19 Carbon Dioxide 26 mmol/L (21-32) 12/13/21 05:19 Anion Gap 10.0 (6-13) 12/13/21 05:19 BUN 5 mg/dL (6-20) L 12/13/21 05:19 Creatinine 0.5 mg/dL (0.4-1.0) 12/13/21 05:19 Estimated GFR (MDRD) 127 (>89) 12/13/21 05:19 Glucose 105 mg/dL (70-100) H 12/13/21 05:19 Lactic Acid 1.1 mmol/L (0.5-2.2) 12/02/21 17:50 Calcium 8.1 mg/dL (8.5-10.3) L 12/13/21 05:19 Total Bilirubin 0.6 mg/dL (0.2-1.0) 12/12/21 08:40 AST 30 IU/L (10-42) 12/12/21 08:40 ALT 31 IU/L (10-60) 12/12/21 08:40 Alkaline Phosphatase 71 IU/L (42-121) 12/12/21 08:40 Ammonia 29.5 umol/L (7-35) 12/08/21 04:56 Troponin I High Sens 4.9 ng/L (2.3-14.8) 12/12/21 08:40 B-Natriuretic Peptide 234 pg/mL (5-100) H 12/12/21 08:40 Total Protein 6.2 g/dL (6.7-8.2) L 12/12/21 08:40 Albumin 2.1 g/dL (3.2-5.5) L 12/12/21 08:40 Globulin 4.1 g/dL (2.1-4.2) 12/12/21 08:40 Albumin/Globulin Ratio 0.5 (1.0-2.2) L 12/12/21 08:40 Lipase 21 U/L (22-51) L 11/30/21 00:53 Tumor Marker AFP <0.9 ng/mL (0.0-9.2) 12/02/21 17:43 CA 19-9 Antigen 8 U/mL (0-35) 12/02/21 17:43 Vitamin D 25-Hydroxy 12.5 ng/mL (30.0-100.0) L 12/13/21 08:40 Urine Color YELLOW 12/02/21 20:45 Urine Clarity CLEAR (CLEAR) 12/02/21 20:45 Urine pH 6.5 PH (5.0-7.5) 12/02/21 20:45 Ur Specific [place] 1.010 (1.002-1.030) 12/02/21 20:45 Urine Protein NEGATIVE mg/dL (NEGATIVE) 12/02/21 20:45 Urine Glucose (UA) NEGATIVE mg/dL (NEGATIVE) 12/02/21 20:45 Urine Ketones TRACE mg/dL (NEGATIVE) 12/02/21 20:45 Urine Occult Blood NEGATIVE (NEGATIVE) 12/02/21 20:45 Urine Nitrite NEGATIVE (NEGATIVE) 12/02/21 20:45 Urine Bilirubin NEGATIVE (NEGATIVE) 12/02/21 20:45 Urine Urobilinogen 0.2 (NORMAL) E.U./dL (NORMAL) 12/02/21 20:45 Ur Leukocyte Esterase NEGATIVE (NEGATIVE) 12/02/21 20:45 Urine RBC 0-5 /HPF (0-5) 12/02/21 20:45 Urine WBC 0-3 /HPF (0-5) 12/02/21 20:45 Ur Epithelial Cells RARE Transitional /HPF (<= Few) 12/02/21 20:45 Ur Squamous Epith Cells RARE Squamous (<= Few) 12/02/21 20:45 Urine Bacteria Rare /HPF (None Seen) 12/02/21 20:45 Urine Mucus Moderate Strands 12/02/21 18:30 Urine Culture Comments NOT INDICATED 12/02/21 20:45 Nasal Adenovirus (PCR) NOT DETECTED 11/30/21 04:30 Nasal B. parapertussis DNA (PCR) NOT DETECTED 11/30/21 04:30 Nasal Coronavir 229E PCR NOT DETECTED 11/30/21 04:30 Nasal Coronavir HKU1 PCR NOT DETECTED 11/30/21 04:30 Nasal Coronavir NL63 PCR NOT DETECTED 11/30/21 04:30 Nasal Coronavir OC43 PCR NOT DETECTED 11/30/21 04:30 Nasal Enterovir/Rhinovir PCR NOT DETECTED 11/30/21 04:30 Nasal Influenza B PCR NOT DETECTED 11/30/21 04:30 Nasal Influenza A PCR NOT DETECTED 11/30/21 04:30 Nasal Parainfluen 1 PCR NOT DETECTED 11/30/21 04:30 Nasal Parainfluen 2 PCR NOT DETECTED 11/30/21 04:30 Nasal Parainfluen 3 PCR NOT DETECTED 11/30/21 04:30 Nasal Parainfluen 4 PCR NOT DETECTED 11/30/21 04:30 Nasal RSV (PCR) NOT DETECTED 11/30/21 04:30 Nasal B.pertussis DNA PCR NOT DETECTED 11/30/21 04:30 Nasal C.pneumoniae (PCR) NOT DETECTED 11/30/21 04:30 Jacinto Human Metapneumo PCR NOT DETECTED 11/30/21 04:30 Nasal M.pneumoniae (PCR) NOT DETECTED 11/30/21 04:30 Nasal SARS-CoV-2 (PCR) NOT DETECTED 11/30/21 04:30 Stl C. diff Tox B Gene POSITIVE (NEGATIVE) A* 12/04/21 09:38 Urine Opiates Screen POSITIVE (NEGATIVE) H 11/30/21 18:48 Ur Oxycodone Screen POSITIVE (NEGATIVE) H 11/30/21 18:48 Urine Methadone Screen NEGATIVE (NEGATIVE) 11/30/21 18:48 Ur Propoxyphene Screen NEGATIVE (NEGATIVE) 11/30/21 18:48 Ur Barbiturates Screen NEGATIVE (NEGATIVE) 11/30/21 18:48 Ur Tricyclics Screen NEGATIVE (NEGATIVE) 11/30/21 18:48 Ur Phencyclidine Scrn NEGATIVE (NEGATIVE) 11/30/21 18:48 Ur Amphetamine Screen NEGATIVE (NEGATIVE) 11/30/21 18:48 U Methamphetamines Scrn NEGATIVE (NEGATIVE) 11/30/21 18:48 U Benzodiazepines Scrn POSITIVE (NEGATIVE) H 11/30/21 18:48 Urine Cocaine Screen NEGATIVE (NEGATIVE) 11/30/21 18:48 U Cannabinoids Screen NEGATIVE (NEGATIVE) 11/30/21 18:48 Ethyl Alcohol < 5.0 mg/dL 11/30/21 00:53 - Procedures Procedures: Procedures EXCISE AXILLARY NODE (05/22/14) INSERTION OF TOTALLY IMPLANTABLE VASC ACCESS DEVIC (05/22/14) SUBTOTAL MASTECTOMY (05/22/14) Sepsis Event Note (H) - Evaluation Current Stage of Sepsis: Ruled out Possible source of Sepsis: positive: Pulmonary - Sepsis Criteria Sepsis Criteria: Recorded Temperature greater than 38.3C or Less than 36C, Recorded Heart Rate greater than 90 bpm, Recorded Respiratory Rate greater than 20
[2021-12-14] MEDS: traZODone 50 MG TABLET PO SCH (21:44)
[2021-12-15] MEDS: PANTOPRAZOLE 40 MG TABLET PO SCH (05:44)
[2021-12-15] MEDS: SODIUM CHLORIDE FLUSH 0.9% 10 ML SYRINGE IVP SCH ×3 (05:45→16:39)
[2021-12-15] MEDS: LEVALBUTEROL 1.25 MG/3 ML NEB INH SCH ×4 (07:27→22:23)
[2021-12-15] MEDS: VANCOMYCIN 125 MG CAPSULE PO SCH ×4 (08:23→21:47)
[2021-12-15] MEDS: buPROPion XL 150 MG TABLET PO SCH (08:23)
[2021-12-15] MEDS: ACETAMINOPHEN 325 MG TABLET PO PRN ×4 (08:23→23:50)
[2021-12-15] MEDS: guaiFENesin 600 MG TABLET PO SCH ×2 (08:23→21:43)
[2021-12-15] MEDS: THIAMINE 100 MG TABLET PO SCH (08:23)
[2021-12-15] MEDS: PRENATAL VITAMIN TABLET PO SCH (08:23)
[2021-12-15] MEDS: POTASSIUM CHLORIDE 20 MEQ TABLET PO SCH ×2 (08:23→16:39)
[2021-12-15] MEDS: CEFEPIME 2 GM in SODIUM CHLORIDE 0.9% MINIBAG 100 ML IV SCH ×2 (08:23→21:42)
[2021-12-15] MEDS: SACCHAROMYCES BOULARDII 250 MG CAPSULE PO SCH ×2 (08:23→16:39)
[2021-12-15] MEDS: CALCIUM CARBONATE CHEW 500 MG TABLET PO SCH ×2 (08:23→21:42)
[2021-12-15] MEDS: EXEMESTANE 25 MG PO SCH (08:24)
[2021-12-15] MEDS: LETROZOLE 2.5 MG PO SCH (08:24)
[2021-12-15] MEDS: ENOXAPARIN 40 MG/0.4 ML SYRINGE SUBQ SCH (08:24)
[2021-12-15] MEDS ORDERED: PSYLLIUM PACKET PO PRN (11:48)
[2021-12-15] MEDS ORDERED: WITCH HAZEL/GLYCERIN 1 PAD TOP PRN (12:26)
[2021-12-15 12:56] LABS: BASOPHILS # (AUTO) 0.1 10^3/uL (0.0-0.1); BASOPHILS % (AUTO) 1.1 %; EOSINOPHILS # (AUTO) 0.1 10^3/uL (0.0-0.7); EOSINOPHILS % (AUTO) 2.5 %; HCT - HEMATOCRIT 36.3 % (37.0-47.0); HGB - HEMOGLOBIN 11.6 g/dL (12.0-16.0); LYMPHOCYTES % (AUTO) 17.5 %; MEAN CORPUSCULAR HEMOGLOBIN 30.9 pg (27.0-31.0); MEAN CORPUSCULAR VOLUME 96.5 fL (81.0-99.0); MEAN PLATELET VOLUME 9.2 fL (7.9-10.8); MONOCYTES # (AUTO) 0.8 10^3/uL (0.0-1.0); MONOCYTES % (AUTO) 13.8 %; NEUTROPHILS # (AUTO) 3.7 10^3/uL (1.5-6.6); NEUTROPHILS % (AUTO) 64.6 %; PLT - PLATELET COUNT 595 10^3/uL (130-450); RED BLOOD COUNT 3.76 10^6/uL (4.20-5.40); RED CELL DISTRIBUTION WIDTH 14.8 % (12.0-15.0); WHITE BLOOD COUNT 5.7 x10^3/uL (4.8-10.8)
[2021-12-15] MEDS: CHOLECALCIFEROL 5,000 UNIT CAPSULE PO SCH (13:06)
[2021-12-15] MEDS: BENZOCAINE/MENTHOL LOZENGE MM PRN ×2 (13:06→23:50)
[2021-12-15] MEDS: ZINC SULFATE 220 MG CAPSULE PO SCH (13:06)
[2021-12-15 13:07] LABS: CALCIUM 8.8 mg/dL (8.5-10.3); CREATININE 0.6 mg/dL (0.4-1.0); MAGNESIUM 1.8 mg/dL (1.7-2.8); POTASSIUM 4.5 mmol/L (3.5-5.0)
[2021-12-15] MEDS: LOPERAMIDE 2 MG CAPSULE PO PRN ×3 (13:22→21:43)
--- NOTE | 2021-12-15 18:53 | PROVIDER PROGRESS NOTE ---
Assessment/Plan - Problem List (1) C. difficile diarrhea Assessment/Plan: Her initial diarrhea started on 12/04/21 and her stool tested C diff pos. The patient is on oral vancomycin. A 10-day course was planned, which would end after doses of yesterday, 12/14/21, since she had had formed BMs for 2 days. But 2 days ago, her diarrhea recurred, loose BMs increased frequency, without c ramping or foul odor. It is likely from being on iv antibx for pneumonia Because of new diarrhea in a patient still being treated for C. difficile diarrhea, we will not recheck her for C. difficile (as it will likely be pos anyway), but we will extend the duration of treatment for another week of oral p.o. vancomycin. Will give Imodium and Metamucil to help firm up the stools and will continue the probiotic. Follow BMP and Mg daily She is not yet ready for discharge because she cannot take care of her self with recurrence of frequent loose BMs. I spoke to the brother yesterday and updated him. Hopefully she will have improvement in just a few days to be ready for discharge (2) HCAP She has had a cough for several days which is better after Mucinex and scheduled nebs were started. She also had pleuritic pain which is much better. She was retested for COVID and is neg. Empiric iv antibiotics were started for HCAP using iv Cefepime, plus Florastor. She is on scheduled nebulizers qid, IS and Mucinex. She has requested that the inhaler be changed to handheld puffers at discharge, because they help, but this change will be done until discharge. She had no asth ma history and was never a smoker, however (3) Alcohol abuse Assessment/Plan: On 12/04/2021, several days after admission, it was learned (from her sister in phone call with our Soc. Worker) that the patient has a history of alcohol abuse, and prior alcohol withdrawal including alcohol withdrawal seizures. She was recently seen at [facility] for alcohol abuse and withdrawal. She is being continued on her home vitamin and thiamine here. There was consideration of Wernicke Korsakoff syndrome given her shuffling gait and confusion (including hallucinations) and with her CT head showing significant brain atrophy. Thus she was treated with high dose iv Thiamine 500 mg tid for 2 days, which finished several days ago, then we resumed her po Thiamine 100 mg daily. She has had improvement with mentation and with gait considerably and does not seem to have Wernicke-Korsakoff syndrome. She has opened up about her alcohol abuse. She had good insight into her problem as we spoke and voiced her plan to stop alcohol (join an online AA group, start taking the Antabuse ordered by her PCP, Flor Varma NP). She underwent a cognitive eval and scored 24/30. A DMV form was sent in for medical reason not to be driving and she has been told [facility] plan will be to go home, not to a SNF, as long as this plan is safe. Yesterday, the brother told the pt's RN that no real help is in place yet. When I updated the brother about the new diarrhea, and that she will not be DCh this recent last Sun, he said she tells us that 2 friends will be hired by her, but that nothing is really in place. SW was told that info. 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 The fall was when she stood on her chair at home to reach for something in a higher cupboard. It is unclear if she was taking Librium and pain meds and using alcohol which may have caused the fall. Patient had slurred speech and unsteady gait noticed on 12/03/2021. She had a CT of the head that showed no acute process but she has moderate cerebral atrophy. Her narcotics and Librium were then put on hold. She started to have PT and OT and they are documenting that she had intermittent confusion, needed help with ADLs. She has a mild resting hand tremor bilaterally. PT and OT continue while she is here, since she has needed continued hospitalization for her C. difficile diarrhea and then for her new HCAP. (5) s/p left mastectomy Assessment/Plan: She has a hx of BRCA positive breast cancer, and s/p of left mastectomy, pt is under chemotherapy and followed by her oncologist as out-pt (6) Confusion Assessment/Plan: Resolved She was intermittently confused earlier this admission (she thought she was at home and could not find her dog, she saw her mother in her room, she was asking about where her washing machine is in this room, she says she lost 3 pairs of jeans that she "brought with her" [which she did not since she was brought in by ambulance]) Several days after this admission, we learned that she has alcohol abuse Hx. The records from her [facility] visit 3 weeks ago showed that she presented with complaint of alcohol withdrawal and was asking to be placed in an inpatient detox center, which she then declined. She told me she has been to and once in Inpt detox for a month. Ammonia and LFTs have been normal She underwent a cognitive evaluation by OT and she scored 24/30, indicating only mild cognitive impairment. She will be prevented from driving a vehicle. A DMV form was completed by me and submitted. [facility] plan will be to go home, not to a SNF, and she is hiring caregivers. SW has spoken with her (and the brother) yesterday and gave resources. (7) Hypoxia Assessment/Plan: Resolved. This was felt to be due to splinting because of probable bruised ribs caused by the fall at home. It improved and she is not hypoxic with the new HCAP. (8) Sepsis Assessment/Plan: Resolved. Pt presented with fever, tachycardia, tachypnea, and pt need supplement of O2 to support her O2 sats. CXR reveal Pulmonary Edema She received empiric Zosyn, had blood culture, UA culture, followed Lactic acid level. She has no more fever, WBC is at the normal range, blood cultures is negative for bacteremia, patient had normal oxygen saturations on room air, after getting antibiotics (9) Abdominal contusion Assessment/Plan: Resolved. Her abdominal pain and rib pain causing splinting was due to abdominal contusion from falling off of a chair at home. Continue Tylenol prn and ibuprofen as needed. (10) Acute urinary retention Assessment/Plan: Resolved. On 12/03/2021 the nurse reported she had annuria, and bladder scan show over 600m l urine. She had a straight cath, and Flomax started. We have now stopped Flomax. (11) Hypokalemia Resolved It was likely from loss with many days of diarrhea Will replace with oral KCL and K riders (12) Tachycardia Resolved. This was presumed to be due to volume depletion, new HCAP, coughing and pleuritic chest pain - Current Meds Current Meds: Current Medications Generic Name Dose Route Start Last Admin Trade Name Freq PRN Reason Stop Dose Admin Acetaminophen 650 mg 11/30/21 07:20 12/15/21 13:06 Acetaminophen 325 Mg Tablet PO 650 mg Q4HR PRN Administration Pain 1 to 4, or Fever Bupropion HCl 300 mg 12/03/21 09:00 12/15/21 08:23 Bupropion Xl 150 Mg Tablet PO 300 mg DAILY JULISSA Administration Calcium Carbonate/Glycine 500 mg 12/11/21 09:00 12/15/21 08:23 Calcium Carbonate Chew 500 Mg Tablet PO 500 mg BID JULISSA Administration Cholecalciferol 5,000 unit 12/15/21 12:00 12/15/21 13:06 Cholecalciferol 5,000 Unit Capsule PO 5,000 unit DAILY JULISSA Administration Enoxaparin Sodium 40 mg 11/30/21 09:00 12/15/21 08:24 Enoxaparin 40 Mg/0.4 Ml Syringe SUBQ 40 mg DAILY JULISSA Administration Guaifenesin 600 mg 12/12/21 09:00 12/15/21 08:23 Guaifenesin 600 Mg Tablet PO 600 mg BID JULISSA Administration Cefepime HCl 2 gm/ Sodium 100 mls @ 200 mls/hr 12/10/21 21:00 12/15/21 09:02 Chloride IV Infused BID JULISSA Infusion Levalbuterol HCl 1.25 mg 12/13/21 07:14 12/15/21 14:21 Levalbuterol 1.25 Mg/3 Ml Neb INH 1.25 mg RTQID JULISSA Administration Loperamide HCl 2 mg 12/14/21 07:47 12/15/21 13:22 Loperamide 2 Mg Capsule PO 2 mg QID PRN Administration Diarrhea Lorazepam 0.25 mg 12/07/21 20:00 12/12/21 16:49 Lorazepam 0.5 Mg Tablet PO 0.25 mg QPM PRN Administration Anxiety Multi-Ingredient Mouthwash/Gargle 30 ml 12/03/21 14:04 12/13/21 18:44 Gi Cocktail 120 Ml Bottle PO 30 ml Q4H PRN Administration Abdominal Pain Ondansetron HCl 4 mg 11/30/21 07:20 12/12/21 08:23 Ondansetron 4 Mg/2 Ml Vial IVP 4 mg Q6HR PRN Administration Nausea / Vomiting Pantoprazole Sodium 40 mg 12/02/21 18:00 12/15/21 05:44 Pantoprazole 40 Mg Tablet PO 40 mg QDAC JULISSA Administration Exemestane [ 1 each 12/03/21 09:00 12/15/21 08:24 Exemestane] 25 Mg PO Not Given Tablet DAILY JULISSA Letrozole 2.5 Mg 1 each 12/03/21 09:00 12/15/21 08:24 Tabs PO Not Given DAILY [facility] Potassium Chloride 20 meq 12/11/21 09:00 12/15/21 16:39 Potassium Chloride 20 Meq Tablet PO 20 meq BIDWM JULISSA Administration Multivit/Folic Acid/Iron 1 tab 12/03/21 08:00 12/15/21 08:23 Vitamin Tablet PO 1 tab DAILYWM JULISSA Administration Saccharomyces Boulardii 250 mg 12/10/21 17:00 12/15/21 16:39 Saccharomyces Boulardii 250 Mg Capsule PO 250 mg BIDWM JULISSA Administration Sodium Chloride 10 ml 11/30/21 07:20 12/04/21 14:05 Sodium Chloride Flush 0.9% 10 Ml Syringe IVP 10 ml PRN PRN Administration NEEDED PER PROVIDER ORDERS Sodium Chloride 10 ml 11/30/21 09:00 12/15/21 16:39 Sodium Chloride Flush 0.9% 10 Ml Syringe IVP 10 ml 0100,0900,1700 JULISSA Administration Thiamine HCl 100 mg 12/09/21 09:00 12/15/21 08:23 Thiamine 100 Mg Tablet PO 100 mg DAILY JULISSA Administration Throat Lozenges 1 lozenge 12/10/21 06:56 12/15/21 13:06 Benzocaine/Menthol Lozenge MM 1 lozenge Q2HR PRN Administration Throat pain Trazodone HCl 75 mg 12/03/21 21:00 12/14/21 21:44 Trazodone 50 Mg Tablet PO 75 mg QPM JULISSA Administration Vancomycin HCl 125 mg 12/04/21 13:00 12/15/21 16:39 Vancomycin 125 Mg Capsule PO 125 mg QID JULISSA Administration Witch [place]/Glycerin 1 pad 12/15/21 12:26 12/15/21 13:08 [place]/Glycerin 1 Pad TOP 1 pad PRN PRN Administration ITCHING Zinc Sulfate 220 mg 12/15/21 12:00 12/15/21 13:06 Zinc Sulfate 220 Mg Capsule PO 12/19/21 12:59 220 mg QDLUNCH JULISSA Administration - Lab Result Fish Bone Diagrams: 12/16/21 04:53 12/16/21 04:53 - Additional Planning My Orders: My Active Orders 12/15/21 11:48 Psyllium [Metamucil] 1 packet PO DAILY PRN 12/15/21 12:00 Cholecalciferol [Vitamin D3] 5,000 unit PO DAILY Zinc Sulfate 220 mg PO QDLUNCH 12/15/21 12:26 [place]/Glycerin [Tucks] 1 pad TOP PRN PRN 12/15/21 18:51 Hydrocortisone 1% Cream [Hydrocortisone] 1 applic TOP QID PRN 12/16/21 05:00 BMP - BASIC METABOLIC PANEL [CHEM] DAILYLAB CBC - COMP BLD CT W/AUTO DIFF [HEME] DAILYLAB MAGNESIUM [CHEM] DAILYLAB 12/17/21 05:00 BMP - BASIC METABOLIC PANEL [CHEM] DAILYLAB CBC - COMP BLD CT W/AUTO DIFF [HEME] DAILYLAB 12/18/21 05:00 BMP - BASIC METABOLIC PANEL [CHEM] DAILYLAB CBC - COMP BLD CT W/AUTO DIFF [HEME] DAILYLAB Subjective - Subjective Patient Reports: Diarrhea (and this has caused a large painful hemorrhoid, requests Hydrocortisone cream) Objective Vital Signs: Vital Signs - 24 hr 12/14/21 12/15/21 12/15/21 20:00 00:00 07:27 Temperature 37.0 C Heart Rate 95 90 Heart Rate [ 92 Brachial] Respiratory 18 16 18 Rate Blood Pressure 121/91 H [Right Brachial artery] O2 Saturation 95 12/15/21 12/15/21 12/15/21 08:00 11:19 14:21 Temperature 36.6 C Heart Rate 80 80 Heart Rate [ 99 Brachial] Respiratory 18 18 20 Rate Blood Pressure 128/91 H [Right Brachial artery] O2 Saturation 95 12/15/21 16:37 Temperature 36.7 C Heart Rate Heart Rate [ 100 Brachial] Respiratory 19 Rate Blood Pressure 136/89 H [Right Brachial artery] O2 Saturation 96 Oxygen O2 Source [Without Activity] Room air O2 Source Room air Oxygen Flow Rate 4 I&O (Last 24 Hrs): Intake and Output Totals x24h 12/13/21 12/14/21 12/15/21 23:59 23:59 23:59 Intake Total 1780 1730 1170 Output Total 500 Balance 1780 1230 1170 General: Alert, Oriented x3 HEENT: EOMI, Mucous membr. moist/pink Neck: Supple Neuro: Alert Cardiovascular: Regular rate Respiratory: No respiratory distress Abdomen: Soft Extremities: No edema - Results Results: Laboratory Results WBC 5.7 x10^3/uL (4.8-10.8) 12/15/21 12:43 RBC 3.76 10^6/uL (4.20-5.40) L 12/15/21 12:43 Hgb 11.6 g/dL (12.0-16.0) L 12/15/21 12:43 Hct 36.3 % (37.0-47.0) L 12/15/21 12:43 MCV 96.5 fL (81.0-99.0) 12/15/21 12:43 MCH 30.9 pg (27.0-31.0) 12/15/21 12:43 MCHC 32.0 g/dL (32.0-36.0) 12/15/21 12:43 RDW 14.8 % (12.0-15.0) 12/15/21 12:43 Plt Count 595 10^3/uL (130-450) H 12/15/21 12:43 MPV 9.2 fL (7.9-10.8) 12/15/21 12:43 Neut # (Auto) 3.7 10^3/uL (1.5-6.6) 12/15/21 12:43 Lymph # (Auto) 1.0 10^3/uL (1.5-3.5) L 12/15/21 12:43 Mcintosh # (Auto) 0.8 10^3/uL (0.0-1.0) 12/15/21 12:43 Eos # (Auto) 0.1 10^3/uL (0.0-0.7) 12/15/21 12:43 Baso # (Auto) 0.1 10^3/uL (0.0-0.1) 12/15/21 12:43 Absolute Nucleated RBC 0.00 x10^3/uL 12/15/21 12:43 Nucleated RBC % 0.0 /100WBC 12/15/21 12:43 Sodium 131 mmol/L (135-145) L 12/15/21 12:43 Potassium 4.5 mmol/L (3.5-5.0) 12/15/21 12:43 Chloride 94 mmol/L (101-111) L 12/15/21 12:43 Carbon Dioxide 28 mmol/L (21-32) 12/15/21 12:43 Anion Gap 9.0 (6-13) 12/15/21 12:43 BUN 7 mg/dL (6-20) 12/15/21 12:43 Creatinine 0.6 mg/dL (0.4-1.0) 12/15/21 12:43 Estimated GFR (MDRD) 103 (>89) 12/15/21 12:43 Glucose 112 mg/dL (70-100) H 12/15/21 12:43 Lactic Acid 1.1 mmol/L (0.5-2.2) 12/02/21 17:50 Calcium 8.8 mg/dL (8.5-10.3) 12/15/21 12:43 Magnesium 1.8 mg/dL (1.7-2.8) 12/15/21 12:43 Total Bilirubin 0.6 mg/dL (0.2-1.0) 12/12/21 08:40 AST 30 IU/L (10-42) 12/12/21 08:40 ALT 31 IU/L (10-60) 12/12/21 08:40 Alkaline Phosphatase 71 IU/L (42-121) 12/12/21 08:40 Ammonia 29.5 umol/L (7-35) 12/08/21 04:56 Troponin I High Sens 4.9 ng/L (2.3-14.8) 12/12/21 08:40 B-Natriuretic Peptide 234 pg/mL (5-100) H 12/12/21 08:40 Total Protein 6.2 g/dL (6.7-8.2) L 12/12/21 08:40 Albumin 2.1 g/dL (3.2-5.5) L 12/12/21 08:40 Globulin 4.1 g/dL (2.1-4.2) 12/12/21 08:40 Albumin/Globulin Ratio 0.5 (1.0-2.2) L 12/12/21 08:40 Lipase 21 U/L (22-51) L 11/30/21 00:53 Tumor Marker AFP <0.9 ng/mL (0.0-9.2) 12/02/21 17:43 CA 19-9 Antigen 8 U/mL (0-35) 12/02/21 17:43 Vitamin D 25-Hydroxy 12.5 ng/mL (30.0-100.0) L 12/13/21 08:40 Urine Color YELLOW 12/02/21 20:45 Urine Clarity CLEAR (CLEAR) 12/02/21 20:45 Urine pH 6.5 PH (5.0-7.5) 12/02/21 20:45 Ur Specific [place] 1.010 (1.002-1.030) 12/02/21 20:45 Urine Protein NEGATIVE mg/dL (NEGATIVE) 12/02/21 20:45 Urine Glucose (UA) NEGATIVE mg/dL (NEGATIVE) 12/02/21 20:45 Urine Ketones TRACE mg/dL (NEGATIVE) 12/02/21 20:45 Urine Occult Blood NEGATIVE (NEGATIVE) 12/02/21 20:45 Urine Nitrite NEGATIVE (NEGATIVE) 12/02/21 20:45 Urine Bilirubin NEGATIVE (NEGATIVE) 12/02/21 20:45 Urine Urobilinogen 0.2 (NORMAL) E.U./dL (NORMAL) 12/02/21 20:45 Ur Leukocyte Esterase NEGATIVE (NEGATIVE) 12/02/21 20:45 Urine RBC 0-5 /HPF (0-5) 12/02/21 20:45 Urine WBC 0-3 /HPF (0-5) 12/02/21 20:45 Ur Epithelial Cells RARE Transitional /HPF (<= Few) 12/02/21 20:45 Ur Squamous Epith Cells RARE Squamous (<= Few) 12/02/21 20:45 Urine Bacteria Rare /HPF (None Seen) 12/02/21 20:45 Urine Mucus Moderate Strands 12/02/21 18:30 Urine Culture Comments NOT INDICATED 12/02/21 20:45 Nasal Adenovirus (PCR) NOT DETECTED 11/30/21 04:30 Nasal B. parapertussis DNA (PCR) NOT DETECTED 11/30/21 04:30 Nasal Coronavir 229E PCR NOT DETECTED 11/30/21 04:30 Nasal Coronavir HKU1 PCR NOT DETECTED 11/30/21 04:30 Nasal Coronavir NL63 PCR NOT DETECTED 11/30/21 04:30 Nasal Coronavir OC43 PCR NOT DETECTED 11/30/21 04:30 Nasal Enterovir/Rhinovir PCR NOT DETECTED 11/30/21 04:30 Nasal Influenza B PCR NOT DETECTED 11/30/21 04:30 Nasal Influenza A PCR NOT DETECTED 11/30/21 04:30 Nasal Parainfluen 1 PCR NOT DETECTED 11/30/21 04:30 Nasal Parainfluen 2 PCR NOT DETECTED 11/30/21 04:30 Nasal Parainfluen 3 PCR NOT DETECTED 11/30/21 04:30 Nasal Parainfluen 4 PCR NOT DETECTED 11/30/21 04:30 Nasal RSV (PCR) NOT DETECTED 11/30/21 04:30 Nasal B.pertussis DNA PCR NOT DETECTED 11/30/21 04:30 Nasal C.pneumoniae (PCR) NOT DETECTED 11/30/21 04:30 Jacinto Human Metapneumo PCR NOT DETECTED 11/30/21 04:30 Nasal M.pneumoniae (PCR) NOT DETECTED 11/30/21 04:30 Nasal SARS-CoV-2 (PCR) NOT DETECTED 11/30/21 04:30 Stl C. diff Tox B Gene POSITIVE (NEGATIVE) A* 12/04/21 09:38 Urine Opiates Screen POSITIVE (NEGATIVE) H 11/30/21 18:48 Ur Oxycodone Screen POSITIVE (NEGATIVE) H 11/30/21 18:48 Urine Methadone Screen NEGATIVE (NEGATIVE) 11/30/21 18:48 Ur Propoxyphene Screen NEGATIVE (NEGATIVE) 11/30/21 18:48 Ur Barbiturates Screen NEGATIVE (NEGATIVE) 11/30/21 18:48 Ur Tricyclics Screen NEGATIVE (NEGATIVE) 11/30/21 18:48 Ur Phencyclidine Scrn NEGATIVE (NEGATIVE) 11/30/21 18:48 Ur Amphetamine Screen NEGATIVE (NEGATIVE) 11/30/21 18:48 U Methamphetamines Scrn NEGATIVE (NEGATIVE) 11/30/21 18:48 U Benzodiazepines Scrn POSITIVE (NEGATIVE) H 11/30/21 18:48 Urine Cocaine Screen NEGATIVE (NEGATIVE) 11/30/21 18:48 U Cannabinoids Screen NEGATIVE (NEGATIVE) 11/30/21 18:48 Ethyl Alcohol < 5.0 mg/dL 11/30/21 00:53 - Procedures Procedures: Procedures EXCISE AXILLARY NODE (05/22/14) INSERTION OF TOTALLY IMPLANTABLE VASC ACCESS DEVIC (05/22/14) SUBTOTAL MASTECTOMY (05/22/14) Sepsis Event Note (H) - Evaluation Current Stage of Sepsis: Ruled out Possible source of Sepsis: positive: Pulmonary - Sepsis Criteria Sepsis Criteria: Recorded Temperature greater than 38.3C or Less than 36C, Recorded Heart Rate greater than 90 bpm, Recorded Respiratory Rate greater than 20
[2021-12-15] MEDS: HYDROCORTISONE 1% CREAM 28 GM TUBE TOP PRN (19:17)
[2021-12-15] MEDS: traZODone 50 MG TABLET PO SCH (21:42)
[2021-12-16] MEDS: SODIUM CHLORIDE FLUSH 0.9% 10 ML SYRINGE IVP SCH ×3 (04:30→15:59)
[2021-12-16] MEDS: LOPERAMIDE 2 MG CAPSULE PO PRN ×2 (04:30→13:45)
[2021-12-16] MEDS: ACETAMINOPHEN 325 MG TABLET PO PRN ×4 (04:30→20:03)
[2021-12-16] MEDS: PANTOPRAZOLE 40 MG TABLET PO SCH (04:30)
[2021-12-16 05:09] LABS: BASOPHILS # (AUTO) 0.1 10^3/uL (0.0-0.1); BASOPHILS % (AUTO) 1.3 %; HCT - HEMATOCRIT 34.8 % (37.0-47.0); HGB - HEMOGLOBIN 11.4 g/dL (12.0-16.0); LYMPHOCYTES # (AUTO) 1.1 10^3/uL (1.5-3.5); LYMPHOCYTES % (AUTO) 23.8 %; MEAN CORPUSCULAR HGB CONC 32.8 g/dL (32.0-36.0); MEAN CORPUSCULAR VOLUME 94.6 fL (81.0-99.0); MEAN PLATELET VOLUME 9.2 fL (7.9-10.8); MONOCYTES # (AUTO) 0.7 10^3/uL (0.0-1.0); MONOCYTES % (AUTO) 15.4 %; NEUTROPHILS # (AUTO) 2.7 10^3/uL (1.5-6.6); NEUTROPHILS % (AUTO) 58.4 %; PLT - PLATELET COUNT 590 10^3/uL (130-450); RED BLOOD COUNT 3.68 10^6/uL (4.20-5.40); RED CELL DISTRIBUTION WIDTH 14.7 % (12.0-15.0); WHITE BLOOD COUNT 4.6 x10^3/uL (4.8-10.8)
[2021-12-16 05:23] LABS: CALCIUM 8.8 mg/dL (8.5-10.3); CREATININE 0.5 mg/dL (0.4-1.0); MAGNESIUM 1.9 mg/dL (1.7-2.8); POTASSIUM 4.2 mmol/L (3.5-5.0)
[2021-12-16] MEDS: LEVALBUTEROL 1.25 MG/3 ML NEB INH SCH ×3 (07:54→20:27)
[2021-12-16] MEDS: THIAMINE 100 MG TABLET PO SCH (09:11)
[2021-12-16] MEDS: guaiFENesin 600 MG TABLET PO SCH ×2 (09:11→21:12)
[2021-12-16] MEDS: CEFEPIME 2 GM in SODIUM CHLORIDE 0.9% MINIBAG 100 ML IV SCH ×2 (09:11→21:12)
[2021-12-16] MEDS: PRENATAL VITAMIN TABLET PO SCH (09:11)
[2021-12-16] MEDS: POTASSIUM CHLORIDE 20 MEQ TABLET PO SCH ×2 (09:11→17:11)
[2021-12-16] MEDS: CHOLECALCIFEROL 5,000 UNIT CAPSULE PO SCH (09:11)
[2021-12-16] MEDS: CALCIUM CARBONATE CHEW 500 MG TABLET PO SCH ×2 (09:12→21:12)
[2021-12-16] MEDS: buPROPion XL 150 MG TABLET PO SCH (09:12)
[2021-12-16] MEDS: ENOXAPARIN 40 MG/0.4 ML SYRINGE SUBQ SCH (09:12)
[2021-12-16] MEDS: SACCHAROMYCES BOULARDII 250 MG CAPSULE PO SCH ×2 (09:12→17:11)
[2021-12-16] MEDS: VANCOMYCIN 125 MG CAPSULE PO SCH ×4 (09:12→21:56)
[2021-12-16] MEDS: LETROZOLE 2.5 MG PO SCH (09:45)
[2021-12-16] MEDS: EXEMESTANE 25 MG PO SCH (09:45)
--- NOTE | 2021-12-16 13:08 | PROVIDER PROGRESS NOTE ---
Subjective - Prog Note Date Prog Note Date: 12/16/21 Prog Note Time: 13:06 - Subjective Pt reports feeling: Improved Subjective: she has less and less diarrhea and was able to eat breakfast today without immediate diarrhea. no cp, abd pain, leg pain or edema. She had 4 semi formed stools 12/15 and 6 on 12/14 so she feels like she's going in the right direction. Current Medications - Current Medications Current Medications: Active Medications Acetaminophen (Acetaminophen 325 Mg Tablet) 650 mg PO Q4HR PRN PRN Reason: Pain 1 to 4, or Fever Last Admin: 12/16/21 09:11 Dose: 650 mg Bupropion HCl (Bupropion Xl 150 Mg Tablet) 300 mg PO DAILY [facility] Last Admin: 12/16/21 09:12 Dose: 300 mg Calcium Carbonate/Glycine (Calcium Carbonate Chew 500 Mg Tablet) 500 mg PO BID [facility] Last Admin: 12/16/21 09:12 Dose: 500 mg Cholecalciferol (Cholecalciferol 5,000 Unit Capsule) 5,000 unit PO DAILY [facility] Last Admin: 12/16/21 09:11 Dose: 5,000 unit Enoxaparin Sodium (Enoxaparin 40 Mg/0.4 Ml Syringe) 40 mg SUBQ DAILY [facility] Last Admin: 12/16/21 09:12 Dose: 40 mg Guaifenesin (Guaifenesin 600 Mg Tablet) 600 mg PO BID [facility] Last Admin: 12/16/21 09:11 Dose: 600 mg Hydrocortisone (Hydrocortisone 1% Cream 28 Gm Tube) 1 applic TOP QID PRN PRN Reason: Hemorrhoids Last Admin: 12/15/21 19:17 Dose: 1 applic Cefepime HCl 2 gm/ Sodium (Chloride) 100 mls @ 200 mls/hr IV BID [facility] Stop: 12/17/21 09:29 Last Infusion: 12/16/21 09:47 Dose: Infused Levalbuterol HCl (Levalbuterol 1.25 Mg/3 Ml Neb) 1.25 mg INH Q4H PRN PRN Reason: Shortness of Air/Wheezing Levalbuterol HCl (Levalbuterol 1.25 Mg/3 Ml Neb) 1.25 mg INH RTQID [facility] Last Admin: 12/16/21 07:54 Dose: 1.25 mg Loperamide HCl (Loperamide 2 Mg Capsule) 2 mg PO QID PRN PRN Reason: Diarrhea Last Admin: 12/16/21 04:30 Dose: 2 mg Lorazepam (Lorazepam 0.5 Mg Tablet) 0.25 mg PO QPM PRN PRN Reason: Anxiety Last Admin: 12/12/21 16:49 Dose: 0.25 mg Multi-Ingredient Mouthwash/Gargle (Gi Cocktail 120 Ml Bottle) 30 ml PO Q4H PRN PRN Reason: Abdominal Pain Last Admin: 12/13/21 18:44 Dose: 30 ml Ondansetron HCl (Ondansetron 4 Mg/2 Ml Vial) 4 mg IVP Q6HR PRN PRN Reason: Nausea / Vomiting Last Admin: 12/12/21 08:23 Dose: 4 mg Pantoprazole Sodium (Pantoprazole 40 Mg Tablet) 40 mg PO QDAC [facility] Last Admin: 12/16/21 04:30 Dose: 40 mg Exemestane [ Exemestane] 25 Mg Tablet 1 each PO DAILY [facility] Last Admin: 12/16/21 09:45 Dose: Not Given Letrozole 2.5 Mg (Tabs) 1 each PO DAILY [facility] Last Admin: 12/16/21 09:45 Dose: Not Given Potassium Chloride (Potassium Chloride 20 Meq Tablet) 20 meq PO BIDWM [facility] Last Admin: 12/16/21 09:11 Dose: 20 meq Multivit/Folic Acid/Iron ( Vitamin Tablet) 1 tab PO DAILYWM [facility] Last Admin: 12/16/21 09:11 Dose: 1 tab Psyllium Hydrophilic Mucilloid (Psyllium Packet) 1 packet PO DAILY PRN PRN Reason: Constipation Saccharomyces Boulardii (Saccharomyces Boulardii 250 Mg Capsule) 250 mg PO BIDWM [facility] Last Admin: 12/16/21 09:12 Dose: 250 mg Sodium Chloride (Sodium Chloride Flush 0.9% 10 Ml Syringe) 10 ml IVP PRN PRN PRN Reason: NEEDED PER PROVIDER ORDERS Last Admin: 12/04/21 14:05 Dose: 10 ml Sodium Chloride (Sodium Chloride Flush 0.9% 10 Ml Syringe) 10 ml IVP 01 00,0900,1700 [facility] Last Admin: 12/16/21 09:12 Dose: 10 ml Thiamine HCl (Thiamine 100 Mg Tablet) 100 mg PO DAILY [facility] Last Admin: 12/16/21 09:11 Dose: 100 mg Throat Lozenges (Benzocaine/Menthol Lozenge) 1 lozenge MM Q2HR PRN PRN Reason: Throat pain Last Admin: 12/15/21 23:50 Dose: 1 lozenge Trazodone HCl (Trazodone 50 Mg Tablet) 75 mg PO QPM [facility] Last Admin: 12/15/21 21:42 Dose: 75 mg Vancomycin HCl (Vancomycin 125 Mg Capsule) 125 mg PO QID [facility] Last Admin: 12/16/21 09:12 Dose: 125 mg Witch [place]/Glycerin (Witch [place]ley/Glycerin 1 Pad) 1 pad TOP PRN PRN PRN Reason: ITCHING Last Admin: 12/15/21 13:08 Dose: 1 pad Zinc Sulfate (Zinc Sulfate 220 Mg Capsule) 220 mg PO QDLUNCH [facility] Stop: 12/19/21 12:59 Last Admin: 12/15/21 13:06 Dose: 220 mg traZODone [Desyrel] 75 mg PO QPM 06/26/14 Vitamin B Complex Vit C No.4 [Super B Complex] 1 tab PO DAILY 07/10/14 Randolph-3 Fatty Acids/Fish Oil [Randolph 3 1,000 mg Softgel] 1 cap ORAL DAILY 08/28/14 SUMAtriptan succinate [Sumatriptan Succinate] 100 mg PO DAILY PRN 05/15/16 Meloxicam 15 mg PO DAILY 08/04/16 Objective - Vital Signs/Intake & Output Reviewed Vital Signs: Yes Vital Signs: Vital Signs x48h Temp Pulse Pulse Resp BP Pulse Ox 12/16/21 11:55 84 22 12/16/21 09:19 108/71 12/16/21 08:24 36.5 C 106 H 18 124/44 L 99 12/16/21 07:51 91 24 Intake & Output: Intake & Output 12/13/21 12/14/21 12/15/21 12/16/21 23:59 23:59 23:59 23:59 Intake Total 1780 1730 1510 580 Output Total 500 Balance 1780 1230 1510 580 - Objective General Appearance: positive: No acute distress, Alert, Other (pale, fatigued appearing white female, looks stated age) Eyes Bilateral: positive: PERRL ENT: positive: Pharynx nml Neck: positive: No JVD. negative: Stiff neck Respiratory: positive: No respiratory distress. negative: Wheezes, Rales, Rhonchi Cardiovascular: positive: Regular rate & rhythm. negative: Gallop/S4, Friction rub Abdomen: positive: Non-tender, No organomegaly, Nml bowel sounds, No distention Skin: positive: Warm, Dry, Pallor Extremities: positive: Full ROM, No pedal edema Neurologic/Psychiatric: positive: Oriented x3 (but can be forgetful according to RN.), CN's nml (2-12), Motor nml (but is weak, and needs SBA bc unsteady on feet. Able to do ADL's and walks to bathroom), Sensation nml - Lab Results Fish Bones: 12/16/21 04:53 12/16/21 04:53 Other Labs: Lab Results x24hrs 12/16/21 12/16/21 12/15/21 Range/Units 04:53 04:53 12:43 WBC 4.6 L (4.8-10.8) x10^3/uL RBC 3.68 L (4.20-5.40) 10^6/uL Hgb 11.4 L (12.0-16.0) g/dL Hct 34.8 L (37.0-47.0) % MCV 94.6 (81.0-99.0) fL MCH 31.0 (27.0-31.0) pg MCHC 32.8 (32.0-36.0) g/dL RDW 14.7 (12.0-15.0) % Plt Count 590 H (130-450) 10^3/uL MPV 9.2 (7.9-10.8) fL Neut # (Auto) 2.7 (1.5-6.6) 10^3/uL Lymph # (Auto) 1.1 L (1.5-3.5) 10^3/uL Bulloch # (Auto) 0.7 (0.0-1.0) 10^3/uL Eos # (Auto) 0.0 (0.0-0.7) 10^3/uL Baso # (Auto) 0.1 (0.0-0.1) 10^3/uL Absolute Nucleated RBC 0.00 x10^3/uL Nucleated RBC % 0.0 /100WBC Sodium 131 L 131 L (135-145) mmol/L Potassium 4.2 4.5 (3.5-5.0) mmol/L Chloride 96 L 94 L (101-111) mmol/L Carbon Dioxide 26 28 (21-32) mmol/L Anion Gap 9.0 9.0 (6-13) BUN 6 7 (6-20) mg/dL Creatinine 0.5 0.6 (0.4-1.0) mg/dL Estimated GFR (MDRD) 127 103 (>89) Glucose 103 H 112 H (70-100) mg/dL Calcium 8.8 8.8 (8.5-10.3) mg/dL Magnesium 1.9 1.8 (1.7-2.8) mg/dL ABX Reporting Has patient been on IV antibiotics over the past 48 hours?: Yes Sepsis Event Note (H) - Evaluation Current Stage of Sepsis: Ruled out Possible source of Sepsis: positive: Pulmonary - Sepsis Criteria Sepsis Criteria: Recorded Temperature greater than 38.3C or Less than 36C, Recorded Heart Rate greater than 90 bpm, Recorded Respiratory Rate greater than 20 Assessment/Plan - Problem List (1) C. difficile diarrhea Impression: Her initial diarrhea started on 12/04/21 and her stool tested C diff pos. The patient is on oral vancomycin. A 10-day course was planned, which would end after doses of 12/14/21. She had had formed BMs for 2 days. Then evening of 12/13, her diarrhea recurred, loose BMs increased frequency, without cramping or foul odor. It is likely from being on iv antibx for pneumonia Because of new diarrhea in a patient still being treated for C. difficile diarrhea, she was not rechecked for her for C. difficile (as it would likely be pos anyway), but we will extend the duration of treatment for another week of oral p.o. vancomycin. Most likely will need treatment to at least 12/21. Will give Imodium to help firm up the stools and will continue the probiotic. Follow BMP and Mg daily and she has chronic hyponatremia. Mg is nml today. She is not yet ready for discharge because she cannot take care of her self with recurrence of frequent loose BMs. Brother updated 12/13. Hopefully she will have improvement in just a few days to be ready for discharge. She is anxious to go home. 18 year old son is joining the [employer] and she is worried about this 18 year old is taking care of her pets and house. (2) HCAP She has had a cough for several days which is better after Mucinex and scheduled nebs were started. She also had pleuritic pain which is much better. She was retested for COVID and is neg. Empiric iv antibiotics were started for HCAP using iv Cefepime, plus Florastor. She is on scheduled nebulizers qid, IS and Mucinex. She has requested that the inhaler be changed to handheld puffers at discharge, because they help, but this change will be done until discharge. She had no asthma Hx and was never a smoker, however Today is day #6 of Cefipime and it will be stopped tomorrow. (3) Alcohol abuse Assessment/Plan: On 12/04/2021, several days after admission, it was learned (from her sister in phone call with our Soc. Worker) that the patient has a history of alcohol abuse, and prior alcohol withdrawal including alcohol withdrawal seizures. She was recently seen at [facility] ER for alcohol abuse and withdrawal. She is being continued on her home vitamin and thiamine here. There was consideration of Wernicke Korsakoff syndrome given her shuffling gait and confusion (including hallucinations) and with her CT head showing significant brain atrophy. Thus she was treated with high dose iv Thiamine 500 mg tid for 2 days, which finished several days ago, then we resumed her po Thiamine 100 mg daily. She has had improvement with mentation and with gait considerably and does not have Wernicke-Korsakoff syndrome. She has opened up about her alcohol abuse. She underwent a cognitive eval and scored 24/30. She had good insight into her problem as we spoke and voiced her plan to stop alcohol (join an online AA group, start taking the Antabuse ordered by her PCP, Flor Varma NP). A DMV form was sent in for medical reason not to be driving and she has been told [facility] plan will be to go home, not to a SNF, as long as this plan is safe. 12/12 the brother told the pt's RN that no real help is in place. SW was told that info and Hospitalist team asked SW to see the pt. SW is not here (on a Sun). When I updated the brother about the new diarrhea, and that she will not be DCh 12/14 he was told that he should work with the patient directly to help set up home caregivers. So far that plan has not changed and she will be dc'd to home. 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 The fall was when she stood on her chair at home to reach for something in a higher cupboard. It is unclear if she was taking Librium and pain meds and using alcohol which may have caused the fall. Patient had slurred speech and unsteady gait noticed on 12/03/2021. She had a CT of the head that showed no acute process but she has moderate cerebral atrophy. Her narcotics and Librium were put on hold. She started to have PT and OT and they are documenting that she had intermittent confusion, needed help with ADLs. She has a mild resting hand tremor bilaterally. PT and OT continue while she is here, since she has needed continued hospitalization for her C. difficile diarrhea and then for her new HCAP. She was last seen 12/13 by PT and will be seen today. The note from 12/13: The pt received 15 minutes of skilled PT today, this was aimed at increasing her level of functional independence with transfers, improve her gait skills, and increase her activity tolerance. She performed bed mobility and gait training. These activities were tolerated without significant complaints and she did not have any report of feeling SOB with exertion. Pt was able to climb 5 steps using handrail and CGA; PT advised pt to have friend and brother assist her up the steps when she gets home as there are 3-4 steps to enter the home. Pt agrees. At the end of the session the pt was sitting up in a chair with all needs met and call miguel new MD updated on the pt's current functional level. When medically stable recommend DC home with HH therapy and increased caregiver support, transport via WC van or POV. The continued rehab will be to address activity intolerance and balance deficits. (5) s/p left mastectomy Assessment/Plan: She has a hx of BRCA positive breast cancer, and s/p of left mastectomy, pt is under chemotherapy and followed by her oncologist as out-pt (6) Confusion Assessment/Plan: Resolved She was intermittently confused earlier this admission (she thought she was at h ome and could not find her dog, she saw her mother in her room, she was asking about where her washing machine is in this room, she says she lost 3 pairs of jeans that she "brought with her" [which she did not since she was brought in by ambulance]) Several days after this admission, we learned that she has alcohol abuse Hx. The records from her [facility] visit 3 weeks ago showed that she presented with complaint of alcohol withdrawal and was asking to be placed in an inpatient detox center, which she then declined. She told me she has been to and once in Inpt detox for a month. Ammonia and LFTs have been normal She underwent a cognitive evaluation by OT and she scored 24/30, indicating only mild cognitive impairment. She will be prevented from driving a vehicle. A DMV form was completed by me and submitted. [facility] plan will be to go home, not to a SNF, and she is hiring caregivers. SW has spoken with her (and the brother) yesterday and gave resources. (7) Hypoxia Assessment/Plan: Resolved. This was felt to be due to splinting because of probable bruised ribs caused by the fall at home. It improved and she is not hypoxic with the new HCAP. (8) Sepsis Assessment/Plan: Resolved. Pt presented with fever, tachycardia, tachypnea, and pt need supplement of O2 to support her O2 sats. CXR reveal Pulmonary Edema She received empiric Zosyn, had blood culture, UA culture, followed Lactic acid level. She has no more fever, WBC is at the normal range, blood cultures is negative for bacteremia, patient had normal oxygen saturations on room air, after getting antibiotics (9) Abdominal contusion Assessment/Plan: Resolved. Her abdominal pain and rib pain causing splinting was due to abdominal contusion from falling off of a chair at home. Continue Tylenol prn and ibuprofen as needed. (10) Acute urinary retention Assessment/Plan: Resolved. On 12/03/2021 the nurse reported she had annuria, and bladder scan show over 600ml urine. She had a straight cath, and Flomax started. We have now stopped Flomax. (11) Hypokalemia Resolved It was likely from loss with many days of diarrhea Will replace with oral KCL and K riders (12) Tachycardia Resolved. This was presumed to be due to volume depletion, new HCAP, coughing and pleuritic chest pain
[2021-12-16] MEDS: ZINC SULFATE 220 MG CAPSULE PO SCH (13:44)
[2021-12-16] MEDS: HYDROCORTISONE 1% CREAM 28 GM TUBE TOP PRN (13:46)
[2021-12-16] MEDS: BENZOCAINE/MENTHOL LOZENGE MM PRN (15:59)
[2021-12-16] MEDS: SODIUM CHLORIDE FLUSH 0.9% 10 ML SYRINGE IVP PRN (21:13)
[2021-12-16] MEDS: traZODone 50 MG TABLET PO SCH (22:21)
[2021-12-17] MEDS: SODIUM CHLORIDE FLUSH 0.9% 10 ML SYRINGE IVP SCH ×2 (00:10→09:02)
[2021-12-17] MEDS: ACETAMINOPHEN 325 MG TABLET PO PRN ×3 (02:56→13:13)
[2021-12-17 05:22] LABS: BASOPHILS # (AUTO) 0.1 10^3/uL (0.0-0.1); BASOPHILS % (AUTO) 1.3 %; HCT - HEMATOCRIT 35.1 % (37.0-47.0); HGB - HEMOGLOBIN 11.8 g/dL (12.0-16.0); LYMPHOCYTES % (AUTO) 18.7 %; MEAN CORPUSCULAR HEMOGLOBIN 31.3 pg (27.0-31.0); MEAN CORPUSCULAR HGB CONC 33.6 g/dL (32.0-36.0); MEAN CORPUSCULAR VOLUME 93.1 fL (81.0-99.0); MEAN PLATELET VOLUME 9.2 fL (7.9-10.8); MONOCYTES # (AUTO) 0.8 10^3/uL (0.0-1.0); MONOCYTES % (AUTO) 15.8 %; NEUTROPHILS # (AUTO) 3.3 10^3/uL (1.5-6.6); NEUTROPHILS % (AUTO) 63.2 %; PLT - PLATELET COUNT 604 10^3/uL (130-450); RED BLOOD COUNT 3.77 10^6/uL (4.20-5.40); RED CELL DISTRIBUTION WIDTH 14.8 % (12.0-15.0); WHITE BLOOD COUNT 5.2 x10^3/uL (4.8-10.8)
[2021-12-17] MEDS: PANTOPRAZOLE 40 MG TABLET PO SCH (05:25)
[2021-12-17 05:30] LABS: CALCIUM 8.9 mg/dL (8.5-10.3); CREATININE 0.5 mg/dL (0.4-1.0); POTASSIUM 4.5 mmol/L (3.5-5.0)
[2021-12-17] MEDS: LEVALBUTEROL 1.25 MG/3 ML NEB INH SCH ×3 (07:21→15:26)
[2021-12-17 08:36] VITALS: BP 105/68
[2021-12-17] MEDS: guaiFENesin 600 MG TABLET PO SCH (09:01)
[2021-12-17] MEDS: CALCIUM CARBONATE CHEW 500 MG TABLET PO SCH (09:01)
[2021-12-17] MEDS: CHOLECALCIFEROL 5,000 UNIT CAPSULE PO SCH (09:01)
[2021-12-17] MEDS: buPROPion XL 150 MG TABLET PO SCH (09:01)
[2021-12-17] MEDS: THIAMINE 100 MG TABLET PO SCH (09:01)
[2021-12-17] MEDS: VANCOMYCIN 125 MG CAPSULE PO SCH ×2 (09:02→13:13)
[2021-12-17] MEDS: SACCHAROMYCES BOULARDII 250 MG CAPSULE PO SCH (09:02)
[2021-12-17] MEDS: ENOXAPARIN 40 MG/0.4 ML SYRINGE SUBQ SCH (09:02)
[2021-12-17] MEDS: CEFEPIME 2 GM in SODIUM CHLORIDE 0.9% MINIBAG 100 ML IV SCH (09:02)
[2021-12-17] MEDS: PRENATAL VITAMIN TABLET PO SCH (09:02)
[2021-12-17] MEDS: POTASSIUM CHLORIDE 20 MEQ TABLET PO SCH (09:03)
[2021-12-17] MEDS: EXEMESTANE 25 MG PO SCH (09:47)
[2021-12-17] MEDS: LETROZOLE 2.5 MG PO SCH (09:47)
--- NOTE | 2021-12-17 11:35 | Discharge Plan ---
Discharge Plan Problem Reviewed?: Yes Disposition: Home Health Service Condition: Stable Prescriptions: Ergocalciferol (Vitamin D2) [Drisdol] 1,250 mcg PO DAILY #30 cap Potassium Chloride [K-Dur] 20 meq PO BIDWM #30 tablet Vancomycin [Vancocin] 125 mg PO QID #28 cap Thiamine [Vitamin B-1] 100 mg PO DAILY #100 tablet Levalbuterol [Xopenex] 2 puffs INH Q4-6H #15 gm Diet: Regular Activity Restrictions: Activity as Tolerated Weight Bearing: Full Weight Instruction Topics: Vancomycin capsules Health Concerns: You presented to the hospital on 11/30/2021 with complaint of abdominal pain. You had presented earlier with the same complaint. You had fallen at home 3 days ago and hit your abdomen. You sustained an abdominal contusion as a resu lt. Work-up in the ED the first time included a CT of the abdomen, pelvis and chest x-ray which was negative for any fractures or bleed. You were discharged home with a prescription of pain medication [place] and something for anxiety/muscle relaxant Ativan. When you presented to the ED the second time it was noted that your image oxygen level was in the high 80s on room air (normal is 100%) as a result you placed in observation to see what was causing this. We feel you had decreased oxygen level was due to your apprehension/inability to take deep breaths because of worsening abdominal pain from the abdominal contusion. After placing you in observation, you began to become quite confused. You were hallucinating and were talking to your mother in the room. You were seeing dogs in the room with you. We found out from your family that you have alcoholism and had been recently seen at [facility] emergency room for alcohol abuse and withdrawal. We gave you thiamine, Ativan to calm you down and get you through withdrawal. You then developed a pneumonia while in the hospital and had to be treated with antibiotics. You then developed a C. difficile diarrhea secondary to the antibiotics. You have completed antibiotic therapy. You still need about another week of vancomycin therapy for the C. difficile diarrhea. The diarrhea has resulted in low potassium and we are sending you home with potassium. You are still weak, unsteady on your feet. We think that the alcohol abuse has impacted your brain and giving you chronic "cerebellar ataxia" which is a different way of saying that your balance in your brain is affected by your alcohol abuse. You would be a candidate for continued outpatient occupational and physical therapy once you are strong enough to do so. Plan of Treatment: 1. Please continue to see counseling for alcohol abuse, and make sure you refrain from drinking alcohol. 2. Please see your primary care provider in follow-up so they can assess your response to treatment for C. difficile. 3. Your primary care provider will also need to check a lab study called a [facility] to look at your potassium and kidney function in a week 4. Please make sure you continue to take thiamine, folic acid, and a multivitamin to supplement in the face of alcohol abuse Care Goals: To remain sober and without any alcohol use for the rest of your life, to be able to remain independent in your own home without dementia or risk of falls Assessment: Patient states that she understands care goals and will follow through. Very anxious to get home. No Smoking: If you smoke, Please STOP! Call for help. Follow-up with: Flor Varma ARNP [Physician No Access] -
--- NOTE | 2021-12-17 13:08 | DISCHARGE SUMMARY ---
"Discharge Summary Admit Date: 11/30/21 Discharge Date: 12/17/21 Discharging Provider: Maricruz Dela Cruz MD Primary Care Provider: Neelam Santiago Code Status: Attempt Resuscitation Condition at Discharge: Stable Discharge Disposition: Home Health Service - DIAGNOSES Discharge Diagnoses with Status of Each Condition: 1. Alcohol withdrawal 2. Hypoxia 3. Healthcare associated pneumonia 4. Alcohol abuse 5. Abdominal wall contusion 6. Acute urinary retention 7. C. difficile diarrhea 8. 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 Hypokalemia 10. Tachycardia - HPI History of Present Illness: Patient is a 60-year-old female who presented to the ED today after a fall 3 days ago. She stood on a chair in her kitchen to get something from a higher cabinet when she slipped and fell. She reports landing on her abdomen. As a result she has significant abdominal pain which limits her ability to sit up from a recumbent position with help of her abdominal muscles. Also as a result of the pain she is apprehensive/unable to take deep breaths. She was initially evaluated in the ED earlier in the day 11/29/21. Work-up was negative for any acute injuries on images. She had some significant findings on her abdominal CT which raise concern for possible liver malignancy and for which further work-up was recommended. These findings were relayed to her primary care physician Dr. Gage Lr/ TERRY Varma with request for further referral/ work up by them. She was prescribed oral narcotics and discharged. She returned later in the day by ambulance for persistent/worsening pain. She had not yet picked up her prescription of lorazepam Vicodin on a PPI that had been sent to pharmacy.. While being evaluated in the emergency room is reported that her oxygenation was 87% on room air. As a result it was felt that she should be observed over period of time and hypoxia managed. On 2 L of oxygen the patient's oxygen saturation was 96%. At bedside she denies chest pain. She denies dyspnea but states she is unable to take deep breaths because it exacerbates her abdominal pain. She reports anxiety. She denied nausea, vomiting, fever or chills. The rest of her history was unremarkable. - Past Medical History Cardiovascular: reports: Hypertension, Atrial fibrillation Respiratory: reports: None Endocrine/Autoimmune: reports: None GI: reports: None QUALITY SPECIALIST: reports: Breast cancer : reports: None HEENT: reports: None Psych: reports: Panic attacks Musculoskeletal: reports: None Derm: reports: None MRSA Hx?: No - Past Surgical History /QUALITY SPECIALIST: reports: Other (Breast cancer status post bilateral mastectomy.) - CONSULTS | PROCEDURES Procedures: Multiple chest x-rays. Initial chest x-ray was without acute cardiopulmonary changes. As the admission continued she developed left lower lobe infiltrate consistent with pneumonia, bibasilar atelectasis. Abdominal ultrasound with 5 mm adherent gallstone or gallbladder polyp. No cholecystitis. Hepatic steatosis with coarsening of the hepatic echotexture indicating steatohepatitis. Head CT was without acute intracranial abnormality. Moderate global cerebral volume loss and chronic microvascular ischemic changes. - HOSPITAL COURSE Hospital Course: When she was initially placed in observation, we felt that she had a decreased oxygen level due to splinting. She had abdominal wall pain from her fall and did not want to take a deep breath. However, after being in observation she be confused, hallucinated, and we found out from her sister that she was just at [facility] ER for alcohol abuse and withdrawal in the last couple of weeks. She was given Ativan, thiamine For presumed alcohol withdrawal and responded well to that with decreased confusion, decreased hallucinations. She then developed cough, and chest x-ray showed pneumonia that we think was aspiration pneumonia. Antibiotics were started and then she developed C. difficile diarrhea due to the antibiotics. The diarrhea resulted in hypokalemia which needed to be supplemented. On physical examination she had cerebellar ataxia and required physical therapy for that as well as deconditioning and weakness. Physical therapy and Occupational Therapy feel that she be a good candidate for continue with home health PT and OT. As her therapy for C. difficile colitis was completing, she had a resurgence with fever, elevated white cell count, and more liquid diarrhea. Metamucil and loperamide was added. And we have extended vancomycin therapy for 1 more week. Patient now feels stable enough to go home. Her brother is concerned and thinks that maybe she should be staying in the hospital longer for therapy. We did offer transfer to a residential facility for rehab but the patient does not want that. She wants to go home. Temperature is 36.8. Heart rate 95. Blood pressure 105/68. 96% on room air. Respirations 20. She is 5 feet 2 inches t all and weighs 64 kg. Alert, oriented. Unsteady on her feet when she stands and needs to touch the bed for balance. But lungs are clear, regular rate and rhythm. The abdomen is soft, obese, nontender, normal bowel sounds. No leg edema. She is asked to follow-up with her primary care provider and get a BMP next week to make sure creatinine and potassium are okay. I have also ordered home hea lt. She says that she would be getting a wheelchair from the [employer]. Greater than 30 minutes was spent coordinating discharge. - ALLERGIES Allergies/Adverse Reactions: Allergies Allergy/AdvReac Type Severity Reaction Status Date / Time diphenhydramine HCl * AdvReac Mild Hyperactive Verified 11/29/21 23:48 [From Benadryl] milk AdvReac Mild Unknown Verified 12/15/21 16:52 - MEDICATIONS Home Medications: Ambulatory Orders Medication Instructions Recorded Confirmed traZODone [Desyrel] 75 mg PO QPM 06/26/14 11/30/21 Vitamin B Complex Vit C No.4 1 tab PO DAILY 07/10/14 11/30/21 [Super B Complex] [place]-3 Fatty Acids/Fish Oil 1 cap ORAL DAILY 08/28/14 11/30/21 [[place]umann 3 1,000 mg Softgel] SUMAtriptan succinate [Sumatriptan 100 mg PO DAILY PRN 05/15/16 11/30/21 Succinate] Acetaminophen [Tylenol] 650 mg PO Q4HR PRN #0 tablet 05/17/16 11/30/21 Vitamin [Trinatal Rx 1] 1 tab PO DAILYWM tablet 05/17/16 11/30/21 buPROPion [Wellbutrin Xl] 300 mg PO DAILY tablet 05/17/16 11/30/21 Meloxicam 15 mg PO DAILY 08/04/16 11/30/21 Exemestane 25 mg PO DAILY 90 Days #90 tablet 04/22/18 11/30/21 Letrozole 2.5 mg PO DAILY #30 tablet 12/06/18 11/30/21 LORazepam [Ativan] 1 mg PO TID PRN #6 tablet 11/29/21 11/30/21 Omeprazole 40 mg PO DAILY #30 cap 11/29/21 11/30/21 Ergocalciferol (Vitamin D2) 1,250 mcg PO DAILY #30 cap 12/17/21 [Drisdol] Levalbuterol [Xopenex] 2 puffs INH Q4-6H #15 gm 12/17/21 Potassium Chloride [K-Dur] 20 meq PO BIDWM #30 tablet 12/17/21 Thiamine [Vitamin B-1] 100 mg PO DAILY #100 tablet 12/17/21 Vancomycin [Vancocin] 125 mg PO QID #28 cap 12/17/21 Zinc Sulfate 220 mg PO QDLUNCH 12/17/21 - LABS Result Diagrams: 12/17/21 05:00 12/17/21 05:00 - SEPSIS Current Stage of Sepsis: Ruled out Possible source of Sepsis: Pulmonary Sepsis Criteria: Recorded Temperature greater than 38.3C or Less than 36C, Recorded Heart Rate greater than 90 bpm, Recorded Respiratory Rate greater than 20"
[2021-12-17] MEDS: LOPERAMIDE 2 MG CAPSULE PO PRN (13:13)
[2021-12-17] MEDS: HYDROCORTISONE 1% CREAM 28 GM TUBE TOP PRN (13:13)
[2021-12-17] MEDS: ZINC SULFATE 220 MG CAPSULE PO SCH (13:13)
== END 2021-12-17 16:09 | disposition home health service (06) | DRG 871 ==
LOC: EDUNIT# → ED 23:38 → MS2 11-30 07:20 → EEVIPCON 11-30 07:20 → OBSVTOIN 12-03 14:46
PROVIDERS: ADMIT Internal Medicine; ATTEND Specialist
DX: A41.9 Sepsis, unspecified organism (principal); J69.0 Pneumonitis due to inhalation of food and vomit; A04.72 Enterocolitis due to Clostridium difficile, not specified as recurrent; J90 Pleural effusion, not elsewhere classified; F10.239 Alcohol dependence with withdrawal, unspecified; R09.02 Hypoxemia; R07.89 Other chest pain; S30.1XXA Contusion of abdominal wall, initial encounter; W07.XXXA Fall from chair, initial encounter; R33.9 Retention of urine, unspecified; G31.2 Degeneration of nervous system due to alcohol; E87.6 Hypokalemia; R00.0 Tachycardia, unspecified; I48.91 Unspecified atrial fibrillation; I10 Essential (primary) hypertension; C50.919 Malignant neoplasm of unspecified site of unspecified female breast; F41.0 Panic disorder [episodic paroxysmal anxiety]; R41.0 Disorientation, unspecified; R53.1 Weakness; R47.81 Slurred speech; R05.9 Cough, unspecified; R44.1 Visual hallucinations; G31.84 Mild cognitive impairment of uncertain or unknown etiology; Z20.822 Contact with and (suspected) exposure to COVID-19; Z90.13 Acquired absence of bilateral breasts and nipples; Y92.000 Kitchen of unspecified non-institutional (private) residence as the place of occurrence of the external cause
CPT/HCPCS: 36415; 51701; 70450; 71045; 76705; 80048; 80053; 80306; 80320; 81001; 82105; 82140; 82306; 83605; 83690; 83735; 83880; 84484; 85025; 86301; 87040; 87493; 87633; 93005; 94640; 96365; 96366; 96372; 96375; 96376; 97110; 97116; 97162; 97164; 97165; 97168; 97530; 97535; A9270; J1170; J1650; J3411; J7040; J7120; J8499; 87086

== ENCOUNTER 2022-01-09 10:31 | Outpatient (CLI) | payer OTHER ==
[2022-01-09 10:52] LABS: ALBUMIN 2.5 g/dL (3.2-5.5); ALBUMIN/GLOBULIN RATIO 0.6 (1.0-2.2); BILIRUBIN,TOTAL 0.6 mg/dL (0.2-1.0); CALCIUM 8.6 mg/dL (8.5-10.3); CREATININE 0.7 mg/dL (0.4-1.0); POTASSIUM 4.2 mmol/L (3.5-5.0); TOTAL PROTEIN 6.6 g/dL (6.7-8.2)
== END 2022-01-09 10:32 | disposition home or self-care (01) ==
LOC: LAB.R 10:31
PROVIDERS: ATTEND Registered Nurse
DX: E87.0 Hyperosmolality and hypernatremia (principal)
CPT/HCPCS: 80053

== ENCOUNTER 2022-01-13 11:15 | Outpatient (CLI) | payer OTHER | END 2022-01-13 11:16 | disposition home or self-care (01) | LOC: LAB.R 11:15 | PROVIDERS: ATTEND Registered Nurse | DX: E55.9 Vitamin D deficiency, unspecified (principal) | CPT/HCPCS: 82306 ==

== ENCOUNTER 2022-03-27 12:55 | Outpatient (CLI) | payer OTHER ==
--- NOTE | 2022-03-27 15:58 | XRAY Report ---
PROCEDURE: Lumbar Spine 2 View INDICATIONS: SPRAIN OF LIGAMENTS TECHNIQUE: 2 views of the lumbar spine were acquired. COMPARISON: None. FINDINGS: Bones: There are 5 lumbar-type vertebral bodies. Moderate multilevel spondylosis without definite acute height loss. Trace endplate deformities, for example at L2 are age-indeterminate. There is tra ce retrolisthesis of T12 on L1. There is 5 mm of anterolisthesis of L4 on L5. Disc space height loss most severe at L5-S1. Soft tissues: Above average colorectal stool and gas burden. IMPRESSION: Moderate spondylosis as described above, without definite acute radiographic abnormality . Consider MRI to further evaluate if there is high concern for internal derangement. Reviewed by: Bc Warren MD on 03/27/2022 3:56 PM PDT Approved by: Bc Warren MD on 03/27/2022 3:56 PM PDT Station ID: [id number]
== END 2022-03-27 12:56 | disposition home or self-care (01) ==
LOC: DI 12:55
PROVIDERS: ATTEND Registered Nurse
DX: M47.816 Spondylosis without myelopathy or radiculopathy, lumbar region (principal); M47.817 Spondylosis without myelopathy or radiculopathy, lumbosacral region; M43.16 Spondylolisthesis, lumbar region

== ENCOUNTER 2022-06-11 06:57 | Outpatient (CLI) | payer OTHER ==
--- NOTE | 2022-06-11 08:11 | MRI Report ---
PROCEDURE: LUMBAR SPINE WO INDICATIONS: LUMBAR RADICULOPATHY TECHNIQUE: Noncontrast sagittal T1 spin echo and T2 fast echo, sagittal STIR, axial T1 and T2 fast spin echo thr ough the lumbar spine. In cases with scoliosis, additional coronal T2 fast spin echo may be performe d. COMPARISON: Lumbar spine plain films dated 03/27/2022, CT abdomen and pelvis dated 11/29/2021.. FINDINGS: Image quality: Excellent. Alignment and Curvature: Trace anterolisthesis of L4 on L5. Trace retrolisthesis of L2 on L3. Bone Marrow: There are multiple lesions in the lumbar spine which are of low T1 signal and high FLAIR signal which are highly suspicious for metastatic disease. There is a moderate compression of the L2 vertebral body which has a high likelihood of being a malignant pathologic compression. Lesions cons istent with a high likelihood of metastatic disease involving T10, T12, L1, L2, L3, L4, and bilateral S1 No acute vertebral body compression fractures. Spinal Cord: Conus medullaris terminates at the L1 level. Visualized cord demonstrates normal signa l and size. Paraspinous Soft Tissues: No paravertebral masses. T11-T12: Mild disc bulge. No canal stenosis or foraminal stenosis. T12-L1: No canal stenosis or foraminal stenosis. L1-L2: No canal stenosis or foraminal stenosis. L2-L3: No canal stenosis or foraminal stenosis. L3-L4: Disc bulge. Facet hypertrophy. No canal stenosis. Mild right foraminal stenosis. L4-L5: Anterolisthesis of L4 on L5. Disc bulge. Facet hypertrophy. Moderate canal stenosis. No sign ificant foraminal stenosis. L5-S1: Disc bulge. Facet hypertrophy. No canal stenosis or significant foraminal stenosis. IMPRESSION: 1. Findings are highly consistent with metastatic disease to bone. It is noted that the probable meta static disease to bone is not identifiable on the previous CT. 2. An L2 compression fracture is likely a pathologic compression fracture. 3. There is moderate canal stenosis at L4-L5. There is multilevel facet hypertrophy. Comment: Consider MR lumbar spine with contrast for further evaluation. Reviewed by: Yang Moraes MD on 06/11/2022 8:10 AM PST Approved by: Yang Moraes MD on 06/11/2022 8:10 AM PST Station ID: [id number]
== END 2022-06-11 06:58 | disposition home or self-care (01) ==
LOC: DI 06:57
PROVIDERS: ATTEND Registered Nurse
DX: M48.56XA Collapsed vertebra, not elsewhere classified, lumbar region, initial encounter for fracture (principal); M48.061 Spinal stenosis, lumbar region without neurogenic claudication; M47.816 Spondylosis without myelopathy or radiculopathy, lumbar region; M43.16 Spondylolisthesis, lumbar region

== ENCOUNTER 2022-06-29 14:06 | Emergency (ER) | payer OTHER ==
[2022-06-29 14:25] VITALS: BP 123/79
[2022-06-29] MEDS ORDERED: KETOROLAC 15 MG/ML VIAL IVP STA (16:15)
[2022-06-29] MEDS ORDERED: HYDROmorphone 1 MG/ML CARPUJECT IVP STA (16:15)
--- NOTE | 2022-06-29 16:34 | ED Physician Documentation ---
PD HPI BACK PAIN - Stated complaint Stated Complaint: BACK PX/POSS INJ - Chief complaint Chief Complaint: Back Pain - History obtained from History obtained from: Patient - Additional information Additional information: 61-year-old woman with recent diagnosis of metastatic breast cancer to bone with extensive bony metastases of the spine and ribs. 2 days ago she was getting in or out of the car and twisted and now has severe right low back pain with spasms that is unresponsive to her current pain regimen which includes oxycodone 20 mg up to 2 at a time. She denies neurologic symptoms such as weakness, numbness, tingling, saddle anesthesia, or fevers. No incontinence but she does note foul urinary smell. Review of Systems Ten Systems: 10 systems reviewed and negative PD PAST MEDICAL HISTORY - Past Medical History Cardiovascular: Hypertension, Atrial fibrillation Respiratory: None Neuro: Migraines Endocrine/Autoimmune: None GI: None MASTER LAY OUT SPECIALIST: Breast cancer : None HEENT: None Psych: Panic attacks Musculoskeletal: None Derm: None - Past Surgical History Past Surgical History: Yes /MASTER LAY OUT SPECIALIST: Other - Present Medications Home Medications: Ambulatory Orders Medication Instructions Recorded Confirmed traZODone [Desyrel] 75 mg PO QPM 06/26/14 06/16/22 Vitamin B Complex Vit C No.4 1 tab PO DAILY 07/10/14 06/16/22 [Super B Complex] [place]-3 Fatty Acids/Fish Oil 1 cap ORAL DAILY 08/28/14 06/16/22 [[place] 3 1,000 mg Softgel] SUMAtriptan succinate [Sumatriptan 100 mg PO DAILY PRN 05/15/16 06/16/22 Succinate] Acetaminophen [Tylenol] 650 mg PO Q4HR PRN #0 tablet 05/17/16 06/16/22 Vitamin [Trinatal Rx 1] 1 tab PO DAILYWM tablet 05/17/16 06/16/22 buPROPion [Wellbutrin Xl] 300 mg PO DAILY tablet 05/17/16 06/16/22 Meloxicam 15 mg PO DAILY 08/04/16 06/16/22 Exemestane 25 mg PO DAILY 90 Days #90 tablet 04/22/18 06/16/22 Letrozole 2.5 mg PO DAILY #30 tablet 12/06/18 06/16/22 LORazepam [Ativan] 1 mg PO TID PRN #6 tablet 11/29/21 06/16/22 Omeprazole 40 mg PO DAILY #30 cap 11/29/21 06/16/22 Ergocalciferol (Vitamin D2) 1,250 mcg PO DAILY #30 cap 12/17/21 06/16/22 [Drisdol] Levalbuterol [Xopenex] 2 puffs INH Q4-6H #15 gm 12/17/21 06/16/22 Potassium Chloride [K-Dur] 20 meq PO BIDWM #30 tablet 12/17/21 06/16/22 Thiamine [Vitamin B-1] 100 mg PO DAILY #100 tablet 12/17/21 06/16/22 Vancomycin [Vancocin] 125 mg PO QID #28 cap 12/17/21 06/16/22 Zinc Sulfate 220 mg PO QDLUNCH 12/17/21 06/16/22 ONDANSETRON ODT Prepack 2 [ZOFRAN 1 tab PO 06/19/22 ODT] Morphine Sulfate [Ms Contin] 15 mg PO BID 15 Days #30 tab 06/26/22 dexAMETHasone [Decadron] 8 mg PO UD 14 Days #17 tablet 06/26/22 oxyCODONE [Roxicodone] 5 mg PO UD #60 tablet 06/26/22 oxyCODONE [Roxicodone] 15 - 20 mg PO Q3HR PRN 06/26/22 06/26/22 Gabapentin [Neurontin] 300 mg PO TID #60 cap 06/29/22 HYDROmorphone [Dilaudid] 1 - 2 tab PO Q4H PRN #30 tablet 06/29/22 Morphine Sulfate ER [Ms Contin] 30 mg PO BID #60 tab 06/29/22 Naloxone HCl Nasal [Narcan Nasal] 4 mg NS ONCE PRN #2 kit 06/29/22 Nitrofurantoin [Macrobid] 1 cap PO BID #10 cap 06/29/22 - Allergies Allergies/Adverse Reactions: Allergies Allergy/AdvReac Type Severity Reaction Status Date / Time diphenhydramine HCl * AdvReac Mild Hyperactive Verified 06/29/22 14:25 [From Benadryl] milk AdvReac Mild Unknown Verified 06/29/22 14:25 - Social History Does the pt smoke?: No Smoking Status: Never smoker Does the pt drink ETOH?: Yes Does the pt have substance abuse?: No - Immunizations Immunizations are current?: Yes - POLST Patient has POLST: No POLST Status: Full Code PD ED PE NORMAL - Vitals Vital signs reviewed: Yes - General General: Alert and oriented X 3, Other (She appears uncomfortable and it is difficult for her to move due to pain.) - HEENT HEENT: PERRL, EOMI - Neck Neck: Supple, no meningeal sign, No bony TTP - Cardiac Cardiac: RRR, No murmur - Respiratory Respiratory: No respiratory distress, Clear bilaterally - Abdomen Abdomen: Normal bowel sounds, Soft, Non tender - Back Back: Other (I am unable to elicit any spinal tenderness, she does have some pain with lateral compression of the pelvis.) - Extremities Extremities: Other (The patient has equal and normal Achilles and patellar reflexes bilaterally. Normal sensation in all areas of the legs. Patient denies saddle anesthesia. Normal strength in flexion-extension at the ankles, knees, and flexion of the hips.) - Neuro Neuro: Alert and oriented X 3, Normal speech Results - Vitals Vitals: Vital Signs - 24 hr 06/29/22 14:21 Temperature 36.4 C L Heart Rate 88 Respiratory 20 Rate Blood Pressure 123/79 O2 Saturation 97 Oxygen O2 Source [Without Activity] Room air O2 Source Room air - Labs Labs: Laboratory Tests 06/29/22 17:28 Urine Color YELLOW Urine Clarity HAZY Urine pH 6.0 Ur Specific [place] 1.010 Urine Protein NEGATIVE Urine Glucose (UA) NEGATIVE Urine Ketones NEGATIVE Urine Occult Blood NEGATIVE Urine Nitrite POSITIVE H Urine Bilirubin NEGATIVE Urine Urobilinogen 0.2 (NORMAL) Ur Leukocyte Esterase LARGE H Urine RBC 0-5 Urine WBC >25 H Ur Squamous Epith Cells FEW Squamous Urine Bacteria Many H Ur Microscopic Review INDICATED Urine Culture Comments INDICATED PD MEDICAL DECISION MAKING - ED course ED course: 61-year-old woman with known widely metastatic cancer presents with worsening back pain after a twisting motion 2 days ago. She is found to have a worsening of an L2 compression fracture on imaging, but no evidence of spinal cord and imaging injury. I did discuss the case by phone with the oncologic PA and we agreed that I would double her MS Contin to 30 mg twice a day and add gabapentin. Patient also felt like Dilaudid was more effective for her than oxycodone and I am adding a Narcan prescription and she is also found to have an incidental urinary tract infection treated with Macrobid. She was much better as far as her pain and appreciative of the pain management we provided here in the emergency department. She has an appointment with radiation oncology later this week. Departure - Departure Disposition: 01 Home, Self Care Clinical Impression: Cystitis Metastatic disease Qualifiers: Area of secondary neoplastic involvement: unspecified site Qualified Code(s): C79.9 - Secondary malignant neoplasm of unspecified site Compression fracture of L2 Qualifiers: Encounter type: initial encounter Qualified Code(s): S32.020A - Wedge compression fracture of second lumbar vertebra, initial encounter for closed fracture Condition: Good Record reviewed to determine appropriate education?: Yes Instructions: ED Fx Comp Vertebral Prescriptions: HYDROmorphone [Dilaudid] 1 - 2 tab PO Q4H PRN #30 tablet PRN Reason: Pain Nitrofurantoin [Macrobid] 1 cap PO BID #10 cap Morphine Sulfate ER [Ms Contin] 30 mg PO BID #60 tab Naloxone HCl Nasal [Narcan Nasal] 4 mg NS ONCE PRN #2 kit PRN Reason: narcotic overdose Gabapentin [Neurontin] 300 mg PO TID #60 cap Comments: I sent your prescriptions electronically to the [facility] pharmacy here in [facility]. As discussed, it seems that your pain today is likely related to the pathologic L2 compression fracture. It is good that you are following up with radiation oncology on . I am adding to your pain medication regimen Dilaudid for breakthrough pain, and we are doubling your MS Contin. I am also adding gabapentin. And just in case since you are at risk for overdose a Narcan prescription. I am prescribing a short course of narcotic pain medication for you. These are potentially dangerous and addictive medications that should be used carefully. These medications may constipate you. Take an eenf-[id number] stool softener (docusate) twice daily with plenty of water while taking these medications. If you go 24 hours without a bowel movement, take [id number] miralax, per package instructions. Do not drink or drive while taking these medications. If you received narcotic or sedating medications while in the emergency department, do not drive for 24 hours. Store this medication in a safe, secure place and out of reach of children. It is a violation of federal law to give or sell this medication to another person or to use in a manner other than prescribed. The ED will not refill narcotic prescriptions, including prescriptions lost or stolen. To dispose of unwanted medications: 1. [facility] at [address] in [place] has a medication drop box. They accept prescription medications (in pill form) Wednesday through Wednesday 9:00 a.m. to 5:00 p.m. 2. The [facility] [employer] accepts prescription medications (in pill form only) for disposal year round. Call for more inf ormation. 3. Contact the [facility] for the next [facility] sponsored prescription drug collection event. , [phone], or [phone]; Note that many narcotic pain relievers also contain Tylenol/acetaminophen. Please ensure that your total dose of acetaminophen from all sources does not exceed 3 g (3000 mg) per day. We will culture your urine, the results should be done in 48-72 hours. If an antibiotic change is necessary we will call you. Return if worse in the meantime, especially if you develop increasing flank pain, fevers, or cannot keep down the medication.
--- NOTE | 2022-06-29 17:16 | CT Report ---
PROCEDURE: CHEST WO INDICATIONS: rib pain TECHNIQUE: Noncontrast 1mm axial images were acquired from the pulmonary apices to the posterior costophrenic an gles. Axial 5 mm soft tissue kernel reconstructions were performed as well as 8 mm axial MIP and cor onal and sagittal 5 mm reformations. For radiation dose reduction, the following was used: automate d exposure control, adjustment of mA and/or kV according to patient size. COMPARISON: 11/29/2021 FINDINGS: Image quality: Excellent Lungs and pleura: No effusions. No consolidation. Scattered scarring and atelectasis. No pneumothorax . Mediastinum, heart, and esophagus: Moderately sized hiatal hernia with wall thickening. No pathologic adenopathy by size criteria. Heart size is overall normal. Chest wall and thyroid: Left axillary clips left chest wall surgical clips. Thyroid is unremarkable. Upper abdomen: Suspected regional steatosis pancreatic calcifications and ductal dilation, as before, not well evaluated on this study. Bones: Deformity of the right anterior second rib is stable. There is a permeative lesion that is mor e obvious than prior imaging of the right 11th rib. Compared to November, there is new superior endplate d eformity of the T9 vertebral body. Suspected are medial lesion lower sternum is more obvious than chastity or imaging. Permeative lesion with height loss of the L2 vertebral body is also present. IMPRESSION: Lytic permeative osseous lesions in the ribs, sternum, and spine suspicious for metastases. Suspected L2 pathologic fracture. Consider full oncologic workup with bone scan and CT chest abdomen pelvis wi th contrast versus PET/CT as an outpatient. Other findings as above. This is a limited noncontrast CT. Reviewed by: Bc Warren MD on 06/29/2022 5:14 PM PST Approved by: Bc Warren MD on 06/29/2022 5:14 PM PST Station ID: [id number]
--- NOTE | 2022-06-29 17:19 | CT Report ---
PROCEDURE: LUMBAR SPINE WO INDICATIONS: NEW PAIN, METASTATIC CA TECHNIQUE: Noncontrast 3 mm thick sections acquired from the T12 level to the sacrum. Sagittal and coronal refo rmats were constructed. For radiation dose reduction, the following was used: automated exposure co ntrol, adjustment of mA and/or kV according to patient size. COMPARISON: MR 06/11/2022 FINDINGS: Image quality: Excellent Bones: Further pathologic compression height loss of the L2 vertebral body with lytic appearance. Par tially seen right 11th rib lytic lesion. Trace anterolisthesis of L4 on L5. Soft tissues: Not well evaluated, partially seen pancreatic calcifications and tiny renal calculi in the right. IMPRESSION: Permeative lytic L2 vertebral body lesion with progressive height loss over multiple studies. Conside r complete oncologic imaging with CT chest abdomen pelvis with contrast and bone scan versus PET/CT. Partially seen permeative lesion of the right 11th rib. Reviewed by: cB Warren MD on 06/29/2022 5:17 PM PST Approved by: Bc Warren MD on 06/29/2022 5:17 PM PST Station ID: [id number]
--- NOTE | 2022-06-29 17:22 | CT Report ---
PROCEDURE: PELVIS WO INDICATIONS: NEW PAIN, METASTATIC CA TECHNIQUE: Noncontrast 3 mm axial sections acquired through the bony pelvis, with coronal and sagittal reformatt ing. For radiation dose reduction, the following was used: automated exposure control, adjustment of mA and/or kV according to patient size. COMPARISON: None. FINDINGS: Image quality: Excellent. Bones: Lucent lesion in the right iliac bone. Lumbar spine findings are separately dictated. Soft tissues: Ventral wall postsurgical changes. Intrapelvic structures are not well evaluated on th is noncontrast imaging. IMPRESSION: Multiple bone metastases in combination with same-day CT chest and lumbar spine. Consider complete on cologic imaging with CT chest abdomen pelvis with contrast and bone scan versus PET/CT. Reviewed by: Bc Warren MD on 06/29/2022 5:21 PM PST Approved by: Bc Warren MD on 06/29/2022 5:21 PM PST Station ID: [id number]
[2022-06-29 17:50] LABS: BILIRUBIN,URINE NEGATIVE (NEGATIVE); GLUCOSE, URINE (UA) NEGATIVE (NEGATIVE); KETONES,URINE (UA) NEGATIVE (NEGATIVE); LEUKOCYTE ESTERASE, URINE LARGE (NEGATIVE); NITRITE,URINE POSITIVE (NEGATIVE); OCCULT BLOOD,URINE NEGATIVE (NEGATIVE); PROTEIN,URINE NEGATIVE (NEGATIVE); UROBILINOGEN,URINE 0.2 (NORMAL) E.U./dL (NORMAL)
[2022-06-29 17:56] LABS: CLARITY,URINE HAZY (CLEAR)
[2022-06-29 17:57] LABS: BACTERIA,URINE Many /HPF (None Seen); RBC,URINE 0-5 /HPF (0-5); SQUAMOUS EPITHELIAL CELL,UR FEW Squamous (<= Few); WBC,URINE >25 /HPF (0-5)
[2022-06-29] MEDS ORDERED: NITROFURANTOIN MACRO 100 MG CAPSULE PO STA (18:06)
[2022-06-29] MEDS ORDERED: HYDROmorphone 2 MG/ML VIAL IVP STA (18:06)
[2022-06-29] MEDS ORDERED: GABAPENTIN 100 MG CAPSULE PO STA (18:06)
== END 2022-06-29 19:16 | disposition home or self-care (01) ==
LOC: ED 14:06
DX: C79.51 Secondary malignant neoplasm of bone (principal); N30.90 Cystitis, unspecified without hematuria; M48.56XA Collapsed vertebra, not elsewhere classified, lumbar region, initial encounter for fracture
CPT/HCPCS: 71250; 72131; 72192; 81001; 87086; 87181; 96374; 96375; 99284; 99285; A9270; J1170; 81003

== ENCOUNTER 2022-07-22 08:51 | Outpatient (CLI) | payer OTHER ==
[2022-07-21 11:54] LABS: BASOPHILS % (AUTO) 0.1 %; HCT - HEMATOCRIT 41.2 % (37.0-47.0); HGB - HEMOGLOBIN 12.9 g/dL (12.0-16.0); LYMPHOCYTES # (AUTO) 0.4 10^3/uL (1.5-3.5); LYMPHOCYTES % (AUTO) 4.9 %; MEAN CORPUSCULAR HEMOGLOBIN 27.9 pg (27.0-31.0); MEAN CORPUSCULAR HGB CONC 31.3 g/dL (32.0-36.0); MEAN CORPUSCULAR VOLUME 89.2 fL (81.0-99.0); MEAN PLATELET VOLUME 9.7 fL (7.9-10.8); MONOCYTES # (AUTO) 0.4 10^3/uL (0.0-1.0); MONOCYTES % (AUTO) 4.5 %; NEUTROPHILS % (AUTO) 89.5 %; PLT - PLATELET COUNT 374 10^3/uL (130-450); RED BLOOD COUNT 4.62 10^6/uL (4.20-5.40); RED CELL DISTRIBUTION WIDTH 15.9 % (12.0-15.0); WHITE BLOOD COUNT 7.8 x10^3/uL (4.8-10.8)
[2022-07-21 11:58] LABS: INR 1.3 (0.8-1.2); PT - PROTHROMBIN TIME 14.4 secs (9.9-12.6)
[2022-07-22] MEDS ORDERED: LACTATED RINGERS 1,000 ML IV ONE (09:22)
[2022-07-22] MEDS ORDERED: LIDOCAINE-MPF 1% 5 ML VIAL ONE (10:21)
[2022-07-22] MEDS ORDERED: LACTATED RINGERS 500 ML IV ONE (13:20)
--- NOTE | 2022-07-22 15:00 | Ultrasound Report ---
PROCEDURE: Ultrasound-guided liver biopsy with sedation analgesia: Time see nursing record INDICATIONS: LIVER METS TECHNIQUE: The indications, alternatives, benefits, risks, and complications of the procedure were e xplained to the patient. Written informed consent was obtained and placed in the chart. Continuous EKG and hemodynamic monitoring was started by trained personnel. Real-time sonography was utilized to choose the site for percutaneous hepatic biopsy. The skin was p repped and draped in the usual sterile fashion. 1% lidocaine was infiltrated down to the hepatic cap opal. A coaxial needle was then advanced into the liver under direct sonographic visualization. A b [employer] apparatus was then utilized, and core biopsies were obtained. The needle was then withdrawn; a bandage and overlying weight were applied to the biopsy site. COMPARISON: Outside PET/CT from June 2022 FINDINGS: Biopsy site(s): Left lobe liver lesion Needle: [employer] biopsy needle set. Number of passes: 4 Medications: 1% lidocaine for local anaesthesia. IV Versed and Fentanyl for conscious sedation Complications: None. IMPRESSION: Successful ultrasound-guided liver biopsy, with pathology results pending. Reviewed by: Bc Warren MD on 07/22/2022 2:58 PM PST Approved by: Bc Warren MD on 07/22/2022 2:58 PM PST Station ID: [id number]
[2022-07-22 16:59] VITALS: BP 117/89
== END 2022-07-22 08:52 | disposition home or self-care (01) ==
LOC: DI 08:51
PROVIDERS: ATTEND Internal Medicine Hematology & Oncology
DX: C50.412 Malignant neoplasm of upper-outer quadrant of left female breast (principal); C78.7 Secondary malignant neoplasm of liver and intrahepatic bile duct; Z17.0 Estrogen receptor positive status [ER+]
CPT/HCPCS: 36415; 47000; 85025; 85610; J7120